=== PATIENT | female | born 1970 | race African-American/Black ===

== ENCOUNTER → 2017-01-10 | Outpatient (CLI) | payer MEDICARE, OTHER ==
--- NOTE | 2017-01-10 10:45 | XR ---
EXAM TYPE: LUMBAR SPINE X RAY SERIES COMPARISON: 09/12/2016 HISTORY: Postop TECHNIQUE: 3 views are submitted. FINDINGS: Postsurgical changes are noted. Alignment is stable. No compression deformities. Remaining levels dem onstrate pedicles intact. Grade 1 anterolisthesis L4 on L5 noted IMPRESSION: 1. Stable postsurgical alignment.
== END | disposition home or self-care (01) ==
LOC: RADXRMAIN 10:16
PROVIDERS: ATTEND Neurological Surgery
DX: M54.5 Low back pain (principal); Z98.1 Arthrodesis status
CPT/HCPCS: 72100

== ENCOUNTER 2020-09-08 12:54 | Day surgery (SDC) | payer MEDICARE ==
[2020-09-08] MEDS ORDERED: ALPRAZolam 0.5 MG TAB PO STA (13:16)
[2020-09-08 14:37] VITALS: RESP 18; TEMP 98.3
[2020-09-08 14:45] VITALS: BP 146/84; PULSE 80
--- NOTE | 2020-09-08 15:43 | US ---
EXAMINATION TYPE: US FNA thyroid first lesion DATE OF EXAM: 09/08/2020 COMPARISON: Outside ultrasound 08/17/2020 HISTORY: Thyroid nodule. Maximal barrier technique was utilized. After informed consent, skin overlying the nodule superior t o the thyroid isthmus was localized with ultrasound and the overlying skin prepped and draped. Ultras ound was utilized using sterile technique. Lidocaine was used for local anesthesia. Five passes with a 25-gauge needle were made into the nodule and aspirated specimen was submitted to cytology. Follo wing the procedure hemostasis achieved. No immediate complication. The patient discharged in stable condition. IMPRESSION: STATUS POST ULTRASOUND GUIDED FINE NEEDLE ASPIRATION OF DESCRIBED NODULE, PATHOLOGY IS PE NDING. THIS PROCEDURE WAS PERFORMED BY THE UNDERSIGNED.
== END 2020-09-08 14:20 | disposition home or self-care (01) ==
LOC: RADPROMAIN 12:54
PROVIDERS: ATTEND Physician Assistant
DX: E04.1 Nontoxic single thyroid nodule (principal)
CPT/HCPCS: 10005; 88173; 88305

== ENCOUNTER → 2023-06-03 | Outpatient (CLI) | payer MEDICARE, OTHER ==
[2023-06-03 13:55] VITALS: BP 130/89; PULSE 93; TEMP 98.4; BMI 51.5
--- NOTE | 2023-06-07 10:16 | P.HPBAR ---
Bariatric H&P - History & Physicial H&P Date: 06/03/23 History & Physicial: Visit/CC: lap band follow up Patient initial contact: Initial weight: Initial weight in pounds: Height: 5 ft Initial BMI: Last weight: Current weight: 119.748 kg Current weight in pounds: 264.00 Current BMI: 51.5 [place] body weight (based on NIH guidelines): 45.359 kg Excess body weight loss: The patient is a 52 year-old F who presents for Bariatric Assessment. Patient presents today for better follow-up. Patient requesting have her LAP-BAND converted to sleeve gastric. She's had trouble with chronic dysphagia and GERD symptoms. Past Medical History Past Medical History: Asthma, Chest Pain / Angina, COPD, Diabetes Mellitus, GERD/Reflux, Hypertension, Osteoarthritis (OA), Pneumonia, Sleep Apnea/CPAP/BIPAP Additional Past Medical History / Comment(s): DDD, borderline diabetic, no CPAP machine---awaiting sleep study History of Any Multi-Drug Resistant Organisms: None Reported Year Discovered:: 06/22/2014 MDRO Source:: Breast Past Surgical History: Back Surgery, Bariatric Surgery, Section, Cholecystectomy, Joint Replacement, Tubal Ligation Additional Past Surgical History / Comment(s): bilateral knee replacement, lap band procedure, RT WRIST GANGLION CYCT REMOVED, lumbar fusion surgery Past Anesthesia/Blood Transfusion Reactions: No Reported Reaction Past Psychological History: Anxiety, Bipolar, Depression Smoking Status: Current every day smoker Past Alcohol Use History: None Reported Additional Past Alcohol Use History / Comment(s): smoker for 35 years 6 cigarettes mper day Past Drug Use History: None Reported - Past Family History Mother Family Medical History: Hypertension Surgical - Exam Vital Signs Temp Pulse BP 98.4 F 93 130/89 06/03/23 13:22 06/03/23 13:22 06/03/23 13:22 - General well developed, well nourished, no distress - Eyes PERRL - Abdomen Abdomen: soft, non tender Bariatric Assessment & Plan Plan: Chronic dysphagia and GERD related to LAP-BAND. Patient unable have her Danuta adjusted. Patient will attempt have insurance authorization for conversion sleeve gastrectomy. She will also be scheduled for EGD. Bariatric Checklist Checklist: Plan: Checklist: EGD: 1. Hiatal hernia: 2. H. Pylori: HgbA1c: Vitamin D: Smoking: Current every day smoker Primary care physician referral: Psychiatry clearance: Cardiology clearance: Sleep study: Diet journal: VTE risk score: VTE risk level: Rehab needs at discharge:
== END ==
LOC: BARWHC3 13:01
PROVIDERS: ATTEND Surgery
DX: E66.01 Morbid (severe) obesity due to excess calories (principal); K21.9 Gastro-esophageal reflux disease without esophagitis; F17.200 Nicotine dependence, unspecified, uncomplicated; Z68.43 Body mass index [BMI] 50.0-59.9, adult; J44.9 Chronic obstructive pulmonary disease, unspecified; E11.9 Type 2 diabetes mellitus without complications; I10 Essential (primary) hypertension; M19.90 Unspecified osteoarthritis, unspecified site; Z98.84 Bariatric surgery status; R13.10 Dysphagia, unspecified
CPT/HCPCS: 99202

== ENCOUNTER 2023-06-20 06:29 | Day surgery (SDC) | payer OTHER ==
[2023-06-13 12:22] VITALS: BMI 51.7
[2023-06-20] MEDS ORDERED: LACTATED RINGERS 1,000 ML IV ONE (06:50)
[2023-06-20 06:53] VITALS: RESP 18; TEMP 96.9
[2023-06-20 07:05] LABS: Glucose,Whole Blood 103 mg/dL (70-110)
[2023-06-20] MEDS ORDERED: LIDOCAINE 2% INJ 20 MG/ML (2 ML VIAL) ONE (07:32)
[2023-06-20] MEDS ORDERED: PROPOFOL 10 MG/ML 20 ML VIAL IV ONE (07:32)
--- NOTE | 2023-06-20 07:45 | P.GSHP ---
History of Present Illness H&P Date: 06/20/23 Chief Complaint: GERD, dysphagia, screening colonoscopy This a 52-year-old female who presents today for EGD and screening colonoscopy. Patient issues with GERD and dysphagia related to her LAP-BAND. Past Medical History Past Medical History: Asthma, Chest Pain / Angina, COPD, Diabetes Mellitus, GERD/Reflux, Hypertension, Osteoarthritis (OA), Pneumonia, Sleep Apnea/CPAP/BIPAP Additional Past Medical History / Comment(s): DDD, borderline diabetic, no CPAP machine---awaiting new sleep study, environmental allergies., has lap band. History of Any Multi-Drug Resistant Organisms: MRSA Date of last positivie culture/infection: 2020 MDRO Source:: breast Past Surgical History: Back Surgery, Bariatric Surgery, Section, Cholecystectomy, Joint Replacement, Tubal Ligation Additional Past Surgical History / Comment(s): bilateral knee replacement, lap band , RT WRIST GANGLION CYCT REMOVED, lumbar fusion surgery Past Anesthesia/Blood Transfusion Reactions: No Reported Reaction Past Psychological History: Anxiety, Bipolar, Depression Smoking Status: Current every day smoker Past Alcohol Use History: Occasional Additional Past Alcohol Use History / Comment(s): smokes 2-3 cigarettes/day, hx of 1/2 ppd, started smoking age 14. Past Drug Use History: None Reported - Past Family History Mother Family Medical History: Hypertension Medications and Allergies Home Medications Medication Instructions Recorded Confirmed Type Gabapentin [Neurontin] 600 mg PO DAILY 04/14/14 06/20/23 History Budesonide-Formot 160-4.5 Mcg 2 puff INHALATION DIRECTED PRN 09/28/19 06/20/23 History [Symbicort 160-4.5 Mcg Inhaler] QUEtiapine [SEROquel] 200 mg PO HS 09/28/19 06/20/23 History Fluticasone Propion/Salmeterol 2 puff INHALATION DAILY 06/05/23 06/20/23 History [Advair Hfa 115-21 Mcg Inhaler] Lisinopril-Hctz 20-25 mg 1 tab PO DAILY 06/05/23 06/20/23 History [Zestoretic 20-25] amLODIPine [Norvasc] 5 mg PO DAILY 06/05/23 06/20/23 History Ibuprofen [Motrin Ib] 800 mg PO DIRECTED PRN 06/13/23 06/20/23 History DULoxetine HCL [Cymbalta] 60 mg PO DAILY 06/20/23 06/20/23 History Allergies Allergy/AdvReac Type Severity Reaction Status Date / Time No Known Allergies Allergy Verified 06/20/23 06:46 Surgical - Exam Vital Signs Temp Pulse Resp BP Pulse Ox 96.9 F L 89 18 138/82 96 06/20/23 06:47 06/20/23 06:47 06/20/23 06:47 06/20/23 06:47 06/20/23 06:47 - General well developed, well nourished, no distress - Eyes PERRL - ENT normal pinna - Neck no masses - Respiratory normal expansion - Cardiovascular Rhythm: regular - Abdomen Abdomen: soft, non tender Assessment and Plan Assessment: GERD, dysphagia. We'll perform EGD and screening colonoscopy.
--- NOTE | 2023-06-20 07:56 | P.OP ---
Date of Procedure: 06/20/23 Preoperative Diagnosis: GERD, dysphagia Screening colonoscopy Postoperative Diagnosis: Antral gastritis Procedure(s) Performed: EGD Colonoscopy Anesthesia: MAC Surgeon: Felipe Alberto Pathology: other (Antrum) Condition: stable Disposition: PACU Description of Procedure: The patient's placed on the endoscopy table in the lateral position. She received IV sedation. The gastroscope placed oropharynx passed in the esophagus and stomach. Scope was then placed through the pylorus. The first and second portion of the duodenum appeared normal. Scope was then brought back the antrum was minimal inflamed. A biopsies performed. The scope was retroflexed and remainder the stomach appeared normal. The proximal esophagus normal. Scope withdrawn for patient. Next digital rectal exam was performed., This revealed no abnormalities. The colonoscope was then placed patient anus and passed throughout the entire colon. Patient had a poor colon prep. The large amount liquid stool which limited view of the mucosa. The ileocecal valve was visualized. The cecum, ascending and transverse colon appeared normal. The descending and sigmoid colon appeared normal. The scope was then brought back the rectum this normal. Scope withdrawn for patient.
[2023-06-20 08:23] VITALS: BP 103/72; PULSE 78
== END 2023-06-20 08:45 | disposition home or self-care (01) ==
LOC: ORWHC2ENDO 06:29
PROVIDERS: ATTEND Surgery
DX: Z12.11 Encounter for screening for malignant neoplasm of colon (principal); K29.50 Unspecified chronic gastritis without bleeding; K21.9 Gastro-esophageal reflux disease without esophagitis; J44.9 Chronic obstructive pulmonary disease, unspecified; E11.9 Type 2 diabetes mellitus without complications; I10 Essential (primary) hypertension; M19.90 Unspecified osteoarthritis, unspecified site; G47.30 Sleep apnea, unspecified; Z98.891 History of uterine scar from previous surgery; Z90.49 Acquired absence of other specified parts of digestive tract; Z96.653 Presence of artificial knee joint, bilateral; F17.210 Nicotine dependence, cigarettes, uncomplicated; Z86.59 Personal history of other mental and behavioral disorders; Z82.49 Family history of ischemic heart disease and other diseases of the circulatory system; Z79.899 Other long term (current) drug therapy
CPT/HCPCS: 45378; 88305; 43239; J2704; J2001

== ENCOUNTER → 2023-07-29 | Outpatient (CLI) | payer OTHER ==
[2023-07-29 13:41] VITALS: BP 136/86; PULSE 101; TEMP 98.1; BMI 50.3
--- NOTE | 2023-08-14 09:10 | P.HPBAR ---
Bariatric H&P - History & Physicial H&P Date: 07/29/23 History & Physicial: Visit/CC: discuss conversion to sleeve Patient initial contact: Initial weight: Initial weight in pounds: Height: 5 ft Initial BMI: Last weight: Current weight: 117.027 kg Current weight in pounds: 258.00 Current BMI: 50.3 [place] body weight (based on NIH guidelines): 45.359 kg Excess body weight loss: The patient is a 52 year-old F who presents for Bariatric Assessment. Patient presents today for Garcia follow-up. She's had trouble with dysphagia. She cannot have her band adjusted due to issues with dysphagia. She is requesting conversion sleeve gastrectomy. Past Medical History Past Medical History: Asthma, Chest Pain / Angina, COPD, Diabetes Mellitus, GERD/Reflux, Hypertension, Osteoarthritis (OA), Pneumonia, Sleep Apnea/CPAP/BIPAP Additional Past Medical History / Comment(s): DDD, borderline diabetic, no CPAP machine---awaiting new sleep study, environmental allergies., has lap band. History of Any Multi-Drug Resistant Organisms: MRSA Year Discovered:: 2020 MDRO Source:: breast Past Surgical History: Back Surgery, Bariatric Surgery, Section, Cholecystectomy, Joint Replacement, Tubal Ligation Additional Past Surgical History / Comment(s): bilateral knee replacement, lap band , RT WRIST GANGLION CYCT REMOVED, lumbar fusion surgery Past Anesthesia/Blood Transfusion Reactions: No Reported Reaction Past Psychological History: Anxiety, Bipolar, Depression Smoking Status: Current every day smoker Past Alcohol Use History: Occasional Additional Past Alcohol Use History / Comment(s): smokes 2-3 cigarettes/day, hx of 1/2 ppd, started smoking age 14. Past Drug Use History: None Reported - Past Family History Mother Family Medical History: Hypertension Surgical - Exam Vital Signs Temp Pulse BP 98.1 F 101 H 136/86 07/29/23 13:36 07/29/23 13:36 07/29/23 13:36 - General well developed, well nourished, no distress - Eyes PERRL - ENT normal pinna - Neck no masses - Respiratory normal expansion - Cardiovascular Rhythm: regular - Abdomen Abdomen: soft, non tender Bariatric Assessment & Plan Plan: Dysphagia and GERD related to her LAP-BAND. Patient will need to have her LAP- BAND removed. We will attempt to obtain insurance authorization for conversion sleeve gastrectomy. Bariatric Checklist Checklist: Plan: Checklist: EGD: 1. Hiatal hernia: 2. H. Pylori: HgbA1c: Vitamin D: Smoking: Current every day smoker Primary care physician referral: Psychiatry clearance: Cardiology clearance: Sleep study: Diet journal: VTE risk score: VTE risk level: Rehab needs at discharge:
== END ==
LOC: BARWHC3 13:19
PROVIDERS: ATTEND Surgery
DX: K21.9 Gastro-esophageal reflux disease without esophagitis (principal); R13.10 Dysphagia, unspecified; F17.210 Nicotine dependence, cigarettes, uncomplicated; J44.9 Chronic obstructive pulmonary disease, unspecified; E11.9 Type 2 diabetes mellitus without complications; I10 Essential (primary) hypertension; M19.90 Unspecified osteoarthritis, unspecified site; G47.30 Sleep apnea, unspecified; Z98.84 Bariatric surgery status; Z79.899 Other long term (current) drug therapy; Z79.51 Long term (current) use of inhaled steroids
CPT/HCPCS: 99211

== ENCOUNTER → 2024-01-20 | Outpatient (CLI) | payer OTHER ==
[2024-01-20 11:46] VITALS: BP 129/76; PULSE 88; TEMP 98.4; BMI 50.6
--- NOTE | 2024-01-20 14:29 | P.HPBAR ---
Bariatric H&P - History & Physicial H&P Date: 01/20/24 History & Physicial: Visit/CC: F/U Patient initial contact: Initial weight: Initial weight in pounds: Height: 5 ft Initial BMI: Last weight: Current weight: 117.662 kg Current weight in pounds: 259.40 Current BMI: 50.6 [place] body weight (based on NIH guidelines): 45.359 kg Excess body weight loss: The patient is a 53 year-old F who presents for Bariatric Assessment. Patient will stay for Garcia fall. She's requesting conversion sleeve gastrectomy. Patient has GERD and dysphagia symptoms with her LAP-BAND was adjusted. She is unable tolerate a LAP-BAND adjustment. Her current BMI is 51. Past Medical History Past Medical History: Asthma, Chest Pain / Angina, COPD, Diabetes Mellitus, GERD/Reflux, Hypertension, Osteoarthritis (OA), Pneumonia, Sleep Apnea/CPAP/BIPAP Additional Past Medical History / Comment(s): DDD, borderline diabetic, no CPAP machine---awaiting new sleep study, environmental allergies., has lap band. History of Any Multi-Drug Resistant Organisms: MRSA Year Discovered:: 2020 MDRO Source:: breast Past Surgical History: Back Surgery, Bariatric Surgery, Section, Cholecystectomy, Joint Replacement, Tubal Ligation Additional Past Surgical History / Comment(s): bilateral knee replacement, lap band , RT WRIST GANGLION CYCT REMOVED, lumbar fusion surgery Past Anesthesia/Blood Transfusion Reactions: No Reported Reaction Past Psychological History: Anxiety, Bipolar, Depression Smoking Status: Current every day smoker Past Alcohol Use History: Occasional Additional Past Alcohol Use History / Comment(s): smokes 2-3 cigarettes/day, hx of 1/2 ppd, started smoking age 14. Past Drug Use History: None Reported - Past Family History Mother Family Medical History: Hypertension Surgical - Exam Vital Signs Temp Pulse BP 98.4 F 88 129/76 01/20/24 11:39 01/20/24 11:39 01/20/24 11:39 - General well developed, well nourished, no distress - Eyes PERRL - ENT normal pinna - Neck no masses - Respiratory normal expansion - Cardiovascular Rhythm: regular - Abdomen Abdomen: soft, non tender Bariatric Assessment & Plan Plan: Morbid obesity. Patient is unable to have her Danuta adjusted due to chronic issues with GERD and dysphagia.. We will attempt to obtain insurance authorization for conversion sleeve gastrectomy. Bariatric Checklist Checklist: Plan: Checklist: EGD: 1. Hiatal hernia: 2. H. Pylori: HgbA1c: Vitamin D: Smoking: Current every day smoker Primary care physician referral: Psychiatry clearance: Cardiology clearance: Sleep study: Diet journal: VTE risk score: VTE risk level: Rehab needs at discharge:
[2024-01-20 18:47] LABS: HCT 43.4 % (37.2-46.3); HGB 13.4 g/dL (12.0-15.0); MCH 25.9 pg (27.0-32.0); MCHC 30.9 g/dL (32.0-37.0); MCV 83.9 FL (80.0-97.0); Mean Platelet Volume 11.1 FL (9.5-12.2); NRBC Per 100 WBC 0 X 10*3/uL (0.00-0.01); Platelet Count 229 X 10*3/uL (140-440); RBC 5.17 X 10*6/uL (4.10-5.20); RDW 15.2 % (11.5-14.5); WBC 5.45 X 10*3/uL (4.50-10.00)
[2024-01-20 19:21] LABS: ALT 17 U/L (8-44); AST 25 U/L (13-35); Albumin 3.6 g/dL (3.8-4.9); Albumin/Globulin Ratio 1.57 Ratio (1.60-3.17); Alkaline Phosphatase 50 U/L (41-126); Blood Urea Nitrogen 18.2 mg/dL (9.0-27.0); Calcium 8.5 mg/dL (8.7-10.3); Carbon Dioxide 28.8 mmol/L (21.6-31.8); Chloride 106 mmol/L (96-109); Globulin 2.3 g/dL (1.6-3.3); Glucose 99 mg/dL (70-110); Potassium 3.8 mmol/L (3.5-5.5); Sodium 144 mmol/L (135-145); Total Bilirubin 0.3 mg/dL (0.3-1.2); Total Protein 5.9 g/dL (6.2-8.2)
== END | disposition home or self-care (01) ==
LOC: BARWHC3 11:11
PROVIDERS: ATTEND Surgery
DX: E66.01 Morbid (severe) obesity due to excess calories (principal); K21.9 Gastro-esophageal reflux disease without esophagitis; R13.10 Dysphagia, unspecified; M51.36 Other intervertebral disc degeneration, lumbar region; F31.9 Bipolar disorder, unspecified; F17.210 Nicotine dependence, cigarettes, uncomplicated; Z98.84 Bariatric surgery status; Z90.49 Acquired absence of other specified parts of digestive tract; J44.89 Other specified chronic obstructive pulmonary disease; Z96.653 Presence of artificial knee joint, bilateral
CPT/HCPCS: 84425; 80053; 82607; 82746; 85027; 82306; 83036; 93005; 36415; G0463; 99211

== ENCOUNTER → 2024-02-24 | Outpatient (CLI) | payer MEDICARE, OTHER ==
[2024-02-24 14:50] VITALS: BMI 48.8
== END ==
LOC: BARWHC3 13:03
PROVIDERS: ATTEND Surgery
DX: E66.01 Morbid (severe) obesity due to excess calories (principal); Z71.3 Dietary counseling and surveillance; F17.200 Nicotine dependence, unspecified, uncomplicated
CPT/HCPCS: 97804; G0463; 99211

== ENCOUNTER → 2024-03-16 | Outpatient (CLI) | payer MEDICARE ==
[2024-03-16 10:33] VITALS: BP 134/76; PULSE 95; RESP 14; TEMP 98.3
--- NOTE | 2024-03-17 11:58 | P.HPBAR ---
Bariatric H&P - History & Physicial H&P Date: 03/16/24 History & Physicial: Visit/CC: presurgical Patient initial contact: Initial weight: Initial weight in pounds: Height: Initial BMI: Last weight: Current weight: 115.212 kg Current weight in pounds: 254.00 Current BMI: [place] body weight (based on NIH guidelines): Excess body weight loss: The patient is a 53 year-old F who presents for Bariatric Assessment.patient resents today for bariatric follow-up. the patient will be scheduled for LAP- BAND removal and gastric sleeve Week. She is gained 4 pounds her last visit. She has had issues with GERD with her LAP-BAND. Past Medical History Past Medical History: Asthma, Chest Pain / Angina, COPD, Diabetes Mellitus, GERD/Reflux, Hypertension, Osteoarthritis (OA), Pneumonia, Sleep Apnea/CPAP/BIPAP Additional Past Medical History / Comment(s): DDD, borderline diabetic, no CPAP machine---awaiting new sleep study, environmental allergies., has lap band. History of Any Multi-Drug Resistant Organisms: MRSA Year Discovered:: 2020 MDRO Source:: breast Past Surgical History: Back Surgery, Bariatric Surgery, Section, Cholecystectomy, Joint Replacement, Tubal Ligation Additional Past Surgical History / Comment(s): bilateral knee replacement, lap band , RT WRIST GANGLION CYCT REMOVED, lumbar fusion surgery Past Anesthesia/Blood Transfusion Reactions: No Reported Reaction Past Psychological History: Anxiety, Bipolar, Depression Smoking Status: Current every day smoker Past Alcohol Use History: Occasional Additional Past Alcohol Use History / Comment(s): smokes 2-3 cigarettes/day, hx of 1/2 ppd, started smoking age 14. Past Drug Use History: None Reported - Past Family History Mother Family Medical History: Hypertension Surgical - Exam Vital Signs Temp Pulse Resp BP 98.3 F 95 14 134/76 03/16/24 09:13 03/16/24 09:13 03/16/24 09:13 03/16/24 09:13 - General well developed, well nourished, no distress - Eyes PERRL - ENT normal pinna - Neck no masses - Respiratory normal expansion - Cardiovascular Rhythm: regular - Abdomen Abdomen: soft, non tender Bariatric Assessment & Plan Plan: history of chronic dysphagia and GERD with LAP-BAND. Patient was scheduled for removal LAP-BAND and conversion sleeve gastrectomy next week. All her questions were answered in the office today. Bariatric Checklist Checklist: Plan: Checklist: EGD: 1. Hiatal hernia: 2. H. Pylori: HgbA1c: Vitamin D: Smoking: Current every day smoker Primary care physician referral: Psychiatry clearance: Cardiology clearance: Sleep study: Diet journal: VTE risk score: VTE risk level: Rehab needs at discharge:
== END ==
LOC: BARWHC3 09:01
PROVIDERS: ATTEND Surgery
DX: K21.9 Gastro-esophageal reflux disease without esophagitis (principal); F17.210 Nicotine dependence, cigarettes, uncomplicated; R13.10 Dysphagia, unspecified; Z46.51 Encounter for fitting and adjustment of gastric lap band; Z98.84 Bariatric surgery status; Z90.3 Acquired absence of stomach [part of]
CPT/HCPCS: 99211

== ENCOUNTER → 2024-03-16 | Outpatient (CLI) | payer MEDICARE ==
[2024-03-16 17:25] LABS: Basophils # (A) 0.03 X 10*3/uL (0.00-0.10); Basophils % (A) 0.4 %; Eosinophils # (A) 0.08 X 10*3/uL (0.04-0.35); Eosinophils % (A) 1.2 %; HCT 44.7 % (37.2-46.3); HGB 13.5 g/dL (12.0-15.0); Lymphocytes # (A) 1.99 X 10*3/uL (0.90-5.00); Lymphocytes % (A) 29.4 %; MCH 25.6 pg (27.0-32.0); MCHC 30.2 g/dL (32.0-37.0); MCV 84.7 FL (80.0-97.0); Mean Platelet Volume 11.4 FL (9.5-12.2); Monocytes # (A) 0.36 X 10*3/uL (0.20-1.00); Monocytes % (A) 5.3 %; NRBC Per 100 WBC 0 X 10*3/uL (0.00-0.01); Neutrophils # (A) 4.29 X 10*3/uL (1.80-7.70); Neutrophils % (A) 63.3 %; Platelet Count 214 X 10*3/uL (140-440); RBC 5.28 X 10*6/uL (4.10-5.20); RDW 15.7 % (11.5-14.5); WBC 6.78 X 10*3/uL (4.50-10.00)
[2024-03-16 18:21] LABS: Albumin 3.7 g/dL (3.8-4.9); Albumin/Globulin Ratio 1.76 Ratio (1.60-3.17); BUN/Creat Ratio 14.22 Ratio (12.00-20.00); Blood Urea Nitrogen 12.8 mg/dL (9.0-27.0); Calcium 9.2 mg/dL (8.7-10.3); Carbon Dioxide 31.8 mmol/L (21.6-31.8); Chloride 104 mmol/L (96-109); Globulin 2.1 g/dL (1.6-3.3); Glucose 100 mg/dL (70-110); Potassium 4.1 mmol/L (3.5-5.5); Sodium 143 mmol/L (135-145); Total Bilirubin 0.3 mg/dL (0.3-1.2); Total Protein 5.8 g/dL (6.2-8.2)
[2024-03-16 18:22] LABS: ALT 14 U/L (8-44); AST 21 U/L (13-35); Alkaline Phosphatase 53 U/L (41-126)
== END | disposition home or self-care (01) ==
LOC: LABPAT 09:47
PROVIDERS: ATTEND Surgery
DX: Z01.812 Encounter for preprocedural laboratory examination (principal)
CPT/HCPCS: 36415; 80053; 85025

== ENCOUNTER → 2024-08-17 | Outpatient (CLI) | payer MEDICARE, OTHER ==
[2024-08-17 11:07] VITALS: BP 141/94; PULSE 92; RESP 16; TEMP 98.6; BMI 48.2
--- NOTE | 2024-08-17 12:03 | P.HPBAR ---
Bariatric H&P - History & Physicial H&P Date: 08/17/24 History & Physicial: Visit/CC: f/u Patient initial contact: Initial weight: Initial weight in pounds: Height: 4 ft 11 in Initial BMI: Last weight: Current weight: 108.409 kg Current weight in pounds: 239.00 Current BMI: 48.2 [place] body weight (based on NIH guidelines): 43.091 kg Excess body weight loss: The patient is a 53 year-old F who presents for Bariatric Assessment. Patient presents today for Peritrate follow-up. Patient is still considering sleeve gastrectomy. She is lost she is gained almost 20 pounds her last visit. Patient is unable to tolerate a fill of her Lap-Band due to dysphagia. Past Medical History Past Medical History: Asthma, Chest Pain / Angina, COPD, Diabetes Mellitus, GERD/Reflux, Hypertension, Osteoarthritis (OA), Pneumonia, Sleep Apnea/CPAP/BIPA P Additional Past Medical History / Comment(s): DDD, borderline diabetic, no CPAP machine---awaiting new sleep study, environmental allergies., has lap band. History of Any Multi-Drug Resistant Organisms: MRSA Year Discovered:: 06/22/14 MDRO Source:: breast Past Surgical History: Back Surgery, Bariatric Surgery, Section, Cholecystectomy, Joint Replacement, Tubal Ligation Additional Past Surgical History / Comment(s): bilateral knee replacement, lap band , RT WRIST GANGLION CYCT REMOVED, lumbar fusion surgery Past Anesthesia/Blood Transfusion Reactions: No Reported Reaction Past Psychological History: Anxiety, Bipolar, Depression Smoking Status: Current every day smoker Past Alcohol Use History: Occasional Additional Past Alcohol Use History / Comment(s): smokes 2-3 cigarettes/day, hx of 1/2 ppd, started smoking age 14. Past Drug Use History: None Reported - Past Family History Mother Family Medical History: Hypertension Surgical - Exam Vital Signs Temp Pulse Resp BP 98.6 F 92 16 141/94 08/17/24 10:56 08/17/24 10:56 08/17/24 10:56 08/17/24 10:56 - General well developed, well nourished, no distress - Eyes PERRL - ENT normal pinna - Neck no masses - Respiratory normal expansion - Cardiovascular Rhythm: regular - Abdomen Abdomen: soft, non tender Bariatric Assessment & Plan Plan: Dysphagia and GERD related Lap-Band. Patient will follow-up in 2 weeks. She is considering conversion to sleeve gastrectomy. Bariatric Checklist Checklist: Plan: Checklist: EGD: 1. Hiatal hernia: 2. H. Pylori: HgbA1c: Vitamin D: Smoking: Current every day smoker Primary care physician referral: Dr. Machuca Psychiatry clearance: Cardiology clearance: Sleep study: Diet journal: VTE risk score: VTE risk level: Rehab needs at discharge:
== END | disposition home or self-care (01) ==
LOC: BARWHC3 10:29
PROVIDERS: ATTEND Surgery
DX: E66.01 Morbid (severe) obesity due to excess calories
CPT/HCPCS: 99211

== ENCOUNTER → 2024-08-31 | Outpatient (CLI) | payer MEDICARE, OTHER ==
[2024-08-31 15:45] LABS: ALT 13 U/L (8-44); AST 36 U/L (13-35); Albumin/Globulin Ratio 1.48 Ratio (1.60-3.17); Alkaline Phosphatase 66 U/L (41-126); BUN/Creat Ratio 20.22 Ratio (12.00-20.00); Blood Urea Nitrogen 18.2 mg/dL (9.0-27.0); Calcium 8.8 mg/dL (8.7-10.3); Carbon Dioxide 20.4 mmol/L (21.6-31.8); Chloride 103 mmol/L (96-109); Globulin 2.7 g/dL (1.6-3.3); Glucose 90 mg/dL (70-110); Potassium 4.2 mmol/L (3.5-5.5); Sodium 140 mmol/L (135-145); Total Bilirubin 0.4 mg/dL (0.3-1.2); Total Protein 6.7 g/dL (6.2-8.2)
[2024-08-31 16:08] LABS: HCT 44.5 % (37.2-46.3); HGB 13.9 g/dL (12.0-15.0); MCH 26.1 pg (27.0-32.0); MCHC 31.2 g/dL (32.0-37.0); MCV 83.5 FL (80.0-97.0); Mean Platelet Volume 11.2 FL (9.5-12.2); NRBC Per 100 WBC 0 X 10*3/uL (0.00-0.01); Platelet Count 232 X 10*3/uL (140-440); RBC 5.33 X 10*6/uL (4.10-5.20); RDW 15.2 % (11.5-14.5); WBC 5.76 X 10*3/uL (4.50-10.00)
[2024-08-31 16:09] LABS: Basophils # (A) 0.02 X 10*3/uL (0.00-0.10); Basophils % (A) 0.3 %; Eosinophils # (A) 0.09 X 10*3/uL (0.04-0.35); Eosinophils % (A) 1.6 %; Lymphocytes # (A) 2.28 X 10*3/uL (0.90-5.00); Lymphocytes % (A) 39.6 %; Monocytes % (A) 5.2 %; Neutrophils # (A) 3.05 X 10*3/uL (1.80-7.70)
== END | disposition home or self-care (01) ==
LOC: LABPAT 11:14
PROVIDERS: ATTEND Surgery
DX: Z01.818 Encounter for other preprocedural examination (principal)
CPT/HCPCS: 80053; 85025; 93005

== ENCOUNTER → 2024-08-31 | Outpatient (CLI) | payer MEDICARE, OTHER ==
[2024-08-31 10:26] VITALS: BP 108/76; PULSE 94; RESP 16; TEMP 98; BMI 48.6
--- NOTE | 2024-08-31 17:23 | P.HPBAR ---
Bariatric H&P - History & Physicial H&P Date: 08/31/24 History & Physicial: Visit/CC: pre surgical Patient initial contact: Initial weight: Initial weight in pounds: Height: 4 ft 11 in Initial BMI: Last weight: Current weight: 109.316 kg Current weight in pounds: 241.00 Current BMI: 48.6 [place] body weight (based on NIH guidelines): 43.091 kg Excess body weight loss: The patient is a 53 year-old F who presents for Bariatric Assessment. Patient presents today for presurgical cessation. Patient wishes to convert her Lap- Band to gastric sleeve. She has had issues with GERD and dysphagia related to her band. He is unable to tolerate fills of her Lap-Band. Her current BMI is 49. Past Medical History Past Medical History: Asthma, Chest Pain / Angina, COPD, Diabetes Mellitus, GERD/Reflux, Hypertension, Osteoarthritis (OA), Pneumonia, Sleep Apnea/CPAP/BIPAP Additional Past Medical History / Comment(s): DDD, borderline diabetic, no CPAP machine---awaiting new sleep study, environmental allergies., has lap band. History of Any Multi-Drug Resistant Organisms: MRSA Year Discovered:: 06/22/14 MDRO Source:: breast Past Surgical History: Back Surgery, Bariatric Surgery, Section, Cholecystectomy, Joint Replacement, Tubal Ligation Additional Past Surgical History / Comment(s): bilateral knee replacement, lap band , RT WRIST GANGLION CYCT REMOVED, lumbar fusion surgery Past Anesthesia/Blood Transfusion Reactions: No Reported Reaction Past Psychological History: Anxiety, Bipolar, Depression Smoking Status: Current every day smoker Past Alcohol Use History: Occasional Additional Past Alcohol Use History / Comment(s): smokes 2-3 cigarettes/day, hx of 1/2 ppd, started smoking age 14. Past Drug Use History: None Reported - Past Family History Mother Family Medical History: Hypertension Surgical - Exam Vital Signs Temp Pulse Resp BP 98.0 F 94 16 108/76 08/31/24 10:22 08/31/24 10:22 08/31/24 10:22 08/31/24 10:22 - General well developed, well nourished - Eyes PERRL - ENT normal pinna - Neck no masses - Cardiovascular Rhythm: regular - Abdomen Abdomen: soft, non tender Bariatric Assessment & Plan Plan: For obesity, BMI 49. Patient will have her Lap-Band removed and be converted to sleeve gastrectomy. Bariatric Checklist Checklist: Plan: Checklist: EGD: 1. Hiatal hernia: 2. H. Pylori: HgbA1c: Vitamin D: Smoking: Current every day smoker Primary care physician referral: Dr. Machuca Psychiatry clearance: Cardiology clearance: Sleep study: Diet journal: VTE risk score: VTE risk level: Rehab needs at discharge:
== END ==
LOC: BARWHC3 09:36
PROVIDERS: ATTEND Surgery
CPT/HCPCS: 99211

== ENCOUNTER → 2024-09-29 | Outpatient (CLI) | payer MEDICARE, OTHER ==
[2024-09-29 15:15] LABS: Blood Urea Nitrogen 14.9 mg/dL (9.0-27.0); Carbon Dioxide 28.5 mmol/L (21.6-31.8); Chloride 105 mmol/L (96-109); Potassium 3.9 mmol/L (3.5-5.5); Sodium 142 mmol/L (135-145)
[2024-09-29 16:21] LABS: HCT 41.8 % (37.2-46.3); MCH 26.3 pg (27.0-32.0); MCHC 31.1 g/dL (32.0-37.0); MCV 84.4 FL (80.0-97.0); NRBC Per 100 WBC 0 X 10*3/uL (0.00-0.01); Platelet Count 223 X 10*3/uL (140-440); RBC 4.95 X 10*6/uL (4.10-5.20); RDW 14.9 % (11.5-14.5); WBC 6.38 X 10*3/uL (4.50-10.00)
== END | disposition home or self-care (01) ==
LOC: LABPAT 11:07
PROVIDERS: ATTEND Internal Medicine Interventional Cardiology
DX: Z01.812 Encounter for preprocedural laboratory examination (principal); R94.39 Abnormal result of other cardiovascular function study
CPT/HCPCS: 80051; 82565; 84520; 85027

== ENCOUNTER 2024-10-27 06:13 | Day surgery (SDC) | payer MEDICARE, OTHER ==
[2024-10-27] MEDS ORDERED: ALPRAZolam 0.25 MG TAB PO PRN (06:33)
[2024-10-27] MEDS ORDERED: NITROGLYCERIN SL TABS 0.4 MG TAB SUBLINGUAL PRN (06:33)
[2024-10-27] MEDS ORDERED: ALPRAZolam 0.5 MG TAB PO PRN (06:33)
[2024-10-27 06:50] VITALS: TEMP 98.3
[2024-10-27] MEDS: IV FLUID CONTINUATION 1,000 ML IV ONE (06:50)
[2024-10-27] MEDS: SODIUM CHLORIDE 0.9% 1,000 ML in EMPTY BAG 1 BAG IV SCH (06:50)
[2024-10-27 06:56] LABS: Glucose,Whole Blood 98 mg/dL (70-110)
[2024-10-27] MEDS: ASPIRIN 325 MG TAB PO STA (07:09)
[2024-10-27] MEDS: fentaNYL (PF) 50 MCG/ML 2 ML AMP IVP ONE (07:36)
[2024-10-27] MEDS: LIDOCAINE 1% INJ 10MG/ML (20 ML MDV) SQ ONE ×2 (07:39)
[2024-10-27] MEDS: MIDAZOLAM 2 MG/2 ML VIAL IVP ONE (07:39)
[2024-10-27] MEDS: VERAPAMIL SYRINGE (5 MG/10 ML) INTRAARTER ONE (07:44)
[2024-10-27] MEDS: HEPARIN SODIUM 1,000 UN/ML (10ML VL) IV ONE (07:46)
[2024-10-27] MEDS: IOPAMIDOL-300 100ML BTL INJ ONE (07:56)
[2024-10-27] MEDS ORDERED: RX INFO: IV CONTRAST WAS GIVEN 1 EACH MISC MISCELLANE PRN (08:08)
--- NOTE | 2024-10-27 08:13 | P.CARDCATH ---
Date of Procedure: 10/27/24 Description of Procedure: Cardiac Catheterization: The patient is a 54-year-old female with history of hypertension, chronic tobacco use who has been complaining of episode of chest discomfort and she is scheduled to undergo surgical intervention, her MPI showed evidence of lateral wall ischemia. Recommendations were made regarding cardiac catheterization, the risks and the complications were discussed with the patient who is in full understanding and agreement. Procedure Description: Patient was brought to organic lab worker in fasting semi-sedated state after receiving Fentanyl and Benadryl achieiving moderate conscious sedated state. Using Xylocaine Anesthesia and modified Seldinger technique, a 6-Portuguese sheath was introduced in the right radial artery . Subsequently, selective coronary angiography was performed using a 5-Portuguese 3.5 bend Dinesh catheter. Multiple views of the coronary artery including hemiaxial views were obtained. The 6 Portuguese pigtail catheter was used to cross the aortic valve and LVEDP was calculated. Following that, catheter and sheath were removed. Hemostasis was obtained with deployment of vascular band . There was no immediate complication. Patient was returned to room in stable condition. Of note, the patient received a total of 5000 units of intravenous heparin as well as intra-arterial verapamil. Findings: Left main: This is a large size vessel, bifurcating into LAD and left circumflex, left main has no obstructive disease. LAD: This is a large size vessel, tortuous, reaching to the apex, giving rise to a moderately sized diagonal branch proximally. The LAD and its branches have no obstructive disease. Left circumflex: This is a large nondominant vessel giving rise to 2 obtuse marginal branch the first 1 is very proximal, the left circumflex and its branches have no obstructive disease RCA: This is a large dominant vessel tortuous proximally, bifurcating distally to PDA and PLV, the RCA and its branches have no evidence of obstructive disease Left Ventriculogram: Not performed Hemodynamics: There was no gradient across the aortic valve, LVEDP was 16-20 mmHg Conclusion: 1. Normal coronary arteries 2. Right dominance 3. Mildly elevated LVEDP Recommendations: I see no evidence of significant obstructive disease, her stress test represents a false positive. The patient should be stable to undergo her surgical intervention with aggressive coronary risks modifications and smoking cessation. The findings and the recommendations were discussed with the patient and the family and they were in full understanding and agreement. Duration of sedation is 17 minutes.
[2024-10-27] MEDS ORDERED: SODIUM CHLORIDE 0.9% 1,000 ML IV SCH (08:15)
[2024-10-27 08:49] VITALS: RESP 16
[2024-10-27] MEDS ORDERED: NON FORMULARY DRUG (Fluticasone/Umeclidin/Vilanter [Trelegy Ellipta 100-62.5-25] 1 EACH Bl INHALATION SCH (09:00)
[2024-10-27] MEDS ORDERED: DULoxetine HCL 60 MG CAPSULE.DR PO SCH (09:00)
[2024-10-27] MEDS ORDERED: amLODIPine 5 MG TAB PO SCH (09:00)
[2024-10-27] MEDS ORDERED: LISINOPRIL-HCTZ 20-25 MG 1 EACH TAB PO SCH (09:00)
[2024-10-27 11:26] VITALS: BP 124/76; PULSE 70
[2024-10-27] MEDS ORDERED: QUEtiapine 100 MG TAB PO SCH (21:00)
[2024-10-27] MEDS ORDERED: MONTELUKAST 10 MG TAB PO SCH (21:00)
[2024-10-28] MEDS ORDERED: ASPIRIN 81 MG PO SCH (09:00)
== END 2024-10-27 11:51 | disposition home or self-care (01) ==
LOC: CATHCVL 06:13
PROVIDERS: ATTEND Internal Medicine Interventional Cardiology
DX: R07.89 Other chest pain (principal); I10 Essential (primary) hypertension; E11.9 Type 2 diabetes mellitus without complications; J44.9 Chronic obstructive pulmonary disease, unspecified; Z79.82 Long term (current) use of aspirin; I08.0 Rheumatic disorders of both mitral and aortic valves; Z79.51 Long term (current) use of inhaled steroids; Z79.899 Other long term (current) drug therapy; F17.210 Nicotine dependence, cigarettes, uncomplicated
CPT/HCPCS: 93458; J2250; J2003; J3010; J1644; Q9967

== ENCOUNTER → 2024-11-30 | Outpatient (CLI) | payer MEDICARE, OTHER ==
[2024-11-30 10:35] VITALS: BP 118/77; PULSE 83; RESP 16; TEMP 97.8
--- NOTE | 2024-11-30 17:02 | P.HPBAR ---
Bariatric H&P - History & Physicial H&P Date: 11/30/24 History & Physicial: Visit/CC: f/u Patient initial contact: Initial weight: Initial weight in pounds: Height: 4 ft 11 in Initial BMI: Last weight: Current weight: 116.12 kg Current weight in pounds: 256.00 Current BMI: [place] body weight (based on NIH guidelines): Excess body weight loss: The patient is a 54 year-old F who presents for Bariatric Assessment. Patient presents today for Peritrate follow-up. She is requesting conversion to sleeve gastrectomy. Patient had issues chronic dysphagia related to Lap-Band. Past Medical History Past Medical History: Asthma, Chest Pain / Angina, COPD, Diabetes Mellitus, GERD/Reflux, Hypertension, Osteoarthritis (OA), Pneumonia, Sleep Apnea/CPAP/BIPAP Additional Past Medical History / Comment(s): DDD, borderline diabetic, uses CPAP machine environmental allergies., has lap band. History of Any Multi-Drug Resistant Organisms: MRSA Year Discovered:: 06/22/14 MDRO Source:: breast Past Surgical History: Back Surgery, Bariatric Surgery, Section, Cholecystectomy, Heart Catheterization, Joint Replacement, Tubal Ligation Additional Past Surgical History / Comment(s): bilateral knee replacement, lap band , RT WRIST GANGLION CYCT REMOVED, lumbar fusion surgery Past Anesthesia/Blood Transfusion Reactions: No Reported Reaction Past Psychological History: Anxiety, Bipolar, Depression Smoking Status: Current every day smoker Past Alcohol Use History: Occasional Additional Past Alcohol Use History / Comment(s): smokes 2-3 cigarettes/day, hx of 1/2 ppd, started smoking age 14. working on cutting down smoking Past Drug Use History: None Reported - Past Family History Mother Family Medical History: Hypertension Surgical - Exam Vital Signs Temp Pulse Resp BP 97.8 F 83 16 118/77 11/30/24 10:23 11/30/24 10:23 11/30/24 10:23 11/30/24 10:23 - General well developed, well nourished, no distress - Eyes PERRL - ENT normal pinna - Neck no masses - Respiratory normal expansion - Cardiovascular Rhythm: regular - Abdomen Abdomen: soft, non tender Bariatric Assessment & Plan Plan: Dysphagia related Lap-Band. Patient will be converted to sleeve gastrectomy. Bariatric Checklist Checklist: Plan: Checklist: EGD: 1. Hiatal hernia: 2. H. Pylori: HgbA1c: Vitamin D: Smoking: Current every day smoker Primary care physician referral: Dr. Machuca Psychiatry clearance: Cardiology clearance: Sleep study: Diet journal: VTE risk score: VTE risk level: Rehab needs at discharge:
== END ==
LOC: BARWHC3 10:15
PROVIDERS: ATTEND Surgery
DX: K44.9 Diaphragmatic hernia without obstruction or gangrene (principal); B96.81 Helicobacter pylori [H. pylori] as the cause of diseases classified elsewhere; F17.210 Nicotine dependence, cigarettes, uncomplicated
CPT/HCPCS: 99211

== ENCOUNTER → 2024-11-30 | Outpatient (CLI) | payer MEDICARE, OTHER ==
[2024-11-30 14:47] LABS: Basophils # (A) 0.04 X 10*3/uL (0.00-0.10); Basophils % (A) 0.6 %; Eosinophils # (A) 0.13 X 10*3/uL (0.04-0.35); Eosinophils % (A) 1.9 %; HCT 40.1 % (37.2-46.3); HGB 12.4 g/dL (12.0-15.0); Lymphocytes # (A) 2.81 X 10*3/uL (0.90-5.00); Lymphocytes % (A) 41.9 %; MCH 26.8 pg (27.0-32.0); MCHC 30.9 g/dL (32.0-37.0); MCV 86.6 FL (80.0-97.0); Monocytes # (A) 0.43 X 10*3/uL (0.20-1.00); Monocytes % (A) 6.4 %; NRBC Per 100 WBC 0 X 10*3/uL (0.00-0.01); Neutrophils # (A) 3.26 X 10*3/uL (1.80-7.70); Neutrophils % (A) 48.8 %; Platelet Count 216 X 10*3/uL (140-440); RBC 4.63 X 10*6/uL (4.10-5.20); RDW 15.4 % (11.5-14.5)
[2024-11-30 15:04] LABS: ALT 22 U/L (8-44); AST 26 U/L (13-35); Albumin 3.9 g/dL (3.8-4.9); Albumin/Globulin Ratio 1.56 Ratio (1.60-3.17); Alkaline Phosphatase 56 U/L (41-126); BUN/Creat Ratio 21.67 Ratio (12.00-20.00); Blood Urea Nitrogen 19.5 mg/dL (9.0-27.0); Calcium 9.2 mg/dL (8.7-10.3); Carbon Dioxide 28.3 mmol/L (21.6-31.8); Chloride 105 mmol/L (96-109); Globulin 2.5 g/dL (1.6-3.3); Glucose 89 mg/dL (70-110); Potassium 4.1 mmol/L (3.5-5.5); Sodium 142 mmol/L (135-145); Total Bilirubin 0.4 mg/dL (0.3-1.2); Total Protein 6.4 g/dL (6.2-8.2)
== END | disposition home or self-care (01) ==
LOC: LABPAT 10:53
PROVIDERS: ATTEND Surgery
DX: Z01.818 Encounter for other preprocedural examination (principal)
CPT/HCPCS: 80053; 85025

== ENCOUNTER → 2024-12-03 | Outpatient (CLI) | payer MEDICARE, OTHER ==
--- NOTE | 2024-12-03 13:18 | US ---
EXAMINATION TYPE: US thyroid st tissue head/neck DATE OF EXAM: 12/03/2024 COMPARISON: NONE CLINICAL INDICATION: Female, 54 years old with history of Q89.2 THYROGLOSSAL CYST; F/U TECHNIQUE: Grayscale and color Doppler imaging of the thyroid gland. FINDINGS: GLAND SIZE: Right Lobe: 3.9x1.6x1.6 cm Overall Parenchyma: homogeneous Left Lobe: 4.2x1.3x1.5 cm Overall Parenchyma: homogeneous Isthmus Thickness: 0.4 cm NODULES RIGHT: # of nodules measured on right: 0 LEFT: # of nodules measured on left: 0 ISTHMUS: # of nodules measured in the isthmus: 1 1. 3.0 X 1.6 x 1.6 cm solid or almost completely solid, isoechoic nodule, which is wider than tall, with ill-defined margins, without echogenic foci. Prior size: 2.5 x 0.9 x 1.6 cm Bilateral neck scanned, no evidence of lymphadenopathy. IMPRESSION: 1. Mildly suspicious nodule within the isthmus of the thyroid. Fine-needle aspiration recommended. 2017 ACR TI-RADS LEVEL: TR-RADS 3 - Mildly Suspicious: Follow if > 1.5 cm, FNA if > 2.5 cm *Highest TI-RADS level nodule reported [email or web address] [facility], , 12/03/2024 1:16 PM
== END | disposition home or self-care (01) ==
LOC: RADUSWWP 12:34
PROVIDERS: ATTEND Family Medicine
DX: Q89.2 Congenital malformations of other endocrine glands (principal)
CPT/HCPCS: 76536

== ENCOUNTER 2024-12-07 12:31 | Emergency (ER) | payer MEDICARE, OTHER ==
--- NOTE | 2024-12-07 13:03 | ED ---
General Adult HPI - General Chief complaint: Dizziness Stated complaint: Headache,dizziness Time Seen by Provider: 12/07/24 12:38 Source: patient Mode of arrival: ambulatory Limitations: no limitations - History of Present Illness Initial comments: Dictation was produced using [employer] dictation software. please excuse any grammatical, word or spelling errors. Chief Complaint: 54-year-old female with history of migraines presents to the emergency department for headache History of Present Illness: Patient 54-year-old female she gets intermittent marlene teresa for the last days she has been having throbbing occipital headache. States that it started yesterday got better after she took some Tylenol she woke up this morning started having it again. Complains of light sensitivity, sound sensitivity. Denies any extremity issues. Denies any vision changes. Patient reports she also feels a little dizzy. The ROS documented in this emergency department record has been reviewed and confirmed by me. Those systems with pertinent positive or negative responses have been documented in the HPI. All other systems are other negative and/or noncontributory. - Related Data Home Medications Medication Instructions Recorded Confirmed QUEtiapine [SEROquel] 200 mg PO HS 09/28/19 11/30/24 Lisinopril-Hctz 20-25 mg 1 tab PO QAM 06/05/23 11/30/24 [Zestoretic 20-25] amLODIPine [Norvasc] 10 mg PO QAM 06/05/23 11/30/24 DULoxetine HCL [Cymbalta] 60 mg PO QAM 06/20/23 11/30/24 Fluticasone/Umeclidin/Vilanter 1 puff INHALATION DAILY 08/17/24 11/30/24 [Trelegy Ellipta 100-62.5-25] Montelukast [Singulair] 1 tab PO HS 08/17/24 11/30/24 Aspirin [Adult Low Dose Aspirin EC] 81 mg PO DAILY 10/26/24 11/30/24 Allergies Allergy/AdvReac Type Severity Reaction Status Date / Time No Known Allergies Allergy Verified 12/07/24 12:36 Review of Systems ROS Statement: Those systems with pertinent positive or pertinent negative responses have been documented in the HPI. ROS Other: All systems not noted in ROS Statement are negative. Past Medical History Past Medical History: Asthma, Chest Pain / Angina, COPD, Diabetes Mellitus, GERD/Reflux, Hypertension, Osteoarthritis (OA), Pneumonia, Sleep Apnea/CPAP/BIPAP Additional Past Medical History / Comment(s): DDD, borderline diabetic, uses CPAP machine environmental allergies., has lap band. History of Any Multi-Drug Resistant Organisms: MRSA Date of last positivie culture/infection: 06/22/14 MDRO Source:: breast Past Surgical History: Back Surgery, Bariatric Surgery, Section, Cholecystectomy, Heart Catheterization, Joint Replacement, Tubal Ligation Additional Past Surgical History / Comment(s): bilateral knee replacement, lap band , RT WRIST GANGLION CYCT REMOVED, lumbar fusion surgery Past Anesthesia/Blood Transfusion Reactions: No Reported Reaction Past Psychological History: Anxiety, Bipolar, Depression Smoking Status: Current every day smoker Past Alcohol Use History: Occasional Past Drug Use History: None Reported - Past Family History Mother Family Medical History: Hypertension General Exam - General Exam Comments Initial Comments: PHYSICAL EXAM: General Impression: Alert and oriented x3, acute distress secondary to migraine HEENT: Normocephalic atraumatic, extra-ocular movements intact, pupils equal and reactive to light bilaterally, mucous membranes moist. Cardiovascular: Heart regular rate and rhythm Chest: Able to complete full sentences, no retractions, no tachypnea Abdomen: abdomen soft, non-tender, non-distended, no organomegaly Musculoskeletal: Pulses present and equal in all extremities, no peripheral edema Motor: no focal deficits noted Neurological: CN II-XII grossly intact, no focal motor or sensory deficits noted Skin: Intact with no visualized rashes Psych: Normal affect and mood Limitations: no limitations Course Vital Signs 12/07/24 12/07/24 12:32 14:09 Temperature 98.3 F Pulse Rate 80 70 Respiratory 18 18 Rate Blood Pressure 106/70 100/65 O2 Sat by Pulse 100 97 Oximetry Medical Decision Making - Medical Decision Making Was pt. sent in by a medical professional or institution (, PA, AGILE TESTER, urgent care, hospital, or skilled nursing...) When possible be specific @ -No Did you speak to anyone other than the patient for history (EMS, parent, family, police, friend...)? What history was obtained from this source @ -No Did you review nursing and triage notes (agree or disagree)? Why? @ -I reviewed and agree with nursing and triage notes Were old charts reviewed (outside hosp., previous admission, EMS record, old EKG, old radiological studies, urgent care reports/EKG's, skilled nursing records)? Report findings @ -No old charts were reviewed Differential Diagnosis (chest pain, altered mental status, abdominal pain women, abdominal pain men, vaginal bleeding, musculoskeletal, weakness, fever, dyspnea, syncope, headache, dizziness, GI bleed, back pain, seizure, CVA, palpatations, mental health)? @ -Differential Headache: Migraine, tension, cluster, carbon monoxide, central venous thrombosis, pension karma temporal arteritis, acute closure glaucoma, intercranial hemorrhage, mastoiditis, sinusitis, head injury, this is not meant to be an all-inclusive list. EKG interpreted by me (3pts min.). @ -None done X-rays interpreted by me (1pt min.). @ -None done CT interpreted by me (1pt min.). @ -CT brain is nonacute U/S interpreted by me (1pt. min.). @ -None done What testing was considered but not performed or refused? (CT, X-rays, U/S, labs)? Why? @ -None What meds were considered but not given or refused? Why? @ -None Was smoking cessation discussed for >3mins.? @ -No Were there social determinants of health that impacted care today? How? (Homelessness, low income, unemployed, alcoholism, drug addiction, transportation, low edu. Level, literacy, decrease access to med. care, half-way, rehab)? @ -No Was there de-escalation of care discussed even if they declined (Discuss DNR or withdrawal of care, Hospice)? DNR status @ -No What co-morbidities impacted this encounter? (DM, HTN, Smoking, COPD, CAD, Cancer, CVA, ARF, Chemo, Hep., AIDS, mental health diagnosis, sleep apnea, morbid obesity)? @ -Migraine disorder Was patient admitted / discharged? Hospital course, mention meds given and route, prescriptions, significant lab abnormalities, going to OR and other pertinent info. @ -54-year-old female presents emergency department headache. Patient has no high risk features. She reports history of headaches. Neurologic exam is unremarkable. Vital signs upon arrival are within acceptable limits. Patient given headache cocktail with improvement of symptoms. CT brain was obtained. Patient requesting discharge advised to follow-up with primary care doctor. Patient counseled on avoiding headache triggers Did you discuss the management of the patient with other professionals (professionals i.e. , PA, AGILE TESTER, lab, RT, psych nurse, social media manager, electric milkers installer, teacher, chief knowledge officer, porter sample case)? Give summary @ -No Was critical care preformed (if so, how long)? @ -No Undiagnosed new problem with uncertain prognosis? @ -No Drug Therapy requiring intensive monitoring for toxicity (Heparin, Nitro, Insulin, Cardizem)? @ -No Were any procedures done? @ -No Diagnosis/symptom? Acute, or Chronic, or Acute on Chronic? Uncomplicated (without systemic symptoms) or Complicated (systemic symptoms)? @ -Migraine Side effects of treatment? @ -No Exacerbation, Progression, or Severe Exacerbation? @ -No Poses a threat to life or bodily function? How? (Chest pain, [place], NH, pneumonia, PE, COPD, DKA, ARF, appy, cholecystitis, CVA, Diverticulitis, Homicidal, Suicidal, threat to staff... and all critical care pts) @ -No - Lab Data Result diagrams: 12/07/24 13:04 12/07/24 13:03 Lab Results 12/07/24 12/07/24 Range/Units 13:03 13:04 WBC 5.7 (3.8-10.6) k/uL RBC 4.64 (3.80-5.40) m/uL Hgb 12.6 (11.4-16.0) gm/dL Hct 39.5 (34.0-46.0) % MCV 85.3 (80.0-100.0) fL MCH 27.1 (25.0-35.0) pg MCHC 31.8 (31.0-37.0) g/dL RDW 14.3 (11.5-15.5) % Plt Count 187 (150-450) k/uL MPV 8.1 Neutrophils % 51 % Lymphocytes % 40 % Monocytes % 4 % Eosinophils % 3 % Basophils % 0 % Neutrophils # 2.9 (1.3-7.7) k/uL Lymphocytes # 2.3 (1.0-4.8) k/uL Monocytes # 0.2 (0-1.0) k/uL Eosinophils # 0.2 (0-0.7) k/uL Basophils # 0.0 (0-0.2) k/uL Sodium 137 (137-145) mmol/L Potassium 4.1 (3.5-5.1) mmol/L Chloride 102 (98-107) mmol/L Carbon Dioxide 30 (22-30) mmol/L Anion Gap 5 mmol/L BUN 22 H (7-17) mg/dL Creatinine 0.91 (0.52-1.04) mg/dL Est GFR (CKD-EPI)AfAm 82 (>60 ml/min/1.73 sqM) Est GFR (CKD-EPI)NonAf 71 (>60 ml/min/1.73 sqM) Glucose 88 (74-99) mg/dL Calcium 9.0 (8.4-10.2) mg/dL Disposition Clinical Impression: Migraine Disposition: HOME SELF-CARE Condition: Good Instructions (If sedation given, give patient instructions): Migraine Headache (ED) Is patient prescribed a controlled substance at d/c from ED?: No Referrals: Brigette Mustafa MD [Primary Care Provider] - 1-2 days Time of Disposition: 14:55
[2024-12-07] MEDS: SODIUM CHLORIDE 0.9% 1,000 ML IV STA (13:05)
[2024-12-07] MEDS: ONDANSETRON 4 MG/2 ML VIAL IVP STA (13:05)
[2024-12-07] MEDS: diphenhydrAMINE 50 MG/ML 1 ML VIAL IVP STA (13:06)
[2024-12-07] MEDS: KETOROLAC 15 MG/ML 1 ML VIAL IVP STA (13:06)
[2024-12-07 13:10] LABS: Basophils % (A) 0 %; Eosinophils # (A) 0.2 k/uL (0-0.7); Eosinophils % (A) 3 %; HCT 39.5 % (34.0-46.0); HGB 12.6 gm/dL (11.4-16.0); Lymphocytes # (A) 2.3 k/uL (1.0-4.8); Lymphocytes % (A) 40 %; MCH 27.1 pg (25.0-35.0); MCHC 31.8 g/dL (31.0-37.0); MCV 85.3 fL (80.0-100.0); Mean Platelet Volume 8.1; Monocytes # (A) 0.2 k/uL (0-1.0); Monocytes % (A) 4 %; Neutrophils # (A) 2.9 k/uL (1.3-7.7); Neutrophils % (A) 51 %; Platelet Count 187 k/uL (150-450); RBC 4.64 m/uL (3.80-5.40); RDW 14.3 % (11.5-15.5); WBC 5.7 k/uL (3.8-10.6)
[2024-12-07 13:28] LABS: African American GFR (CKD) 82 (>60 ml/min/1.73 sqM); Anion Gap 5 mmol/L; Blood Urea Nitrogen 22 mg/dL (7-17); Carbon Dioxide 30 mmol/L (22-30); Chloride 102 mmol/L (98-107); Glucose 88 mg/dL (74-99); Non-African American GFR(CKD) 71 (>60 ml/min/1.73 sqM); Sodium 137 mmol/L (137-145)
[2024-12-07 13:35] LABS: Potassium 4.1 mmol/L (3.5-5.1)
[2024-12-07] MEDS: MAGNESIUM SULFATE-D5W PMX 1 GM in DEXTROSE/WATER 1 100ML.BAG IVPB SCH (14:26)
[2024-12-07] MEDS: DEXAMETHASONE SOD PHOSPHATE 10 MG/ML 1 ML VIAL IV STA (14:28)
--- NOTE | 2024-12-07 14:39 | CT ---
EXAMINATION TYPE: CT brain wo con DATE OF EXAM: 12/07/2024 2:23 PM COMPARISON: None. CLINICAL INDICATION: Female, 54 years old with history of headache, HEADACHE AND DIZZINESS TECHNIQUE: CT of the brain is performed utilizing 3 mm thick sections through the posterior fossa and 3 mm thick sections through the remaining calvarium. Study is performed within 24 hours of arrival to the hospital. Contrast used: mL of , (none if empty) CT DLP: 1125.4 mGycm, Automated exposure control for dose reduction was used. FINDINGS: No abnormal hyperdensity is present to suggest an acute intracranial hemorrhage. No mass lesion is evident. No acute infarcts are evident. Ventricles and sulci are appropriate for the patient age. Paranasal sinuses and mastoid air cells within the [id number] are clear. IMPRESSION: 1. No acute intracranial process. Follow up MRI can be performed as clinically indicated. [facility], , 12/07/2024 2:37 PM
[2024-12-07 16:10] VITALS: BP 123/81; PULSE 67; RESP 20; TEMP 98.6
== END 2024-12-07 16:10 | disposition home or self-care (01) ==
LOC: EC 12:31
DX: G43.909 Migraine, unspecified, not intractable, without status migrainosus (principal); F17.200 Nicotine dependence, unspecified, uncomplicated
CPT/HCPCS: 36415; 80048; 85025; 70450; 99284; 96374; 96375 ×3; 96361; J1200; J1100; J2405; J3475; J1885

== ENCOUNTER → 2024-12-22 | Outpatient (CLI) | payer MEDICARE, OTHER ==
[2024-12-22 11:18] VITALS: BMI 49.6
[2024-12-22 12:33] VITALS: BP 127/86; PULSE 99; TEMP 99.3
== END ==
LOC: BARWHC3 10:14
PROVIDERS: ATTEND Surgery
DX: E66.01 Morbid (severe) obesity due to excess calories (principal); F17.200 Nicotine dependence, unspecified, uncomplicated; Z91.048 Other nonmedicinal substance allergy status; Z68.42 Body mass index [BMI] 45.0-49.9, adult
CPT/HCPCS: 97802; 99211

== ENCOUNTER → 2024-12-28 | Outpatient (CLI) | payer MEDICARE, OTHER ==
[2024-12-28 10:10] VITALS: BP 97/65; PULSE 82; RESP 16; TEMP 97.9
[2024-12-28] MEDS: SODIUM CHLORIDE 0.9% 1,000 ML IV SCH (10:10)
[2024-12-28] MEDS: ONDANSETRON 4 MG/2 ML VIAL IVP ONE (10:12)
== END ==
LOC: PROCWHC3 09:53
PROVIDERS: ATTEND Surgery
DX: E86.0 Dehydration (principal)
CPT/HCPCS: 96361; 96374; J2405; 96360

== ENCOUNTER 2024-12-29 11:15 | Observation (INO) | payer MEDICARE, OTHER ==
[2024-12-29] MEDS ORDERED: IOPAMIDOL CONTRAST (ORAL USE) VIAL PO PRN (11:50)
--- NOTE | 2024-12-29 11:53 | ED ---
General Adult HPI - General Chief complaint: Fever Stated complaint: Cough,vomiting Time Seen by Provider: 12/29/24 11:31 Source: patient, RN notes reviewed Mode of arrival: wheelchair Limitations: no limitations - History of Present Illness Initial comments: Patient is a 54-year-old female present to the emergency department with concerns with hydration and congestion. Patient did have gastric sleeve done just 2 weeks ago. Patient states she is having mild abdominal discomfort that is improving however is exacerbated by coughing. Patient states she is having some difficulty swallowing, even fluids. Patient over the last couple of days has developed congestion and cough. Congestion is mostly in her sinuses. Patient has developed fever. - Related Data Home Medications Medication Instructions Recorded Confirmed QUEtiapine [SEROquel] 200 mg PO HS 09/28/19 12/29/24 Lisinopril-Hctz 20-25 mg 1 tab PO QAM 06/05/23 12/29/24 [Zestoretic 20-25] amLODIPine [Norvasc] 10 mg PO QAM 06/05/23 12/29/24 DULoxetine HCL [Cymbalta] 60 mg PO QAM 06/20/23 12/29/24 Fluticasone/Umeclidin/Vilanter 1 puff INHALATION DAILY 08/17/24 12/29/24 [Trelegy Ellipta 100-62.5-25] Montelukast [Singulair] 1 tab PO HS 08/17/24 12/29/24 Aspirin [Adult Low Dose Aspirin EC] 81 mg PO QAM 10/26/24 12/29/24 Ibuprofen(Unknown Dose) 1 dose PO DIRECTED 12/08/24 12/29/24 Omeprazole 40 mg PO DAILY 12/23/24 12/29/24 Ondansetron [Zofran] 4 mg PO Q8HR PRN 12/23/24 12/29/24 Previous Rx's Medication Instructions Recorded Acetaminophen Tab [Tylenol] 650 mg PO Q6H #30 tab 12/18/24 Docusate [Colace] 100 mg PO BID #20 capsule 12/18/24 Furosemide [Lasix] 40 mg PO DAILY #30 tablet 12/18/24 Allergies Allergy/AdvReac Type Severity Reaction Status Date / Time Enviromental Allergy Nasal Uncoded 12/29/24 11:40 drainage/watery eyes/sneezing Review of Systems ROS Statement: Those systems with pertinent positive or pertinent negative responses have been documented in the HPI. ROS Other: All systems not noted in ROS Statement are negative. Constitutional: Reports: as per HPI, fever Eyes: Denies: eye pain ENT: Reports: congestion. Denies: ear pain Respiratory: Reports: cough. Denies: dyspnea Cardiovascular: Denies: chest pain Endocrine: Denies: fatigue Gastrointestinal: Reports: as per HPI, nausea Genitourinary: Denies: dysuria Musculoskeletal: Denies: back pain Past Medical History Past Medical History: Asthma, Chest Pain / Angina, COPD, Diabetes Mellitus, GERD/Reflux, Hypertension, Osteoarthritis (OA), Pneumonia, Sleep Apnea/CPAP/BIPAP Additional Past Medical History / Comment(s): Recent ER visit r/t headache-pt states was dx with a Migraine. DDD, borderline diabetic, uses CPAP machine environmental allergies., has lap band. History of Any Multi-Drug Resistant Organisms: MRSA Date of last positivie culture/infection: 06/22/14 MDRO Source:: rt breast Past Surgical History: Back Surgery, Bariatric Surgery, Section, Cholecystectomy, Heart Catheterization, Joint Replacement, Tubal Ligation Additional Past Surgical History / Comment(s): bilateral knee replacement, lap band , RT WRIST GANGLION CYCT REMOVED, lumbar fusion surgery. lap band removal sleeve gastrectomy 25 Past Anesthesia/Blood Transfusion Reactions: No Reported Reaction Additional Past Anesthesia/Blood Transfusion Reaction / Comment(s): No hx of blood transfusion to date. Past Psychological History: Anxiety, Bipolar, Depression Smoking Status: Never smoker - Past Family History Mother Family Medical History: Hypertension General Exam Limitations: no limitations General appearance: alert, in no apparent distress Head exam: Present: normocephalic Eye exam: Present: normal appearance Neck exam: Present: normal inspection Respiratory exam: Present: normal lung sounds bilaterally Cardiovascular Exam: Present: tachycardia GI/Abdominal exam: Present: soft. Absent: distended, tenderness Extremities exam: Present: normal inspection. Absent: pedal edema, calf tenderness Neurological exam: Present: alert Psychiatric exam: Present: normal affect, normal mood Skin exam: Present: normal color Course Vital Signs 12/29/24 12/29/24 11:37 14:22 Temperature 103 F H Pulse Rate 105 H Respiratory 17 22 Rate Blood Pressure 121/81 O2 Sat by Pulse 98 Oximetry Medical Decision Making - Medical Decision Making Was pt. sent in by a medical professional or institution (ANISH Plascencia, CARDIOPULMONARY TECHNICIAN AND EEG TECH, urgent care, hospital, or long term...) When possible be specific @ -Patient sent from bariatric center Did you speak to anyone other than the patient for history (EMS, parent, family, police, friend...)? What history was obtained from this source @ -No Did you review nursing and triage notes (agree or disagree)? Why? @ -I reviewed and agree with nursing and triage notes Were old charts reviewed (outside hosp., previous admission, EMS record, old EKG, old radiological studies, urgent care reports/EKG's, long term records)? Report findings @ -No old charts were reviewed Differential Diagnosis (chest pain, altered mental status, abdominal pain women, abdominal pain men, vaginal bleeding, weakness, fever, dyspnea, syncope, headache, dizziness, GI bleed, back pain, seizure, CVA, palpatations, mental health, musculoskeletal)? @ -Differential Dyspnea: Coronary syndrome, arrhythmia, tamponade, asthma, COPD, pulmonary embolism, pneumonia, pneumothorax, pulmonary effusion, anaphylaxis, diabetic ketoacidosis, flailed chest, pulmonary contusion, diaphragmatic rupture, anemia, neuromuscular, this is not meant to be an all-inclusive list. EKG interpreted by me (3pts min.). @ -As above X-rays interpreted by me (1pt min.). @ -Chest x-ray shows diffuse infiltrates CT interpreted by me (1pt min.). @ -CT scan pending U/S interpreted by me (1pt. min.). @ -None done What testing was considered but not performed or refused? (CT, X-rays, U/S, labs)? Why? @ -CT scan of the abdomen pelvis ordered and is pending What meds were considered but not given or refused? Why? @ -None Did you discuss the management of the patient with other professionals (trina oviedofessirwin i.e. ANISH Plascencia, CARDIOPULMONARY TECHNICIAN AND EEG TECH, lab, RT, psych nurse, drug abuse social worker, customs import specialist, teacher, natural resource officer, case monitor)? Give summary @ -Case was discussed with Dr. Arango who will consult on his patient. [facility] paged for admission for Dr. Fonseca Was smoking cessation discussed for >3mins.? @ -No Was critical care preformed (if so, how long)? @ -No Were there social determinants of health that impacted care today? How? (Homelessness, low income, unemployed, alcoholism, drug addiction, transp ortation, low edu. Level, literacy, decrease access to med. care, intermediate, rehab)? @ -No Was there de-escalation of care discussed even if they declined (Discuss DNR or withdrawal of care, Hospice)? DNR status @ -No What co-morbidities impacted this encounter? (DM, HTN, Smoking, COPD, CAD, Cancer, CVA, ARF, Chemo, Hep., AIDS, mental health diagnosis, sleep apnea, morbid obesity)? @ -Recent postoperative period after surgery Was patient admitted / discharged? Hospital course, mention meds given and route, prescriptions, significant lab abnormalities, going to OR and other pertinent info. @ -Patient presents with upper respiratory symptoms and difficulty swallowing. Patient has positive influenza consistent with majority of her symptoms. Chest x-ray is concerning regarding infiltrates. CT scan of the abdomen pelvis is pending. Patient will be admitted. Dr. Pang will consult and is aware of pending CAT scan that he will review. Patient reevaluated and updated. Admission orders written Undiagnosed new problem with uncertain prognosis? @ -No Drug Therapy requiring intensive monitoring for toxicity (Heparin, Nitro, Insulin, Cardizem)? @ -No Were any procedures done? @ -No Diagnosis/symptom? @ -Influenza, abdominal pain Acute, or Chronic, or Acute on Chronic? @ -Acute, acute Uncomplicated (without systemic symptoms) or Complicated (systemic symptoms)? @ -Default Side effects of treatment? @ -No Exacerbation, Progression, or Severe Exacerbation? @ -No Poses a threat to life or bodily function? How? (Chest pain, [place], [place], pneumonia, PE, COPD, DKA, ARF, appy, cholecystitis, CVA, Diverticulitis, Homicidal, Suicidal, threat to staff... and all critical care pts) @ -Threat to pulmonary and gastrointestinal function - Lab Data Result diagrams: 12/29/24 14:06 12/29/24 14:06 Lab Results 12/29/24 12/29/24 12/29/24 Range/Units 12:17 14:06 14:06 WBC 7.8 (3.8-10.6) k/uL RBC 4.57 (3.80-5.40) m/uL Hgb 12.4 (11.4-16.0) gm/dL Hct 39.0 (34.0-46.0) % MCV 85.4 (80.0-100.0) fL MCH 27.2 (25.0-35.0) pg MCHC 31.9 (31.0-37.0) g/dL RDW 13.9 (11.5-15.5) % Plt Count 177 (150-450) k/uL MPV 8.7 Neutrophils % 83 % Lymphocytes % 7 % Monocytes % 4 % Eosinophils % 5 % Basophils % 0 % Neutrophils # 6.5 (1.3-7.7) k/uL Lymphocytes # 0.5 L (1.0-4.8) k/uL Monocytes # 0.3 (0-1.0) k/uL Eosinophils # 0.4 (0-0.7) k/uL Basophils # 0.0 (0-0.2) k/uL PT 11.0 (10.0-12.5) sec INR 1.0 (<1.2) APTT 23.7 (22.0-30.0) sec Sodium (137-145) mmol/L Potassium (3.5-5.1) mmol/L Chloride (98-107) mmol/L Carbon Dioxide (22-30) mmol/L Anion Gap mmol/L BUN (7-17) mg/dL Creatinine (0.52-1.04) mg/dL Est GFR (CKD-EPI)AfAm (>60 ml/min/1.73 sqM) Est GFR (CKD-EPI)NonAf (>60 ml/min/1.73 sqM) Glucose (74-99) mg/dL Calcium (8.4-10.2) mg/dL Total Bilirubin (0.2-1.3) mg/dL AST (14-36) U/L ALT (4-34) U/L Alkaline Phosphatase (38-126) U/L Total Protein (6.3-8.2) g/dL Albumin (3.5-5.0) g/dL Amylase (30-110) U/L Lipase (23-300) U/L Influenza Type A (PCR) Detected A (Not Detectd) Influenza Type B (PCR) Not Detected (Not Detectd) RSV (PCR) Not Detected (Not Detectd) SARS-CoV-2 (PCR) Not Detected (Not Detectd) 12/29/24 Range/Units 14:06 WBC (3.8-10.6) k/uL RBC (3.80-5.40) m/uL Hgb (11.4-16.0) gm/dL Hct (34.0-46.0) % MCV (80.0-100.0) fL MCH (25.0-35.0) pg MCHC (31.0-37.0) g/dL RDW (11.5-15.5) % Plt Count (150-450) k/uL MPV Neutrophils % % Lymphocytes % % Monocytes % % Eosinophils % % Basophils % % Neutrophils # (1.3-7.7) k/uL Lymphocytes # (1.0-4.8) k/uL Monocytes # (0-1.0) k/uL Eosinophils # (0-0.7) k/uL Basophils # (0-0.2) k/uL PT (10.0-12.5) sec INR (<1.2) APTT (22.0-30.0) sec Sodium 137 (137-145) mmol/L Potassium 3.4 L (3.5-5.1) mmol/L Chloride 103 (98-107) mmol/L Carbon Dioxide 26 (22-30) mmol/L Anion Gap 8 mmol/L BUN 11 (7-17) mg/dL Creatinine 1.05 H (0.52-1.04) mg/dL Est GFR (CKD-EPI)AfAm 69 (>60 ml/min/1.73 sqM) Est GFR (CKD-EPI)NonAf 60 (>60 ml/min/1.73 sqM) Glucose 94 (74-99) mg/dL Calcium 8.0 L (8.4-10.2) mg/dL Total Bilirubin 0.6 (0.2-1.3) mg/dL AST 24 (14-36) U/L ALT 17 (4-34) U/L Alkaline Phosphatase 65 (38-126) U/L Total Protein 6.1 L (6.3-8.2) g/dL Albumin 3.4 L (3.5-5.0) g/dL Amylase 54 (30-110) U/L Lipase 59 (23-300) U/L Influenza Type A (PCR) (Not Detectd) Influenza Type B (PCR) (Not Detectd) RSV (PCR) (Not Detectd) SARS-CoV-2 (PCR) (Not Detectd) Disposition Clinical Impression: Influenza, Abdominal pain Disposition: ADMITTED IP TO THIS HOSP Is patient prescribed a controlled substance at d/c from ED?: No Referrals: Brigette Mustafa MD [Primary Care Provider] - 1-2 days Time of Disposition: 15:10
[2024-12-29 13:08] LABS: Influenza A Detected (Not Detectd); Influenza B Not Detected (Not Detectd); RSV Not Detected (Not Detectd)
[2024-12-29] MEDS: SODIUM CHLORIDE 0.9% 1,000 ML IV STA (14:09)
[2024-12-29] MEDS: ONDANSETRON 4 MG/2 ML VIAL IVP STA (14:13)
[2024-12-29 14:14] LABS: Basophils % (A) 0 %; Eosinophils # (A) 0.4 k/uL (0-0.7); Eosinophils % (A) 5 %; HGB 12.4 gm/dL (11.4-16.0); Lymphocytes # (A) 0.5 k/uL (1.0-4.8); Lymphocytes % (A) 7 %; MCH 27.2 pg (25.0-35.0); MCHC 31.9 g/dL (31.0-37.0); MCV 85.4 fL (80.0-100.0); Mean Platelet Volume 8.7; Monocytes # (A) 0.3 k/uL (0-1.0); Monocytes % (A) 4 %; Neutrophils # (A) 6.5 k/uL (1.3-7.7); Neutrophils % (A) 83 %; Platelet Count 177 k/uL (150-450); RBC 4.57 m/uL (3.80-5.40); RDW 13.9 % (11.5-15.5); WBC 7.8 k/uL (3.8-10.6)
[2024-12-29] MEDS: FAMOTIDINE 20 MG/2 ML VIAL IV STA (14:15)
[2024-12-29] MEDS: ACETAMINOPHEN IV (For NPO) 1,000 MG in EMPTY BAG 1 BAG IVPB STA (14:18)
[2024-12-29 14:22] LABS: Partial Thromboplastin Time 23.7 sec (22.0-30.0)
[2024-12-29 14:28] LABS: ALT 17 U/L (4-34); AST 24 U/L (14-36); African American GFR (CKD) 69 (>60 ml/min/1.73 sqM); Albumin 3.4 g/dL (3.5-5.0); Alkaline Phosphatase 65 U/L (38-126); Amylase 54 U/L (30-110); Anion Gap 8 mmol/L; Blood Urea Nitrogen 11 mg/dL (7-17); Carbon Dioxide 26 mmol/L (22-30); Chloride 103 mmol/L (98-107); Glucose 94 mg/dL (74-99); Lipase 59 U/L (23-300); Non-African American GFR(CKD) 60 (>60 ml/min/1.73 sqM); Potassium 3.4 mmol/L (3.5-5.1); Sodium 137 mmol/L (137-145); Total Bilirubin 0.6 mg/dL (0.2-1.3); Total Protein 6.1 g/dL (6.3-8.2)
--- NOTE | 2024-12-29 14:50 | XR ---
Chest, 2 view. CLINICAL INDICATION: Female, 54 years old with history of abdominal pain COMPARISON: 12/17/2024 TECHNIQUE: PA and lateral views the chest are obtained. FINDINGS: There has been no change in the mild cardiomegaly, pulmonary vascular congestion and partially consol idative airspace density in the lower lobes. There is no pleural effusion or pneumothorax. IMPRESSION: Acute cardiopulmonary disease most suggestive of CHF. Pneumonia not excluded. Clinical correlation re commended. [facility], , 12/29/2024 2:48 PM
--- NOTE | 2024-12-29 15:09 | CT ---
EXAMINATION TYPE: CT abdomen pelvis w con DATE OF EXAM: 12/29/2024 COMPARISON: None CLINICAL INDICATION: Female, 54 years old with history of Bariatric protocol; PHH, Cough, fatigue, di zziness. Pt had gastric sleeve two weeks ago, cough causing a lot of pain. Unable to keep down fluids . TECHNIQUE: Performed with Oral Contrast and with IV Contrast, patient injected with 80 ml mL of Isovue 300. CT DLP: 1926.[address] CTDI: mGy Automated exposure control for dose reduction was used. FINDINGS: There are small partially consolidated bibasilar infiltrates suggestive of an acute infectious proces s/pneumonia. There is surgical absence of the gallbladder. There are postsurgical changes of a lap band procedure with a reservoir and the anterior subcutaneous soft tissues of the upper abdomen. There is no biliary ductal dilatation. There is no focal mass or organomegaly involving the liver, pancreas, spleen or adrenal glands. There is no solid renal mass or hydronephrosis and there is homogeneous contrast enhancement of the r enal parenchyma. There are multiple renal cysts, right much greater than left. The caliber the abdominal aorta is normal is no retroperitoneal adenopathy or hemorrhage. The bowel loops are normal in caliber and there is no evidence of dilatation or obstruction. No infla mmatory changes are identified in the bowel wall or mesentery. There is no free intraperitoneal air or fluid. No pelvic mass, free fluid, abscess or adenopathy. There are postsurgical changes of lower lumbar fusion. No focal osseous lesions. IMPRESSION: 1. Small bibasilar airspace consolidation possibly indicating acute pneumonia and short-term follow-u p is recommended. 2. No acute changes within the abdomen or pelvis. 3. Postsurgical changes in the upper abdomen and lower lumbar spine as described above. [facility], , 12/29/2024 3:07 PM
[2024-12-29] MEDS ORDERED: NALOXONE 0.4 MG/ML 1 ML VIAL IV PRN (15:11)
[2024-12-29] MEDS ORDERED: PNEUMONIA PROTOCOL UTILIZED 1 EACH MISC PO PRN (15:14)
[2024-12-29] MEDS: AZITHROMYCIN 500 MG in SODIUM CHLORIDE 0.9% 250 ML IVPB STA (15:42)
[2024-12-29] MEDS: OSELTAMIVIR 75 MG CAP PO SCH (16:00)
[2024-12-29] MEDS: OSELTAMIVIR 30 MG CAP PO SCH (16:13)
[2024-12-29] MEDS: HYDROmorphone 1 MG/ML 1 ML SYRINGE IVP PRN (18:38)
[2024-12-29] MEDS: SODIUM CHLORIDE 0.9% 1,000 ML IV SCH (18:38)
[2024-12-29] MEDS: QUEtiapine 200 MG TAB PO SCH (22:27)
[2024-12-29] MEDS: ONDANSETRON 4 MG/2 ML VIAL IVP PRN (22:34)
[2024-12-30] MEDS: ACETAMINOPHEN TAB 325 MG TAB PO PRN (05:54)
[2024-12-30] MEDS: IPRATROPIUM-ALBUTEROL 3 ML NEB INHALATION PRN (06:01)
--- NOTE | 2024-12-30 07:50 | XR ---
EXAMINATION TYPE: XR chest 2V DATE OF EXAM: 12/30/2024 7:05 AM COMPARISON: 12/29/2024 CLINICAL INDICATION: Female, 54 years old with history of pneumonia, TECHNIQUE: XR chest 2V view(s) obtained. FINDINGS: The heart size is prominent. The pulmonary vasculature is normal. Mild infiltrate is above the right diaphragm. Correlate for atelectasis or pneumonia. Some streak opa cities in the left lower lung field. Correlate for some atelectasis or pneumonia. IMPRESSION: 1. Bibasilar infiltrates. Correlate for atelectasis or pneumonia. Follow-up recommended. [facility], , 12/30/2024 7:48 AM
[2024-12-30] MEDS: PANTOPRAZOLE 40 MG/10 ML VIAL IV SCH (08:26)
[2024-12-30] MEDS: AZITHROMYCIN 500 MG TAB PO SCH (08:27)
[2024-12-30 08:43] LABS: ALT 21 U/L (8-44); AST 33 U/L (13-35); Albumin 3.1 g/dL (3.8-4.9); Albumin/Globulin Ratio 1.48 Ratio (1.60-3.17); Alkaline Phosphatase 61 U/L (41-126); BUN/Creat Ratio 8.62 Ratio (12.00-20.00); Blood Urea Nitrogen 6.9 mg/dL (9.0-27.0); Calcium 7.7 mg/dL (8.7-10.3); Carbon Dioxide 23.4 mmol/L (21.6-31.8); Chloride 107 mmol/L (96-109); Globulin 2.1 g/dL (1.6-3.3); Glucose 75 mg/dL (70-110); Potassium 3.5 mmol/L (3.5-5.5); Sodium 142 mmol/L (135-145); Total Bilirubin 0.2 mg/dL (0.3-1.2); Total Protein 5.2 g/dL (6.2-8.2)
[2024-12-30 08:49] LABS: Basophils # (A) 0.01 X 10*3/uL (0.00-0.10); Basophils % (A) 0.2 %; Eosinophils # (A) 0.32 X 10*3/uL (0.04-0.35); Eosinophils % (A) 6.5 %; HCT 36.4 % (37.2-46.3); HGB 11.2 g/dL (12.0-15.0); Lymphocytes # (A) 1.12 X 10*3/uL (0.90-5.00); Lymphocytes % (A) 22.8 %; MCH 26.9 pg (27.0-32.0); MCHC 30.8 g/dL (32.0-37.0); MCV 87.3 FL (80.0-97.0); Monocytes # (A) 0.62 X 10*3/uL (0.20-1.00); Monocytes % (A) 12.6 %; NRBC Per 100 WBC 0 X 10*3/uL (0.00-0.01); Neutrophils # (A) 2.83 X 10*3/uL (1.80-7.70); Neutrophils % (A) 57.5 %; Platelet Count 172 X 10*3/uL (140-440); RBC 4.17 X 10*6/uL (4.10-5.20); RDW 15.1 % (11.5-14.5); WBC 4.92 X 10*3/uL (4.50-10.00)
[2024-12-30 13:23] LABS: C Reactive Protein 14.3 mg/dL (<1.0)
--- NOTE | 2024-12-30 13:53 | P.CN ---
Psychiatric Consult - . Consult date: 12/30/24 Consult:: 12/30/24 13:47 IDENTIFYING DATA: This patient is a 54-year-old -Thai female, living with family on disability REASON FOR REFERRAL: Psychiatry was consulted for SI no plan HISTORY OF PRESENT ILLNESS: The patient presented to the hospital with upper respiratory symptoms and was ultimately found to be influenza A positive with chest x-ray revealing bibasilar infiltrates. Patient seen and evaluated in her room with sitter at bedside. She expresses a history of bipolar depression currently prescribed Seroquel and Cymbalta by her PCP and that she has been on these medications for 2-3 years. She expresses intermittent chronic suicidal thoughts for many years now with no plan or intent and she vehemently denies any suicidal ideations at this time, expressing her illness being her predominant issue right now. She denies any sleep or appetite changes, also denying any anhedonia. She states living with family and that they are supportive to her. At this time patient denies any homical ideations, intent or plan. Patient denies any auditory, visual hallucinations and denies any paranoia or delusions. Patients admits to using nicotine, roughly 4 cigarettes/day in addition to occasional alcohol. PAST PSYCHIATRIC HISTORY: Patient has a history of bipolar disorder. She is currently prescribed Cymbalta 60 mg daily, Seroquel 200 mg at bedtime. Patient reports 1 previous inpatient hospitalization over 10 years ago. Patient denies any psychiatric outpatient follow-up. She reports 3 previous suicide attempts, most recent being 5-6 years ago PAST MEDICAL HISTORY: Asthma, COPD, diabetes, GERD, OA, sleep apnea. ALLERGIES: as per EMR. CHEMICAL DEPENDENCY HISTORY: as per HPI. FAMILY PSYCHIATRIC/SUBSTANCE USE HISTORY: Denies SOCIAL HISTORY: Patient is and has 2 kids and lives with her . She completed high school and is on Social Security. MENTAL STATUS EXAM: General Appearance: Patient appears to be stated age is alert, pleasant, and cooperative. Patient appears to have fair hygiene and grooming wearing hospital gown with fair eye contact. She is wearing a bonnet Behavior: Patient is calmly lying in bed without any agitated behavior. She appears in pain Speech: Patient's speech is fluent and nonpressured. Mood/Affect: Patient reports their mood is "sick", affect is congruent Suicidality/Homicidality: Patient denies having any suicidal or homicidal ideation intent or plan. Perceptions: Patient denies any visual hallucinations and denies any auditory hallucinations Though content/process: There is no evidence of any delusional thought content and thought process is linear and goal-directed. Memory and concentration: AOX3, grossly intact for the purposes of this session. Can spell "WORLD" backwards Judgment and insight: Fair IMPRESSIONS: History of bipolar disorder Nicotine dependence PLAN: -At this time patient DOES NOT meet criteria for inpatient psychiatric admission. -Would recommend the following medication changes/additions: Restart Cymbalta 60 mg daily for depression, continue Seroquel 200 mg at bedtime for sleep/mood stabilization patient encouraged to follow-up with her PCP for further adjustments outpatient -Can discontinue 1:1 sitter at this time as patient is not currently an imminent threat to themselves -piggery worker to provide patient with outpatient mental health/psychiatry resources for appropriate follow up upon discharge -Communicated plan to patient's nurse -Psychiatry will sign off at this time -Please contact with any questions.
--- NOTE | 2024-12-30 14:02 | P.GSCN ---
History of Present Illness Consult date: 12/30/24 History of present illness: CHIEF COMPLAINT: Dehydration and cough HISTORY OF PRESENT ILLNESS: This is a 54-year-old female who is status post lap band removal with sleeve gastrectomy about 2 weeks ago. Patient complains of cough, dry heaves and fever. She has been diagnosed with influenza A. She had been at the bariatric center receiving IV fluids. She complains of feeling very dehydrated. And she had a temp of 101. She came into the ER for further evaluation. Patient also complaining of abdominal pain. But she reports the pain is happened after her cough and the dry heaves. Patient reports no difficulty with swallowing. CT scan abdomen pelvis completed reporting no acute findings but possible pneumonia. Patient is currently on Tamiflu and antibio tics. She is tolerating the clear liquids. PAST MEDICAL HISTORY: Asthma, Chest Pain / Angina, COPD, Diabetes Mellitus, GERD/Reflux, Hypertension, Osteoarthritis (OA), Pneumonia, Sleep Apnea/CPAP/BIPAP, PAST SURGICAL HISTORY: back Surgery, Bariatric Surgery, Section, Cholecystectomy, Heart Catheterization, Joint Replacement, Tubal Ligation, lap band removal sleeve gastrectomy 12-14-24 MEDICATIONS: See below ALLERGIES: See below SOCIAL HISTORY: No illicit drug use. REVIEW OF SYSTEMS: CONSTITUTIONAL: Denies fever or chills. HEENT: Denies blurred vision, vision changes, or eye pain. Denies hemoptysis CARDIOVASCULAR: Denies chest pain or pressure. RESPIRATORY: No shortness of breath. GASTROINTESTINAL: See HPI for pertinent findings HEMATOLOGIC: Denies bleeding disorders. GENITOURINARY: Denies any blood in urine or increased urinary frequency. SKIN: Denies pruitis. Denies rash. PHYSICAL EXAM: VITAL SIGNS: Reviewed GENERAL: Well-developed in no acute distress. ABDOMEN: Soft. Obese. Nondistended. Incision sites clean dry and intact NEUROLOGIC: Alert and oriented. Cranial nerves II through XII grossly intact. LABORATORY DATA: WBC 7.8 Hgb 11.2 platelets 172 Sodium is 142 potassium 3.5 creatinine 1.05-0.8 Influenza A detected IMAGING: CT scan abdomen pelvis reports no acute changes within the abdomen or pelvis. Small bibasilar airspace consolidation possibly indicating acute pneumonia. Chest x-ray bibasilar infiltrates. Correlate for atelectasis or pneumonia ASSESSMENT: 1. Abdominal pain likely secondary to patient's coughing and vomiting causing strain on the abdomen incisions. 2. Influenza A positive PLAN: -Continue supportive care -No surgical intervention planned -Continue clear liquid diet Physician Bookbinder Chief note has been reviewed by physician. Signing provider agrees with the documented findings, assessment, and plan of care. Past Medical History Past Medical History: Asthma, Chest Pain / Angina, COPD, Diabetes Mellitus, GERD/Reflux, Hypertension, Osteoarthritis (OA), Pneumonia, Sleep Apnea/CPAP/BIPAP Additional Past Medical History / Comment(s): Recent ER visit r/t headache-pt states was dx with a Migraine. DDD, borderline diabetic, uses CPAP machine environmental allergies., has lap band. History of Any Multi-Drug Resistant Organisms: MRSA Year Discovered:: 06/22/14 MDRO Source:: rt breast Past Surgical History: Back Surgery, Bariatric Surgery, Section, Cholecystectomy, Heart Catheterization, Joint Replacement, Tubal Ligation Additional Past Surgical History / Comment(s): bilateral knee replacement, lap band , RT WRIST GANGLION CYCT REMOVED, lumbar fusion surgery. lap band removal sleeve gastrectomy -02-02 Past Anesthesia/Blood Transfusion Reactions: No Reported Reaction Additional Past Anesthesia/Blood Transfusion Reaction / Comm: No hx of blood transfusion to date. Past Psychological History: Anxiety, Bipolar, Depression Smoking Status: Never smoker Past Alcohol Use History: Occasional Additional Past Alcohol Use History / Comment(s): smokes 2-3 cigarettes/day, hx of 1/2 ppd, started smoking age 14. working on cutting down smoking Past Drug Use History: None Reported - Past Family History Mother Family Medical History: Hypertension Medications and Allergies Home Medications Medication Instructions Recorded Confirmed Type QUEtiapine [SEROquel] 200 mg PO HS 09/28/19 12/29/24 History Lisinopril-Hctz 20-25 mg 1 tab PO QAM 06/05/23 12/29/24 History [Zestoretic 20-25] amLODIPine [Norvasc] 10 mg PO QAM 06/05/23 12/29/24 History DULoxetine HCL [Cymbalta] 60 mg PO QAM 06/20/23 12/29/24 History Fluticasone/Umeclidin/Vilanter 1 puff INHALATION RT-DAILY 08/17/24 12/29/24 History [Trelegy Ellipta 100-62.5-25] Montelukast [Singulair] 1 tab PO HS 08/17/24 12/29/24 History Aspirin [Adult Low Dose Aspirin EC] 81 mg PO QAM 10/26/24 12/29/24 History Acetaminophen Tab [Tylenol] 650 mg PO Q6H #30 tab 12/18/24 12/29/24 Rx Docusate [Colace] 100 mg PO BID #20 capsule 12/18/24 12/29/24 Rx Furosemide [Lasix] 40 mg PO DAILY #30 tablet 12/18/24 12/29/24 Rx Omeprazole 40 mg PO DAILY 12/23/24 12/29/24 History Ondansetron Odt [Zofran Odt] 4 mg PO TID PRN 12/29/24 12/29/24 History Allergies Allergy/AdvReac Type Severity Reaction Status Date / Time Enviromental Allergy Nasal Uncoded 12/29/24 16:39 drainage/watery eyes/sneezing Surgical - Exam Vital Signs Temp Pulse Resp BP Pulse Ox 103 F H 105 H 17 121/81 98 12/29/24 11:37 12/29/24 11:37 12/29/24 11:37 12/29/24 11:37 12/29/24 11:37 Results - Labs 12/30/24 05:01 12/30/24 05:01 Abnormal Lab Results - Last 24 Hours (Table) 12/29/24 12/29/24 12/29/24 Range/Units 12:17 14:06 14:06 Hgb (12.0-15.0) g/dL Hct (37.2-46.3) % MCH (27.0-32.0) pg MCHC (32.0-37.0) g/dL RDW (11.5-14.5) % Lymphocytes # 0.5 L (1.0-4.8) k/uL Potassium 3.4 L (3.5-5.1) mmol/L BUN (9.0-27.0) mg/dL Creatinine 1.05 H (0.52-1.04) mg/dL BUN/Creatinine Ratio (12.00-20.00) Ratio Calcium 8.0 L (8.4-10.2) mg/dL Total Bilirubin (0.3-1.2) mg/dL Total Protein 6.1 L (6.3-8.2) g/dL Albumin 3.4 L (3.5-5.0) g/dL Albumin/Globulin Ratio (1.60-3.17) Ratio Influenza Type A (PCR) Detected A (Not Detectd) 12/30/24 12/30/24 Range/Units 05:01 05:01 Hgb 11.2 L (12.0-15.0) g/dL Hct 36.4 L (37.2-46.3) % MCH 26.9 L (27.0-32.0) pg MCHC 30.8 L (32.0-37.0) g/dL RDW 15.1 H (11.5-14.5) % Lymphocytes # (1.0-4.8) k/uL Potassium (3.5-5.1) mmol/L BUN 6.9 L (9.0-27.0) mg/dL Creatinine (0.52-1.04) mg/dL BUN/Creatinine Ratio 8.62 L (12.00-20.00) Ratio Calcium 7.7 L (8.4-10.2) mg/dL Total Bilirubin 0.2 L (0.3-1.2) mg/dL Total Protein 5.2 L (6.3-8.2) g/dL Albumin 3.1 L (3.5-5.0) g/dL Albumin/Globulin Ratio 1.48 L (1.60-3.17) Ratio Influenza Type A (PCR) (Not Detectd) Diabetes panel 12/29/24 12/30/24 Range/Units 14:06 05:01 Sodium 137 142 (137-145) mmol/L Potassium 3.4 L 3.5 (3.5-5.1) mmol/L Chloride 103 107 (98-107) mmol/L Carbon Dioxide 26 23.4 (22-30) mmol/L BUN 11 6.9 L (7-17) mg/dL Creatinine 1.05 H 0.8 (0.52-1.04) mg/dL Glucose 94 75 (74-99) mg/dL Calcium 8.0 L 7.7 L (8.4-10.2) mg/dL AST 24 33 (14-36) U/L ALT 17 21 (4-34) U/L Alkaline Phosphatase 65 61 (38-126) U/L Total Protein 6.1 L 5.2 L (6.3-8.2) g/dL Albumin 3.4 L 3.1 L (3.5-5.0) g/dL Calcium panel 12/29/24 12/30/24 Range/Units 14:06 05:01 Calcium 8.0 L 7.7 L (8.4-10.2) mg/dL Albumin 3.4 L 3.1 L (3.5-5.0) g/dL Pituitary panel 12/29/24 12/30/24 Range/Units 14:06 05:01 Sodium 137 142 (137-145) mmol/L Potassium 3.4 L 3.5 (3.5-5.1) mmol/L Chloride 103 107 (98-107) mmol/L Carbon Dioxide 26 23.4 (22-30) mmol/L BUN 11 6.9 L (7-17) mg/dL Creatinine 1.05 H 0.8 (0.52-1.04) mg/dL Glucose 94 75 (74-99) mg/dL Calcium 8.0 L 7.7 L (8.4-10.2) mg/dL Adrenal panel 12/29/24 12/30/24 Range/Units 14:06 05:01 Sodium 137 142 (137-145) mmol/L Potassium 3.4 L 3.5 (3.5-5.1) mmol/L Chloride 103 107 (98-107) mmol/L Carbon Dioxide 26 23.4 (22-30) mmol/L BUN 11 6.9 L (7-17) mg/dL Creatinine 1.05 H 0.8 (0.52-1.04) mg/dL Glucose 94 75 (74-99) mg/dL Calcium 8.0 L 7.7 L (8.4-10.2) mg/dL Total Bilirubin 0.6 0.2 L (0.2-1.3) mg/dL AST 24 33 (14-36) U/L ALT 17 21 (4-34) U/L Alkaline Phosphatase 65 61 (38-126) U/L Total Protein 6.1 L 5.2 L (6.3-8.2) g/dL Albumin 3.4 L 3.1 L (3.5-5.0) g/dL
[2024-12-30] MEDS: DULoxetine HCL 60 MG CAPSULE.DR PO SCH (14:16)
--- NOTE | 2024-12-30 15:55 | CT ---
EXAMINATION TYPE: CT angio chest DATE OF EXAM: 12/30/2024 COMPARISON: 10/06/2013 CLINICAL INDICATION: Female, 54 years old with history of elevated d-dimer; PHH, [place] TECHNIQUE: CTA scan of the thorax is performed with IV Contrast, patient injected with 100 ml mL of Isovue 370, pulmonary embolism protocol. MIP images are created and reviewed. 3-D processing was performed. CT DLP: 513.[address] CTDI: mGy Automated exposure control for dose reduction was used. FINDINGS: The exam is significantly limited by the patient's body habitus and suboptimal inspiration. There is suboptimal opacification of the pulmonary arteries. There are consolidative infiltrates in the lung bases consistent with bibasilar pneumonia. There is m oderate cardiomegaly. There is no mediastinal, hilar or axillary adenopathy. There is no pleural effusion or pneumothorax. Due to suboptimal opacification of pulmonary arteries, pulmonary embolism cannot be excluded with thi s technique. Limited scanning through the upper abdomen reveals no gross abnormality. IMPRESSION: 1. Significantly limited exam as described above. Pulmonary embolism cannot be excluded this techniqu e due to suboptimal opacification of pulmonary arteries. 2. Bibasilar pneumonias. [facility], , 12/30/2024 3:53 PM
--- NOTE | 2024-12-30 16:59 | P.HPIM ---
History of Present Illness H&P Date: 12/30/24 Patient is a 54-year-old female with past medical history of hypertension, COPD not requiring home oxygen, bipolar depression, and GERD presenting to the ER with sore throat, shortness of breath, fever at 101 then it was 103, couple episodes of vomiting, and dry cough which has been going on for few weeks. Patient reports that she had bariatric surgery completed on December [address] Alberto. Patient reports some episodes of dizziness since surgery and states she came to the bariatric center on Saturday to get fluids as she was told she was dehydrated. Patient is also complaining of some incisional pain. She denies any chest pain, diarrhea, headaches, myalgias. Vitals on admission temperature 103, heart rate 105, respiratory rate 17, blood pressure 121/81, O2 saturation 98% EKG independently interpreted as sinus rhythm at 87 bpm QTc 421 ms CXR shows no acute cardiopulmonary disease suggestive of CHF, pneumonia not excluded CTA was inconclusive due to body habitus Labs on admission show WBCs 4.92, hemoglobin 11.2, platelets 178. Sodium 142, potassium 3.5, chloride 107, bicarb 23.4, BUN 6.9, creatinine 0.8, glucose 75. Calcium 7.7. Procalcitonin 0.08. CRP 14.3. ESR 37. D-dimer 3.97. NT proBNP 384. Viral panel positive for influenza A Review of systems: Pertinent positives and negatives as discussed in HPI, a complete review of systems was performed and all other systems are negative. Allergies: seasonal PCP: Dr. Machuca Social history: Tobacco: 3-4 cigarettes a day Alcohol: occasionally Recreational drugs: none Travel: none Sick contacts: multiple family members at home Physical examination: Vital signs reviewed General: nontoxic, no distress, appears at stated age Derm: warm, dry, intact Head: atraumatic, normocephalic, symmetric Eyes: anicteric sclera Mouth: no lip lesion, mucus membranes moist Cardiovascular: S1 S2 reg, no murmur Lungs: Some crackles noted on exam bilaterally Abdominal: soft, tenderness around incision sites which are clean dry and intact Extremities: No cyanosis, clubbing, or pedal edema. Neuro: Alert, Oriented to person, time and place, Gross neurological examination did not reveal any focal deficits. Cranial nerves II to XII grossly intact. B ilateral upper and lower extremity muscle strength intact and sensation intact. Psych: well appearing, appropriate affect Assessment/Plan: 54-year-old female with past medical history of hypertension, COPD not requiring home oxygen, bipolar depression, and GERD presenting to the ER with sore throat, shortness of breath, fever at 101 then it was 103, couple episodes of vomiting, and dry cough which has been going on for few weeks. Active: Influenza A infection Meeting sepsis criteria on admission, resolved Continue Tamiflu 30 mg every 12 hours Procalcitonin was negative, discontinue antibiotics Continue normal saline at 75 mL an hour Obtain morning CBC Blood cultures Sputum culture Legionella antigen and culture Incentive spirometer provided Elevated D-dimer, ESR/CRP, recent immobilization due to surgery CTA was inconclusive Venous Doppler ultrasound for bilateral lower extremities ordered Consult pulmonology Chronic: COPD Continue Trelegy equivalent Continue DuoNebs every 4 hours as needed Hypertension Continue amlodipine 10 mg daily Bipolar depression On admission patient had suicidal ideation, without plan Psych consulted and signed off-sitter was discontinued Continue Cymbalta 60 mg daily Continue Seroquel 200 mg p.o. at bedtime GERD Continue Protonix 40mg F: 0.9% NS at 75 mL/h E: Replete as needed N: Clear liquid diet A: As tolerated DVT prophylaxis: Lovenox 40mg subcu daily The patient is admitted with an anticipated more than 2 midnight stay for evaluation of influenza A CODE STATUS: Full code Discussed with: Patient Anticipated discharge place: Pending clinical course Attestation I have seen and examined this patient with my resident , discussed the same with the resident/HITESH, and agree with the dictator's assessment and plan as written GENERAL: The patient is alert and oriented x3, not in any acute distress. Well developed, well nourished. HEENT: Pupils are round and equally reacting to light. EOMI. No scleral icterus. No conjunctival pallor. Normocephalic, atraumatic. No pharyngeal erythema. No thyromegaly. CARDIOVASCULAR: S1 and S2 present. No murmurs, rubs, or gallops. PULMONARY: Diminished breath sounds at bases , no wheezing or crackles. ABDOMEN: Soft, nontender, nondistended, normoactive bowel sounds. No palpable organomegaly. MUSCULOSKELETAL: No joint swelling or deformity. EXTREMITIES: No cyanosis, clubbing, or pedal edema. NEUROLOGICAL: Gross neurological examination did not reveal any focal deficits. SKIN: No rashes. Dr. Irineo watkins Past Medical History Past Medical History: Asthma, Chest Pain / Angina, COPD, Diabetes Mellitus, GERD/Reflux, Hypertension, Osteoarthritis (OA), Pneumonia, Sleep Apnea/CPAP/BIPAP Additional Past Medical History / Comment(s): Recent ER visit r/t headache-pt states was dx with a Migraine. DDD, borderline diabetic, uses CPAP machine environmental allergies., has lap band. History of Any Multi-Drug Resistant Organisms: MRSA Date of last positivie culture/infection: 06/22/14 MDRO Source:: rt breast Past Surgical History: Back Surgery, Bariatric Surgery, Section, Cholecystectomy, Heart Catheterization, Joint Replacement, Tubal Ligation Additional Past Surgical History / Comment(s): bilateral knee replacement, lap band , RT WRIST GANGLION CYCT REMOVED, lumbar fusion surgery. lap band removal sleeve gastrectomy -02-02 Past Anesthesia/Blood Transfusion Reactions: No Reported Reaction Additional Past Anesthesia/Blood Transfusion Reaction / Comment(s): No hx of blood transfusion to date. Past Psychological History: Anxiety, Bipolar, Depression Smoking Status: Never smoker Past Alcohol Use History: Occasional Additional Past Alcohol Use History / Comment(s): smokes 2-3 cigarettes/day, hx of 1/2 ppd, started smoking age 14. working on cutting down smoking Past Drug Use History: None Reported - Past Family History Mother Family Medical History: Hypertension Medications and Allergies Home Medications Medication Instructions Recorded Confirmed Type QUEtiapine [SEROquel] 200 mg PO HS 09/28/19 12/29/24 History Lisinopril-Hctz 20-25 mg 1 tab PO QAM 06/05/23 12/29/24 History [Zestoretic 20-25] amLODIPine [Norvasc] 10 mg PO QAM 06/05/23 12/29/24 History DULoxetine HCL [Cymbalta] 60 mg PO QAM 06/20/23 12/29/24 History Fluticasone/Umeclidin/Vilanter 1 puff INHALATION RT-DAILY 08/17/24 12/29/24 History [Trelegy Ellipta 100-62.5-25] Montelukast [Singulair] 1 tab PO HS 08/17/24 12/29/24 History Aspirin [Adult Low Dose Aspirin EC] 81 mg PO QAM 10/26/24 12/29/24 History Acetaminophen Tab [Tylenol] 650 mg PO Q6H #30 tab 12/18/24 12/29/24 Rx Docusate [Colace] 100 mg PO BID #20 capsule 12/18/24 12/29/24 Rx Furosemide [Lasix] 40 mg PO DAILY #30 tablet 12/18/24 12/29/24 Rx Omeprazole 40 mg PO DAILY 12/23/24 12/29/24 History Ondansetron Odt [Zofran Odt] 4 mg PO TID PRN 12/29/24 12/29/24 History Allergies Allergy/AdvReac Type Severity Reaction Status Date / Time Enviromental Allergy Nasal Uncoded 12/29/24 16:39 drainage/watery eyes/sneezing Physical Exam Vitals: Vital Signs Temp Pulse Pulse Resp BP BP Pulse Ox 12/30/24 06:11 84 12/30/24 06:05 85 12/30/24 01:26 99.1 F 86 124/80 97 12/29/24 20:54 101.0 F H 91 19 121/70 97 12/29/24 17:46 100.2 F H 96 19 117/80 96 12/29/24 16:47 100.3 F H 79 18 135/85 96 12/29/24 15:36 17 96 12/29/24 15:11 101.7 F H 97 22 164/95 94 L 12/29/24 14:22 22 12/29/24 11:37 103 F H 105 H 17 121/81 98 Intake and Output 12/29/24 12/30/24 12/30/24 22:59 06:59 14:59 Other: # Voids 1 2 Weight 105.687 kg Results CBC & Chem 7: 12/31/24 08:26 12/31/24 08:26 Labs: Abnormal Lab Results - Last 24 Hours (Table) 12/29/24 12/29/24 12/29/24 Range/Units 12:17 14:06 14:06 Lymphocytes # 0.5 L (1.0-4.8) k/uL Potassium 3.4 L (3.5-5.1) mmol/L BUN (9.0-27.0) mg/dL Creatinine 1.05 H (0.52-1.04) mg/dL BUN/Creatinine Ratio (12.00-20.00) Ratio Calcium 8.0 L (8.4-10.2) mg/dL Total Bilirubin (0.3-1.2) mg/dL Total Protein 6.1 L (6.3-8.2) g/dL Albumin 3.4 L (3.5-5.0) g/dL Albumin/Globulin Ratio (1.60-3.17) Ratio Influenza Type A (PCR) Detected A (Not Detectd) 12/30/24 Range/Units 05:01 Lymphocytes # (1.0-4.8) k/uL Potassium (3.5-5.1) mmol/L BUN 6.9 L (9.0-27.0) mg/dL Creatinine (0.52-1.04) mg/dL BUN/Creatinine Ratio 8.62 L (12.00-20.00) Ratio Calcium 7.7 L (8.4-10.2) mg/dL Total Bilirubin 0.2 L (0.3-1.2) mg/dL Total Protein 5.2 L (6.3-8.2) g/dL Albumin 3.1 L (3.5-5.0) g/dL Albumin/Globulin Ratio 1.48 L (1.60-3.17) Ratio Influenza Type A (PCR) (Not Detectd) Thrombosis Risk Factor Assmnt - Choose All That Apply Each Factor Represents 1 point: Age 41-60 years, History of prior major surgery (<1month), Obesity (BMI >25) Other Risk Factors: Yes Each Risk Factor Represents 3 Points: Family history of DVT/PE Other congenital or acquired thrombophilia - If yes, enter type in comment: No Thrombosis Risk Factor Assessment Total Risk Factor Score: 6 Thrombosis Risk Factor Assessment Level: High Risk
[2024-12-30] MEDS: SODIUM CHLORIDE 0.9% 1,000 ML IV SCH (17:18)
--- NOTE | 2024-12-30 17:44 | US ---
EXAMINATION TYPE: US venous doppler duplex LE DATE OF EXAM: 12/30/2024 4:59 PM COMPARISON: NONE CLINICAL INDICATION: Female, 54 years old with history of elevated d-dimer; No hx of DVT. Elevated D Dimer. TECHNIQUE: The lower extremity deep venous system is examined utilizing real time linear array sonog barb with graded compression, color doppler sonography, and spectral doppler. SIDE PERFORMED: Bilateral FINDINGS: VESSELS IMAGED: Common Femoral Vein Deep Femoral Vein Greater Saphenous Vein * Femoral Vein Popliteal Vein Small Saphenous Vein * Proximal Calf Veins (* superficial vessels) Right Leg: No evidence of DVT. Unable to visualize peroneal veins. Left Leg: No evidence of DVT. *Patient unable to tolerate compression of distal femoral vein. Unable to visualize peroneal veins. IMPRESSION: 1. No deep venous thrombosis within the visualized structures. 2. There is some limitation within the calf regions on the right. Patient unable to tolerate compress ion of the left distal femoral vein. [facility], , 12/30/2024 5:42 PM
[2024-12-30] MEDS: MONTELUKAST 10 MG TAB PO SCH (20:26)
[2024-12-30] MEDS: QUEtiapine 100 MG TAB PO SCH (20:26)
[2024-12-30] MEDS: HYDROmorphone 0.5 MG/0.5 ML SYRINGE IVP PRN (20:32)
--- NOTE | 2024-12-31 01:14 | P.CNPUL ---
History of Present Illness Consult date: 12/31/24 Requesting physician: Tanna Barron Reason for consult: dyspnea Chief complaint: Shortness of breath, cough, fevers, nausea vomiting History of present illness: Patient is a 54-year-old -[place] female with past medical history significant for hypertension, hyperlipidemia, asthma/COPD, current ongoing tobacco smoker, bipolar disorder, morbid obesity and recent sleeve gastrectomy. Patient reportedly has history of COPD/asthma and uses Trelegy inhaler and as needed albuterol. She does smoke cigarettes, down to approximately 3 to 4 cigarettes/day. 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 Patient had laparoscopic sleeve gastrectomy on 12/14/2024. She was at the bariatric center receiving IV fluids. Noted to have nauseous, vomiting, chest congestion, coughing, fevers; and directed to the emergency department. Patient's noted to be sick with similar symptoms earlier in the week. While in the ED, viral screen was positive for influenza A. States she was previously vaccinated this season. She was started on Tamiflu. Remaining workup including a elevated D-dimer, in setting a CT angio protocol which was essentially nondiagnostic, bibasilar infiltrates were noted. Previously febrile with a temperature as high as 103 F. Procalcitonin level low. CBC unremarkable for leukocytosis, WBC count 4.9, hemoglobin 11.2, platelets 172. CMP: Sodium 142, potassium 3.5, chloride 107, BUN 6.9, creatinine 0.8, glucose 75. NT proBNP 384. Patient currently being evaluated on the medical floor. She is resting comfortably on 1 L/min nasal cannula. No notable respiratory distress. Faint expiratory wheezing heard on auscultation. She does have an abdominal binder on. Laparoscopic surgical incisions are approximated. Patient states that her symptoms started approximately 2 days ago including a combination of shortness of breath, nonproductive coughing, chest congestion, headache, nausea and vomiting, abdominal discomfort, and dizziness. She was not able to "keep anything down". Previously, vomiting mostly food products. The nausea has since subsided, she is taking in clear liquids. Normal saline is infusing at 75 mm/h. 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 CT of the abdomen and pelvis showed postsurgical changes without any acute concerns. Small bibasilar airspace consolidations as reported above. Most recent vital signs: Temperature 99 F, heart rate 79 bpm, blood pressure 115/75 mmHg, respiratory rate 18, SpO2 95% on room air. Patient previously voiced some suicidal ideation and this has been followed up by inpatient psych. Currently, no suicidal ideation or plan. Review of Systems Constitutional: Reports chills, Reports fatigue, Reports fever, Reports poor appetite, Denies weight gain, Denies weight loss Ears, nose, mouth and throat: Reports headache, Denies nasal congestion, Denies nasal discharge, Denies post-nasal drip, Denies sinus pain, Denies sinus pressure, Denies sore throat Cardiovascular: Denies chest pain, Denies leg edema, Denies lightheadedness, Denies orthopnea, Denies palpitations, Denies paroxysmal nocturnal dyspnea, Denies syncope Respiratory: Reports as per HPI Gastrointestinal: Reports abdominal pain, Reports diarrhea, Reports nausea, Reports vomiting, Denies hematemesis, Denies hematochezia, Denies melena Genitourinary: Denies dysuria Musculoskeletal: Denies limitation of motion Integumentary: Denies rash Neurological: Denies seizures, Denies syncope Psychiatric: Reports anxiety, Reports depression, Denies suicidal ideation Past Medical History Past Medical History: Asthma, Chest Pain / Angina, COPD, Diabetes Mellitus, GERD/Reflux, Hypertension, Osteoarthritis (OA), Pneumonia, Sleep Apnea/CPAP/BIPAP Additional Past Medical History / Comment(s): Recent ER visit r/t headache-pt states was dx with a Migraine. DDD, borderline diabetic, uses CPAP machine environmental allergies., has lap band. History of Any Multi-Drug Resistant Organisms: MRSA Date of last positivie culture/infection: 06/22/14 MDRO Source:: rt breast Past Surgical History: Back Surgery, Bariatric Surgery, Section, Cholecystectomy, Heart Catheterization, Joint Replacement, Tubal Ligation Additional Past Surgical History / Comment(s): bilateral knee replacement, lap band , RT WRIST GANGLION CYCT REMOVED, lumbar fusion surgery. lap band removal sleeve gastrectomy 2--25 Past Anesthesia/Blood Transfusion Reactions: No Reported Reaction Additional Past Anesthesia/Blood Transfusion Reaction / Comment(s): No hx of blood transfusion to date. Past Psychological History: Anxiety, Bipolar, Depression Smoking Status: Never smoker Past Alcohol Use History: Occasional Additional Past Alcohol Use History / Comment(s): smokes 2-3 cigarettes/day, hx of 1/2 ppd, started smoking age 14. working on cutting down smoking Past Drug Use History: None Reported - Past Family History Mother Family Medical History: Hypertension Medications and Allergies Home Medications Medication Instructions Recorded Confirmed Type QUEtiapine [SEROquel] 200 mg PO HS 09/28/19 12/29/24 History Lisinopril-Hctz 20-25 mg 1 tab PO QAM 06/05/23 12/29/24 History [Zestoretic 20-25] amLODIPine [Norvasc] 10 mg PO QAM 06/05/23 12/29/24 History DULoxetine HCL [Cymbalta] 60 mg PO QAM 06/20/23 12/29/24 History Fluticasone/Umeclidin/Vilanter 1 puff INHALATION RT-DAILY 08/17/24 12/29/24 History [Trelegy Ellipta 100-62.5-25] Montelukast [Singulair] 1 tab PO HS 08/17/24 12/29/24 History Aspirin [Adult Low Dose Aspirin EC] 81 mg PO QAM 10/26/24 12/29/24 History Acetaminophen Tab [Tylenol] 650 mg PO Q6H #30 tab 12/18/24 12/29/24 Rx Docusate [Colace] 100 mg PO BID #20 capsule 12/18/24 12/29/24 Rx Furosemide [Lasix] 40 mg PO DAILY #30 tablet 12/18/24 12/29/24 Rx Omeprazole 40 mg PO DAILY 12/23/24 12/29/24 History Ondansetron Odt [Zofran Odt] 4 mg PO TID PRN 12/29/24 12/29/24 History Allergies Allergy/AdvReac Type Severity Reaction Status Date / Time Enviromental Allergy Nasal Uncoded 12/29/24 16:39 drainage/watery eyes/sneezing Physical Exam Vitals: Vital Signs Temp Pulse Pulse Resp BP Pulse Ox 12/30/24 19:55 99.0 F 79 18 115/75 95 12/30/24 18:54 72 12/30/24 18:43 68 12/30/24 15:51 97 12/30/24 15:00 71 18 105/66 100 12/30/24 14:53 80 12/30/24 14:43 80 12/30/24 14:13 98.1 F 12/30/24 14:00 18 12/30/24 09:57 98 12/30/24 08:27 98 12/30/24 08:00 18 12/30/24 07:00 98.3 F 83 18 146/62 98 12/30/24 06:11 84 12/30/24 06:05 85 12/30/24 01:26 99.1 F 86 124/80 97 Intake and Output 12/30/24 12/30/24 12/31/24 14:59 22:59 06:59 Intake Total 180 Balance 180 Intake: Oral 180 Other: Voiding Method Toilet # Voids 1 GENERAL EXAM: Alert, 54-year-old -[place] female, morbidly obese, abdominal binder in place, comfortable in no apparent distress. HEAD: Normocephalic and atraumatic EYES: Normal reaction of pupils, equal size. NOSE: Clear with pink turbinates. THROAT: No erythema or exudates. NECK: No masses, no JVD. CHEST: No chest wall deformity. LUNGS: Equal air entry with minimal bibasilar inspiratory crackles and faint scattered expiratory wheezing. On 1 L/min nasal cannula. No conversational dyspnea or accessory muscle use.. CVS: S1 and S2 normal with no audible murmur, regular rhythm. No extra heart sounds ABDOMEN: Abdominal binder in place, laparoscopic incisions are approximated. Bowel sounds are active, abdomen is tender, no hepatosplenomegaly or masses SPINE: No scoliosis or deformity SKIN: No rashes CENTRAL NERVOUS SYSTEM: No focal deficits, tone is normal in all 4 extremities. EXTREMITIES: There is no peripheral edema, clubbing, or cyanosis. Peripheral pulses are intact. Results - Laboratory Findings CBC and BMP: 12/31/24 08:26 12/31/24 08:26 PT/INR, D-dimer PT 11.0 sec (10.0-12.5) 12/29/24 14:06 INR 1.0 (<1.2) 12/29/24 14:06 D-Dimer 3.97 mg/L FEU (<0.60) H 12/30/24 12:45 Abnormal lab findings: Abnormal Labs 12/29/24 12/29/24 12/29/24 12:17 14:06 14:06 Hgb Hct MCH MCHC RDW Lymphocytes # 0.5 L ESR D-Dimer Potassium 3.4 L BUN Creatinine 1.05 H BUN/Creatinine Ratio Calcium 8.0 L Total Bilirubin C-Reactive Protein Total Protein 6.1 L Albumin 3.4 L Albumin/Globulin Ratio Influenza Type A (PCR) Detected A 12/30/24 12/30/24 12/30/24 05:01 05:01 12:45 Hgb 11.2 L Hct 36.4 L MCH 26.9 L MCHC 30.8 L RDW 15.1 H Lymphocytes # ESR D-Dimer 3.97 H Potassium BUN 6.9 L Creatinine BUN/Creatinine Ratio 8.62 L Calcium 7.7 L Total Bilirubin 0.2 L C-Reactive Protein Total Protein 5.2 L Albumin 3.1 L Albumin/Globulin Ratio 1.48 L Influenza Type A (PCR) 12/30/24 12/30/24 12:45 12:45 Hgb Hct MCH MCHC RDW Lymphocytes # ESR 37 H D-Dimer Potassium BUN Creatinine BUN/Creatinine Ratio Calcium Total Bilirubin C-Reactive Protein 14.3 H Total Protein Albumin Albumin/Globulin Ratio Influenza Type A (PCR) - Diagnostic Findings Chest x-ray: image reviewed CT scan - chest: image reviewed Assessment and Plan Assessment: Acute influenza A infection Acute exacerbation of COPD/asthma, secondary to above Elevated D-dimer, chest CTA essentially nondiagnostic due to poor technique and limited opacification of the pulmonary arteries; nevertheless, pulmonary embolus felt to be less likely. In addition, there are bibasilar infiltrates and concern for possible atelectasis or pneumonia. Procalcitonin level was low at 0.08. Venous Doppler of the lower extremities unremarkable for DVT Laparoscopic sleeve gastrectomy performed on 12/14/2024 Morbid obesity, with BMI of 47.1 kg/m History of ANNA with CPAP Chronic ongoing tobacco dependence, down to 3 to 4 cigarettes/day Hypertension History of bipolar disorder, previously expressing suicidal ideation, inpatient psychiatry is evaluated the patient, psychiatric medications restarted Plan: Patient's medications, labs, imaging reviewed on room air versus 1 L/min nasal cannula, wean from oxygen if tolerated Complete course of Tamiflu twice daily for 5 days Continue bronchodilators, Symbicort inhaler and Spiriva Continue supportive care for influenza A infection As needed Tylenol for fevers/pain Continue IV maintenance fluids Nausea and vomiting is subsided, slowly introducing clear fluids. Provide incentive spirometer, encourage pulmonary toileting Procalcitonin low at 0.08 We will continue to follow I have personally seen and examined the patient, performed the documentation and the assessment and plan as written. Number of minutes spent on the visit:20 This is a joint evaluation that was done along with the nurse practitioner. This evaluation was done and 31 minutes. The patient is hospitalized for an acute COPD exacerbation and acute influenza A infection. She remains bronchospastic and wheezy. Procalcitonin level is at 0.08. Doppler of the lower extremity shows no evidence of any DVT. CT of the chest shows no evidence of any pulmonary embolism. She is currently on oxygen at room air. She is on DuoNeb updrafts. She is on Symbicort. She is on IV Solu-Medrol. She is on Spiriva. She is on Symbicort. She is on Tamiflu. Will continue to follow. Time with Patient: Greater than 30
[2024-12-31 08:45] LABS: Basophils % (A) 0 %; Eosinophils # (A) 0.7 k/uL (0-0.7); Eosinophils % (A) 21 %; HCT 35.6 % (34.0-46.0); HGB 11.1 gm/dL (11.4-16.0); Hypochromasia Moderate; Lymphocytes # (A) 1.1 k/uL (1.0-4.8); Lymphocytes % (A) 34 %; MCH 27.2 pg (25.0-35.0); MCHC 31.2 g/dL (31.0-37.0); MCV 87.4 fL (80.0-100.0); Mean Platelet Volume 8.7; Monocytes # (A) 0.1 k/uL (0-1.0); Monocytes % (A) 4 %; Neutrophils # (A) 1.2 k/uL (1.3-7.7); Neutrophils % (A) 38 %; Platelet Count 145 k/uL (150-450); RBC 4.07 m/uL (3.80-5.40); RDW 14.2 % (11.5-15.5); WBC 3.2 k/uL (3.8-10.6)
[2024-12-31] MEDS: SYMBICORT 160-4.5 MCG INHALER INHALATION SCH (08:52)
[2024-12-31] MEDS: TIOTROPIUM 2.5 MCG INHALER INHALATION SCH (08:52)
[2024-12-31 08:57] LABS: African American GFR (CKD) >90 (>60 ml/min/1.73 sqM); Anion Gap 9 mmol/L; Blood Urea Nitrogen 4 mg/dL (7-17); Calcium 7.7 mg/dL (8.4-10.2); Carbon Dioxide 24 mmol/L (22-30); Chloride 107 mmol/L (98-107); Glucose 83 mg/dL (74-99); Non-African American GFR(CKD) >90 (>60 ml/min/1.73 sqM); Potassium 3.4 mmol/L (3.5-5.1); Sodium 140 mmol/L (137-145)
[2024-12-31] MEDS ORDERED: BENZONATATE 100 MG CAP PO PRN (09:33)
[2024-12-31] MEDS: LISINOPRIL-HCTZ 20-25 MG 1 EACH TAB PO SCH (09:38)
[2024-12-31] MEDS: DULoxetine HCL 60 MG CAPSULE.DR PO SCH (09:38)
[2024-12-31] MEDS: ENOXAPARIN 40 MG/0.4 ML SYRINGE SQ SCH (09:38)
[2024-12-31] MEDS: FUROSEMIDE 40 MG TAB PO SCH (09:38)
[2024-12-31] MEDS: ASPIRIN 81 MG PO SCH (09:39)
[2024-12-31] MEDS: amLODIPine 10 MG TAB PO SCH (09:39)
[2024-12-31] MEDS: PANTOPRAZOLE 40 MG TABLET PO SCH (09:39)
[2024-12-31] MEDS: guaiFENesin 600 MG TABLET.ER PO SCH (09:40)
--- NOTE | 2024-12-31 12:53 | P.PN ---
Subjective Progress Note Date: 12/31/24 SURGICAL PROGRESS NOTE CHIEF COMPLAINT: Influenza HISTORY OF PRESENT ILLNESS: Patient reports she is starting to feel better. She is tolerating the clear liquids and asking for more to eat. Her abdominal pain is improving. She still has pain with coughing. Patient evaluated by pulmonary service for possible PE. They do not feel that patient had a PE. Afebrile. WBC 3.2 Hgb 11.1 potassium is 3.4 PHYSICAL EXAM: VITAL SIGNS: Reviewed. GENERAL: Well-developed in no acute distress. ABDOMEN: Soft. Nondistended. Incision sites clean dry and intact. Abdominal binder in place. NEUROLOGIC: Alert and oriented. Cranial nerves II through XII grossly intact. ASSESSMENT: 1. Abdominal pain likely secondary to patient's coughing and vomiting causing strain on the abdomen incisions. 2. Influenza A positive PLAN: -Advance diet to full liquids -No surgical intervention planned -Continue abdominal binder -Continue supportive care Physician Player Development Executive note has been reviewed by physician. Signing provider agrees with the documented findings, assessment, and plan of care. Objective - Vital Signs Vital signs: Vital Signs Temp 98.5 F 12/31/24 07:00 Pulse 71 12/31/24 07:00 Resp 18 12/31/24 07:00 BP 121/78 12/31/24 07:00 Pulse Ox 97 12/31/24 07:00 FiO2 Intake & Output 12/30/24 12/31/24 12/31/24 18:59 06:59 18:59 Intake Total 180 Balance 180 Intake: Oral 180 Other: Voiding Method Toilet Toilet # Voids 1 1 - Labs CBC & Chem 7: 12/31/24 08:26 12/31/24 08:26 Labs: Abnormal Lab Results - Last 24 Hours (Table) 12/30/24 12/30/24 12/30/24 Range/Units 12:45 12:45 12:45 WBC (3.8-10.6) k/uL Hgb (11.4-16.0) gm/dL Plt Count (150-450) k/uL Neutrophils # (1.3-7.7) k/uL ESR 37 H (0-30) mm/Hr D-Dimer 3.97 H (<0.60) mg/L FEU Potassium (3.5-5.1) mmol/L BUN (7-17) mg/dL Calcium (8.4-10.2) mg/dL C-Reactive Protein 14.3 H (<1.0) mg/dL 12/31/24 12/31/24 Range/Units 08:26 08:26 WBC 3.2 L (3.8-10.6) k/uL Hgb 11.1 L (11.4-16.0) gm/dL Plt Count 145 L (150-450) k/uL Neutrophils # 1.2 L (1.3-7.7) k/uL ESR (0-30) mm/Hr D-Dimer (<0.60) mg/L FEU Potassium 3.4 L (3.5-5.1) mmol/L BUN 4 L (7-17) mg/dL Calcium 7.7 L (8.4-10.2) mg/dL C-Reactive Protein (<1.0) mg/dL Microbiology - Last 24 Hours (Table) 12/29/24 15:42 Blood Culture - Preliminary Blood
[2024-12-31] MEDS: POTASSIUM CHLORIDE ER 20 MEQ TAB.ER PO STA (13:08)
[2024-12-31] MEDS: HYDROmorphone 0.5 MG/0.5 ML SYRINGE IVP PRN (13:40)
--- NOTE | 2024-12-31 15:38 | P.PN ---
Subjective Progress Note Date: 12/31/24 Hospital Course: Patient is a 54-year-old female with past medical history of hypertension, COPD not requiring home oxygen, bipolar depression, and GERD presenting to the ER with sore throat, shortness of breath, fever at 101 then it was 103, couple episodes of vomiting, and dry cough which has been going on for few weeks. Patient reports that she had bariatric surgery completed on December [address] Alberto. Patient reports some episodes of dizziness since surgery and states she came to the bariatric center on Saturday to get fluids as she was told she was dehydrated. Patient is also complaining of some incisional pain. She denies any chest pain, diarrhea, headaches, myalgias. Vitals on admission temperature 103, heart rate 105, respiratory rate 17, blood pressure 121/81, O2 saturation 98% EKG independently interpreted as sinus rhythm at 87 bpm QTc 421 ms CXR shows no acute cardiopulmonary disease suggestive of CHF, pneumonia not excluded CTA was inconclusive due to body habitus Labs on admission show WBCs 4.92, hemoglobin 11.2, platelets 178. Sodium 142, potassium 3.5, chloride 107, bicarb 23.4, BUN 6.9, creatinine 0.8, glucose 75. Calcium 7.7. Procalcitonin 0.08. CRP 14.3. ESR 37. D-dimer 3.97. NT proBNP 384. Viral panel positive for influenza A 12/31/24 Patient seen and examined at bedside. No acute events overnight. Patient denies any dizziness at this time. She states that she has been having a cough which is causing her some pain. She also states she is bringing up yellow phlegm. Patient remains afebrile and saturating well on room air. Pertinent positives and negatives discussed above, a complete review of systems was performed and all the other systems were negative. Vitals Signs Reviewed. General: nontoxic, no distress, appears at stated age Derm: warm, dry, intact Head: atraumatic, normocephalic, symmetric Eyes: anicteric sclera Mouth: no lip lesion, mucus membranes moist Cardiovascular: S1 S2 reg, no murmur Lungs: Some crackles noted on exam bilaterally Abdominal: soft, tenderness around incision sites which are clean dry and intact, abdominal binder in place Extremities: No cyanosis, clubbing, or pedal edema. Neuro: Alert, Oriented to person, time and place, Gross neurological examination did not reveal any focal deficits. Cranial nerves II to XII grossly intact. Bilateral upper and lower extremity muscle strength intact and sensation intact. Psych: well appearing, appropriate affect Data Reviewed Today: Patient Labs: WBCs 3.2, hemoglobin 11.1, platelets 145. Sodium 140, potassium 3.4, chloride 107, bicarb 24, BUN 4, creatinine 0.67, glucose 83. Calcium 7.7. Imaging: No new imaging Assessment and Plan: 54-year-old female with past medical history of hypertension, COPD not requiring home oxygen, bipolar depression, and GERD presenting to the ER with sore throat, shortness of breath, fever at 101 then it was 103, couple episodes of vomiting, and dry cough which has been going on for few weeks. Acute influenza A infection Acute exacerbation of COPD secondary to above Sepsis, resolved Continue Tamiflu 75 mg every 12 hours Procalcitonin was negative, discontinue antibiotics Continue normal saline at 75 mL an hour Obtain morning CBC Blood cultures Sputum culture Legionella antigen and culture Incentive spirometer provided Elevated D-dimer, ESR/CRP, recent immobilization due to surgery CTA was inconclusive Venous Doppler ultrasound for bilateral lower extremities did not show any acute DVTs Consult pulmonology Laparoscopic sleeve gastrectomy performed on 12/14/2024 Surgery following Chronic: COPD Continue Trelegy equivalent Continue DuoNebs every 4 hours as needed Hypertension Continue amlodipine 10 mg daily Bipolar depression On admission patient had suicidal ideation, without plan Psych consulted and signed off-sitter was discontinued Continue Cymbalta 60 mg daily Continue Seroquel 200 mg p.o. at bedtime GERD Continue Protonix 40mg F 0.9% NS at 75 mL/h E replete as needed N full liquid A as tolerated DVT ppx: Lovenox 40 mg subcu daily Code Status: Full code Discussed with: Patient Anticipated discharge place: Pending clinical course Anticipated discharge time: Likely within the next 24 hours Attestation I have seen and examined this patient with my resident , discussed the same with the resident/HITESH, and agree with the dictator's assessment and plan as written GENERAL: The patient is alert and oriented x3, not in any acute distress. Well developed, well nourished. HEENT: Pupils are round and equally reacting to light. EOMI. No scleral icterus. No conjunctival pallor. Normocephalic, atraumatic. No pharyngeal erythema. No thyromegaly. CARDIOVASCULAR: S1 and S2 present. No murmurs, rubs, or gallops. PULMONARY: Coarse breath sound bilaterally, no wheezing or crackles. ABDOMEN: Soft, nontender, nondistended, normoactive bowel sounds. No palpable organomegaly. MUSCULOSKELETAL: No joint swelling or deformity. EXTREMITIES: No cyanosis, clubbing, or pedal edema. NEUROLOGICAL: Gross neurological examination did not reveal any focal deficits. SKIN: No rashes. Dr. Irineo watkins Objective - Vital Signs Vital signs: Vital Signs Temp 97.9 F 12/31/24 02:44 Pulse 78 12/31/24 02:44 Resp 17 12/31/24 02:44 BP 113/74 12/31/24 02:44 Pulse Ox 97 12/31/24 02:44 FiO2 Intake & Output 12/30/24 12/31/24 12/31/24 18:59 06:59 18:59 Intake Total 180 Balance 180 Intake: Oral 180 Other: Voiding Method Toilet # Voids 1 1 - Labs CBC & Chem 7: 12/31/24 08:26 12/31/24 08:26 Labs: Abnormal Lab Results - Last 24 Hours (Table) 12/30/24 12/30/24 12/30/24 Range/Units 05:01 05:01 12:45 Hgb 11.2 L (12.0-15.0) g/dL Hct 36.4 L (37.2-46.3) % MCH 26.9 L (27.0-32.0) pg MCHC 30.8 L (32.0-37.0) g/dL RDW 15.1 H (11.5-14.5) % ESR (0-30) mm/Hr D-Dimer 3.97 H (<0.60) mg/L FEU BUN 6.9 L (9.0-27.0) mg/dL BUN/Creatinine Ratio 8.62 L (12.00-20.00) Ratio Calcium 7.7 L (8.7-10.3) mg/dL Total Bilirubin 0.2 L (0.3-1.2) mg/dL C-Reactive Protein (<1.0) mg/dL Total Protein 5.2 L (6.2-8.2) g/dL Albumin 3.1 L (3.8-4.9) g/dL Albumin/Globulin Ratio 1.48 L (1.60-3.17) Ratio 12/30/24 12/30/24 Range/Units 12:45 12:45 Hgb (12.0-15.0) g/dL Hct (37.2-46.3) % MCH (27.0-32.0) pg MCHC (32.0-37.0) g/dL RDW (11.5-14.5) % ESR 37 H (0-30) mm/Hr D-Dimer (<0.60) mg/L FEU BUN (9.0-27.0) mg/dL BUN/Creatinine Ratio (12.00-20.00) Ratio Calcium (8.7-10.3) mg/dL Total Bilirubin (0.3-1.2) mg/dL C-Reactive Protein 14.3 H (<1.0) mg/dL Total Protein (6.2-8.2) g/dL Albumin (3.8-4.9) g/dL Albumin/Globulin Ratio (1.60-3.17) Ratio Microbiology - Last 24 Hours (Table) 12/29/24 15:42 Blood Culture - Preliminary Blood
[2024-12-31] MEDS: OSELTAMIVIR 75 MG CAP PO SCH (20:25)
[2025-01-01 07:59] VITALS: BP 130/80; PULSE 76; RESP 16; TEMP 98.2
--- NOTE | 2025-01-01 12:28 | P.PN ---
Subjective Progress Note Date: 01/01/25 SURGICAL PROGRESS NOTE CHIEF COMPLAINT: Influenza HISTORY OF PRESENT ILLNESS: Patient reports feeling better. She does feel ready for discharge. She is tolerating the full liquid diet. She reports having bowel movements. Abdominal pain is controlled. Afebrile. PHYSICAL EXAM: VITAL SIGNS: Reviewed. GENERAL: Well-developed in no acute distress. ABDOMEN: Soft. Nondistended. Incision sites clean dry and intact. Abdominal binder in place. NEUROLOGIC: Alert and oriented. Cranial nerves II through XII grossly intact. ASSESSMENT: 1. Abdominal pain likely secondary to patient's coughing and vomiting causing strain on the abdomen incisions. 2. Influenza A positive PLAN: -Continue full liquid diet -Patient can be discharged from surgical standpoint -Continue to wear abdominal binder for support Physician Mohel note has been reviewed by physician. Signing provider agrees with the documented findings, assessment, and plan of care. Objective - Vital Signs Vital signs: Vital Signs Temp 98.2 F 01/01/25 07:00 Pulse 76 01/01/25 07:00 Resp 16 01/01/25 08:41 BP 130/80 01/01/25 07:00 Pulse Ox 96 01/01/25 08:33 FiO2 Intake & Output 12/31/24 01/01/25 01/01/25 18:59 06:59 18:59 Intake Total 180 Balance 180 Intake: Oral 180 Other: Voiding Method Toilet Toilet Toilet # Voids 3 2 - Labs CBC & Chem 7: 12/31/24 08:26 12/31/24 08:26 Labs: Microbiology - Last 24 Hours (Table) 12/29/24 15:42 Blood Culture - Preliminary Blood
--- NOTE | 2025-01-01 16:37 | P.PN ---
Subjective Progress Note Date: 01/01/25 Patient is a 54-year-old -[place] female with past medical history sign ificant for hypertension, hyperlipidemia, asthma/COPD, current ongoing tobacco smoker, bipolar disorder, morbid obesity and recent sleeve gastrectomy. Patient reportedly has history of COPD/asthma and uses Trelegy inhaler and as needed albuterol. She does smoke cigarettes, down to approximately 3 to 4 cigarettes/day. 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 Patient had laparoscopic sleeve gastrectomy on 12/14/2024. She was at the bariatric center receiving IV fluids. Noted to have nauseous, vomiting, chest congestion, coughing, fevers; and directed to the emergency department. Patient's noted to be sick with similar symptoms earlier in the week. While in the ED, viral screen was positive for influenza A. States she was previously vaccinated this season. She was started on Tamiflu. Remaining workup including a elevated D-dimer, in setting a CT angio protocol which was essentially nondiagnostic, bibasilar infiltrates were noted. Previously febrile with a temperature as high as 103 F. Procalcitonin level low. CBC unremarkable for leukocytosis, WBC count 4.9, hemoglobin 11.2, platelets 172. CMP: Sodium 142, potassium 3.5, chloride 107, BUN 6.9, creatinine 0.8, glucose 75. NT proBNP 384. Patient currently being evaluated on the medical floor. She is resting comfortably on 1 L/min nasal cannula. No notable respiratory distress. Faint expiratory wheezing heard on auscultation. She does have an abdominal binder on. Laparoscopic surgical incisions are approximated. Patient states that her symptoms started approximately 2 days ago including a combination of shortness of breath, nonproductive coughing, chest congestion, headache, nausea and vomiting, abdominal discomfort, and dizziness. She was not able to "keep anything down". Previously, vomiting mostly food products. The nausea has since subsided, she is taking in clear liquids. Normal saline is infusing at 75 mm/h. Abdomen paint spray tender, especially with coughing and deep breathing. CT of the abdomen and pelvis showed postsurgical changes without any acute concerns. Small bibasilar airspace consolidations as reported above. Most recent vital signs: Temperature 99 F, heart rate 79 bpm, blood pressure 115/75 mmHg, respiratory rate 18, SpO2 95% on room air. Patient previously voiced some suicidal ideation and this has been followed up by inpatient psych. Currently, no suicidal ideation or plan. On 01/01/2025, the patient is feeling better. Less bronchospastic and wheezy. C ough and congestion has subsided and the patient is currently on room air oxygen. Denies having any chest pain. No nausea vomiting or diarrhea or abdominal pain. The patient is to be discharged home on Tamiflu and a prednisone burst taper. White cell count of 3.2 with a hemoglobin 11 and a platelet count of 145. Electrolytes are all within normal limits. No nausea. No vomiting. No altered mentation. No other complaints otherwise for now. She is tolerating her diet. Objective - Vital Signs Vital signs: Vital Signs Temp 98.2 F 01/01/25 07:00 Pulse 76 01/01/25 07:00 Resp 16 01/01/25 14:00 BP 130/80 01/01/25 07:00 Pulse Ox 96 01/01/25 08:33 FiO2 Intake & Output 12/31/24 01/01/25 01/01/25 18:59 06:59 18:59 Intake Total 180 240 Balance 180 240 Intake: Oral 180 240 Other: Voiding Method Toilet Toilet Toilet # Voids 3 2 - Exam GENERAL EXAM: Alert, 54-year-old -[place] female, morbidly obese, abdominal binder in place, comfortable in no apparent distress. HEAD: Normocephalic and atraumatic EYES: Normal reaction of pupils, equal size. NOSE: Clear with pink turbinates. THROAT: No erythema or exudates. NECK: No masses, no JVD. CHEST: No chest wall deformity. LUNGS: Equal air entry with minimal bibasilar inspiratory crackles and faint scattered expiratory wheezing. On room air oxygen. No conversational dyspnea or accessory muscle use.. CVS: S1 and S2 normal with no audible murmur, regular rhythm. No extra heart sounds ABDOMEN: Abdominal binder in place, laparoscopic incisions are approximated. Bowel sounds are active, abdomen is tender, no hepatosplenomegaly or masses SPINE: No scoliosis or deformity SKIN: No rashes CENTRAL NERVOUS SYSTEM: No focal deficits, tone is normal in all 4 extremities. EXTREMITIES: There is no peripheral edema, clubbing, or cyanosis. Peripheral pulses are intact. - Labs CBC & Chem 7: 12/31/24 08:26 12/31/24 08:26 Labs: Microbiology - Last 24 Hours (Table) 12/29/24 15:42 Blood Culture - Preliminary Blood Assessment and Plan Assessment: Acute influenza A infection, clinically improving Acute exacerbation of COPD/asthma, secondary to above, clinically improving Elevated D-dimer, chest CTA essentially nondiagnostic due to poor technique and limited opacification of the pulmonary arteries; nevertheless, pulmonary embolus felt to be less likely. In addition, there are bibasilar infiltrates and concern for possible atelectasis or pneumonia. Procalcitonin level was low at 0.08. Venous Doppler of the lower extremities unremarkable for DVT Laparoscopic sleeve gastrectomy performed on 12/14/2024 Morbid obesity, with BMI of 47.1 kg/m History of ANNA with CPAP Chronic ongoing tobacco dependence, down to 3 to 4 cigarettes/day Hypertension History of bipolar disorder, previously expressing suicidal ideation, inpatient psychiatry is evaluated the patient, psychiatric medications restarted Plan: Patient is improved. The patient can be potentially discharged home on Tamiflu, prednisone burst taper and the patient will continue combination of Symbicort and Spiriva on outpatient basis and albuterol HFA [id number]. Oxygenation is stable. No other new complaints otherwise for now. Discharge either today over the next 24 hours.leann. She is on Spiriva. She is on Symbicort. She is on Tamiflu. Will continue to follow.
--- NOTE | 2025-01-01 16:39 | P.DS ---
Providers Date of admission: 12/29/24 15:13 Expected date of discharge: 01/01/25 Attending physician: Shen Gupta MD Consults: 12/29/24 15:11 Consult Physician Routine Consulting Provider: Felipe Alberto Consult Reason/Comments: abp Do you want consulting provider notified?: Already Contacted 12/29/24 17:53 Consult Physician Routine Consulting Provider: Psychiatry - [facility] Consult Reason/Comments: patient reports suicidal ideation without plan. Do you want consulting provider notified?: Already Contacted 12/30/24 16:22 Consult Physician Urgent Consulting Provider: Timoteo Toribio Consult Reason/Comments: SOB, elevated D-dimer Do you want consulting provider notified?: Already Contacted Primary care physician: [facility] Course: Patient is a 54-year-old female with past medical history of hypertension, COPD not requiring home oxygen, bipolar depression, and GERD presenting to the ER with sore throat, shortness of breath, fever at 101 then it was 103, couple episodes of vomiting, and dry cough which has been going on for few weeks. Patient reports that she had bariatric surgery completed on December [address] Alberto. Patient reports some episodes of dizziness since surgery and states she came to the bariatric center on Saturday to get fluids as she was told she was dehydrated. Patient is also complaining of some incisional pain. She denies any chest pain, diarrhea, headaches, myalgias. Vitals on admission temperature 103, heart rate 105, respiratory rate 17, blood pressure 121/81, O2 saturation 98% EKG independently interpreted as sinus rhythm at 87 bpm QTc 421 ms CXR shows no acute cardiopulmonary disease suggestive of CHF, pneumonia not excluded CTA was inconclusive due to body habitus Labs on admission show WBCs 4.92, hemoglobin 11.2, platelets 178. Sodium 142, potassium 3.5, chloride 107, bicarb 23.4, BUN 6.9, creatinine 0.8, glucose 75. Calcium 7.7. Procalcitonin 0.08. CRP 14.3. ESR 37. D-dimer 3.97. NT proBNP 384. Viral panel positive for influenza A Discharge diagnoses; Influenza A infection Elevated D-dimer COPD Hypertension Bipolar depression GERD 01/01/25 Patient seen and examined at bedside today. Patient has noticed a significant improvement in her breathing. She has been on room air. She is looking forward to being discharged today. Patient will be discharged home today. Patient is advised to be compliant with medications. Patient will complete course of Tamiflu and steroids. Patient is advised to follow-up with PCP in 1 to 2 days. Physical Exam: General: non toxic, no distress, appears at stated age, obese Derm: no unusual rashes/lesions, warm Head: atraumatic, normocephalic, symmetric Eyes: EOMI, anicteric sclera, pupils equal round reactive to light ENT: Nose and ears atraumatic Neck: No cervical lymphadenopathy, trachea midline, supple Mouth: no lip lesion, mucus membranes moist Cardiovascular: S1S2 reg, no murmur, positive dorsalis pedis pulse bilateral, no edema Lungs: Equal air entry bilaterally, no rhonchi, no rales, no accessory muscle use Abdominal: Soft, nontender, non-distended Extremities: fingers appear swollen without clubbing, no edema Neuro: CN II-XI grossly intact, no gross focal neuro deficits Psych: Alert, oriented, appropriate affect Dictation was produced using [employer] dictation software. please excuse any grammatical, word or spelling errors. A total of minutes of 20 minutes were spent preparing this complex discharge summary. Patient was discharged on 01/01/2025 at 1309. Attestation I have seen and examined this patient with my resident , discussed the same with the resident/HITESH, and agree with the dictator's assessment and plan as written GENERAL: The patient is alert and oriented x3, not in any acute distress. Well developed, well nourished. HEENT: Pupils are round and equally reacting to light. EOMI. No scleral icterus. No conjunctival pallor. Normocephalic, atraumatic. No pharyngeal erythema. No thyromegaly. CARDIOVASCULAR: S1 and S2 present. No murmurs, rubs, or gallops. PULMONARY: Chest is clear to auscultation, no wheezing or crackles. ABDOMEN: Soft, nontender, nondistended, normoactive bowel sounds. No palpable organomegaly. MUSCULOSKELETAL: No joint swelling or deformity. EXTREMITIES: No cyanosis, clubbing, or pedal edema. NEUROLOGICAL: Gross neurological examination did not reveal any focal deficits. SKIN: No rashes. Dr. Irineo watkins Plan - Discharge Summary Discharge Rx Participant: No New Discharge Prescriptions: New guaiFENesin [Mucinex] 600 mg PO Q12HR tab amLODIPine [Norvasc] 10 mg PO QAM #30 tab Ipratropium-Albuterol Nebulize [Duoneb 0.5 mg-3 mg/3 ml Soln] 3 ml INHALATION RT-Q4H PRN each PRN Reason: shortness of breath Oseltamivir [Tamiflu] 75 mg PO Q12HR 3 Days #6 cap predniSONE See Taper PO DAILY #30 tab Continue QUEtiapine [SEROquel] 200 mg PO HS Lisinopril-Hctz 20-25 mg [Zestoretic 20-25] 1 tab PO QAM DULoxetine HCL [Cymbalta] 60 mg PO QAM Fluticasone/Umeclidin/Vilanter [Trelegy Ellipta 100-62.5-25] 1 puff INHALATION RT-DAILY Montelukast [Singulair] 1 tab PO HS Aspirin [Adult Low Dose Aspirin EC] 81 mg PO QAM Docusate [Colace] 100 mg PO BID #20 capsule Omeprazole 40 mg PO DAILY Furosemide [Lasix] 40 mg PO DAILY #30 tablet Ondansetron Odt [Zofran ODT] 4 mg PO TID PRN PRN Reason: Nausea Discontinued amLODIPine [Norvasc] 10 mg PO QAM Acetaminophen Tab [Tylenol] 650 mg PO Q6H #30 tab Discharge Medication List QUEtiapine [SEROquel] 200 mg PO HS 09/28/19 [History] Lisinopril-Hctz 20-25 mg [Zestoretic 20-25] 1 tab PO QAM 06/05/23 [History] DULoxetine HCL [Cymbalta] 60 mg PO QAM 06/20/23 [History] Fluticasone/Umeclidin/Vilanter [Trelegy Ellipta 100-62.5-25] 1 puff INHALATION RT-DAILY 08/17/24 [History] Montelukast [Singulair] 1 tab PO HS 08/17/24 [History] Aspirin [Adult Low Dose Aspirin EC] 81 mg PO QAM 10/26/24 [History] Docusate [Colace] 100 mg PO BID #20 capsule 12/18/24 [Rx] Furosemide [Lasix] 40 mg PO DAILY #30 tablet 12/18/24 [Rx] Omeprazole 40 mg PO DAILY 12/23/24 [History] Ondansetron Odt [Zofran ODT] 4 mg PO TID PRN 12/29/24 [History] Ipratropium-Albuterol Nebulize [Duoneb 0.5 mg-3 mg/3 ml Soln] 3 ml INHALATION RT-Q4H PRN each 01/01/25 [Rx] Oseltamivir [Tamiflu] 75 mg PO Q12HR 3 Days #6 cap 01/01/25 [Rx] amLODIPine [Norvasc] 10 mg PO QAM #30 tab 01/01/25 [Rx] guaiFENesin [Mucinex] 600 mg PO Q12HR tab 01/01/25 [Rx] predniSONE See Taper PO DAILY #30 tab 01/01/25 [Rx] Follow up Appointment(s)/Referral(s): Brigette Mustafa MD [Primary Care Provider] - 1-2 days Felipe Alberto MD [STAFF PHYSICIAN] - As Needed Patient Instructions/Handouts: Influenza (DC) Activity/Diet/Wound Care/Special Instructions: Continue full liquid diet as instructed by surgery and follow up with them as needed. Follow up with PCP in 1-2 days. Take all medications as instructed. FOLLOW UP DIRECTED, SOONER IF WORSENING SYMPTOMS PROBLEMS OR CONCERNS. Discharge Disposition: HOME SELF-CARE
== END 2025-01-01 14:50 | disposition home or self-care (01) ==
LOC: EC 11:15 → 6NMEDSUR 15:13
PROVIDERS: ADMIT Internal Medicine; ATTEND Internal Medicine
DX: J10.1 Influenza due to other identified influenza virus with other respiratory manifestations (principal); J44.1 Chronic obstructive pulmonary disease with (acute) exacerbation; A41.9 Sepsis, unspecified organism; R79.1 Abnormal coagulation profile; I10 Essential (primary) hypertension; F31.9 Bipolar disorder, unspecified; K21.9 Gastro-esophageal reflux disease without esophagitis; E11.9 Type 2 diabetes mellitus without complications; E66.01 Morbid (severe) obesity due to excess calories; E78.5 Hyperlipidemia, unspecified; F17.210 Nicotine dependence, cigarettes, uncomplicated; F41.9 Anxiety disorder, unspecified; R45.851 Suicidal ideations; G47.33 Obstructive sleep apnea (adult) (pediatric); M19.90 Unspecified osteoarthritis, unspecified site; Z68.42 Body mass index [BMI] 45.0-49.9, adult; Z79.82 Long term (current) use of aspirin; Z79.899 Other long term (current) drug therapy; Z91.51 Personal history of suicidal behavior; Z87.01 Personal history of pneumonia (recurrent); Z98.84 Bariatric surgery status
CPT/HCPCS: 96376 ×5; 96361 ×3; 96367 ×2; 96372 ×2; 96375 ×3; 96365; 96366; 99285; 36415; 94640 ×6; 94760; 93005; 85379; 83880; 80053 ×2; 80048; 85652; 82150; 83605; 83690; 85025 ×3; 85610; 85730; 86140; 87040; 87070; 87205; 84145; 87636; 71046 ×2; 93970; 71275; 74177; G0378 ×4; J2405 ×3; J0456; J0696 ×2; J1650 ×2; J3490; J1171 ×5; J0131; Q9967 ×2; J2470

== ENCOUNTER → 2024-12-29 | Outpatient (CLI) | payer MEDICARE, OTHER ==
[2024-12-29] MEDS: ONDANSETRON 4 MG/2 ML VIAL IVP ONE (09:00)
[2024-12-29] MEDS: SODIUM CHLORIDE 0.9% 1,000 ML IV SCH (09:00)
[2024-12-29 10:44] VITALS: BP 121/78; PULSE 92; RESP 18; TEMP 102.6
[2024-12-29 11:24] LABS: Basophils % (A) 0 %; Eosinophils # (A) 0.4 k/uL (0-0.7); Eosinophils % (A) 4 %; HCT 38.9 % (34.0-46.0); HGB 12.2 gm/dL (11.4-16.0); Hypochromasia Slight; Lymphocytes # (A) 0.8 k/uL (1.0-4.8); Lymphocytes % (A) 10 %; MCH 27.2 pg (25.0-35.0); MCHC 31.4 g/dL (31.0-37.0); MCV 86.5 fL (80.0-100.0); Mean Platelet Volume 11.3; Monocytes # (A) 0.4 k/uL (0-1.0); Monocytes % (A) 5 %; Neutrophils # (A) 6.7 k/uL (1.3-7.7); Neutrophils % (A) 80 %; RBC 4.49 m/uL (3.80-5.40); RDW 14.3 % (11.5-15.5); WBC 8.5 k/uL (3.8-10.6)
[2024-12-29 11:27] LABS: Platelet Count 179 k/uL (150-450)
[2024-12-29 11:50] LABS: ALT 17 U/L (4-34); African American GFR (CKD) 80 (>60 ml/min/1.73 sqM); Anion Gap 7 mmol/L; Blood Urea Nitrogen 12 mg/dL (7-17); Calcium 7.7 mg/dL (8.4-10.2); Carbon Dioxide 25 mmol/L (22-30); Chloride 104 mmol/L (98-107); Glucose 84 mg/dL (74-99); Non-African American GFR(CKD) 69 (>60 ml/min/1.73 sqM); Sodium 136 mmol/L (137-145)
[2024-12-29 12:09] LABS: AST 37 U/L (14-36); Alkaline Phosphatase 35 U/L (38-126); Potassium 4.5 mmol/L (3.5-5.1); Total Bilirubin 0.9 mg/dL (0.2-1.3); Total Protein 5.8 g/dL (6.3-8.2)
[2024-12-29 12:10] LABS: Albumin 3.1 g/dL (3.5-5.0)
== END ==
LOC: PROCWHC3 08:56
PROVIDERS: ATTEND Surgery
DX: E86.0 Dehydration (principal); R50.9 Fever, unspecified; Z01.818 Encounter for other preprocedural examination
CPT/HCPCS: 80053; 85025; 96361; 96374; 36415; J2405; 96360; 96375

== ENCOUNTER → 2025-01-18 | Outpatient (CLI) | payer MEDICARE, OTHER ==
[2025-01-18 10:01] VITALS: BP 111/79; PULSE 99; RESP 16; TEMP 98.5; BMI 43.6
== END ==
LOC: BARWHC3 09:29
PROVIDERS: ATTEND Surgery
DX: E66.01 Morbid (severe) obesity due to excess calories (principal); Z53.9 Procedure and treatment not carried out, unspecified reason
CPT/HCPCS: 99211

== ENCOUNTER 2025-03-29 10:34 | Inpatient (IN) | payer MEDICARE, OTHER ==
--- NOTE | 2025-03-29 11:21 | ED ---
General Adult HPI - General Chief complaint: Syncope Stated complaint: Near syncope Time Seen by Provider: 03/29/25 11:08 Source: patient, RN notes reviewed Mode of arrival: wheelchair Limitations: no limitations - History of Present Illness Initial comments: 54-year-old female presents to the emergency department for a near syncopal episode. Patient states that she went to the bariatric clinic this morning and attempt to get fluids. Patient states that she has had vomiting and diarrhea for the past 1 week. She notes that today as she was getting on a scale she got lightheaded and almost passed out. She notes that following that she was advise d to come to the emergency department. She states that the episode lasted 2 to 3 minutes. She did not fully lose consciousness. - Related Data Home Medications Medication Instructions Recorded Confirmed Lisinopril-Hctz 20-25 mg 1 tab PO DAILY 06/05/23 03/29/25 [Zestoretic 20-25] DULoxetine HCL [Cymbalta] 60 mg PO DAILY 06/20/23 03/29/25 Fluticasone/Umeclidin/Vilanter 1 puff INHALATION RT-DAILY 08/17/24 03/29/25 [Trelegy Ellipta 100-62.5-25] Montelukast [Singulair] 1 tab PO HS 08/17/24 03/29/25 Omeprazole 40 mg PO DAILY 12/23/24 03/29/25 Ondansetron Odt [Zofran ODT] 4 mg PO TID PRN 12/29/24 03/29/25 Acetaminophen Tab [Tylenol Tab] 500 mg PO Q4-6H PRN 03/29/25 03/29/25 QUEtiapine FUMARATE [SEROquel] 200 mg PO HS 03/29/25 03/29/25 amLODIPine [Norvasc] 10 mg PO DAILY 03/29/25 03/29/25 Allergies Allergy/AdvReac Type Severity Reaction Status Date / Time Enviromental Allergy Nasal Uncoded 03/29/25 14:23 drainage/watery eyes/sneezing Review of Systems ROS Statement: Those systems with pertinent positive or pertinent negative responses have been documented in the HPI. ROS Other: All systems not noted in ROS Statement are negative. Past Medical History Past Medical History: Asthma, Chest Pain / Angina, COPD, Diabetes Mellitus, GERD/Reflux, Hypertension, Osteoarthritis (OA), Pneumonia, Sleep Apnea/CPAP/BIPAP Additional Past Medical History / Comment(s): Recent ER visit r/t headache-pt states was dx with a Migraine. DDD, borderline diabetic, uses CPAP machine environmental allergies., has lap band. Influenza-12/2024 History of Any Multi-Drug Resistant Organisms: MRSA Date of last positivie culture/infection: 06/22/14 MDRO Source:: rt breast Past Surgical History: Back Surgery, Bariatric Surgery, Section, Cholecystectomy, Heart Catheterization, Joint Replacement, Tubal Ligation Additional Past Surgical History / Comment(s): bilateral knee replacement, lap band , RT WRIST GANGLION CYCT REMOVED, lumbar fusion surgery. lap band removal sleeve gastrectomy 12-14-24 Past Anesthesia/Blood Transfusion Reactions: No Reported Reaction Additional Past Anesthesia/Blood Transfusion Reaction / Comment(s): No hx of blood transfusion to date. Past Psychological History: Anxiety, Bipolar, Depression Smoking Status: Never smoker Past Alcohol Use History: Occasional Past Drug Use History: None Reported - Past Family History Mother Family Medical History: Hypertension Father Family Medical History: Cancer General Exam Limitations: no limitations General appearance: alert, in no apparent distress Head exam: Present: atraumatic, normocephalic, normal inspection Eye exam: Present: normal appearance, PERRL, EOMI. Absent: scleral icterus, conjunctival injection, periorbital swelling ENT exam: Present: mucous membranes dry Neck exam: Present: normal inspection. Absent: tenderness, meningismus, lymphadenopathy Respiratory exam: Present: normal lung sounds bilaterally. Absent: respiratory distress, wheezes, rales, rhonchi, stridor Cardiovascular Exam: Present: regular rate, normal rhythm, normal heart sounds. Absent: systolic murmur, diastolic murmur, rubs, gallop, clicks GI/Abdominal exam: Present: soft, hyperactive bowel sounds. Absent: distended, tenderness, guarding, rebound, rigid Extremities exam: Present: normal inspection, full ROM, normal capillary refill. Absent: tenderness, pedal edema, joint swelling, calf tenderness Neurological exam: Present: alert, oriented X3 Psychiatric exam: Present: normal affect, normal mood Skin exam: Present: warm, dry, intact, normal color. Absent: rash Course Vital Signs 03/29/25 03/29/25 03/29/25 10:36 11:45 12:12 Temperature 97.9 F Pulse Rate 82 76 61 Pulse Rate [ 61 Armored Vehicle Officer ] Respiratory 18 18 18 Rate Blood Pressure 101/71 91/55 Blood Pressure [Right Arm] O2 Sat by Pulse 97 97 Oximetry 03/29/25 03/29/25 03/29/25 13:42 14:06 14:30 Temperature Pulse Rate 64 66 60 Pulse Rate [ Armored Vehicle Officer ] Respiratory 18 18 18 Rate Blood Pressure 95/61 81/50 91/66 Blood Pressure [Right Arm] O2 Sat by Pulse 97 97 97 Oximetry 03/29/25 03/29/25 03/29/25 16:54 18:24 22:00 Temperature 97.8 F Pulse Rate 80 79 Pulse Rate [ Armored Vehicle Officer ] Respiratory 18 18 Rate Blood Pressure 96/52 101/52 Blood Pressure 83/54 [Right Arm] O2 Sat by Pulse 96 96 Oximetry 03/29/25 03/29/25 03/29/25 22:52 22:57 23:09 Temperature Pulse Rate 85 Pulse Rate [ Armored Vehicle Officer ] Respiratory 17 Rate Blood Pressure 91/62 Blood Pressure 84/46 88/56 [Right Arm] O2 Sat by Pulse 98 Oximetry Medical Decision Making - Medical Decision Making Was pt. sent in by a medical professional or institution (, PA, [employer], urgent care, hospital, or group home...) When possible be specific @ -No Did you speak to anyone other than the patient for history (EMS, parent, family, police, friend...)? What history was obtained from this source @ -No Did you review nursing and triage notes (agree or disagree)? Why? @ -I reviewed and agree with nursing and triage notes Were old charts reviewed (outside hosp., previous admission, EMS record, old EKG, old radiological studies, urgent care reports/EKG's, group home records)? Report findings @ -No old charts were reviewed Differential Diagnosis (chest pain, altered mental status, abdominal pain women, abdominal pain men, vaginal bleeding, weakness, fever, dyspnea, syncope, headache, dizziness, GI bleed, back pain, seizure, CVA, palpatations, mental health, musculoskeletal)? @ -Differential Abdominal Pain Women: Appendicitis, Cholecystitis, diverticulosis, ischemic bowel, pancreatitis, hepatitis, UTI, gastroenteritis, AAA, incarcerated hernia, bowel obstruction, constipation, inflammatory bowel, hepatitis, peptic ulcer disease, splenic infarction, perforated viscus, vulvitis, ovarian torsion, PID, kidney stone, placenta abruption, this is not meant to be an all-inclusive list EKG interpreted by me (3pts min.). @ -EKG@1119 shows sinus rhythm rate 69, MS 148, QRS 106, QT/QTc [id number] X-rays interpreted by me (1pt min.). @ -Chest x-ray reveals borderline heart size, strandy atelectasis CT interpreted by me (1pt min.). @ -None done U/S interpreted by me (1pt. min.). @ -None done What testing was considered but not performed or refused? (CT, X-rays, U/S, labs)? Why? @ -None What meds were considered but not given or refused? Why? @ -None Did you discuss the management of the patient with other professionals (prof lewis i.e. , PA, [employer], lab, RT, psych nurse, licensed social worker, chief digital media officer, teacher, mounted police officer, sample case porter)? Give summary @ -Management was discussed with nephrology, Dr. Barrera who recommended another 1 L normal saline bolus, maintenance fluids at 125 cc/h, Yeh catheter initiation and repeat labs in the a.m. Was smoking cessation discussed for >3mins.? @ -No Was critical care preformed (if so, how long)? @ -No Were there social determinants of health that impacted care today? How? (Sivan elessness, low income, unemployed, alcoholism, drug addiction, transportation, low edu. Level, literacy, decrease access to med. care, nursing home, rehab)? @ -No Was there de-escalation of care discussed even if they declined (Discuss DNR or withdrawal of care, Hospice)? DNR status @ -No What co-morbidities impacted this encounter? (DM, HTN, Smoking, COPD, CAD, Cancer, CVA, ARF, Chemo, Hep., AIDS, mental health diagnosis, sleep apnea, morbid obesity)? @ -None Was patient admitted / discharged? Hospital course, mention meds given and route, prescriptions, significant lab abnormalities, going to OR and other pertinent info. @ -Admitted. Patient presented the emergency department for syncope, nausea, vomiting. Symptoms x 1 week. Patient was provided a normal saline bolus 1 L. Laboratory studies obtained. CBC reveals no significant leukocytosis, hemoglobin stable. CMP reveals significant elevation in BUN at 102, creatinine 8.11. Patient has known history of renal disease.ultrasound of the renals and bladder reveals renal cortical cyst, bladder under distended. I discussed these findings with nephrology who recommended another normal saline bolus, maintenance fluids at 125 cc/h, Yeh catheter initiation, potassium supplementation of 30 mEq, and repeat labs in the a.m. patient will be admitted to the hospital. I discussed these findings with the patient. Case discussed with [facility] who was accepting of the admission. Case discussed with Dr. Oliver Undiagnosed new problem with uncertain prognosis? @ -No Drug Therapy requiring intensive monitoring for toxicity (Heparin, Nitro, Insulin, Cardizem)? @ -No Were any procedures done? @ -No Diagnosis/symptom? @ -TAMAR Acute, or Chronic, or Acute on Chronic? @ -Acute Uncomplicated (without systemic symptoms) or Complicated (systemic symptoms)? @ -Uncomplicated Side effects of treatment? @ -No Exacerbation, Progression, or Severe Exacerbation? @ -No Poses a threat to life or bodily function? How? (Chest pain, USA, MT, pneumonia, PE, COPD, DKA, ARF, appy, cholecystitis, CVA, Diverticulitis, Homicidal, Suicidal, threat to staff... and all critical care pts) @ -No - Lab Data Result diagrams: 04/04/25 08:05 04/04/25 08:05 Lab Results 03/29/25 03/29/25 03/29/25 Range/Units 11:39 11:39 11:39 WBC 5.04 (4.50-10.00) 10*3/uL RBC 5.09 (4.10-5.20) 10*6/uL Hgb 14.0 (12.0-15.0) g/dL Hct 41.0 (37.2-46.3) % MCV 80.6 (80.0-97.0) fL MCH 27.5 (27.0-32.0) pg MCHC 34.1 (32.0-37.0) g/dL Plt Count 172 (140-440) 10*3/uL MPV 13.4 H (9.5-12.2) fL Immature Gran % (Auto) 0.2 % Neutrophils % 54.6 % Lymphocytes % 32.1 % Monocytes % 10.3 % Eosinophils % 2.2 % Basophils % 0.6 % Immature Gran # 0.01 (0.00-0.04) 10*3/uL Neutrophils # 2.75 (1.80-7.70) 10*3/uL Lymphocytes # 1.62 (0.90-5.00) 10*3/uL Monocytes # 0.52 (0.20-1.00) 10*3/uL Eosinophils # 0.11 (0.04-0.35) 10*3/uL Basophils # 0.03 (0.00-0.10) 10*3/uL Immature Plt Fraction 10.6 H (1.1-6.1) % PT 10.4 (10.0-12.5) sec INR 0.9 (<1.2) APTT 23.0 (22.0-30.0) sec Sodium 140 (137-145) mmol/L Potassium 3.1 L (3.5-5.1) mmol/L Chloride 99 (98-107) mmol/L Carbon Dioxide 22 (22-30) mmol/L Anion Gap 19 mmol/L BUN 102 H* (7-17) mg/dL Creatinine 8.11 H* (0.52-1.04) mg/dL Est GFR (CKD-EPI)AfAm 6 (>60 ml/min/1.73 sqM) Est GFR (CKD-EPI)NonAf 5 (>60 ml/min/1.73 sqM) Glucose 93 (74-99) mg/dL Osmolality (275-295) mOsm/kg Calcium 10.0 (8.4-10.2) mg/dL Magnesium 2.6 H (1.6-2.3) mg/dL Total Bilirubin 0.9 (0.2-1.3) mg/dL AST 17 (14-36) U/L ALT 8 (4-34) U/L Alkaline Phosphatase 69 (38-126) U/L Total Protein 7.0 (6.3-8.2) g/dL Albumin 3.9 (3.5-5.0) g/dL Urine Color Urine Appearance (Clear) Urine pH (5.0-8.0) Ur Specific [place] (1.001-1.035) Urine Protein (Negative) Urine Glucose (UA) (Negative) Urine Ketones (Negative) Urine Blood (Negative) Urine Nitrite (Negative) Urine Bilirubin (Negative) Urine Urobilinogen (<2.0) mg/dL Ur Leukocyte Esterase (Negative) Urine RBC (0-5) /hpf Urine WBC (0-5) /hpf Ur Squamous Epith Cells (0-4) /hpf Urine Bacteria (None) /hpf Hyaline Casts (0-2) /lpf Urine Mucus (None) /hpf Urine Osmolality (400-1100) mOsm/kg Ur Random Sodium (40-220) mmol/L 03/29/25 03/29/25 03/29/25 Range/Units 12:30 12:52 12:52 WBC (4.50-10.00) 10*3/uL RBC (4.10-5.20) 10*6/uL Hgb (12.0-15.0) g/dL Hct (37.2-46.3) % MCV (80.0-97.0) fL MCH (27.0-32.0) pg MCHC (32.0-37.0) g/dL Plt Count (140-440) 10*3/uL MPV (9.5-12.2) fL Immature Gran % (Auto) % Neutrophils % % Lymphocytes % % Monocytes % % Eosinophils % % Basophils % % Immature Gran # (0.00-0.04) 10*3/uL Neutrophils # (1.80-7.70) 10*3/uL Lymphocytes # (0.90-5.00) 10*3/uL Monocytes # (0.20-1.00) 10*3/uL Eosinophils # (0.04-0.35) 10*3/uL Basophils # (0.00-0.10) 10*3/uL Immature Plt Fraction (1.1-6.1) % PT (10.0-12.5) sec INR (<1.2) APTT (22.0-30.0) sec Sodium (137-145) mmol/L Potassium (3.5-5.1) mmol/L Chloride (98-107) mmol/L Carbon Dioxide (22-30) mmol/L Anion Gap mmol/L BUN (7-17) mg/dL Creatinine (0.52-1.04) mg/dL Est GFR (CKD-EPI)AfAm (>60 ml/min/1.73 sqM) Est GFR (CKD-EPI)NonAf (>60 ml/min/1.73 sqM) Glucose (74-99) mg/dL Osmolality 321 H (275-295) mOsm/kg Calcium (8.4-10.2) mg/dL Magnesium (1.6-2.3) mg/dL Total Bilirubin (0.2-1.3) mg/dL AST (14-36) U/L ALT (4-34) U/L Alkaline Phosphatase (38-126) U/L Total Protein (6.3-8.2) g/dL Albumin (3.5-5.0) g/dL Urine Color Yellow Urine Appearance Cloudy H (Clear) Urine pH 5.5 (5.0-8.0) Ur Specific [place] 1.016 (1.001-1.035) Urine Protein Trace H (Negative) Urine Glucose (UA) Negative (Negative) Urine Ketones 1+ H (Negative) Urine Blood Negative (Negative) Urine Nitrite Negative (Negative) Urine Bilirubin 1+ H (Negative) Urine Urobilinogen 2.0 (<2.0) mg/dL Ur Leukocyte Esterase Trace H (Negative) Urine RBC 1 (0-5) /hpf Urine WBC 5 (0-5) /hpf Ur Squamous Epith Cells 2 (0-4) /hpf Urine Bacteria Rare H (None) /hpf Hyaline Casts 11 H (0-2) /lpf Urine Mucus Rare H (None) /hpf Urine Osmolality 370 L (400-1100) mOsm/kg Ur Random Sodium (40-220) mmol/L 03/29/25 Range/Units 12:52 WBC (4.50-10.00) 10*3/uL RBC (4.10-5.20) 10*6/uL Hgb (12.0-15.0) g/dL Hct (37.2-46.3) % MCV (80.0-97.0) fL MCH (27.0-32.0) pg MCHC (32.0-37.0) g/dL Plt Count (140-440) 10*3/uL MPV (9.5-12.2) fL Immature Gran % (Auto) % Neutrophils % % Lymphocytes % % Monocytes % % Eosinophils % % Basophils % % Immature Gran # (0.00-0.04) 10*3/uL Neutrophils # (1.80-7.70) 10*3/uL Lymphocytes # (0.90-5.00) 10*3/uL Monocytes # (0.20-1.00) 10*3/uL Eosinophils # (0.04-0.35) 10*3/uL Basophils # (0.00-0.10) 10*3/uL Immature Plt Fraction (1.1-6.1) % PT (10.0-12.5) sec INR (<1.2) APTT (22.0-30.0) sec Sodium (137-145) mmol/L Potassium (3.5-5.1) mmol/L Chloride (98-107) mmol/L Carbon Dioxide (22-30) mmol/L Anion Gap mmol/L BUN (7-17) mg/dL Creatinine (0.52-1.04) mg/dL Est GFR (CKD-EPI)AfAm (>60 ml/min/1.73 sqM) Est GFR (CKD-EPI)NonAf (>60 ml/min/1.73 sqM) Glucose (74-99) mg/dL Osmolality (275-295) mOsm/kg Calcium (8.4-10.2) mg/dL Magnesium (1.6-2.3) mg/dL Total Bilirubin (0.2-1.3) mg/dL AST (14-36) U/L ALT (4-34) U/L Alkaline Phosphatase (38-126) U/L Total Protein (6.3-8.2) g/dL Albumin (3.5-5.0) g/dL Urine Color Urine Appearance (Clear) Urine pH (5.0-8.0) Ur Specific [place] (1.001-1.035) Urine Protein (Negative) Urine Glucose (UA) (Negative) Urine Ketones (Negative) Urine Blood (Negative) Urine Nitrite (Negative) Urine Bilirubin (Negative) Urine Urobilinogen (<2.0) mg/dL Ur Leukocyte Esterase (Negative) Urine RBC (0-5) /hpf Urine WBC (0-5) /hpf Ur Squamous Epith Cells (0-4) /hpf Urine Bacteria (None) /hpf Hyaline Casts (0-2) /lpf Urine Mucus (None) /hpf Urine Osmolality (400-1100) mOsm/kg Ur Random Sodium 27 L (40-220) mmol/L Disposition Clinical Impression: TAMAR (acute kidney injury), Syncope, Nausea and vomiting Disposition: ADMITTED IP TO THIS HOSP Condition: Stable Is patient prescribed a controlled substance at d/c from ED?: No
[2025-03-29] MEDS: SODIUM CHLORIDE 0.9% 1,000 ML IV STA (11:45)
--- NOTE | 2025-03-29 11:57 | XR ---
EXAMINATION TYPE: XR chest 2V DATE OF EXAM: 03/29/2025 11:52 AM COMPARISON: 12/30/2024 CLINICAL INDICATION: Female, 54 years old with history of syncope, , TECHNIQUE: AP and lateral views FINDINGS: Heart upper limits of normal in size. Bandlike opacities of the lower lung suggesting atelectasis. Ad ditional hazy mid to lower lung density relating to overlying soft tissue. Aorta and pulmonary vascul ature within normal limits. No consolidation or pleural effusion otherwise seen. Moderate degenerativ e disc disease throughout the thoracic spine. IMPRESSION: Borderline heart size and strandy atelectasis mid and lower lungs. No definite acute process. [facility], Workstation: [id number], 03/29/2025 11:55 AM
[2025-03-29 12:02] LABS: INR 0.9 (<1.2); Prothrombin Time 10.4 sec (10.0-12.5)
[2025-03-29 12:04] LABS: Basophils # (A) 0.03 10*3/uL (0.00-0.10); Basophils % (A) 0.6 %; Eosinophils # (A) 0.11 10*3/uL (0.04-0.35); Eosinophils % (A) 2.2 %; Immature Platelet Fraction 10.6 % (1.1-6.1); Lymphocytes # (A) 1.62 10*3/uL (0.90-5.00); Lymphocytes % (A) 32.1 %; MCH 27.5 pg (27.0-32.0); MCHC 34.1 g/dL (32.0-37.0); MCV 80.6 fL (80.0-97.0); Mean Platelet Volume 13.4 fL (9.5-12.2); Monocytes # (A) 0.52 10*3/uL (0.20-1.00); Monocytes % (A) 10.3 %; Neutrophils # (A) 2.75 10*3/uL (1.80-7.70); Neutrophils % (A) 54.6 %; Platelet Count 172 10*3/uL (140-440); RBC 5.09 10*6/uL (4.10-5.20); RDW 15.9 % (11.5-14.5); WBC 5.04 10*3/uL (4.50-10.00)
[2025-03-29 12:21] LABS: ALT 8 U/L (4-34); AST 17 U/L (14-36); African American GFR (CKD) 6 (>60 ml/min/1.73 sqM); Albumin 3.9 g/dL (3.5-5.0); Alkaline Phosphatase 69 U/L (38-126); Anion Gap 19 mmol/L; Carbon Dioxide 22 mmol/L (22-30); Chloride 99 mmol/L (98-107); Glucose 93 mg/dL (74-99); Magnesium 2.6 mg/dL (1.6-2.3); Non-African American GFR(CKD) 5 (>60 ml/min/1.73 sqM); Potassium 3.1 mmol/L (3.5-5.1); Sodium 140 mmol/L (137-145); Total Bilirubin 0.9 mg/dL (0.2-1.3)
[2025-03-29 12:40] LABS: Blood Urea Nitrogen 102 mg/dL (7-17)
[2025-03-29] MEDS: ONDANSETRON 4 MG/2 ML VIAL IVP STA ×2 (12:59→14:08)
[2025-03-29] MEDS: MORPHINE SULFATE 2 MG/ML SYRINGE IVP ONE (12:59)
[2025-03-29 13:09] LABS: Appearance,Urine Cloudy (Clear); Bacteria,Urine Rare /hpf; Bilirubin,Urine 1+ (Negative); Blood,Urine Negative (Negative); Color,Urine Yellow; Glucose,Urine (UA) Negative (Negative); Hyaline Casts,Urine 11 /lpf (0-2); Ketones,Urine 1+ (Negative); Leukocyte Esterase,Urine Trace (Negative); Mucus,Urine Rare /hpf; Nitrite,Urine Negative (Negative); PH, Urine 5.5 (5.0-8.0); Protein,Urine Trace (Negative); RBC,Urine 1 /hpf (0-5); Specific Gravity,Urine 1.016 (1.001-1.035); Squamous Epithelial Cell,Urine 2 /hpf (0-4); WBC,Urine 5 /hpf (0-5)
--- NOTE | 2025-03-29 13:38 | US ---
EXAMINATION TYPE: US renals and bladder DATE OF EXAM: 03/29/2025 COMPARISON: CT: 12/29/24 CLINICAL INDICATION: Female, 54 years old with history of TAMAR TECHNIQUE: Grayscale imaging of the bilateral kidneys and urinary bladder: FINDINGS: EXAM MEASUREMENTS: Right Kidney: 11.3 x 6.4 x 6.0 cm Left Kidney: 13.1 x 6.3 x 5.5 cm Right Kidney: Scattered benign cortical cysts. Largest measuring 6.1 x 5.6 x 5.1cm. No hydronephrosis . Left Kidney: Small cystic area seen in sup pole measuring 1.2 x 1.2 x 1.0cm. Internal echoes are felt to be artifactual or could represent debris. No hydronephrosis. Bladder: Under distention limits evaluation. Patient voided before the exam. Post void bladder volume 65 mL. Bilateral Jets seen: No IMPRESSION: 1. No hydronephrosis. 2. Bilateral renal cortical cysts measuring up to 6.1 cm on the right. 3. Underdistention of the bladder limits its evaluation. The tonguer notes that the patient voide d prior to the exam. Post void bladder volume of 65 mL is elevated. Further clinical correlation to e xclude urinary retention. [facility], , 03/29/2025 1:36 PM
[2025-03-29] MEDS: SODIUM CHLORIDE 0.9% 1,000 ML IV ONE (14:07)
[2025-03-29] MEDS: SODIUM CHLORIDE 0.9% 1,000 ML IV SCH (14:08)
[2025-03-29] MEDS ORDERED: ACETAMINOPHEN TAB 325 MG TAB PO PRN (14:23)
[2025-03-29] MEDS ORDERED: NALOXONE 0.4 MG/ML 1 ML VIAL IV PRN (14:23)
[2025-03-29] MEDS: POTASSIUM CHLORIDE ER 10 MEQ TAB.ER.PRT PO STA (14:31)
[2025-03-29] MEDS: HYDROmorphone 0.5 MG/0.5 ML SYRINGE IVP PRN (15:19)
[2025-03-29] MEDS ORDERED: IOPAMIDOL CONTRAST (ORAL USE) VIAL PO PRN (17:14)
[2025-03-29] MEDS ORDERED: ALPRAZolam 0.25 MG TAB PO PRN (17:16)
[2025-03-29] MEDS: PANTOPRAZOLE 40 MG/10 ML VIAL IVP SCH (18:27)
[2025-03-29] MEDS: METOCLOPRAMIDE 5 MG/ML 2 ML VIAL IVP STA (19:16)
--- NOTE | 2025-03-29 19:59 | CT ---
EXAMINATION TYPE: CT abdomen pelvis wo con DATE OF EXAM: 03/29/2025 7:38 PM COMPARISON: 12/29/2024. CLINICAL INDICATION: Female, 54 years old with history of colitis; Colitis. Pt unable to keep down mu ch of the oral contrast. TECHNIQUE: Axial CT abdomen pelvis wo con;Sagittal and coronal reformats were created on a separate workstation. Contrast used: mL of , (none if empty) Oral contrast used: with Oral Contrast (none if empty) CT DLP: 800.3 mGycm, Automated exposure control for dose reduction was used. FINDINGS: LOWER CHEST: Atelectasis changes in the right lung base. ABDOMEN LIVER: Unremarkable GALLBLADDER AND BILE DUCTS: Gallbladder surgically absent. PANCREAS: Unremarkable. SPLEEN: Unremarkable. ADRENAL GLANDS: Unremarkable. KIDNEYS AND URETERS: No evidence of hydronephrosis or obstructing renal calculus. The ureters are unr emarkable. Multiple bilateral renal cortical cysts, right greater than left. PELVIS BLADDER: Nondistended with Yeh catheter in place. REPRODUCTIVE: Unremarkable. ABDOMEN & PELVIS STOMACH AND BOWEL: Oral contrast seen throughout the jejunum and into the ileum. No evidence of bowel obstruction. No abnormal wall thickening to suggest colitis. Small hiatal hernia. Postsurgical flores es to the gastric lumen. Appendix is normal. PERITONEUM/RETROPERITONEUM: No evidence of pneumoperitoneum or free fluid. VASCULATURE: No evidence of aortic aneurysm. MUSCULOSKELETAL: No acute osseous abnormalities, postsurgical changes to the spine. Hardware appears intact. LYMPH NODES: No gross evidence for lymphadenopathy. SOFT TISSUE/ABDOMINAL WALL: Post surgical changes to the ventral abdominal wall. IMPRESSION: 1. Postsurgical changes of the stomach. No evidence for bowel obstruction. No evidence for colon wal l thickening to suggest colitis. Oral contrast extends throughout the small bowel. 2. Bilateral renal cortical cysts as seen on prior. [facility], , 03/29/2025 7:56 PM
[2025-03-29] MEDS: HEPARIN SODIUM,PORCINE 5,000 UNIT/ML 1 ML VIAL SQ SCH (20:45)
[2025-03-29] MEDS: QUEtiapine 200 MG TAB PO SCH (20:45)
[2025-03-29] MEDS: MONTELUKAST 10 MG TAB PO SCH (20:45)
--- NOTE | 2025-03-30 01:58 | HP ---
HISTORY AND PHYSICAL CHIEF COMPLAINTS: Weakness and near syncope. HISTORY OF PRESENT ILLNESS: This is a 54-year-old woman with a past medical history of multiple medical issues, was previously admitted with influenza A. the patient had a history of COPD, bipolar. The patient apparently had diarrhea for the last 1 week. The patient unable to keep anything down, some abdominal discomfort also. The patient had a syncopal episode and the patient came to [facility] and was found to have creatinine of 8.11 and acute renal failure. The patient admitted for evaluation and treatment. There is no history of fever, rigors, or chills at this time. PAST MEDICAL HISTORY: Reviewed include history of asthma, COPD, diabetes mellitus type 2. Rest of history and rest of the chart is also reviewed. HOME MEDICATIONS: Reviewed, include Norvasc. Doses and rest of medications reviewed. ALLERGIES: Environmental allergies. FAMILY HISTORY: Hypertension. SOCIAL HISTORY: Occasional alcohol, smoking. REVIEW OF SYSTEMS: A 14-point review of systems is negative except as mentioned in history of present illness. PHYSICAL EXAMINATION: VITAL SIGNS: Pulse is 80, blood pressure 90/58, and respirations 18. HEENT: Conjunctivae normal. Oral mucosa dry. NECK: No jugular venous distention. CARDIOVASCULAR: S1, S2 normal. ABDOMEN: ABDOMEN: Soft, nontender. LEGS: No edema. NERVOUS SYSTEM: Diffusely weak. SKIN: No ulcer, no ulcerations. LABORATORY DATA: Creatinine 8.1. ASSESSMENT: 1. Acute renal failure from acute tubular necrosis and severe dehydration. 2. Acute gastroenteritis, rule out colitis. 3. Asthma, chronic obstructive pulmonary disease. 4. Diabetes mellitus, type 2. 5. Hypertension. 6. DJD. 7. History of pneumonia. 8. History of sleep apnea. 9. History of migraine. 10.History of MRSA. 11.History of bariatric surgery. 12.Anxiety, bipolar, depression. She has multiple complex medical issues. RECOMMENDATIONS AND DISCUSSION: This 54-year-old woman presented with multiple problems. We will monitor the patient closely. Recommend IV fluids. Avoid nephrotoxic medications. Monitor blood pressure closely. Otherwise, Nephrology consultation. The prognosis is guarded because of multiple complex medical DVT prophylaxis. I would also recommend CT scan of abdomen and pelvis to complete the workup also. Further recommendations to follow. MMODL / IJN: [id number] /
[2025-03-30] MEDS: HYDROcodone/APAP 5-325MG 1 EACH TAB PO PRN (02:09)
[2025-03-30] MEDS: METOCLOPRAMIDE 5 MG/ML 2 ML VIAL IVP PRN (02:10)
[2025-03-30] MEDS: DULoxetine HCL 60 MG CAPSULE.DR PO SCH (08:22)
[2025-03-30 09:03] LABS: ALT 8 U/L (4-34); AST 28 U/L (14-36); African American GFR (CKD) 15 (>60 ml/min/1.73 sqM); Albumin 2.7 g/dL (3.5-5.0); Alkaline Phosphatase 73 U/L (38-126); Anion Gap 13 mmol/L; Blood Urea Nitrogen 76 mg/dL (7-17); Calcium 8.6 mg/dL (8.4-10.2); Carbon Dioxide 16 mmol/L (22-30); Chloride 112 mmol/L (98-107); Globulin 2.7 g/dL; Glucose 78 mg/dL (74-99); Magnesium 2.1 mg/dL (1.6-2.3); Non-African American GFR(CKD) 13 (>60 ml/min/1.73 sqM); Potassium 3.7 mmol/L (3.5-5.1); Sodium 141 mmol/L (137-145); Total Bilirubin 0.8 mg/dL (0.2-1.3); Total Protein 5.4 g/dL (6.3-8.2)
[2025-03-30] MEDS: SYMBICORT 160-4.5 MCG INHALER INHALATION SCH (09:43)
[2025-03-30] MEDS: TIOTROPIUM 2.5 MCG INHALER INHALATION SCH (09:43)
[2025-03-30 10:29] LABS: Basophils # (A) 0.02 X 10*3/uL (0.00-0.10); Basophils % (A) 0.5 %; Eosinophils # (A) 0.11 X 10*3/uL (0.04-0.35); Eosinophils % (A) 2.6 %; HCT 36.1 % (37.2-46.3); HGB 11.5 g/dL (12.0-15.0); Lymphocytes # (A) 1.77 X 10*3/uL (0.90-5.00); Lymphocytes % (A) 42.4 %; MCH 26.9 pg (27.0-32.0); MCHC 31.9 g/dL (32.0-37.0); MCV 84.5 FL (80.0-97.0); Monocytes # (A) 0.52 X 10*3/uL (0.20-1.00); Monocytes % (A) 12.5 %; NRBC Per 100 WBC 0 X 10*3/uL (0.00-0.01); Neutrophils # (A) 1.74 X 10*3/uL (1.80-7.70); Neutrophils % (A) 41.8 %; Platelet Count 127 X 10*3/uL (140-440); RBC 4.27 X 10*6/uL (4.10-5.20); WBC 4.17 X 10*3/uL (4.50-10.00)
--- NOTE | 2025-03-30 12:07 | P.CONS ---
History of Present Illness - Reason for Consult Consult date: 03/30/25 Acute Kidney Injury Requesting physician: Irma Saleem - History of Present Illness 54-year-old female with history of hypertension, COPD not requiring home oxygen, bariatric surgery in December who presented to the ER for near syncopal episode. Patient reports she went to the bariatric clinic this morning attempting to get fluids. Reports she has had vomiting and diarrhea for the past week. Patient reports decreased oral intake. Patient endorses some chills, reflux symptoms. Denies fevers, chest pain, shortness of breath or sick contacts. Patient reports being prediabetic prior to bariatric surgery. Denies any stents or cardiac procedures. Labs on admission: CBC was unremarkable. Sodium 140, potassium 3.1, chloride 99, bicarb 22, BUN 102, creatinine 8.11, glucose 93, calcium 10, magnesium 2.6. Urinalysis showed trace proteinuria, no hematuria. Vitals on admission: Patient was afebrile, heart rate 61, respiratory rate 18, blood pressure 91/55, saturating 97% on room air. Chest x-ray showed borderline heart size and mild atelectasis in the lower lungs, no acute process. EKG showed sinus rhythm, ventricular rate 69 bpm, QRS 106 ms, QTc of 429 ms Renal ultrasound was negative for hydronephrosis, bilateral renal cortical cysts noted. CT abdomen pelvis showed postsurgical changes, no evidence of small bowel obstruction, no evidence of colonic wall thickening suggestive of colitis, stable bilateral renal cortical cysts compared to prior scan. Past Medical History Past Medical History: Asthma, Chest Pain / Angina, COPD, Diabetes Mellitus, GERD/Reflux, Hypertension, Osteoarthritis (OA), Pneumonia, Sleep Apnea/CPAP/BIPAP Additional Past Medical History / Comment(s): Recent ER visit r/t headache-pt states was dx with a Migraine. DDD, borderline diabetic, uses CPAP machine environmental allergies., has lap band. Influenza-12/2024 History of Any Multi-Drug Resistant Organisms: MRSA Year Discovered:: 06/22/14 MDRO Source:: rt breast Past Surgical History: Back Surgery, Bariatric Surgery, Section, Cholecystectomy, Heart Catheterization, Joint Replacement, Tubal Ligation Additional Past Surgical History / Comment(s): bilateral knee replacement, lap band , RT WRIST GANGLION CYCT REMOVED, lumbar fusion surgery. lap band removal sleeve gastrectomy 2-02-02 Past Anesthesia/Blood Transfusion Reactions: No Reported Reaction Additional Past Anesthesia/Blood Transfusion Reaction / Comm: No hx of blood transfusion to date. Past Psychological History: Anxiety, Bipolar, Depression Smoking Status: Current every day smoker Past Alcohol Use History: Occasional Additional Past Alcohol Use History / Comment(s): smokes 2-3 cigarettes/day, hx of 1/2 ppd, started smoking age 14. working on cutting down smoking Past Drug Use History: None Reported - Past Family History Mother Family Medical History: Cancer, Hypertension Father Family Medical History: Cancer Medications and Allergies Home Medications Medication Instructions Recorded Confirmed Type Lisinopril-Hctz 20-25 mg 1 tab PO DAILY 06/05/23 03/29/25 History [Zestoretic 20-25] DULoxetine HCL [Cymbalta] 60 mg PO DAILY 06/20/23 03/29/25 History Fluticasone/Umeclidin/Vilanter 1 puff INHALATION RT-DAILY 08/17/24 03/29/25 History [Trelegy Ellipta 100-62.5-25] Montelukast [Singulair] 1 tab PO HS 08/17/24 03/29/25 History Omeprazole 40 mg PO DAILY 12/23/24 03/29/25 History Ondansetron Odt [Zofran ODT] 4 mg PO TID PRN 12/29/24 03/29/25 History Acetaminophen Tab [Tylenol Tab] 500 mg PO Q4-6H PRN 03/29/25 03/29/25 History QUEtiapine FUMARATE [SEROquel] 200 mg PO HS 03/29/25 03/29/25 History amLODIPine [Norvasc] 10 mg PO DAILY 03/29/25 03/29/25 History Allergies Allergy/AdvReac Type Severity Reaction Status Date / Time Enviromental Allergy Nasal Uncoded 03/29/25 14:23 drainage/watery eyes/sneezing Physical Exam Vitals: Vital Signs Temp Pulse Pulse Resp BP BP Pulse Ox 03/30/25 04:19 97.7 F 78 16 93/62 98 03/30/25 03:06 66 18 03/30/25 00:15 97.9 F 66 18 101/69 99 03/29/25 23:09 88/56 03/29/25 22:57 85 17 91/62 98 03/29/25 22:52 84/46 03/29/25 22:00 83/54 03/29/25 18:24 97.8 F 79 18 101/52 96 03/29/25 16:54 80 18 96/52 96 03/29/25 14:30 60 18 91/66 97 03/29/25 14:06 66 18 81/50 97 03/29/25 13:42 64 18 95/61 97 03/29/25 12:12 61 61 18 91/55 97 03/29/25 11:45 76 18 03/29/25 10:36 97.9 F 82 18 101/71 97 Intake and Output 03/29/25 03/30/25 03/30/25 22:59 06:59 14:59 Output Total 500 Balance -500 Output: Urine 500 Uretheral (Yeh) 100 Other: Voiding Method Indwelling Catheter Weight 84.822 kg Patient is awake, comfortable, no acute distress Alert oriented x 3 Examination of the heart S1 and S2 Examination of the lungs bilateral breath sounds are heard Abdomen is soft nontender Examination of lower extremities shows no significant edema STEEL LOADER exam grossly intact Indwelling catheter in place, clear urine noted with adequate output Results CBC & Chem 7: 03/30/25 07:55 03/30/25 07:55 Labs: Abnormal Lab Results - Last 24 Hours (Table) 03/29/25 03/29/25 03/29/25 Range/Units 11:39 11:39 12:30 MPV 13.4 H (9.5-12.2) fL Immature Plt Fraction 10.6 H (1.1-6.1) % Potassium 3.1 L (3.5-5.1) mmol/L Chloride (98-107) mmol/L Carbon Dioxide (22-30) mmol/L BUN 102 H* (7-17) mg/dL Creatinine 8.11 H* (0.52-1.04) mg/dL Osmolality (275-295) mOsm/kg Magnesium 2.6 H (1.6-2.3) mg/dL Total Protein (6.3-8.2) g/dL Albumin (3.5-5.0) g/dL Urine Appearance Cloudy H (Clear) Urine Protein Trace H (Negative) Urine Ketones 1+ H (Negative) Urine Bilirubin 1+ H (Negative) Ur Leukocyte Esterase Trace H (Negative) Urine Bacteria Rare H (None) /hpf Hyaline Casts 11 H (0-2) /lpf Urine Mucus Rare H (None) /hpf Ur Random Sodium (40-220) mmol/L 03/29/25 03/29/25 03/30/25 Range/Units 12:52 12:52 07:55 MPV (9.5-12.2) fL Immature Plt Fraction (1.1-6.1) % Potassium (3.5-5.1) mmol/L Chloride 112 H (98-107) mmol/L Carbon Dioxide 16 L (22-30) mmol/L BUN 76 H (7-17) mg/dL Creatinine 3.71 H (0.52-1.04) mg/dL Osmolality 321 H (275-295) mOsm/kg Magnesium (1.6-2.3) mg/dL Total Protein 5.4 L (6.3-8.2) g/dL Albumin 2.7 L (3.5-5.0) g/dL Urine Appearance (Clear) Urine Protein (Negative) Urine Ketones (Negative) Urine Bilirubin (Negative) Ur Leukocyte Esterase (Negative) Urine Bacteria (None) /hpf Hyaline Casts (0-2) /lpf Urine Mucus (None) /hpf Ur Random Sodium 27 L (40-220) mmol/L Assessment and Plan Assessment: 1. Nonoliguric Acute Kidney Injury secondary to ATN from volume depletion,ex acerbated by JELLY inhibitor, hypotension. Baseline creatinine of 0.67 from 12/31/2024. UA shows trace proteinuria, without hematuria. Renal ultrasound shows no signs of hydronephrosis with stable bilateral renal cysts noted. Today, BUN 76 and creatinine 3.71. 2. Hypokalemia secondary to vomiting leading to dehydration causing RAAS activation potentiating renal potassium losses, additional losses secondary to thiazide diuretic 3. Metabolic Acidosis secondary to GI losses and TAMAR 4. Nausea and vomiting, possibly viral gastroenteritis. Plan: Discontinued normal saline, initiated sodium bicarb drip at 100 mL/h Continue to hold nephrotoxic agents including ACEs and ARB's Continue to encourage oral intake Potassium repleted Will continue to monitor renal function and electrolytes with BMP in the AM and replete as needed Continue to monitor blood pressure Thank you for this consultation. Will continue to follow patient throughout hospitalization. I have seen and examined the patient with resident and agree with A&P as written.
[2025-03-30] MEDS: POTASSIUM CHLORIDE ER 20 MEQ TAB.ER PO STA (12:33)
[2025-03-30] MEDS: DEXTROSE 5% IN WATER 1,000 ML with SODIUM BICARB (1 MEQ/ML) 150 ML IV SCH (13:37)
--- NOTE | 2025-03-30 13:43 | P.GSCN ---
History of Present Illness Consult date: 03/30/25 History of present illness: CHIEF COMPLAINT: Syncope HISTORY OF PRESENT ILLNESS: This is a 54-year-old female who presented with a near syncopal episode. Patient has been complaining of diarrhea and vomiting x 1 week. Patient had attempted to go to the bariatric clinic to get IV fluids. Her last episode of diarrhea was yesterday and last episode of vomiting was last night. She denies any blood in her stools or emesis. Patient has been complaining of upper abdominal pain with acid reflux and decreased appetite. Patient has history of lap band removal and sleeve gastrectomy in December 2024. Surgical service consulted for diarrhea, questionable colitis and gastroenteritis. CT scan abdomen pelvis was negative. Patient with evidence of acute kidney injury followed by nephrology. PAST MEDICAL HISTORY: Will asthma, Chest Pain / Angina, COPD, Diabetes Mellitus, GERD/Reflux, Hypertension, Osteoarthritis (OA), Pneumonia, Sleep Apnea/CPAP/BIPAP PAST SURGICAL HISTORY: Section, Cholecystectomy, Heart Catheterization, Joint Replacement, Tubal Ligation, lap band removal sleeve gastrectomy 12-14-24 MEDICATIONS: See below ALLERGIES: See below SOCIAL HISTORY: No illicit drug use. REVIEW OF SYSTEMS: CONSTITUTIONAL: Denies fever or chills. HEENT: Denies blurred vision, vision changes, or eye pain. Denies hemoptysis CARDIOVASCULAR: Denies chest pain or pressure. RESPIRATORY: No shortness of breath. GASTROINTESTINAL: See HPI for pertinent findings HEMATOLOGIC: Denies bleeding disorders. GENITOURINARY: Denies any blood in urine or increased urinary frequency. SKIN: Denies pruitis. Denies rash. PHYSICAL EXAM: VITAL SIGNS: Reviewed GENERAL: Well-developed in no acute distress. HEENT: No sclera icterus. Extraocular movements grossly intact. Moist buccal mucosa. Head is atraumatic, normocephalic. No nasal drainage. ABDOMEN: Soft. Obese. Nondistended. Tenderness mid abdomen above the umbilicus with palpation NEUROLOGIC: Alert and oriented. Cranial nerves II through XII grossly intact. LABORATORY DATA: WBC 4.17 Hgb 11.5 platelets 127 Sodium is 141 potassium 3.7 creatinine down from 8.1-3.71 IMAGING: CT scan abdomen pelvis postsurgical changes of the stomach. No evidence of bowel obstruction. No evidence for colon wall thickening to suggest colitis. Oral contrast extends throughout the small bowel. ASSESSMENT: 1. Abdominal pain with vomiting and diarrhea. Possible gastroenteritis 2. Heartburn with significant acid reflux and decreased appetite 3. 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 Acute kidney injury PLAN: - Upper GI ordered for evaluation of abdominal pain and heartburn - Continue PPI twice a day - Continue antiemetics - Continue IV fluid per nephrology Physician Fire Protection Specialist note has been reviewed by physician. Signing provider agrees with the documented findings, assessment, and plan of care. Past Medical History Past Medical History: Asthma, Chest Pain / Angina, COPD, Diabetes Mellitus, GERD/Reflux, Hypertension, Osteoarthritis (OA), Pneumonia, Sleep Apnea/CPAP/BIPAP Additional Past Medical History / Comment(s): Recent ER visit r/t headache-pt states was dx with a Migraine. DDD, borderline diabetic, uses CPAP machine environmental allergies., has lap band. Influenza-12/2024 History of Any Multi-Drug Resistant Organisms: MRSA Year Discovered:: 06/22/14 MDRO Source:: rt breast Past Surgical History: Back Surgery, Bariatric Surgery, Section, Cholecystectomy, Heart Catheterization, Joint Replacement, Tubal Ligation Additional Past Surgical History / Comment(s): bilateral knee replacement, lap band , RT WRIST GANGLION CYCT REMOVED, lumbar fusion surgery. lap band removal sleeve gastrectomy -02-02 Past Anesthesia/Blood Transfusion Reactions: No Reported Reaction Additional Past Anesthesia/Blood Transfusion Reaction / Comm: No hx of blood transfusion to date. Past Psychological History: Anxiety, Bipolar, Depression Smoking Status: Current every day smoker Past Alcohol Use History: Occasional Additional Past Alcohol Use History / Comment(s): smokes 2-3 cigarettes/day, hx of 1/2 ppd, started smoking age 14. working on cutting down smoking Past Drug Use History: None Reported - Past Family History Mother Family Medical History: Cancer, Hypertension Father Family Medical History: Cancer Medications and Allergies Home Medications Medication Instructions Recorded Confirmed Type Lisinopril-Hctz 20-25 mg 1 tab PO DAILY 06/05/23 03/29/25 History [Zestoretic 20-25] DULoxetine HCL [Cymbalta] 60 mg PO DAILY 06/20/23 03/29/25 History Fluticasone/Umeclidin/Vilanter 1 puff INHALATION RT-DAILY 08/17/24 03/29/25 Hist ory [Trelegy Ellipta 100-62.5-25] Montelukast [Singulair] 1 tab PO HS 08/17/24 03/29/25 History Omeprazole 40 mg PO DAILY 12/23/24 03/29/25 History Ondansetron Odt [Zofran ODT] 4 mg PO TID PRN 12/29/24 03/29/25 History Acetaminophen Tab [Tylenol Tab] 500 mg PO Q4-6H PRN 03/29/25 03/29/25 History QUEtiapine FUMARATE [SEROquel] 200 mg PO HS 03/29/25 03/29/25 History amLODIPine [Norvasc] 10 mg PO DAILY 03/29/25 03/29/25 History Allergies Allergy/AdvReac Type Severity Reaction Status Date / Time Enviromental Allergy Nasal Uncoded 03/29/25 14:23 drainage/watery eyes/sneezing Surgical - Exam Vital Signs Temp Pulse Resp BP Pulse Ox 97.9 F 82 18 101/71 97 03/29/25 10:36 03/29/25 10:36 03/29/25 10:36 03/29/25 10:36 03/29/25 10:36 Results - Labs 03/30/25 07:55 03/30/25 07:55 Abnormal Lab Results - Last 24 Hours (Table) 03/29/25 03/29/25 03/29/25 Range/Units 12:52 12:52 12:52 WBC (4.50-10.00) X 10*3/uL Hgb (12.0-15.0) g/dL Hct (37.2-46.3) % MCH (27.0-32.0) pg MCHC (32.0-37.0) g/dL RDW (11.5-14.5) % Plt Count (140-440) X 10*3/uL Neutrophils # (1.80-7.70) X 10*3/uL Chloride (98-107) mmol/L Carbon Dioxide (22-30) mmol/L BUN (7-17) mg/dL Creatinine (0.52-1.04) mg/dL Osmolality 321 H (275-295) mOsm/kg Total Protein (6.3-8.2) g/dL Albumin (3.5-5.0) g/dL Urine Osmolality 370 L (400-1100) mOsm/kg Ur Random Sodium 27 L (40-220) mmol/L 03/30/25 03/30/25 Range/Units 07:55 07:55 WBC 4.17 L (4.50-10.00) X 10*3/uL Hgb 11.5 L (12.0-15.0) g/dL Hct 36.1 L (37.2-46.3) % MCH 26.9 L (27.0-32.0) pg MCHC 31.9 L (32.0-37.0) g/dL RDW 17.0 H (11.5-14.5) % Plt Count 127 L (140-440) X 10*3/uL Neutrophils # 1.74 L (1.80-7.70) X 10*3/uL Chloride 112 H (98-107) mmol/L Carbon Dioxide 16 L (22-30) mmol/L BUN 76 H (7-17) mg/dL Creatinine 3.71 H (0.52-1.04) mg/dL Osmolality (275-295) mOsm/kg Total Protein 5.4 L (6.3-8.2) g/dL Albumin 2.7 L (3.5-5.0) g/dL Urine Osmolality (400-1100) mOsm/kg Ur Random Sodium (40-220) mmol/L Diabetes panel 03/30/25 Range/Units 07:55 Sodium 141 (137-145) mmol/L Potassium 3.7 (3.5-5.1) mmol/L Chloride 112 H (98-107) mmol/L Carbon Dioxide 16 L (22-30) mmol/L BUN 76 H (7-17) mg/dL Creatinine 3.71 H (0.52-1.04) mg/dL Glucose 78 (74-99) mg/dL Calcium 8.6 (8.4-10.2) mg/dL AST 28 (14-36) U/L ALT 8 (4-34) U/L Alkaline Phosphatase 73 (38-126) U/L Total Protein 5.4 L (6.3-8.2) g/dL Albumin 2.7 L (3.5-5.0) g/dL Calcium panel 03/30/25 Range/Units 07:55 Calcium 8.6 (8.4-10.2) mg/dL Albumin 2.7 L (3.5-5.0) g/dL Pituitary panel 03/30/25 Range/Units 07:55 Sodium 141 (137-145) mmol/L Potassium 3.7 (3.5-5.1) mmol/L Chloride 112 H (98-107) mmol/L Carbon Dioxide 16 L (22-30) mmol/L BUN 76 H (7-17) mg/dL Creatinine 3.71 H (0.52-1.04) mg/dL Glucose 78 (74-99) mg/dL Calcium 8.6 (8.4-10.2) mg/dL Adrenal panel 03/30/25 Range/Units 07:55 Sodium 141 (137-145) mmol/L Potassium 3.7 (3.5-5.1) mmol/L Chloride 112 H (98-107) mmol/L Carbon Dioxide 16 L (22-30) mmol/L BUN 76 H (7-17) mg/dL Creatinine 3.71 H (0.52-1.04) mg/dL Glucose 78 (74-99) mg/dL Calcium 8.6 (8.4-10.2) mg/dL Total Bilirubin 0.8 (0.2-1.3) mg/dL AST 28 (14-36) U/L ALT 8 (4-34) U/L Alkaline Phosphatase 73 (38-126) U/L Total Protein 5.4 L (6.3-8.2) g/dL Albumin 2.7 L (3.5-5.0) g/dL
[2025-03-30 14:53] LABS: Influenza A Not Detected (Not Detectd); Influenza B Not Detected (Not Detectd); RSV Not Detected (Not Detectd)
--- NOTE | 2025-03-30 16:03 | PN ---
PROGRESS NOTE DATE OF SERVICE: 03/30/2025 SUBJECTIVE: This is a 54-year-old woman, who was admitted with acute renal failure with acute tubular necrosis, is being closely monitored. The patient has acute gastritis also, ordered a CAT scan of the abdomen and pelvis, which showed postsurgical changes. No evidence of any colitis or enteritis at this time. PAST MEDICAL HISTORY: Reviewed. REVIEW OF SYSTEMS: Fourteen-point review of systems negative except as mentioned earlier. CURRENT MEDICATIONS: Reviewed. PHYSICAL EXAMINATION: VITAL SIGNS: Pulse is 66, blood pressure 82/52, and respirations 16. CHEST: Few scattered rhonchi. ABDOMEN: Soft. NERVOUS SYSTEM: No focal deficit. LABORATORY DATA: CO2 of 16, creatinine is 3.7. Rest of the labs are noted. ASSESSMENT: 1. Acute renal failure from acute tubular necrosis, severe dehydration. 2. Acute gastroenteritis, colitis ruled out. 3. Asthma and chronic obstructive pulmonary disease. 4. Diabetes mellitus, type 2. 5. Hypertension. 6. Degenerative joint disease. 7. Pneumonia. 8. Sleep apnea. 9. Multiple complex medical issues. RECOMMENDATIONS: Recommend to continue current management and symptomatic treatment. Continue with IV fluids. Monitor creatinine closely. I would also recommend serum cortisone in the morning. See orders for further details. Guarded prognosis. Closely follow with Nephrology. MMODL / IJN: [id number] /
[2025-03-30] MEDS: CALCIUM CARBONATE 500 MG CHEWABLE PO PRN (19:54)
[2025-03-30] MEDS: ONDANSETRON 4 MG/2 ML VIAL IVP PRN (21:49)
[2025-03-31] MEDS: SODIUM CHLORIDE 0.9% 1,000 ML IV ONE ×3 (00:10→11:40)
[2025-03-31 08:03] LABS: Basophils # (A) 0.02 10*3/uL (0.00-0.10); Basophils % (A) 0.6 %; Eosinophils # (A) 0.09 10*3/uL (0.04-0.35); Eosinophils % (A) 2.8 %; HCT 31.3 % (37.2-46.3); Lymphocytes % (A) 40.9 %; MCHC 32.9 g/dL (32.0-37.0); MCV 81.9 fL (80.0-97.0); Mean Platelet Volume 12.4 fL (9.5-12.2); Monocytes # (A) 0.36 10*3/uL (0.20-1.00); Monocytes % (A) 11.3 %; Neutrophils # (A) 1.41 10*3/uL (1.80-7.70); Neutrophils % (A) 44.4 %; Platelet Count 133 10*3/uL (140-440); RBC 3.82 10*6/uL (4.10-5.20); RDW 16.4 % (11.5-14.5); WBC 3.18 10*3/uL (4.50-10.00)
[2025-03-31 08:22] LABS: African American GFR (CKD) 33 (>60 ml/min/1.73 sqM); Anion Gap 3 mmol/L; Blood Urea Nitrogen 51 mg/dL (7-17); Calcium 7.8 mg/dL (8.4-10.2); Carbon Dioxide 31 mmol/L (22-30); Chloride 106 mmol/L (98-107); Glucose 110 mg/dL (74-99); Magnesium 1.5 mg/dL (1.6-2.3); Non-African American GFR(CKD) 29 (>60 ml/min/1.73 sqM); Potassium 2.8 mmol/L (3.5-5.1); Sodium 140 mmol/L (137-145)
[2025-03-31 08:27] LABS: HGB 10.3 g/dL (12.0-15.0)
[2025-03-31] MEDS: SODIUM CHLORIDE 0.9% 500 ML 500 ML IV ONE ×3 (09:15→22:26)
[2025-03-31] MEDS: MAGNESIUM SULFATE-D5W PMX 1 GM in DEXTROSE/WATER 1 100ML.BAG IVPB SCH (10:31)
[2025-03-31] MEDS: POTASSIUM CHLORIDE ER 20 MEQ TAB.ER PO STA ×2 (10:32→11:40)
[2025-03-31] MEDS: SODIUM CHLORIDE 0.9% 1,000 ML IV SCH (11:00)
--- NOTE | 2025-03-31 11:11 | FL ---
EXAMINATION TYPE: FL UGI w esophagus DATE OF EXAM: 03/31/2025 10:12 AM COMPARISON: 12/15/2024 CLINICAL INDICATION:Female, 54 years old with history of abdominal pain, vomiting; TECHNIQUE: The procedure was explained and patient history elicited. All patient questions were ans wered prior to start of procedure. A primary special education teacher radiograph of the abdomen was also reviewed. Multiple flu oroscopic spot images of the esophagus, stomach and duodenum were obtained following ingestion of liq uid barium and EZ-gas crystals. DAP: Not reported. mGym2 FINDINGS: Severe esophageal dysmotility of esophagus with tertiary contractions. No mass or extravasation ident ified. There is delayed transit of the contrast material from the into the remaining body and antrum. IMPRESSION: Severe esophageal dysmotility with tertiary contractions. Delayed emptying of esophagus with poor tra nsit of fluid through the gastric lumen also present. Findings similar to prior to 12/15/2024. [facility], , 03/31/2025 11:09 AM
--- NOTE | 2025-03-31 12:04 | P.PN ---
Subjective Progress Note Date: 03/31/25 SURGICAL PROGRESS NOTE CHIEF COMPLAINT: Near syncope HISTORY OF PRESENT ILLNESS: Patient has been hypotensive and received a fluid bolus last night and this morning. Patient is dizzy with ambulating. She did have episode of vomiting yesterday. Does report nausea and epigastric tenderness. Diarrhea resolved. Creatinine is down from 3.7-1.93. WBC is 3.18 Hgb 11.5-10.3 magnesium 1.5 potassium 2.8. Upper GI reports severe esophageal dysmotility with tertiary contractions. Delayed emptying of esophagus with poor transit of fluid through the gastric lumen also present. Findings similar to prior upper GI on 12/15/2024. PHYSICAL EXAM: VITAL SIGNS: Reviewed. GENERAL: Well-developed in no acute distress. ABDOMEN: Soft. Nondistended. epigastric tenderness with palpation NEUROLOGIC: Alert and oriented. Cranial nerves II through XII grossly intact. ASSESSMENT: 1. Abdominal pain with vomiting and diarrhea. Possible gastroenteritis 2. Heartburn with significant acid reflux and decreased appetite 3. 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 Acute kidney injury PLAN: -Resume clear liquid diet -Continue IV fluids -Continue to correct electrolytes -Continue PPI -Encourage patient to stay upright for about 30 minutes to an hour after eating or drinking Physician Medical Anthropology Director note has been reviewed by physician. Signing provider agrees with the documented findings, assessment, and plan of care. Objective - Vital Signs Vital signs: Vital Signs Temp 98.2 F 03/31/25 08:15 Pulse 66 03/31/25 08:15 Resp 20 03/31/25 08:15 BP 75/45 03/31/25 08:15 Pulse Ox 97 03/31/25 08:45 FiO2 Intake & Output 03/30/25 03/31/25 03/31/25 18:59 06:59 18:59 Intake Total 240 Output Total 800 Balance -560 Weight 84.822 kg 85 kg Intake: Oral 240 Output: Urine 800 Uretheral (Yeh) 200 Other: Voiding Method Indwelling Catheter Indwelling Catheter Indwelling Catheter - Labs CBC & Chem 7: 03/31/25 07:49 03/31/25 07:49 Labs: Abnormal Lab Results - Last 24 Hours (Table) 03/31/25 03/31/25 Range/Units 07:49 07:49 WBC 3.18 L (4.50-10.00) 10*3/uL RBC 3.82 L (4.10-5.20) 10*6/uL Hgb 10.3 L D (12.0-15.0) g/dL Hct 31.3 L (37.2-46.3) % Plt Count 133 L (140-440) 10*3/uL MPV 12.4 H (9.5-12.2) fL Neutrophils # 1.41 L (1.80-7.70) 10*3/uL Potassium 2.8 L (3.5-5.1) mmol/L Carbon Dioxide 31 H (22-30) mmol/L BUN 51 H (7-17) mg/dL Creatinine 1.93 H (0.52-1.04) mg/dL Glucose 110 H (74-99) mg/dL Calcium 7.8 L (8.4-10.2) mg/dL Magnesium 1.5 L (1.6-2.3) mg/dL
[2025-03-31 16:54] LABS: African American GFR (CKD) 44 (>60 ml/min/1.73 sqM); Anion Gap 4 mmol/L; Blood Urea Nitrogen 41 mg/dL (7-17); Calcium 8.1 mg/dL (8.4-10.2); Carbon Dioxide 28 mmol/L (22-30); Chloride 106 mmol/L (98-107); Glucose 92 mg/dL (74-99); Non-African American GFR(CKD) 38 (>60 ml/min/1.73 sqM); Potassium 3.6 mmol/L (3.5-5.1); Sodium 138 mmol/L (137-145)
[2025-03-31] MEDS: FLUDROCORTISONE 0.1 MG TAB PO SCH (17:22)
--- NOTE | 2025-03-31 17:38 | P.PN ---
Subjective Progress Note Date: 03/31/25 Patient seen in consultation for acute kidney injury, hypokalemia, hypomagnesemia, hypotension. Renal function used to show improvement. Electrolytes repleted as needed. Blood pressure has remained marginally low with fluid boluses. No new complaints today. Objective - Vital Signs Vital signs: Vital Signs Temp 98.0 F 03/31/25 02:48 Pulse 68 03/31/25 00:00 Resp 18 03/31/25 02:48 BP 90/56 03/31/25 06:19 Pulse Ox 97 03/31/25 08:45 FiO2 Intake & Output 03/30/25 03/31/25 03/31/25 18:59 06:59 18:59 Intake Total 240 Output Total 800 Balance -560 Weight 84.822 kg 85 kg Intake: Oral 240 Output: Urine 800 Uretheral (Yeh) 200 Other: Voiding Method Indwelling Catheter Indwelling Catheter - Exam Patient is awake, comfortable, no acute distress Alert oriented x 3 Examination of the heart S1 and S2 Examination of the lungs bilateral breath sounds are heard Abdomen is soft nontender Examination of lower extremities shows no significant edema DIRECTOR LONG TERM CARE exam grossly intact Indwelling catheter in place, clear urine noted with adequate output - Labs CBC & Chem 7: 03/31/25 07:49 03/31/25 16:15 Labs: Abnormal Lab Results - Last 24 Hours (Table) 03/30/25 03/31/25 03/31/25 Range/Units 07:55 07:49 07:49 WBC 4.17 L 3.18 L (4.50-10.00) X 10*3/uL RBC 3.82 L (4.10-5.20) 10*6/uL Hgb 11.5 L 10.3 L D (12.0-15.0) g/dL Hct 36.1 L 31.3 L (37.2-46.3) % MCH 26.9 L (27.0-32.0) pg MCHC 31.9 L (32.0-37.0) g/dL RDW 17.0 H (11.5-14.5) % Plt Count 127 L 133 L (140-440) X 10*3/uL MPV 12.4 H (9.5-12.2) fL Neutrophils # 1.74 L 1.41 L (1.80-7.70) X 10*3/uL Potassium 2.8 L (3.5-5.1) mmol/L Carbon Dioxide 31 H (22-30) mmol/L BUN 51 H (7-17) mg/dL Creatinine 1.93 H (0.52-1.04) mg/dL Glucose 110 H (74-99) mg/dL Calcium 7.8 L (8.4-10.2) mg/dL Magnesium 1.5 L (1.6-2.3) mg/dL Assessment and Plan Assessment: 1. Nonoliguric Acute Kidney Injury secondary to ATN from volume depletion,exacerbated by JELLY inhibitor, hypotension. Baseline creatinine of 0.67 from 12/31/2024. UA shows trace proteinuria, without hematuria. Renal ultrasound shows no signs of hydronephrosis with stable bilateral renal cysts noted. Today, BUN 76 and creatinine 3.71. 2. Hypokalemia secondary to vomiting leading to dehydration causing RAAS activation potentiating renal potassium losses, additional losses secondary to thiazide diuretic 3. Metabolic Acidosis secondary to GI losses and TAMAR 4. Nausea and vomiting, resolved. Patient underwent GI study which showed esophageal dysmotility. 5. Anemia rule out Iron Deficiency 6. Hypotension, rule out adrenal insufficiency Plan: Discontinued bicarb drip, initiated NS at 75 mL/h Fluid bolus and check cortisol level Potassium & Magnesium repleted Repeat BMP in afternoon Advance diet per surgery recs Continue to hold nephrotoxic agents including ACEs and ARB's Continue to encourage oral intake Will continue to monitor renal function and electrolytes with BMP in the AM and replete as needed Continue to monitor blood pressure I have seen and examined the patient with resident and agree with A&P as written. Renal fx improving.
[2025-03-31] MEDS: NICOTINE 7MG/24HR PATCH TRANSDERM SCH (19:53)
[2025-03-31] MEDS: HYDROCORTISONE SUCCINATE 100 MG/2 ML VIAL IV ONE (22:26)
[2025-04-01 02:29] LABS: % Iron Saturation 29.93 (12.00-45.00); Iron 44 UG/DL (50-170); Total Iron Binding Capacity 147 UG/DL (228-460)
--- NOTE | 2025-04-01 05:15 | PN ---
PROGRESS NOTE DATE OF SERVICE: 03/31/225 SUBJECTIVE: This is a 54-year-old woman who was admitted with acute renal failure secondary to dehydration, also gastroenteritis, also severely hypotensive, also the patient was closely monitored. The patient had multiple laboratory abnormalities, potassium is 2.8, also there is no history of fever, rigors, or chills. PAST MEDICAL HISTORY: Reviewed. REVIEW OF SYSTEMS: Fourteen-point review of systems negative except as mentioned earlier. CURRENT MEDICATIONS: Noted. PHYSICAL EXAMINATION: VITAL SIGNS: Pulse is 70, blood pressure is 90/52, respirations 20. HEENT: Conjunctivae normal. NECK: No jugular venous distention. CARDIOVASCULAR: S1 and S2. RESPIRATIONS: Few scattered rhonchi. ABDOMEN: Soft, nontender. LEGS: No edema. NERVOUS SYSTEM: Nonfocal. LABORATORY DATA: Reviewed. ASSESSMENT: 1. Acute renal failure from acute tubular necrosis with severe dehydration. 2. Acute gastroenteritis, colitis ruled out. 3. Severe hypotension and severe hypokalemia. 4. Asthma, chronic obstructive pulmonary disease. 5. Rule out [place] disease. 6. Diabetes mellitus type 2. 7. Hypertension. 8. Degenerative joint disease. 9. History of pneumonia. 10.History of sleep apnea. 11.Multiple complex medical issues. RECOMMENDATIONS: Recommend to continue current medications and symptomatic treatment. Relative adrenal insufficiency is a possibility. I would recommend IV bolus fluids, also recommend troponin and cardiac workup also. Continue the IV fluids cautiously. The chest x-ray will be repeated. Abdomen and pelvis CAT scan reviewed. Guarded prognosis because of multiple complex medical issues. Further recommendations to follow. See orders for details. MMODL / IJN: [id number] /
--- NOTE | 2025-04-01 07:31 | XR ---
EXAMINATION TYPE: XR chest 1V portable DATE OF EXAM: 04/01/2025 6:54 AM COMPARISON: 03/29/2025 CLINICAL INDICATION: Female, 54 years old with history of CHF, , FINDINGS: Heart mildly enlarged. Perihilar and interstitial opacities. Patchy bibasilar opacities. IMPRESSION: Interval worsening now with perihilar pulmonary edema. Patchy bibasilar airspace disease/pulmonary ed dahlia. [facility], , 04/01/2025 7:29 AM
[2025-04-01 08:52] LABS: Basophils # (A) 0.02 10*3/uL (0.00-0.10); Basophils % (A) 0.6 %; HCT 33.2 % (37.2-46.3); HGB 10.6 g/dL (12.0-15.0); Lymphocytes # (A) 0.92 10*3/uL (0.90-5.00); Lymphocytes % (A) 28.5 %; MCH 26.5 pg (27.0-32.0); MCHC 31.9 g/dL (32.0-37.0); Mean Platelet Volume 12.7 fL (9.5-12.2); Monocytes # (A) 0.15 10*3/uL (0.20-1.00); Monocytes % (A) 4.6 %; Neutrophils # (A) 2.14 10*3/uL (1.80-7.70); Neutrophils % (A) 66.3 %; Platelet Count 140 10*3/uL (140-440); RDW 16.9 % (11.5-14.5); WBC 3.23 10*3/uL (4.50-10.00)
[2025-04-01 09:10] LABS: African American GFR (CKD) 44 (>60 ml/min/1.73 sqM); Anion Gap 3 mmol/L; Blood Urea Nitrogen 30 mg/dL (7-17); Calcium 8.2 mg/dL (8.4-10.2); Carbon Dioxide 26 mmol/L (22-30); Chloride 110 mmol/L (98-107); Glucose 121 mg/dL (74-99); Magnesium 1.7 mg/dL (1.6-2.3); Non-African American GFR(CKD) 39 (>60 ml/min/1.73 sqM); Potassium 3.9 mmol/L (3.5-5.1); Sodium 139 mmol/L (137-145)
--- NOTE | 2025-04-01 10:56 | P.PN ---
Subjective Patient seen in consultation for acute kidney injury. Renal function improved significantly from admission. Patient received fluid boluses overnight and also received a dose of hydrocortisone. Blood pressure improved. Vital signs are stable. General: No acute distress. HEENT: Head exam is unremarkable. LUNGS: No audible rhonchi or wheezes. HEART: Rate and Rhythm are regular. ABDOMEN: Nontender. EXTREMITITES: No edema. Objective - Vital Signs Vital signs: Vital Signs Temp 97.7 F 03/31/25 23:33 Pulse 68 04/01/25 03:46 Resp 18 04/01/25 03:46 BP 119/81 04/01/25 06:34 Pulse Ox 94 L 04/01/25 03:46 FiO2 Intake & Output 03/31/25 04/01/25 04/01/25 18:59 06:59 18:59 Intake Total 2818 Output Total 1100 600 Balance 1718 -600 Weight 101.5 kg Intake: Intake, IV Titration 2200 Amount Magnesium Sulfate-D5w Pmx 200 1 gm In Dextrose/Water 1 100ml.bag @ 100 mls/hr IVPB Q3HR [facility] Rx#: [id number] Sodium Chloride 0.9% 1, 500 000 ml @ 100 mls/hr IV . Q10H [facility] Rx#:[id number] Sodium Chloride 0.9% 1, 1000 000 ml @ 999 mls/hr IV . Q1H1M [facility] Rx#:[id number] Sodium Chloride 0.9% 500 500 ml 500 ml @ 999 mls/hr IV .Q31M [facility] Rx#:[id number] Oral 618 Output: Urine 1100 600 Other: Voiding Method Indwelling Catheter Indwelling Catheter # Voids 1 1 - Labs CBC & Chem 7: 04/01/25 08:38 04/01/25 08:38 Labs: Abnormal Lab Results - Last 24 Hours (Table) 03/31/25 03/31/25 04/01/25 Range/Units 16:15 16:15 08:38 WBC 3.23 L (4.50-10.00) 10*3/uL RBC 4.00 L (4.10-5.20) 10*6/uL Hgb 10.6 L (12.0-15.0) g/dL Hct 33.2 L (37.2-46.3) % MCH 26.5 L (27.0-32.0) pg MCHC 31.9 L (32.0-37.0) g/dL MPV 12.7 H (9.5-12.2) fL Monocytes # 0.15 L (0.20-1.00) 10*3/uL Eosinophils # 0.00 L (0.04-0.35) 10*3/uL Chloride (98-107) mmol/L BUN 41 H (7-17) mg/dL Creatinine 1.53 H (0.52-1.04) mg/dL Glucose (74-99) mg/dL Calcium 8.1 L (8.4-10.2) mg/dL Iron 44 L (50-170) UG/DL TIBC 147 L (228-460) UG/DL Transferrin 105.0 L 106.0 L (204.0-354.0) mg/dL 04/01/25 Range/Units 08:38 WBC (4.50-10.00) 10*3/uL RBC (4.10-5.20) 10*6/uL Hgb (12.0-15.0) g/dL Hct (37.2-46.3) % MCH (27.0-32.0) pg MCHC (32.0-37.0) g/dL MPV (9.5-12.2) fL Monocytes # (0.20-1.00) 10*3/uL Eosinophils # (0.04-0.35) 10*3/uL Chloride 110 H (98-107) mmol/L BUN 30 H (7-17) mg/dL Creatinine 1.51 H (0.52-1.04) mg/dL Glucose 121 H (74-99) mg/dL Calcium 8.2 L (8.4-10.2) mg/dL Iron (50-170) UG/DL TIBC (228-460) UG/DL Transferrin (204.0-354.0) mg/dL Assessment and Plan Assessment: 1. Nonoliguric Acute Kidney Injury secondary to ATN from volume depletion,exacerbated by JELLY inhibitor, hypotension. Baseline creatinine of 0.67 from 12/31/2024. UA shows trace proteinuria, without hematuria. Renal ultrasound shows no signs of hydronephrosis with stable bilateral renal cysts noted. Creatinine over 8 on admission and is 1.51 today. 2. Hypokalemia secondary to vomiting leading to dehydration causing RAAS ac tivation potentiating renal potassium losses, additional losses secondary to thiazide diuretic. Replaced. Better. 3. Metabolic Acidosis secondary to GI losses and TAMAR. Improved. 4. Nausea and vomiting, resolved. Patient underwent GI study which showed esophageal dysmotility. 5. Anemia, iron replete. 6. Hypotension. Improved with IV fluids and hydrocortisone. AM Cortisol level 8.7. Plan: Maintain IV fluids. Decrease rate to 75 cc an hour. Now on Florinef. Add oral magnesium oxide. Diet per surgery. Continue to hold nephrotoxic agents including ACEs and ARB's Continue to encourage oral intake Continue to monitor renal function and urine output. Follow-up echocardiogram. Okay to DC Yeh catheter.
[2025-04-01] MEDS: MAGNESIUM OXIDE 400 MG TAB PO SCH (11:37)
--- NOTE | 2025-04-01 13:36 | P.PN ---
Subjective Progress Note Date: 04/01/25 SURGICAL PROGRESS NOTE CHIEF COMPLAINT: Near syncope HISTORY OF PRESENT ILLNESS: Patient reports she feels a little better today. She still has some nausea and heartburn. She did have 1 episode of vomiting yesterday. She is having flatus. Diarrhea has resolved. She reports the Yeh catheter has been discontinued today. Afebrile. WBC is 3.23 Hgb 10.6 creatinine 1.51 patient has been hypotensive and received a fluid bolus last night and this morning. Blood pressure improving after IV fluid boluses yesterday. Upper GI reports severe esophageal dysmotility with tertiary contractions. Delayed emptying of esophagus with poor transit of fluid through the gastric lumen also present. Findings similar to prior upper GI on 12/15/2024. Patient seen and examined with Dr. Alberto PHYSICAL EXAM: VITAL SIGNS: Reviewed. GENERAL: Well-developed in no acute distress. ABDOMEN: Soft. Nondistended. epigastric tenderness with palpation NEUROLOGIC: Alert and oriented. Cranial nerves II through XII grossly intact. ASSESSMENT: 1. Abdominal pain with vomiting and diarrhea. Possible gastroenteritis 2. Heartburn with significant acid reflux and decreased appetite. Status post upper GI with evidence of severe esophageal dysmotility 3. 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 Acute kidney injury PLAN: -No surgical intervention planned -Continue clear liquid diet -Encourage patient to increase activity level -Continue PPI Physician Watch Dial Printer note has been reviewed by physician. Signing provider agrees with the documented findings, assessment, and plan of care. Objective - Vital Signs Vital signs: Vital Signs Temp 98.3 F 04/01/25 11:18 Pulse 68 04/01/25 11:18 Resp 16 04/01/25 11:18 BP 106/66 04/01/25 11:18 Pulse Ox 97 04/01/25 11:18 FiO2 Intake & Output 03/31/25 04/01/25 04/01/25 18:59 06:59 18:59 Intake Total 2818 Output Total 1100 600 300 Balance 1718 -600 -300 Weight 101.5 kg Intake: Intake, IV Titration 2200 Amount Magnesium Sulfate-D5w Pmx 200 1 gm In Dextrose/Water 1 100ml.bag @ 100 mls/hr IVPB Q3HR [facility] Rx#: [id number] Sodium Chloride 0.9% 1, 500 000 ml @ 75 mls/hr IV . [id number] [facility] Rx#:[id number] Sodium Chloride 0.9% 1, 1000 000 ml @ 999 mls/hr IV . Q1H1M [facility] Rx#:[id number] Sodium Chloride 0.9% 500 500 ml 500 ml @ 999 mls/hr IV .Q31M [facility] Rx#:[id number] Oral 618 Output: Urine 1100 600 300 Other: Voiding Method Indwelling Catheter Indwelling Catheter # Voids 1 1 # Bowel Movements 1 - Labs CBC & Chem 7: 04/01/25 08:38 04/01/25 08:38 Labs: Abnormal Lab Results - Last 24 Hours (Table) 03/31/25 03/31/25 04/01/25 Range/Units 16:15 16:15 08:38 WBC 3.23 L (4.50-10.00) 10*3/uL RBC 4.00 L (4.10-5.20) 10*6/uL Hgb 10.6 L (12.0-15.0) g/dL Hct 33.2 L (37.2-46.3) % MCH 26.5 L (27.0-32.0) pg MCHC 31.9 L (32.0-37.0) g/dL MPV 12.7 H (9.5-12.2) fL Monocytes # 0.15 L (0.20-1.00) 10*3/uL Eosinophils # 0.00 L (0.04-0.35) 10*3/uL Chloride (98-107) mmol/L BUN 41 H (7-17) mg/dL Creatinine 1.53 H (0.52-1.04) mg/dL Glucose (74-99) mg/dL Calcium 8.1 L (8.4-10.2) mg/dL Iron 44 L (50-170) UG/DL TIBC 147 L (228-460) UG/DL Transferrin 105.0 L 106.0 L (204.0-354.0) mg/dL 04/01/25 Range/Units 08:38 WBC (4.50-10.00) 10*3/uL RBC (4.10-5.20) 10*6/uL Hgb (12.0-15.0) g/dL Hct (37.2-46.3) % MCH (27.0-32.0) pg MCHC (32.0-37.0) g/dL MPV (9.5-12.2) fL Monocytes # (0.20-1.00) 10*3/uL Eosinophils # (0.04-0.35) 10*3/uL Chloride 110 H (98-107) mmol/L BUN 30 H (7-17) mg/dL Creatinine 1.51 H (0.52-1.04) mg/dL Glucose 121 H (74-99) mg/dL Calcium 8.2 L (8.4-10.2) mg/dL Iron (50-170) UG/DL TIBC (228-460) UG/DL Transferrin (204.0-354.0) mg/dL
[2025-04-01] MEDS: FUROSEMIDE 10 MG/ML 2 ML VIAL IV ONE (14:43)
[2025-04-01] MEDS ORDERED: FUROSEMIDE 10 MG/ML 2 ML VIAL IV SCH (14:45)
--- NOTE | 2025-04-01 18:31 | CA ---
Transthoracic Echo Report Name: Kaitlynn Guardado Age: 54 Gender: F : 1970 Exam Date: 04/01/2025 08:10 Exam Location: [place] [facility] Ht (in): 59 Wt (lb): 187 Ordering Physician: Rhonda Cortez MD Attending/Referring Phys: Body Hanger Coreen Chavarria RDCS Procedure CPT: Indications: Hypotension Cardiac Hx: Technical Quality: Good Contrast 1: Total Dose (mL): Contrast 2: Total Dose (mL): MEASUREMENTS (Male / Female) Normal Values 2D ECHO LV Diastolic Diameter PLAX 4.2 cm 4.2 - 5.9 / 3.9 - 5.3 cm LV Systolic Diameter PLAX 3.0 cm IVS Diastolic Thickness 0.7 cm 0.6 - 1.0 / 0.6 - 0.9 cm LVPW Diastolic Thickness 0.9 cm 0.6 - 1.0 / 0.6 - 0.9 cm LV Relative Wall Thickness 0.4 LVOT Diameter 2.0 cm LV Diastolic Volume MOD BP 95.2 cm??? 67 - 155 / 56 - 104 cm??? LV Systolic Volume MOD BP 38.1 cm??? 22 - 58 / 19 - 49 cm??? LV Ejection Fraction MOD BP 60.0 % >= 55 % LV Cardiac Index MOD BP 1985.7 cm???/min???m??? LV Diastolic Volume MOD 4C 99.4 cm??? LV Systolic Volume MOD 4C 38.3 cm??? LV Ejection Fraction MOD 4C 61.4 % LV Cardiac Index MOD 4C 2124.3 cm???/min???m??? LV Diastolic Length 4C 7.8 cm LV Systolic Length 4C 6.4 cm LV Diastolic Volume MOD 2C 86.1 cm??? LV Systolic Volume MOD 2C 36.0 cm??? LV Ejection Fraction MOD 2C 58.2 % LV Cardiac Index MOD 2C 1744.9 cm???/min???m??? LV Diastolic Length 2C 7.4 cm LV Systolic Length 2C 6.7 cm LA Volume 56.9 cm??? 18 - 58 / 22 - 52 cm??? LA Volume Index 29.5 cm???/m??? 16 - 28 cm???/m??? DOPPLER AV Peak Velocity 142.9 cm/s AV Peak Gradient 8.2 mmHg AV Mean Velocity 101.5 cm/s AV Mean Gradient 4.5 mmHg AV Velocity Time Integral 30.1 cm LVOT Peak Velocity 111.7 cm/s LVOT Peak Gradient 5.0 mmHg LVOT Velocity Time Integral 25.3 cm LVOT Stroke Volume 81.3 cm??? LVOT Stroke Volume Index 45.4 ml/m??? LVOT Cardiac Index 2830.5 cm???/min???m??? AV Area Cont Eq vti 2.7 cm??? AV Area Cont Eq pk 2.5 cm??? MV Area PHT 4.5 cm??? Mitral E Point Velocity 64.3 cm/s Mitral A Point Velocity 81.5 cm/s Mitral E to A Ratio 0.8 MV Deceleration Time 167.7 ms TR Peak Velocity 192.2 cm/s TR Peak Gradient 14.8 mmHg Right Atrial Pressure 15.0 mmHg Pulmonary Artery Systolic Pressu 29.8 mmHg Right Ventricular Systolic Press 29.8 mmHg PV Peak Velocity 78.9 cm/s PV Peak Gradient 2.5 mmHg FINDINGS Left Ventricle Left ventricular ejection fraction is estimated at 55-60 %. Left ventricular cavity size normal. Left ventricular wall thickness normal. No obvious regional wall motion abnormalities. Right Ventricle Normal right ventricular size and function. Right ventricular systolic pressure within normal limits. Right Atrium Normal right atrial size. Left Atrium Mildly increased left atrial volume. Mitral Valve Structurally normal mitral valve. No evidence for mitral valve prolapse. No mitral stenosis. Mild mitral regurgitation. Aortic Valve Trileaflet aortic valve. No aortic stenosis. Trace aortic regurgitation. Tricuspid Valve Structurally normal tricuspid valve. No tricuspid stenosis. Trace tricuspid regurgitation. Pulmonic Valve Structurally normal pulmonic valve. No pulmonic stenosis. Trace pulmonic regurgitation. Pericardium No pericardial effusion. Aorta Normal size aortic root and proximal ascending aorta. CONCLUSIONS Diagnosis hypotension Preserved LV size and function No significant valvular abnormality Previewed by: Dr. Andrew Yancey MD (Electronically Signed) Final Date: 01 Apr 2025 18:30
--- NOTE | 2025-04-02 00:28 | PN ---
PROGRESS NOTE DATE OF SERVICE: 04/01/2025 SUBJECTIVE: This 54-year-old woman admitted with severe acute renal failure, also had some diarrhea, abdominal symptoms with IV fluids. The creatinine has improved significantly. Diarrhea is better. Blood pressure is also improved, but however, the patient developed some shortness of breath and CHF and fluid overload. At this time, I would recommend full cardiac workup including 2D echo with Doppler, troponin, EKG, and as well as single dose of Lasix. Multiple consultants are following the patient closely. PAST MEDICAL HISTORY: Reviewed. REVIEW OF SYSTEMS: A 14-point review of systems negative except as mentioned earlier. CURRENT MEDICATIONS: Reviewed. PHYSICAL EXAMINATION: VITAL SIGNS: Pulse is 68, blood pressure 106/66, respirations 16. HEENT: Conjunctivae normal. NECK: No jugular venous distention. CARDIOVASCULAR: S1 and S2. RESPIRATIONS: Breath sounds diminished at the bases, few scattered rhonchi. ABDOMEN: Soft. NERVOUS SYSTEM: No focal deficit. LABORATORY DATA: Creatinine 1.51. Rest of the labs are noted. ASSESSMENT: 1. Acute renal failure from acute tubular necrosis with acute severe dehydration. 2. Acute gastroenteritis, colitis ruled out. 3. Severe hypotension, severe hypokalemia, possibly secondary to dehydration. 4. Possible congestive heart failure acute exacerbation, fluid overload. 5. Asthma, chronic obstructive pulmonary disease. 6. Rule out heart disease. 7. Diabetes mellitus, type 2. 8. Hypertension. 9. Degenerative joint disease. 10.History of pneumonia. 11.Sleep apnea. 12.Multiple complex medical issues. RECOMMENDATIONS: Recommend to continue current management and treatment. As mentioned earlier, stop the IV fluids, single dose of Lasix and 2D echo. Repeat labs. The patient possibly had relative adrenal cortical insufficiency, but however, blood pressure is well maintained at this time. The blood pressure is dropping. The patient might need outpatient detailed workup with the Endocrinology to evaluate for hypoadrenalism. MMODL / IJN: [id number] /
[2025-04-02 07:44] LABS: African American GFR (CKD) 52 (>60 ml/min/1.73 sqM); Anion Gap 1 mmol/L; Blood Urea Nitrogen 23 mg/dL (7-17); Calcium 8.2 mg/dL (8.4-10.2); Carbon Dioxide 28 mmol/L (22-30); Chloride 112 mmol/L (98-107); Glucose 88 mg/dL (74-99); Magnesium 1.6 mg/dL (1.6-2.3); Non-African American GFR(CKD) 45 (>60 ml/min/1.73 sqM); Potassium 3.5 mmol/L (3.5-5.1); Sodium 141 mmol/L (137-145)
--- NOTE | 2025-04-02 08:00 | XR ---
EXAMINATION TYPE: XR chest 1V portable DATE OF EXAM: 04/02/2025 6:52 AM COMPARISON: 04/01/2025 CLINICAL INDICATION: Female, 54 years old with history of chf, , FINDINGS: Heart mildly enlarged. Mild interstitial density remains though with improvement from prior. Mild pat gabriel bibasilar density remains. IMPRESSION: CHF but with interval improvement now residual pulmonary vascular congestion. [facility], , 04/02/2025 7:58 AM
--- NOTE | 2025-04-02 10:44 | P.PN ---
Subjective Patient seen in consultation for acute kidney injury. Renal function improved significantly from admission. Still on clear liquid diet. Vital signs are stable. General: No acute distress. HEENT: Head exam is unremarkable. LUNGS: No audible rhonchi or wheezes. HEART: Rate and Rhythm are regular. ABDOMEN: Nontender. EXTREMITITES: No edema. Objective - Vital Signs Vital signs: Vital Signs Temp 97.8 F 04/02/25 08:00 Pulse 71 04/02/25 08:00 Resp 16 04/02/25 08:00 BP 93/67 04/02/25 08:00 Pulse Ox 98 04/02/25 08:00 FiO2 Intake & Output 04/01/25 04/02/25 04/02/25 18:59 06:59 18:59 Intake Total 240 250 Output Total 300 Balance -60 250 Weight 96.1 kg Intake: IV 10 Invasive Line 2 10 Oral 240 240 Output: Urine 300 Other: Voiding Method Indwelling Catheter Indwelling Catheter # Voids 1 # Bowel Movements 1 - Labs CBC & Chem 7: 04/01/25 08:38 04/02/25 05:59 Labs: Abnormal Lab Results - Last 24 Hours (Table) 04/02/25 Range/Units 05:59 Chloride 112 H (98-107) mmol/L BUN 23 H (7-17) mg/dL Creatinine 1.33 H (0.52-1.04) mg/dL Calcium 8.2 L (8.4-10.2) mg/dL Assessment and Plan Assessment: 1. Nonoliguric Acute Kidney Injury secondary to ATN from volume depletion,exacerbated by JELLY inhibitor, hypotension. Baseline creatinine of 0.67 from 12/31/2024. UA shows trace proteinuria, without hematuria. Renal ultrasound shows no signs of hydronephrosis with stable bilateral renal cysts noted. Creatinine over 8 on admission and is 1.33 today. 2. Hypokalemia secondary to vomiting leading to dehydration causing RAAS act ivation potentiating renal potassium losses, additional losses secondary to thiazide diuretic. Replaced. Better. 3. Metabolic Acidosis secondary to GI losses and TAMAR. Improved. 4. Nausea and vomiting, resolved. Patient underwent GI study which showed esophageal dysmotility. 5. Anemia, iron replete. 6. Hypotension. Improved with IV fluids and hydrocortisone. AM Cortisol level 8.7. Plan: Maintain IV fluids. Decrease rate to 50 cc an hour. Now on Florinef. Add midodrine. Hold for systolic blood pressure greater than 110. Maintain magnesium oxide. Diet per surgery. Continue to hold nephrotoxic agents including ACEs and ARB's Continue to encourage oral intake Continue to monitor renal function and urine output. Preserved EF noted on echocardiogram. Yeh catheter removed April 01, 2025. Has been voiding on her own.
[2025-04-02] MEDS: MIDODRINE 5 MG TAB PO SCH (12:24)
[2025-04-02] MEDS: POTASSIUM CHLORIDE ER 20 MEQ TAB.ER PO STA (12:24)
--- NOTE | 2025-04-02 12:33 | P.PN ---
Subjective Progress Note Date: 04/02/25 SURGICAL PROGRESS NOTE CHIEF COMPLAINT: Near syncope HISTORY OF PRESENT ILLNESS: Patient reports having multiple episodes of diarrhea yesterday. She did have 1 episode of vomiting. She continues to have nausea. She reports that her heartburn is better. She also has been hypotensive. Patient is on IV fluids. Nephrology has added midodrine. Patient is able to void. PHYSICAL EXAM: VITAL SIGNS: Reviewed. GENERAL: Well-developed in no acute distress. ABDOMEN: Soft. Nondistended. epigastric tenderness with palpation NEUROLOGIC: Alert and oriented. Cranial nerves II through XII grossly intact. ASSESSMENT: 1. Abdominal pain with vomiting and diarrhea. Possible gastroenteritis 2. Heartburn with significant acid reflux and decreased appetite. Status post upper GI with evidence of severe esophageal dysmotility 3. 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 Acute kidney injury PLAN: -Continue supportive care -No surgical intervention planned -Continue clear liquid diet -Educated patient to drink slowly and small amounts at a time. Educated patient to stay sitting upright for about 30 minutes to an hour after drinking. -Encourage patient to increase activity level -Continue PPI Physician Armor Reconnaissance Specialist note has been reviewed by physician. Signing provider agrees with the documented findings, assessment, and plan of care. Objective - Vital Signs Vital signs: Vital Signs Temp 97.8 F 04/02/25 12:00 Pulse 77 04/02/25 12:00 Resp 16 04/02/25 12:00 BP 108/72 04/02/25 12:00 Pulse Ox 100 04/02/25 12:00 FiO2 Intake & Output 04/01/25 04/02/25 04/02/25 18:59 06:59 18:59 Intake Total 240 250 Output Total 300 Balance -60 250 Weight 96.1 kg Intake: IV 10 Invasive Line 2 10 Oral 240 240 Output: Urine 300 Other: Voiding Method Indwelling Catheter Indwelling Catheter # Voids 1 # Bowel Movements 1 - Labs CBC & Chem 7: 04/01/25 08:38 04/02/25 05:59 Labs: Abnormal Lab Results - Last 24 Hours (Table) 04/02/25 Range/Units 05:59 Chloride 112 H (98-107) mmol/L BUN 23 H (7-17) mg/dL Creatinine 1.33 H (0.52-1.04) mg/dL Calcium 8.2 L (8.4-10.2) mg/dL
[2025-04-03 07:29] LABS: Basophils # (A) 0.02 10*3/uL (0.00-0.10); Basophils % (A) 0.5 %; Eosinophils % (A) 4.7 %; HCT 34.5 % (37.2-46.3); HGB 10.7 g/dL (12.0-15.0); Immature Platelet Fraction 8.7 % (1.1-6.1); Lymphocytes # (A) 1.91 10*3/uL (0.90-5.00); Lymphocytes % (A) 44.8 %; MCH 26.7 pg (27.0-32.0); Mean Platelet Volume 12.4 fL (9.5-12.2); Monocytes # (A) 0.31 10*3/uL (0.20-1.00); Monocytes % (A) 7.3 %; Neutrophils # (A) 1.81 10*3/uL (1.80-7.70); Neutrophils % (A) 42.5 %; Platelet Count 147 10*3/uL (140-440); RBC 4.01 10*6/uL (4.10-5.20); RDW 18.1 % (11.5-14.5); WBC 4.26 10*3/uL (4.50-10.00)
--- NOTE | 2025-04-03 07:33 | P.PN ---
Subjective Progress Note Date: 04/02/25 This is a very pleasant 54-year-old female who came in with severe acute renal failure had diarrhea ongoing for over a week with abdominal pain and poor oral intake. Creatinine was over 8 on admission being followed by nephrology maintained on hydration showing significant improvement in kidney functions. Patient reports diarrhea is improving although has been having intermittent nausea and difficulty tolerating much oral intake. Patient is maintained on clear liquids and was continued on IV fluids although showing some volume overload and also hypotension. Patient started on Florinef and will continue showing some improvements in blood pressure. Patient undergoing cardiac workup including 2D echo which is pending and was given a dose of Lasix. Nephrology is following recommends to continue maintaining on hydration. Patient was having some shortness of breath and will be monitored closely. Encouraged to increase activity as tolerated and patient has been getting up more frequently . Review of systems: Constitutional: No reports of fatigue, fever, or chills Cardiovascular: No reports of chest pain or palpitations Respiratory: reports of intermittent shortness of breath GI: reports of nausea, no reports of vomiting, still having occasional diarrhea : No reports of dysuria or retention Neurovascular: reports of generalized weakness, and dizziness with walking and position changes although slightly improved All medications have been reviewed PHYSICAL EXAMINATION: GENERAL: The patient is alert and oriented x4, Well developed, well nourished. Morbidly obese HEENT: Pupils are round and equally reacting to light. EOMI. no scleral icterus. No conjunctival pallor. Normocephalic, atraumatic. No pharyngeal erythema. No thyromegaly. CARDIOVASCULAR: S1 and S2 muffled PULMONARY: diminished breath sounds bilaterally with no wheezing or rhonchi noted. ABDOMEN: soft. Nontender on exam. obese. non-distended, normoactive bowel sounds. No palpable organomegaly. MUSCULOSKELETAL: No joint swelling or deformity. EXTREMITIES: No cyanosis, clubbing, or pedal edema. NEUROLOGICAL: Gross neurological examination did not reveal any focal deficits. Diffuse weakness SKIN: No rashes. Assessment: Acute renal failure from acute tubular necrosis with severe dehydration secondary to diarrhea, improving Acute gastroenteritis, colitis ruled out Severe hypotension with severe hypokalemia likely secondary to dehydration, improving Possible acute congestive heart failure with acute exacerbation, fluid overload, 2D echo pending Asthma with chronic obstructive pulmonary disease, not in exacerbation Diabetes mellitus, type II Hypertension, currently hypotensive and blood pressure medications being held History of degenerative joint disease History of sleep apnea History of recent sleeve gastrectomy Morbid obesity with a BMI of 43.4 GI prophylaxis DVT prophylaxis Full code Plan: Recommend to continue with current medications and management with multiple consultations following. Nephrology following maintained on gentle hydration although showing some volume overload and 2D echo was ordered and pending with concerns of CHF acute exacerbation. Continue Florinef and blood pressure is improving recommend to continue holding blood pressure medications Patient continues to report nausea and not tolerating much oral intake, will continue clears and slowly advance as tolerated Follow-up on repeat labs and replace electrolytes per protocol Encouraged increase activity as tolerated with assistance as patient reports dizziness and lightheadedness with position changes Chest x-ray shows some CHF but interval improvement with now residual pulmonary vascular congestion. Patient was given a dose of Lasix. Potassium being replaced Overall prognosis guarded The impression and plan of care has been dictated by Dacia Marr, nurse practitioner as directed. Dr. Diego MD I have performed a history and examination and MDM of this patient, discussed the same with the dictator, and agree with the dictator's assessment and plan as written ,documented as a scribe. Based on total visit time, I have performed more than 50% of the visit. Any additional findings or plans will be noted. Objective - Vital Signs Vital signs: Vital Signs Temp 97.8 F 04/02/25 12:00 Pulse 77 04/02/25 12:00 Resp 16 04/02/25 12:00 BP 108/72 04/02/25 12:00 Pulse Ox 100 04/02/25 12:00 FiO2 Intake & Output 04/01/25 04/02/25 04/02/25 18:59 06:59 18:59 Intake Total 240 250 Output Total 300 Balance -60 250 Weight 96.1 kg Intake: IV 10 Invasive Line 2 10 Oral 240 240 Output: Urine 300 Other: Voiding Method Indwelling Catheter Indwelling Catheter # Voids 1 # Bowel Movements 1 - Labs CBC & Chem 7: 04/01/25 08:38 04/02/25 05:59 Labs: Abnormal Lab Results - Last 24 Hours (Table) 04/02/25 Range/Units 05:59 Chloride 112 H (98-107) mmol/L BUN 23 H (7-17) mg/dL Creatinine 1.33 H (0.52-1.04) mg/dL Calcium 8.2 L (8.4-10.2) mg/dL
[2025-04-03 07:39] LABS: African American GFR (CKD) 56 (>60 ml/min/1.73 sqM); Anion Gap 4 mmol/L; Blood Urea Nitrogen 17 mg/dL (7-17); Calcium 8.6 mg/dL (8.4-10.2); Carbon Dioxide 28 mmol/L (22-30); Chloride 109 mmol/L (98-107); Glucose 80 mg/dL (74-99); Magnesium 1.6 mg/dL (1.6-2.3); Non-African American GFR(CKD) 48 (>60 ml/min/1.73 sqM); Sodium 141 mmol/L (137-145)
--- NOTE | 2025-04-03 09:19 | P.PN ---
Subjective Progress Note Date: 04/03/25 Patient states she feels slightly better. She has had limited oral intake. On exam vital signs appear stable. Abdomen soft. Resolving acute kidney injury. Patient will continue receive supportive care. Objective - Vital Signs Vital signs: Vital Signs Temp 98.3 F 04/03/25 04:00 Pulse 74 04/03/25 04:00 Resp 18 04/03/25 04:00 BP 98/70 04/03/25 07:07 Pulse Ox 100 04/03/25 04:00 FiO2 Intake & Output 04/02/25 04/03/25 04/03/25 18:59 06:59 18:59 Intake Total 1260 540 Balance 1260 540 Weight 96.1 kg 97.5 kg Intake: IV 20 Invasive Line 2 20 Oral 1240 540 Other: Voiding Method Toilet # Voids 3 2 # Bowel Movements 1 - Labs CBC & Chem 7: 04/03/25 06:43 04/03/25 06:43 Labs: Abnormal Lab Results - Last 24 Hours (Table) 04/03/25 04/03/25 Range/Units 06:43 06:43 WBC 4.26 L (4.50-10.00) 10*3/uL RBC 4.01 L (4.10-5.20) 10*6/uL Hgb 10.7 L (12.0-15.0) g/dL Hct 34.5 L (37.2-46.3) % MCH 26.7 L (27.0-32.0) pg MCHC 31.0 L (32.0-37.0) g/dL MPV 12.4 H (9.5-12.2) fL Immature Plt Fraction 8.7 H (1.1-6.1) % Chloride 109 H (98-107) mmol/L Creatinine 1.25 H (0.52-1.04) mg/dL Microbiology - Last 24 Hours (Table) 04/01/25 10:45 Stool Culture - Preliminary Stool
[2025-04-03] MEDS: METOCLOPRAMIDE 5 MG/ML 2 ML VIAL IVP PRN (10:38)
--- NOTE | 2025-04-03 11:11 | P.PN ---
Subjective Patient is seen for follow-up for acute kidney injury. Renal function has improved. Maintained on IV fluids. Trying to increase oral intake. Serum creatinine down to 1.2 today. Objective - Vital Signs Vital signs: Vital Signs Temp 97.8 F 04/03/25 09:20 Pulse 80 04/03/25 09:20 Resp 17 04/03/25 09:20 BP 126/84 04/03/25 09:20 Pulse Ox 98 04/03/25 09:20 FiO2 Intake & Output 04/02/25 04/03/25 04/03/25 18:59 06:59 18:59 Intake Total 1260 540 Balance 1260 540 Weight 96.1 kg 97.5 kg Intake: IV 20 Invasive Line 2 20 Oral 1240 540 Other: Voiding Method Toilet Toilet # Voids 3 2 # Bowel Movements 1 - Exam Patient is awake, comfortable, no acute distress Examination of the heart S1 and S2 Examination of the lungs bilateral breath sounds are heard Abdomen is soft nontender Examination of lower extremities shows no evidence of edema [employer] exam grossly intact - Labs CBC & Chem 7: 04/03/25 06:43 04/03/25 06:43 Labs: Abnormal Lab Results - Last 24 Hours (Table) 04/03/25 04/03/25 Range/Units 06:43 06:43 WBC 4.26 L (4.50-10.00) 10*3/uL RBC 4.01 L (4.10-5.20) 10*6/uL Hgb 10.7 L (12.0-15.0) g/dL Hct 34.5 L (37.2-46.3) % MCH 26.7 L (27.0-32.0) pg MCHC 31.0 L (32.0-37.0) g/dL MPV 12.4 H (9.5-12.2) fL Immature Plt Fraction 8.7 H (1.1-6.1) % Chloride 109 H (98-107) mmol/L Creatinine 1.25 H (0.52-1.04) mg/dL Microbiology - Last 24 Hours (Table) 04/01/25 10:45 Stool Culture - Preliminary Stool Assessment and Plan Assessment: 1. Nonoliguric Acute Kidney Injury secondary to ATN from volume depletion,exacerbated by JELLY inhibitor, hypotension. Baseline creatinine of 0.67 from 12/31/2024. UA shows trace proteinuria, without hematuria. Renal ultrasound shows no signs of hydronephrosis with stable bilateral renal cysts noted. Creatinine over 8 on admission and is 1.2 today. 2. Hypokalemia secondary to vomiting leading to dehydration causing RAAS activation potentiating renal potassium losses, additional losses secondary to thiazide diuretic. Replaced. Better. 3. Metabolic Acidosis secondary to GI losses and TAMAR. Improved. 4. Nausea and vomiting, resolved. Patient underwent GI study which showed esophageal dysmotility. 5. Anemia, iron replete. 6. Hypotension. Improved with IV fluids and hydrocortisone. AM Cortisol level 8.7. Plan: Continue to encourage increase oral intake Continue with IV fluids in the meantime Recommend to see endocrinology as outpatient Continue with midodrine
--- NOTE | 2025-04-03 14:25 | P.PN ---
Subjective Progress Note Date: 04/03/25 This is a very pleasant 54-year-old female who came in with severe acute renal failure had diarrhea ongoing for over a week with abdominal pain and poor oral intake. Creatinine was over 8 on admission being followed by nephrology maintained on hydration showing significant improvement in kidney functions. Patient reports diarrhea is improving although has been having intermittent nausea and difficulty tolerating much oral intake. Patient is maintained on clear liquids and was continued on IV fluids although showing some volume overload and also hypotension. Patient started on Florinef and will continue showing some improvements in blood pressure. Patient undergoing cardiac workup including 2D echo which is pending and was given a dose of Lasix. Nephrology is following recommends to continue maintaining on hydration. Patient was having some shortness of breath and will be monitored closely. Encouraged to increase activity as tolerated and patient has been getting up more frequently 04/03. Patient seen and examined. Labs reviewed showed WBC 4.26, hemoglobin 10.7, platelet count 147, sodium 141, potassium 4, BUN 17, creatinine 1.25,. No further episodes of diarrhea. Patient last had a vomiting episode yesterday. This time we will advance diet to full liquid and then to regular as tolerated REVIEW OF SYSTEMS: CONSTITUTIONAL: No fever, no malaise,. CARDIOVASCULAR: No chest pain, no palpitations, no syncope. PULMONARY: No shortness of breath, no cough, GASTROINTESTINAL: No diarrhea, no nausea, no vomiting, no abdominal pain. NEUROLOGICAL: No headaches, no weakness, PHYSICAL EXAMINATION: GENERAL: The patient is alert and oriented x3, not in any acute distress. Well developed, well nourished. HEENT: Pupils are round and equally reacting to light. EOMI. No scleral icterus. No conjunctival pallor. Normocephalic, atraumatic. No pharyngeal erythema. No thyromegaly. CARDIOVASCULAR: S1 and S2 present. No murmurs, rubs, or gallops. PULMONARY: Chest is clear to auscultation, no wheezing or crackles. ABDOMEN: Soft, nontender, nondistended, normoactive bowel sounds. No palpable organomegaly. MUSCULOSKELETAL: No joint swelling or deformity. EXTREMITIES: No cyanosis, clubbing, or pedal edema. NEUROLOGICAL: Gross neurological examination did not reveal any focal deficits. SKIN: No rashes. Assessment and plan Acute renal failure from acute tubular necrosis with severe dehydration secondary to diarrhea, improving Acute gastroenteritis, colitis ruled out Severe hypotension with severe hypokalemia likely secondary to dehydration, improving Possible acute congestive heart failure with acute exacerbation Asthma with chronic obstructive pulmonary disease, not in exacerbation Diabetes mellitus, type II Hypertension, currently hypotensive and blood pressure medications being held History of degenerative joint disease History of sleep apnea History of recent sleeve gastrectomy Morbid obesity with a BMI of 43.4 Monitor vital signs Monitor CBC Monitor CMP Continue telemetry monitoring Strict I's and O's, daily weights Avoid nephrotoxic agents Continue IV fluid Continue Florinef Continue midodrine Surgery following Nephrology following, appreciate their recommendations Labs and medication were reviewed.. Continue same treatment. Continue with sym ptomatic treatment. Resume home medication. Monitor labs and vitals. DVT and GI prophylaxis. Further recommendations as per clinical course of the patient Dictation was produced using [employer] dictation software. please excuse any grammatical, word or spelling errors. Objective - Vital Signs Vital signs: Vital Signs Temp 97.8 F 04/03/25 09:20 Pulse 80 04/03/25 09:20 Resp 17 04/03/25 09:20 BP 126/84 04/03/25 09:20 Pulse Ox 98 04/03/25 09:20 FiO2 Intake & Output 04/02/25 04/03/25 04/03/25 18:59 06:59 18:59 Intake Total 1260 540 Balance 1260 540 Weight 96.1 kg 97.5 kg Intake: IV 20 Invasive Line 2 20 Oral 1240 540 Other: Voiding Method Toilet # Voids 3 2 # Bowel Movements 1 - Labs CBC & Chem 7: 04/03/25 06:43 04/03/25 06:43 Labs: Abnormal Lab Results - Last 24 Hours (Table) 04/03/25 04/03/25 Range/Units 06:43 06:43 WBC 4.26 L (4.50-10.00) 10*3/uL RBC 4.01 L (4.10-5.20) 10*6/uL Hgb 10.7 L (12.0-15.0) g/dL Hct 34.5 L (37.2-46.3) % MCH 26.7 L (27.0-32.0) pg MCHC 31.0 L (32.0-37.0) g/dL MPV 12.4 H (9.5-12.2) fL Immature Plt Fraction 8.7 H (1.1-6.1) % Chloride 109 H (98-107) mmol/L Creatinine 1.25 H (0.52-1.04) mg/dL Microbiology - Last 24 Hours (Table) 04/01/25 10:45 Stool Culture - Preliminary Stool
[2025-04-04 08:37] LABS: Basophils # (A) 0.02 10*3/uL (0.00-0.10); Basophils % (A) 0.5 %; Eosinophils # (A) 0.18 10*3/uL (0.04-0.35); Eosinophils % (A) 4.2 %; HCT 33.9 % (37.2-46.3); HGB 10.4 g/dL (12.0-15.0); Lymphocytes # (A) 1.41 10*3/uL (0.90-5.00); Lymphocytes % (A) 33.3 %; MCH 26.7 pg (27.0-32.0); MCHC 30.7 g/dL (32.0-37.0); MCV 86.9 fL (80.0-97.0); Mean Platelet Volume 11.9 fL (9.5-12.2); Monocytes % (A) 7.1 %; Neutrophils # (A) 2.31 10*3/uL (1.80-7.70); Neutrophils % (A) 54.4 %; Platelet Count 151 10*3/uL (140-440); RDW 18.3 % (11.5-14.5); WBC 4.24 10*3/uL (4.50-10.00)
[2025-04-04 08:50] LABS: ALT 8 U/L (4-34); AST 19 U/L (14-36); African American GFR (CKD) 63 (>60 ml/min/1.73 sqM); Albumin 2.4 g/dL (3.5-5.0); Alkaline Phosphatase 78 U/L (38-126); Anion Gap 4 mmol/L; Blood Urea Nitrogen 12 mg/dL (7-17); Calcium 8.1 mg/dL (8.4-10.2); Carbon Dioxide 26 mmol/L (22-30); Chloride 113 mmol/L (98-107); Glucose 85 mg/dL (74-99); Non-African American GFR(CKD) 54 (>60 ml/min/1.73 sqM); Potassium 3.8 mmol/L (3.5-5.1); Sodium 143 mmol/L (137-145); Total Bilirubin 0.4 mg/dL (0.2-1.3)
--- NOTE | 2025-04-04 09:19 | P.PN ---
Subjective Progress Note Date: 04/04/25 The patient states she had some vomiting with her breakfast. She states she vomited on her sausage. On exam vital signs appear stable. Abdomen soft. Dysphagia. Patient will be placed on a full liquid diet. Objective - Vital Signs Vital signs: Vital Signs Temp 97.9 F 04/04/25 07:38 Pulse 102 H 04/04/25 07:38 Resp 18 04/04/25 07:38 BP 123/74 04/04/25 07:38 Pulse Ox 98 04/04/25 07:38 FiO2 Intake & Output 04/03/25 04/04/25 04/04/25 18:59 06:59 18:59 Intake Total 540 Balance 540 Weight 97.5 kg 99.2 kg Intake: Oral 540 Other: Voiding Method Toilet Toilet - Labs CBC & Chem 7: 04/04/25 08:05 04/04/25 08:05 Labs: Abnormal Lab Results - Last 24 Hours (Table) 04/04/25 04/04/25 Range/Units 08:05 08:05 WBC 4.24 L (4.50-10.00) 10*3/uL RBC 3.90 L (4.10-5.20) 10*6/uL Hgb 10.4 L (12.0-15.0) g/dL Hct 33.9 L (37.2-46.3) % MCH 26.7 L (27.0-32.0) pg MCHC 30.7 L (32.0-37.0) g/dL Chloride 113 H (98-107) mmol/L Creatinine 1.14 H (0.52-1.04) mg/dL Calcium 8.1 L (8.4-10.2) mg/dL Total Protein 5.0 L (6.3-8.2) g/dL Albumin 2.4 L (3.5-5.0) g/dL Microbiology - Last 24 Hours (Table) 04/01/25 10:45 Stool Culture - Preliminary Stool
--- NOTE | 2025-04-04 10:17 | P.PN ---
Subjective Patient is seen for follow-up for acute kidney injury. Renal function has improved. Maintained on IV fluids. Trying to increase oral intake. Serum creatinine down to 1.1 today. Objective - Vital Signs Vital signs: Vital Signs Temp 97.9 F 04/04/25 07:38 Pulse 102 H 04/04/25 07:38 Resp 18 04/04/25 07:38 BP 123/74 04/04/25 07:38 Pulse Ox 98 04/04/25 07:38 FiO2 Intake & Output 04/03/25 04/04/25 04/04/25 18:59 06:59 18:59 Intake Total 540 Balance 540 Weight 97.5 kg 99.2 kg Intake: Oral 540 Other: Voiding Method Toilet Toilet - Exam Patient is awake, comfortable, no acute distress Examination of lower extremities shows no evidence of edema [employer] exam grossly intact - Labs CBC & Chem 7: 04/04/25 08:05 04/04/25 08:05 Labs: Abnormal Lab Results - Last 24 Hours (Table) 04/04/25 04/04/25 Range/Units 08:05 08:05 WBC 4.24 L (4.50-10.00) 10*3/uL RBC 3.90 L (4.10-5.20) 10*6/uL Hgb 10.4 L (12.0-15.0) g/dL Hct 33.9 L (37.2-46.3) % MCH 26.7 L (27.0-32.0) pg MCHC 30.7 L (32.0-37.0) g/dL Chloride 113 H (98-107) mmol/L Creatinine 1.14 H (0.52-1.04) mg/dL Calcium 8.1 L (8.4-10.2) mg/dL Total Protein 5.0 L (6.3-8.2) g/dL Albumin 2.4 L (3.5-5.0) g/dL Microbiology - Last 24 Hours (Table) 04/01/25 10:45 Stool Culture - Preliminary Stool Assessment and Plan Assessment: 1. Nonoliguric Acute Kidney Injury secondary to ATN from volume depletion,exacerbated by JELLY inhibitor, hypotension. Baseline creatinine of 0.67 from 12/31/2024. UA shows trace proteinuria, without hematuria. Renal ultrasound shows no signs of hydronephrosis with stable bilateral renal cysts noted. Creatinine over 8 on admission and is 1.2 today. 2. Hypokalemia secondary to vomiting leading to dehydration causing RAAS activation potentiating renal potassium losses, additional losses secondary to thiazide diuretic. Replaced. Better. 3. Metabolic Acidosis secondary to GI losses and TAMAR. Improved. 4. Nausea and vomiting, resolved. Patient underwent GI study which showed esophageal dysmotility. 5. Anemia, iron replete. 6. Hypotension. Improved with IV fluids and hydrocortisone. AM Cortisol level 8.7. Plan: Continue to encourage increase oral intake Continue with IV fluids in the meantime Recommend to see endocrinology as outpatient Continue with midodrine
--- NOTE | 2025-04-04 13:45 | P.PN ---
Subjective Progress Note Date: 04/04/25 This is a very pleasant 54-year-old female who came in with severe acute renal failure had diarrhea ongoing for over a week with abdominal pain and poor oral intake. Creatinine was over 8 on admission being followed by nephrology maintained on hydration showing significant improvement in kidney functions. Patient reports diarrhea is improving although has been having intermittent nausea and difficulty tolerating much oral intake. Patient is maintained on clear liquids and was continued on IV fluids although showing some volume overload and also hypotension. Patient started on Florinef and will continue showing some improvements in blood pressure. Patient undergoing cardiac workup including 2D echo which is pending and was given a dose of Lasix. Nephrology is following recommends to continue maintaining on hydration. Patient was having some shortness of breath and will be monitored closely. Encouraged to increase activity as tolerated and patient has been getting up more frequently 04/03. Patient seen and examined. Labs reviewed showed WBC 4.26, hemoglobin 10.7, platelet count 147, sodium 141, potassium 4, BUN 17, creatinine 1.25,. No further episodes of diarrhea. Patient last had a vomiting episode yesterday. This time we will advance diet to full liquid and then to regular as tolerated. 04/04. Patient seen and examined . No acute issue overnight. Stated that she could not tolerate regular diet this morning, had to be placed back on full liquid diet. Vital signs stable REVIEW OF SYSTEMS: CONSTITUTIONAL: No fever, no malaise,. CARDIOVASCULAR: No chest pain, no palpitations, no syncope. PULMONARY: No shortness of breath, no cough, GASTROINTESTINAL: No diarrhea, no nausea, no vomiting, no abdominal pain. NEUROLOGICAL: No headaches, no weakness, PHYSICAL EXAMINATION: GENERAL: The patient is alert and oriented x3, not in any acute distress. Well developed, well nourished. HEENT: Pupils are round and equally reacting to light. EOMI. No scleral icterus. No conjunctival pallor. Normocephalic, atraumatic. No pharyngeal erythema. No thyromegaly. CARDIOVASCULAR: S1 and S2 present. No murmurs, rubs, or gallops. PULMONARY: Chest is clear to auscultation, no wheezing or crackles. ABDOMEN: Soft, nontender, nondistended, normoactive bowel sounds. No palpable organomegaly. MUSCULOSKELETAL: No joint swelling or deformity. EXTREMITIES: No cyanosis, clubbing, or pedal edema. NEUROLOGICAL: Gross neurological examination did not reveal any focal deficits. SKIN: No rashes. Assessment and plan Acute renal failure from acute tubular necrosis with severe dehydration secondary to diarrhea, improving Acute gastroenteritis, colitis ruled out Severe hypotension with severe hypokalemia likely secondary to dehydration, improving Possible acute congestive heart failure with acute exacerbation Asthma with chronic obstructive pulmonary disease, not in exacerbation Diabetes mellitus, type II Hypertension, currently hypotensive and blood pressure medications being held History of degenerative joint disease History of sleep apnea History of recent sleeve gastrectomy Morbid obesity with a BMI of 43.4 Monitor vital signs Monitor CBC Monitor CMP Continue telemetry monitoring Strict I's and O's, daily weights Avoid nephrotoxic agents Continue Florinef Continue midodrine Surgery following Nephrology following, appreciate their recommendations Labs and medication were reviewed.. Continue same treatment. Continue with symptomatic treatment. Resume home medication. Monitor labs and vitals. DVT and GI prophylaxis. Further recommendations as per clinical course of the patient Dictation was produced using [employer] dictation software. please excuse any grammatical, word or spelling errors. Objective - Vital Signs Vital signs: Vital Signs Temp 97.9 F 04/04/25 07:38 Pulse 102 H 04/04/25 07:38 Resp 18 04/04/25 07:38 BP 123/74 04/04/25 07:38 Pulse Ox 98 04/04/25 07:38 FiO2 Intake & Output 04/03/25 04/04/25 04/04/25 18:59 06:59 18:59 Intake Total 540 Balance 540 Weight 97.5 kg 99.2 kg Intake: Oral 540 Other: Voiding Method Toilet Toilet - Labs CBC & Chem 7: 04/04/25 08:05 04/04/25 08:05 Labs: Abnormal Lab Results - Last 24 Hours (Table) 04/04/25 04/04/25 Range/Units 08:05 08:05 WBC 4.24 L (4.50-10.00) 10*3/uL RBC 3.90 L (4.10-5.20) 10*6/uL Hgb 10.4 L (12.0-15.0) g/dL Hct 33.9 L (37.2-46.3) % MCH 26.7 L (27.0-32.0) pg MCHC 30.7 L (32.0-37.0) g/dL Chloride 113 H (98-107) mmol/L Creatinine 1.14 H (0.52-1.04) mg/dL Calcium 8.1 L (8.4-10.2) mg/dL Total Protein 5.0 L (6.3-8.2) g/dL Albumin 2.4 L (3.5-5.0) g/dL Microbiology - Last 24 Hours (Table) 04/01/25 10:45 Stool Culture - Preliminary Stool
[2025-04-05 05:59] LABS: Glucose,Whole Blood 82 mg/dL (70-110)
--- NOTE | 2025-04-05 09:59 | P.PN ---
Subjective Patient is seen for follow-up for acute kidney injury. Renal function has improved. Maintained on IV fluids. Trying to increase oral intake. Serum creatinine down to 1.1 yesterday. Objective - Vital Signs Vital signs: Vital Signs Temp 98.1 F 04/05/25 09:05 Pulse 79 04/05/25 09:05 Resp 17 04/05/25 09:05 BP 122/81 04/05/25 09:05 Pulse Ox 97 04/05/25 09:05 FiO2 Intake & Output 04/04/25 04/05/25 04/05/25 18:59 06:59 18:59 Intake Total 250 20 10 Balance 250 20 10 Weight 99.7 kg Intake: IV 10 20 10 Invasive Line 4 10 20 10 Oral 240 Other: Voiding Method Toilet Toilet Toilet - Exam Patient is awake, comfortable, no acute distress Examination of the heart S1 and S2 Examination of the lungs bilateral breath sounds are heard Abdomen is soft Examination of lower extremities shows no evidence of edema [employer] exam grossly intact - Labs CBC & Chem 7: 04/04/25 08:05 04/04/25 08:05 Labs: Microbiology - Last 24 Hours (Table) 04/01/25 10:45 Stool Culture - Preliminary Stool Assessment and Plan Assessment: 1. Nonoliguric Acute Kidney Injury secondary to ATN from volume depletion,exacerbated by JELLY inhibitor, hypotension. Baseline creatinine of 0.67 from 12/31/2024. UA shows trace proteinuria, without hematuria. Renal ultrasound shows no signs of hydronephrosis with stable bilateral renal cysts noted. Creatinine over 8 on admission and is down to 1.1 2. Hypokalemia secondary to vomiting leading to dehydration causing RAAS activation potentiating renal potassium losses, additional losses secondary to thiazide diuretic. Replaced. Better. 3. Metabolic Acidosis secondary to GI losses and TAMAR. Improved. 4. Nausea and vomiting, resolved. Patient underwent GI study which showed esophageal dysmotility. 5. Anemia, iron replete. 6. Hypotension. Improved with IV fluids and hydrocortisone. AM Cortisol level 8.7. Plan: Continue to encourage increase oral intake Continue with IV fluids in the meantime Recommend to see endocrinology as outpatient Continue with midodrine
--- NOTE | 2025-04-05 10:34 | P.PN ---
Subjective Progress Note Date: 04/05/25 Patient is resting comfortably in her bed. She denies abdominal pain. She is tolerating full liquids. On exam vital signs were stable. Abdomen soft. Esophageal dysmotility. Patient appears to be handling full liquids without issues. She is stable for discharge from a surgical standpoint. Objective - Vital Signs Vital signs: Vital Signs Temp 98.1 F 04/05/25 09:05 Pulse 79 04/05/25 09:05 Resp 17 04/05/25 09:05 BP 122/81 04/05/25 09:05 Pulse Ox 97 04/05/25 09:05 FiO2 Intake & Output 04/04/25 04/05/25 04/05/25 18:59 06:59 18:59 Intake Total 250 20 10 Balance 250 20 10 Weight 99.7 kg Intake: IV 10 20 10 Invasive Line 4 10 20 10 Oral 240 Other: Voiding Method Toilet Toilet Toilet - Labs CBC & Chem 7: 04/04/25 08:05 04/04/25 08:05 Labs: Microbiology - Last 24 Hours (Table) 04/01/25 10:45 Stool Culture - Preliminary Stool
--- NOTE | 2025-04-05 15:49 | P.PN ---
Subjective Progress Note Date: 04/05/25 This is a very pleasant 54-year-old female who came in with severe acute renal failure had diarrhea ongoing for over a week with abdominal pain and poor oral intake. Creatinine was over 8 on admission being followed by nephrology maintained on hydration showing significant improvement in kidney functions. Patient reports diarrhea is improving although has been having intermittent nausea and difficulty tolerating much oral intake. Patient is maintained on clear liquids and was continued on IV fluids although showing some volume overload and also hypotension. Patient started on Florinef and will continue showing some improvements in blood pressure. Patient undergoing cardiac workup including 2D echo which is pending and was given a dose of Lasix. Nephrology is following recommends to continue maintaining on hydration. Patient was having some shortness of breath and will be monitored closely. Encouraged to increase activity as tolerated and patient has been getting up more frequently 04/03. Patient seen and examined. Labs reviewed showed WBC 4.26, hemoglobin 10.7, platelet count 147, sodium 141, potassium 4, BUN 17, creatinine 1.25,. No further episodes of diarrhea. Patient last had a vomiting episode yesterday. This time we will advance diet to full liquid and then to regular as tolerated. 04/04. Patient seen and examined . No acute issue overnight. Stated that she could not tolerate regular diet this morning, had to be placed back on full liquid diet. Vital signs stable 04/05. Patient seen and examined. Nausea has improved. Advance diet to regular REVIEW OF SYSTEMS: CONSTITUTIONAL: No fever, no malaise,. CARDIOVASCULAR: No chest pain, no palpitations, no syncope. PULMONARY: No shortness of breath, no cough, GASTROINTESTINAL: No diarrhea, no nausea, no vomiting, no abdominal pain. NEUROLOGICAL: No headaches, no weakness, PHYSICAL EXAMINATION: GENERAL: The patient is alert and oriented x3, not in any acute distress. Well developed, well nourished. HEENT: Pupils are round and equally reacting to light. EOMI. No scleral icterus. No conjunctival pallor. Normocephalic, atraumatic. No pharyngeal erythema. No thyromegaly. CARDIOVASCULAR: S1 and S2 present. No murmurs, rubs, or gallops. PULMONARY: Chest is clear to auscultation, no wheezing or crackles. ABDOMEN: Soft, nontender, nondistended, normoactive bowel sounds. No palpable organomegaly. MUSCULOSKELETAL: No joint swelling or deformity. EXTREMITIES: No cyanosis, clubbing, or pedal edema. NEUROLOGICAL: Gross neurological examination did not reveal any focal deficits. SKIN: No rashes. Assessment and plan Acute renal failure from acute tubular necrosis with severe dehydration secon esteban to diarrhea, improving Acute gastroenteritis, colitis ruled out Severe hypotension with severe hypokalemia likely secondary to dehydration, improving Possible acute congestive heart failure with acute exacerbation Asthma with chronic obstructive pulmonary disease, not in exacerbation Diabetes mellitus, type II Hypertension, currently hypotensive and blood pressure medications being held History of degenerative joint disease History of sleep apnea History of recent sleeve gastrectomy Morbid obesity with a BMI of 43.4 Monitor vital signs Monitor CBC Monitor CMP Continue telemetry monitoring Strict I's and O's, daily weights Avoid nephrotoxic agents Advance diet to regular Continue Florinef Continue midodrine Surgery following Nephrology following, appreciate their recommendations Labs and medication were reviewed.. Continue same treatment. Continue with symptomatic treatment. Resume home medication. Monitor labs and vitals. DVT and GI prophylaxis. Further recommendations as per clinical course of the patient Dictation was produced using [employer] dictation software. please excuse any grammatical, word or spelling errors. Objective - Vital Signs Vital signs: Vital Signs Temp 98.3 F 04/05/25 12:00 Pulse 93 04/05/25 12:00 Resp 17 04/05/25 12:00 BP 118/80 04/05/25 12:00 Pulse Ox 97 04/05/25 12:00 FiO2 Intake & Output 04/04/25 04/05/25 04/05/25 18:59 06:59 18:59 Intake Total 250 20 20 Balance 250 20 20 Weight 99.7 kg Intake: IV 10 20 20 Invasive Line 4 10 20 20 Oral 240 Other: Voiding Method Toilet Toilet Toilet - Labs CBC & Chem 7: 04/04/25 08:05 04/04/25 08:05 Labs: Microbiology - Last 24 Hours (Table) 04/01/25 10:45 Stool Culture - Final Stool
[2025-04-06 08:13] VITALS: RESP 16
--- NOTE | 2025-04-06 09:34 | P.PN ---
Subjective Patient seen in consultation for acute kidney injury. Renal function improved significantly from admission. Tolerating oral intake. No vomiting or diarrhea. Vital signs are stable. General: No acute distress. HEENT: Head exam is unremarkable. LUNGS: No audible rhonchi or wheezes. HEART: Rate and Rhythm are regular. ABDOMEN: Nontender. EXTREMITITES: No edema. Objective - Vital Signs Vital signs: Vital Signs Temp 97.9 F 04/06/25 08:12 Pulse 97 04/06/25 08:12 Resp 16 04/06/25 08:12 BP 131/86 04/06/25 08:12 Pulse Ox 98 04/06/25 08:12 FiO2 Intake & Output 04/05/25 04/06/25 04/06/25 18:59 06:59 18:59 Intake Total 20 20 260 Balance 20 20 260 Weight 99.3 kg Intake: IV 20 20 20 Invasive Line 4 20 20 20 Oral 240 Other: Voiding Method Toilet Toilet Toilet # Voids 1 1 - Labs CBC & Chem 7: 04/04/25 08:05 04/04/25 08:05 Labs: Microbiology - Last 24 Hours (Table) 04/01/25 10:45 Stool Culture - Final Stool Assessment and Plan Assessment: 1. Nonoliguric Acute Kidney Injury secondary to ATN from volume depletion,exacerbated by JELLY inhibitor, hypotension. Baseline creatinine of 0.67 from 12/31/2024. UA shows trace proteinuria, without hematuria. Renal ultrasound shows no signs of hydronephrosis with stable bilateral renal cysts noted. Creatinine over 8 on admission and improved to 1.14 dated April 04, 2025. 2. Hypokalemia secondary to vomiting leading to dehydration causing RAAS activation potentiating renal potassium losses, additional losses secondary to t hiazide diuretic. Replaced. Better. 3. Metabolic Acidosis secondary to GI losses and TAMAR. Improved. 4. Nausea and vomiting, resolved. Patient underwent GI study which showed esophageal dysmotility. 5. Anemia, iron replete. 6. Hypotension. Improved with IV fluids and hydrocortisone. AM Cortisol level 8.7. Plan: Maintain Florinef. Maintain midodrine. Hold for systolic blood pressure greater than 110. Maintain magnesium oxide. Continue to hold nephrotoxic agents including ACEs and ARB's Continue to encourage oral intake Continue to monitor renal function and urine output. Preserved EF noted on echocardiogram. Patient advised to follow-up with endocrinology outpatient. Follow-up outpatient 1 to 2 weeks postdischarge.
[2025-04-06 11:33] VITALS: BP 142/89; PULSE 90; TEMP 98.1
--- NOTE | 2025-04-06 11:34 | P.PN ---
Subjective Progress Note Date: 04/06/25 SURGICAL PROGRESS NOTE CHIEF COMPLAINT: Near syncope HISTORY OF PRESENT ILLNESS: Patient tolerating the full liquid diet. She did try a pancake and some eggs this morning. She felt that the pancake was sticking and she had some nausea. She reports that she still has some heartburn but better than prior to coming in. Denies any significant abdominal pain. She wants to be discharged home. No new labs. PHYSICAL EXAM: VITAL SIGNS: Reviewed. GENERAL: Well-developed in no acute distress. ABDOMEN: Soft. Nondistended. Nontender NEUROLOGIC: Alert and oriented. Cranial nerves II through XII grossly intact. ASSESSMENT: 1. Abdominal pain with vomiting and diarrhea. Possible gastroenteritis 2. Severe esophageal dysmotility 3. 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 Acute kidney injury improved PLAN: - Patient to continue a full liquid diet after discharge. Continue protein supplement at discharge - Patient can be discharged from surgical standpoint - Continue PPI at discharge Physician Desktop Technician note has been reviewed by physician. Signing provider agrees with the documented findings, assessment, and plan of care. Objective - Vital Signs Vital signs: Vital Signs Temp 97.9 F 04/06/25 08:12 Pulse 97 04/06/25 08:12 Resp 16 04/06/25 08:12 BP 131/86 04/06/25 08:12 Pulse Ox 98 04/06/25 08:12 FiO2 Intake & Output 04/05/25 04/06/25 04/06/25 18:59 06:59 18:59 Intake Total 20 20 260 Balance 20 20 260 Weight 99.3 kg Intake: IV 20 20 20 Invasive Line 4 20 20 20 Oral 240 Other: Voiding Method Toilet Toilet Toilet # Voids 1 1 - Labs CBC & Chem 7: 04/04/25 08:05 04/04/25 08:05 Labs: Microbiology - Last 24 Hours (Table) 04/01/25 10:45 Stool Culture - Final Stool
[2025-04-06 13:24] VITALS: BMI 44.1
--- NOTE | 2025-04-07 09:20 | P.DS ---
Providers Date of admission: 03/29/25 14:46 Expected date of discharge: 04/06/25 Attending physician: Irineo Scruggs MD Consults: 03/29/25 14:23 Consult Physician Routine Consulting Provider: Edy Hernandez Consult Reason/Comments: TAMAR Do you want consulting provider notified?: Already Contacted 03/30/25 08:43 Consult Physician Urgent Consulting Provider: Felipe Alberto Consult Reason/Comments: Diarrhea x 1 week, colitis?, Gastroenteritis Do you want consulting provider notified?: Yes [facility] Course: Final diagnosis Acute renal failure from acute tubular necrosis with severe dehydration secondary to diarrhea, improving Acute gastroenteritis, colitis ruled out Severe hypotension with severe hypokalemia likely secondary to dehydration, improving acute on chronic congestive heart failure with acute exacerbation, fluid overload Asthma with chronic obstructive pulmonary disease, not in exacerbation Diabetes mellitus, type II Hypertension, currently hypotensive and blood pressure medications being held History of degenerative joint disease History of sleep apnea History of recent sleeve gastrectomy Morbid obesity with a BMI of 43.4 GI prophylaxis DVT prophylaxis Full code Discharge disposition Patient is being discharged in a stable condition with guarded prognosis to home. Patient will follow-up with Dr. Valentin Cortez in the outpatient setting upon discharge. Patient is to continue with current medications and outpatient follow-up with general surgery, nephrology, cardiology as scheduled. Total time taken is greater than 35 minutes. Hospital course This is a 54-year-old female who was recently admitted with severe dehydration from excessive diarrhea that have been ongoing for a week and progressively getting worse with significant acute renal failure with acute tubular necrosis creatinine above 8. Patient on gentle hydration being followed by nephrology showing significant improvement in creatinine although continued with nausea with difficulty tolerating oral intake and hypotension. Blood pressure medications being held and patient also experience some volume overload with CHF exacerbation due to continued ongoing IV hydration. Patient maintained on Florinef and will continue recommending outpatient follow-up with nephrology, cardiology, and general surgery. Patient slowly advanced on diet and recommend to continue slowly advancing as tolerated over the next few days. Patient to continue with some as needed Zofran and outpatient follow-up with surgery. Please refer to consultation notes for further HPI. Currently no reports of chest pain, shortness of breath, or palpitations. Patient is afebrile. No reports of nausea or vomiting and patient is tolerating diet. Patient will be discharged home today. High risk for readmissions given significant comorbidities Physical exam: Gen: This is a 54-year-old female who is awake, alert and oriented x 3, well- developed, morbidly obese HEENT: Head is atraumatic, normocephalic. Pupils equal, round. Sclerae is anicteric. NECK: Supple. No JVD. No lymphadenopathy. No thyromegaly. LUNGS: Diminished breath sounds bilaterally otherwise clear to auscultation. No wheezes or rhonchi. No intercostal retractions. HEART: S1, S2 are muffled ABDOMEN: Soft. Obese bowel sounds are present. No masses. No tenderness. EXTREMITIES: No pedal edema. No calf tenderness. NEUROLOGICAL: Patient is awake, alert and oriented x3. Cranial nerves 2 through 12 are grossly intact. Please refer to medication reconciliation sheet for a list of medications. The impression and plan of care has been dictated by Dacia Marr, Nurse Practitioner as directed. Dr. Glen MD I have performed a history and examination and MDM of this patient, discussed the same with the dictator, and agree with the dictator's assessment and plan as written ,documented as a scribe. Based on total visit time, I have performed more than 50% of the visit. Patient Condition at Discharge: Stable Plan - Discharge Summary Discharge Rx Participant: Yes New Discharge Prescriptions: New Fludrocortisone [Florinef] 0.1 mg PO BID #60 tab Nicotine 7Mg/24Hr Patch [Habitrol] 1 patch TRANSDERM DAILY patch Midodrine [ProAmatine] 5 mg PO AC-TID #90 tab Magnesium Oxide [Mag-Ox] 400 mg PO BID #60 tab Metoclopramide HCl [Reglan] 5 mg PO TID PRN #45 tablet PRN Reason: Nausea Calcium Carbonate [Tums] 1,000 mg PO TID PRN tab PRN Reason: Heartburn HYDROcodone/APAP 5-325MG [[place] 5-325] 1 tab PO Q6HR PRN 3 Days #12 tab PRN Reason: Pain Continue DULoxetine HCL [Cymbalta] 60 mg PO DAILY Fluticasone/Umeclidin/Vilanter [Trelegy Ellipta 100-62.5-25] 1 puff INHALATION RT-DAILY Montelukast [Singulair] 1 tab PO HS Omeprazole 40 mg PO DAILY Ondansetron Odt [Zofran ODT] 4 mg PO TID PRN PRN Reason: Nausea Acetaminophen Tab [Tylenol] 500 mg PO Q4-6H PRN PRN Reason: Pain QUEtiapine FUMARATE [SEROquel] 200 mg PO HS Discontinued Lisinopril-Hctz 20-25 mg [Zestoretic 20-25] 1 tab PO DAILY amLODIPine [Norvasc] 10 mg PO DAILY Discharge Medication List DULoxetine HCL [Cymbalta] 60 mg PO DAILY 06/20/23 [History] Fluticasone/Umeclidin/Vilanter [Trelegy Ellipta 100-62.5-25] 1 puff INHALATION RT-DAILY 08/17/24 [History] Montelukast [Singulair] 1 tab PO HS 08/17/24 [History] Omeprazole 40 mg PO DAILY 12/23/24 [History] Ondansetron Odt [Zofran ODT] 4 mg PO TID PRN 12/29/24 [History] Acetaminophen Tab [Tylenol] 500 mg PO Q4-6H PRN 03/29/25 [History] QUEtiapine FUMARATE [SEROquel] 200 mg PO HS 03/29/25 [History] Calcium Carbonate [Tums] 1,000 mg PO TID PRN tab 04/06/25 [Rx] Fludrocortisone [Florinef] 0.1 mg PO BID #60 tab 04/06/25 [Rx] HYDROcodone/APAP 5-325MG [[place] 5-325] 1 tab PO Q6HR PRN 3 Days #12 tab 04/06/25 [Rx] Magnesium Oxide [Mag-Ox] 400 mg PO BID #60 tab 04/06/25 [Rx] Metoclopramide HCl [Reglan] 5 mg PO TID PRN #45 tablet 04/06/25 [Rx] Midodrine [ProAmatine] 5 mg PO AC-TID #90 tab 04/06/25 [Rx] Nicotine 7Mg/24Hr Patch [Habitrol] 1 patch TRANSDERM DAILY patch 04/06/25 [Rx] Follow up Appointment(s)/Referral(s): Hima Sorensen MD [REFERRING] - 1 Week (hypoadrenalism- hypotension and relatively low cortisol) Brigette Mustafa MD [Primary Care Provider] - 1-2 days (office did not answer please call and make appointment) Edy Hernandez DO [STAFF PHYSICIAN] - 1 Week (office did not answer please call and make appointment) Patient Instructions/Handouts: Acute Kidney Injury (DC), Syncope (DC), Acute Nausea and Vomiting (DC) Activity/Diet/Wound Care/Special Instructions: Activity limited until follow-up Follow-up with primary care provider on discharge Follow-up with general surgery outpatient Follow-up with cardiology outpatient Continue taking medications as prescribed Continue current diet slowly advance as tolerated. Discharge Disposition: HOME SELF-CARE
== END 2025-04-06 15:00 | disposition home or self-care (01) | DRG 682 ==
LOC: EC 10:34 → 4SSUR 14:46 → 3SCARD 23:14
PROVIDERS: ADMIT Internal Medicine; ATTEND Internal Medicine
DX: N17.0 Acute kidney failure with tubular necrosis (principal); I50.33 Acute on chronic diastolic (congestive) heart failure; E87.20 Acidosis, unspecified; E11.9 Type 2 diabetes mellitus without complications; D64.9 Anemia, unspecified; E66.01 Morbid (severe) obesity due to excess calories; I11.0 Hypertensive heart disease with heart failure; F31.9 Bipolar disorder, unspecified; J44.9 Chronic obstructive pulmonary disease, unspecified; Z68.41 Body mass index [BMI] 40.0-44.9, adult; J98.11 Atelectasis; I50.9 Heart failure, unspecified; E83.42 Hypomagnesemia; E86.0 Dehydration; K21.9 Gastro-esophageal reflux disease without esophagitis; Z79.82 Long term (current) use of aspirin; K59.00 Constipation, unspecified; K22.4 Dyskinesia of esophagus; E87.6 Hypokalemia; F41.9 Anxiety disorder, unspecified; G47.30 Sleep apnea, unspecified; F17.210 Nicotine dependence, cigarettes, uncomplicated; I95.9 Hypotension, unspecified; R11.2 Nausea with vomiting, unspecified; E86.9 Volume depletion, unspecified; R19.7 Diarrhea, unspecified; N28.1 Cyst of kidney, acquired; G43.909 Migraine, unspecified, not intractable, without status migrainosus; M19.90 Unspecified osteoarthritis, unspecified site; K29.00 Acute gastritis without bleeding; T46.4X5A Adverse effect of angiotensin-converting-enzyme inhibitors, initial encounter; X58.XXXA Exposure to other specified factors, initial encounter; Z87.19 Personal history of other diseases of the digestive system; Z79.899 Other long term (current) drug therapy; Z82.49 Family history of ischemic heart disease and other diseases of the circulatory system; Z86.14 Personal history of Methicillin resistant Staphylococcus aureus infection; Z87.01 Personal history of pneumonia (recurrent); Z96.653 Presence of artificial knee joint, bilateral; Z98.84 Bariatric surgery status
CPT/HCPCS: 36415; 51798; 71045; 71046; 74176; 74240; 76770; 80048; 80053; 81001; 82533; 82728; 83540; 83550; 83630; 83735; 83930; 83935; 84300; 84466; 84484; 85025; 85610; 85730; 87045; 87046; 87324; 87636; 93005; 93306; 94640; 94760; 96361; 96372; 96374; 96375; 96376; 99285

== ENCOUNTER → 2025-03-29 | Outpatient (CLI) | payer MEDICARE, OTHER ==
[~2025-03-29] MED LIST: [UNRECOGNIZED DRUG - REMARK] IV NR
[2025-03-29 10:32] VITALS: BP 102/78; PULSE 78; RESP 16; TEMP 98
== END ==
LOC: PROCWHC3 10:17
PROVIDERS: ATTEND Surgery
DX: E86.0 Dehydration (principal); R11.0 Nausea; Z53.8 Procedure and treatment not carried out for other reasons

== ENCOUNTER 2025-04-28 13:37 | Inpatient (IN) | payer MEDICARE, OTHER ==
--- NOTE | 2025-04-28 14:03 | ED ---
Recheck HPI - General Chief Complaint: Recheck/Abnormal Lab/Rx Stated Complaint: abnormal labs Time Seen by Provider: 04/28/25 13:47 Source: patient, RN notes reviewed Mode of arrival: ambulatory Limitations: no limitations - History of Present Illness Initial Comments: 54-year-old female presenting to the emergency department with concerns of abnormal labs. Patient states that she saw her primary care provider in the week for concerns of generalized weakness and fatigue and she was instructed report to the emergency department due to decrease in kidney function. He states that similar things happened a few weeks ago where she was admitted for 10 days due to dehydration, nausea and vomiting. Patient states that she has been feeling generally weak with total body pain, nausea. She denies chest pain or difficulty breathing. States that she has been dealing with malnutrition and dehydration since she had her gastric sleeve in December 2024. - Related Data Home Medications Medication Instructions Recorded Confirmed DULoxetine HCL [Cymbalta] 60 mg PO DAILY 06/20/23 04/28/25 Fluticasone/Umeclidin/Vilanter 1 puff INHALATION RT-DAILY 08/17/24 04/28/25 [Trelegy Ellipta 100-62.5-25] Montelukast [Singulair] 1 tab PO HS 08/17/24 04/28/25 Omeprazole 40 mg PO DAILY 12/23/24 04/28/25 Acetaminophen Tab [Tylenol] 500 mg PO Q4-6H PRN 03/29/25 04/28/25 QUEtiapine FUMARATE [SEROquel] 200 mg PO HS 03/29/25 04/28/25 Previous Rx's Medication Instructions Recorded Calcium Carbonate [Tums] 1,000 mg PO TID PRN tab 04/06/25 Fludrocortisone [Florinef] 0.1 mg PO BID #60 tab 04/06/25 Magnesium Oxide [Mag-Ox] 400 mg PO BID #60 tab 04/06/25 Metoclopramide HCl [Reglan] 5 mg PO TID PRN #45 tablet 04/06/25 Ondansetron Odt [Zofran Odt] 4 mg PO Q8HR PRN #20 tab 04/07/25 Allergies Allergy/AdvReac Type Severity Reaction Status Date / Time Enviromental Allergy Nasal Uncoded 04/28/25 19:07 drainage/watery eyes/sneezing Review of Systems ROS Statement: Those systems with pertinent positive or pertinent negative responses have been documented in the HPI. ROS Other: All systems not noted in ROS Statement are negative. Past Medical History Past Medical History: Asthma, Chest Pain / Angina, COPD, Diabetes Mellitus, GERD/Reflux, Hypertension, Osteoarthritis (OA), Pneumonia, Sleep Apnea/CPAP/BI PAP Additional Past Medical History / Comment(s): Recent ER visit r/t headache-pt states was dx with a Migraine. DDD, borderline diabetic, uses CPAP machine environmental allergies., has lap band. Influenza-12/2024 History of Any Multi-Drug Resistant Organisms: MRSA Date of last positivie culture/infection: 06/22/14 MDRO Source:: rt breast Past Surgical History: Back Surgery, Bariatric Surgery, Section, Cholecystectomy, Heart Catheterization, Joint Replacement, Tubal Ligation Additional Past Surgical History / Comment(s): bilateral knee replacement, lap band , RT WRIST GANGLION CYCT REMOVED, lumbar fusion surgery. lap band removal sleeve gastrectomy 12-14-24 Past Anesthesia/Blood Transfusion Reactions: No Reported Reaction Additional Past Anesthesia/Blood Transfusion Reaction / Comment(s): No hx of blood transfusion to date. Past Psychological History: Anxiety, Bipolar, Depression Smoking Status: Never smoker Past Alcohol Use History: Occasional Past Drug Use History: None Reported - Past Family History Mother Family Medical History: Hypertension Father Family Medical History: Cancer General Exam Limitations: no limitations Course Vital Signs 04/28/25 04/28/25 04/28/25 13:40 18:03 19:12 Temperature 98.7 F Pulse Rate 69 77 87 Respiratory 17 18 18 Rate Blood Pressure 94/65 87/57 92/58 O2 Sat by Pulse 98 100 97 Oximetry 04/28/25 20:27 Temperature Pulse Rate 88 Respiratory 18 Rate Blood Pressure 126/78 O2 Sat by Pulse 97 Oximetry Medical Decision Making - Medical Decision Making Was pt. sent in by a medical professional or institution (, PA, QUARRY BOSS, urgent care, hospital, or fdc...) When possible be specific @ -PCP to report to the ER for abnormal labs Did you speak to anyone other than the patient for history (EMS, parent, family, police, friend...)? What history was obtained from this source @ -No Did you review nursing and triage notes (agree or disagree)? Why? @ -I reviewed and agree with nursing and triage notes Were old charts reviewed (outside hosp., previous admission, EMS record, old EKG, old radiological studies, urgent care reports/EKG's, fdc records)? Report findings @ -No old charts were reviewed Differential Diagnosis (chest pain, altered mental status, abdominal pain women, abdominal pain men, vaginal bleeding, weakness, fever, dyspnea, syncope, headache, dizziness, GI bleed, back pain, seizure, CVA, palpatations, mental health, musculoskeletal)? @ -Differential Abdominal Pain Women: Appendicitis, Cholecystitis, diverticulosis, ischemic bowel, pancreatitis, hepatitis, UTI, gastroenteritis, AAA, incarcerated hernia, bowel obstruction, constipation, inflammatory bowel, hepatitis, peptic ulcer disease, splenic infarction, perforated viscus, vulvitis, ovarian torsion, PID, kidney stone, placenta abruption, this is not meant to be an all-inclusive list EKG interpreted by me (3pts min.). @ -Completed at 1510 sinus rhythm with a ventricular rate of 72, MS interval 146, QRS 110, QT 433, QTc 458. X-rays interpreted by me (1pt min.). @ -None done CT interpreted by me (1pt min.). @ -CT of the abdomen pelvis without contrast no acute changes in the abdomen U/S interpreted by me (1pt. min.). @ -None done What testing was considered but not performed or refused? (CT, X-rays, U/S, labs)? Why? @ -None What meds were considered but not given or refused? Why? @ -None Did you discuss the management of the patient with other professionals (professionals i.e. , PA, QUARRY BOSS, lab, RT, psych nurse, transition social worker, probate lawyer, te acher, parking regulation enforcement officer, hospice case manager)? Give summary @ -Dr. Hughes, [facility], for admission Was smoking cessation discussed for >3mins.? @ -No Was critical care preformed (if so, how long)? @ -No Were there social determinants of health that impacted care today? How? (Homelessness, low income, unemployed, alcoholism, drug addiction, transportation, low edu. Level, literacy, decrease access to med. care, residential, rehab)? @ -No Was there de-escalation of care discussed even if they declined (Discuss DNR or withdrawal of care, Hospice)? DNR status @ -No What co-morbidities impacted this encounter? (DM, HTN, Smoking, COPD, CAD, Cancer, CVA, ARF, Chemo, Hep., AIDS, mental health diagnosis, sleep apnea, morbi d obesity)? @ -None Was patient admitted / discharged? Hospital course, mention meds given and route , prescriptions, significant lab abnormalities, going to OR and other pertinent info. @ -Admitted. 54-year-old female presenting to emergency room with complaints of abnormal labs. Patient is mildly hypotensive on arrival with a blood pressure of 93/61 overall she is well-appearing. Patient appears clinically dry is provided with IV fluids pending laboratory results. Patient is noted to be severely hypokalemic with a potassium of 2.6 and acidotic with a CO2 of 37 and chloride of 93. Patient's kidney function is also decreased as compared to previous with a creatinine of 3.84 and a BUN of 38. Patient will be admitted to internal medicine for potassium supplementation and fluid hydration. Case discussed with my attending Dr. Oliver. Patient is admitted to Dr. Hughes [facility]. Undiagnosed new problem with uncertain prognosis? @ -No Drug Therapy requiring intensive monitoring for toxicity (Heparin, Nitro, Insulin, Cardizem)? @ -No Were any procedures done? @ -No Diagnosis/symptom? @ -hyponatremia, dehydration Acute, or Chronic, or Acute on Chronic? @ -acute Uncomplicated (without systemic symptoms) or Complicated (systemic symptoms)? @ -uncomplicated Side effects of treatment? @ -No Exacerbation, Progression, or Severe Exacerbation? @ -No Poses a threat to life or bodily function? How? (Chest pain, [place], [place], pneumonia, PE, COPD, DKA, ARF, appy, cholecystitis, CVA, Diverticulitis, Homicidal, Suicidal, threat to staff... and all critical care pts) @ -No - Lab Data Result diagrams: 04/28/25 14:50 04/29/25 01:02 Lab Results 04/28/25 04/28/25 04/28/25 Range/Units 14:27 14:27 14:50 WBC 6.17 (4.50-10.00) 10*3/uL RBC 4.19 (4.10-5.20) 10*6/uL Hgb 11.4 L (12.0-15.0) g/dL Hct 34.6 L (37.2-46.3) % MCV 82.6 (80.0-97.0) fL MCH 27.2 (27.0-32.0) pg MCHC 32.9 (32.0-37.0) g/dL Plt Count 229 (140-440) 10*3/uL MPV 12.4 H (9.5-12.2) fL Immature Gran % (Auto) 0.2 % Neutrophils % 55.1 % Lymphocytes % 34.2 % Monocytes % 9.6 % Eosinophils % 0.6 % Basophils % 0.3 % Immature Gran # 0.01 (0.00-0.04) 10*3/uL Neutrophils # 3.40 (1.80-7.70) 10*3/uL Lymphocytes # 2.11 (0.90-5.00) 10*3/uL Monocytes # 0.59 (0.20-1.00) 10*3/uL Eosinophils # 0.04 (0.04-0.35) 10*3/uL Basophils # 0.02 (0.00-0.10) 10*3/uL Sodium 140 (137-145) mmol/L Potassium 2.6 L* (3.5-5.1) mmol/L Chloride 93 L (98-107) mmol/L Carbon Dioxide 37 H (22-30) mmol/L Anion Gap 10 mmol/L BUN 38 H (7-17) mg/dL Creatinine 3.84 H (0.52-1.04) mg/dL Est GFR (CKD-EPI)AfAm 14 (>60 ml/min/1.73 sqM) Est GFR (CKD-EPI)NonAf 12 (>60 ml/min/1.73 sqM) Glucose 86 (74-99) mg/dL Plasma Lactic Acid Hay 1.7 (0.7-2.0) mmol/L Calcium 9.3 (8.4-10.2) mg/dL Phosphorus 3.7 (2.5-4.5) mg/dL Magnesium 3.2 H (1.6-2.3) mg/dL Total Bilirubin 0.8 (0.2-1.3) mg/dL AST 25 (14-36) U/L ALT 11 (4-34) U/L Alkaline Phosphatase 82 (38-126) U/L Total Protein 6.6 (6.3-8.2) g/dL Albumin 3.7 (3.5-5.0) g/dL Amylase 67 (30-110) U/L Lipase 38 (23-300) U/L Disposition Clinical Impression: Hypokalemia, Dehydration Disposition: ADMITTED IP TO THIS [facility] Condition: Serious Decision to Admit Reason: Admit from EC Decision Date: 04/28/25 Decision Time: 15:15
[2025-04-28] MEDS: SODIUM CHLORIDE 0.9% 1,000 ML IV SCH ×2 (14:28→15:56)
[2025-04-28] MEDS: MORPHINE SULFATE 4 MG/ML SYRINGE IVP STA (14:29)
[2025-04-28 14:54] LABS: ALT 11 U/L (4-34); AST 25 U/L (14-36); African American GFR (CKD) 14 (>60 ml/min/1.73 sqM); Albumin 3.7 g/dL (3.5-5.0); Alkaline Phosphatase 82 U/L (38-126); Amylase 67 U/L (30-110); Anion Gap 10 mmol/L; Blood Urea Nitrogen 38 mg/dL (7-17); Calcium 9.3 mg/dL (8.4-10.2); Carbon Dioxide 37 mmol/L (22-30); Chloride 93 mmol/L (98-107); Glucose 86 mg/dL (74-99); Lipase 38 U/L (23-300); Magnesium 3.2 mg/dL (1.6-2.3); Non-African American GFR(CKD) 12 (>60 ml/min/1.73 sqM); Phosphorus 3.7 mg/dL (2.5-4.5); Sodium 140 mmol/L (137-145); Total Bilirubin 0.8 mg/dL (0.2-1.3); Total Protein 6.6 g/dL (6.3-8.2)
[2025-04-28 14:59] LABS: Potassium 2.6 mmol/L (3.5-5.1)
--- NOTE | 2025-04-28 14:59 | CT ---
EXAMINATION TYPE: CT abdomen pelvis wo con DATE OF EXAM: 04/28/2025 COMPARISON: 03/29/2025 CLINICAL INDICATION: Female, 54 years old with history of AB pain, nausea and vomiting, gastric sleev e; PHH, Abdominal pain, N/V, gastric sleeve. TECHNIQUE: CT scan of the abdomen and pelvis is performed without oral or IV contrast. CT DLP: 704.[address] CTDI: mGy Automated exposure control for dose reduction was used. FINDINGS: Within the limitations of a non-contrast study, the following observations are made. There is a stable partially consolidative infiltrate in the right lower lobe consistent with pneumoni a or atelectasis. There is stable mild interstitial scarring in the left lower lobe. There are stable postsurgical changes of the stomach and GE junction. There is absence of the gallbladder. There is no biliary ductal dilatation. There is no organomegaly of the liver, pancreas, spleen or adrenal glands. There are no renal calcifications or hydronephrosis. There are multiple simple cortical cysts of the kidneys. The caliber of the abdominal aorta is normal and there is no retroperitoneal adenopathy or hemorrhage . The bowel loops are normal in caliber is no evidence of obstruction. No inflammatory changes are iden tified in the mesentery and there is no free intraperitoneal air or fluid. There is no pelvic mass, free fluid, abscess or adenopathy. The osseous structures and soft tissues are unremarkable. IMPRESSION: 1. No acute changes within the abdomen or pelvis. 2. Stable lower lobe opacities as described above. [facility], , 04/28/2025 2:57 PM
[2025-04-28 15:05] LABS: Basophils # (A) 0.02 10*3/uL (0.00-0.10); Basophils % (A) 0.3 %; Eosinophils # (A) 0.04 10*3/uL (0.04-0.35); Eosinophils % (A) 0.6 %; HCT 34.6 % (37.2-46.3); HGB 11.4 g/dL (12.0-15.0); Lymphocytes # (A) 2.11 10*3/uL (0.90-5.00); Lymphocytes % (A) 34.2 %; MCH 27.2 pg (27.0-32.0); MCHC 32.9 g/dL (32.0-37.0); MCV 82.6 fL (80.0-97.0); Mean Platelet Volume 12.4 fL (9.5-12.2); Monocytes # (A) 0.59 10*3/uL (0.20-1.00); Monocytes % (A) 9.6 %; Neutrophils % (A) 55.1 %; Platelet Count 229 10*3/uL (140-440); RBC 4.19 10*6/uL (4.10-5.20); RDW 18.5 % (11.5-14.5); WBC 6.17 10*3/uL (4.50-10.00)
[2025-04-28] MEDS ORDERED: NALOXONE 0.4 MG/ML 1 ML VIAL IV PRN (15:21)
[2025-04-28] MEDS: POTASSIUM CHLORIDE ER 20 MEQ TAB.ER PO STA (15:49)
[2025-04-28] MEDS: POTASSIUM CHLORIDE 20 MEQ in WATER FOR INJECTION 1 100ML.BAG IVPB STA (15:57)
[2025-04-28 16:31] LABS: Appearance,Urine Cloudy (Clear); Bilirubin,Urine 1+ (Negative); Blood,Urine Small (Negative); Color,Urine Yellow; Glucose,Urine (UA) Negative (Negative); Hyaline Casts,Urine 14 /lpf (0-2); Ketones,Urine 1+ (Negative); Leukocyte Esterase,Urine Large (Negative); Mucus,Urine Rare /hpf; Nitrite,Urine Negative (Negative); Protein,Urine 1+ (Negative); RBC,Urine 21 /hpf (0-5); Specific Gravity,Urine 1.022 (1.001-1.035); Squamous Epithelial Cell,Urine 22 /hpf (0-4); WBC,Urine 51 /hpf (0-5)
[2025-04-28] MEDS: ONDANSETRON 4 MG/2 ML VIAL IVP PRN (17:57)
[2025-04-28] MEDS: MORPHINE SULFATE 4 MG/ML SYRINGE IV PRN (17:57)
[2025-04-28] MEDS ORDERED: Magnesium Replacement Protocol 1 EACH MISC MISCELLANE PRN (18:23)
[2025-04-28] MEDS ORDERED: Potassium Replacement Protocol 1 EACH MISC MISCELLANE PRN (18:23)
[2025-04-28 19:23] LABS: African American GFR (CKD) 19 (>60 ml/min/1.73 sqM); Anion Gap 8 mmol/L; Blood Urea Nitrogen 34 mg/dL (7-17); Calcium 8.2 mg/dL (8.4-10.2); Carbon Dioxide 32 mmol/L (22-30); Chloride 99 mmol/L (98-107); Glucose 68 mg/dL (74-99); Non-African American GFR(CKD) 17 (>60 ml/min/1.73 sqM); Potassium 2.8 mmol/L (3.5-5.1); Sodium 139 mmol/L (137-145)
[2025-04-28] MEDS: POTASSIUM CHLORIDE ER 20 MEQ TAB.ER PO SCH (20:16)
[2025-04-28 20:36] LABS: Glucose,Whole Blood 78 mg/dL (70-110)
[2025-04-28] MEDS: METOCLOPRAMIDE 5 MG/ML 2 ML VIAL IVP PRN (22:54)
[2025-04-28] MEDS: QUEtiapine 200 MG TAB PO SCH (23:00)
[2025-04-28] MEDS: MONTELUKAST 10 MG TAB PO SCH (23:00)
--- NOTE | 2025-04-29 01:09 | HP ---
HISTORY AND PHYSICAL CHIEF COMPLAINT: Abnormal labs and weakness. HISTORY OF PRESENT ILLNESS: This 54-year-old woman with a past medical history of multiple medical problems, was recently admitted to [facility] with acute renal failure, acute tubular necrosis secondary to diarrhea, dehydration. The patient is improving. The patient went home. Currently, the patient is complaining of weakness and the primary physician saw abnormal labs. The patient was taken to [facility] and the creatinine was found to be 3.84, which is worsened from 1.14. The previous creatinine was worsened up to 8.11. The potassium is 2.3. The patient admitted for further hydration at this time. The patient is slightly nauseous at this time. PAST MEDICAL HISTORY: Reviewed include recent history of acute renal failure, asthma, COPD. Rest of the history and the chart is also reviewed. HOME MEDICATIONS: Reviewed include Seroquel. Dose and rest of medications reviewed. ALLERGIES: Environmental. FAMILY HISTORY: No history of heart disease or strokes in the family. Hypertension in the family. SOCIAL HISTORY: History of smoking. REVIEW OF SYSTEMS: A 14-point review of systems negative except as mentioned. PHYSICAL EXAMINATION: VITAL SIGNS: Pulse 77, blood pressure 87/60, respirations 18. HEENT: Conjunctivae normal. NECK: Oral mucosa dry. CARDIOVASCULAR: S1, S2. RESPIRATION: Clear to auscultation. ABDOMEN: Soft, nontender. LEGS: No edema. No swelling. NERVOUS System : Nonfocal. LABORATORY DATA: Reviewed. ASSESSMENT: 1. Acute renal failure with possible acute tubular necrosis, probable for dehydration. 2. Severe hypokalemia. 3. History of recent acute renal failure and tubular necrosis. 4. History of asthma, chronic obstructive pulmonary disease. 5. Diabetes mellitus type 2. 6. Degenerative joint disease. 7. History of pneumonia. 8. History of methicillin-resistant Staphylococcus aureus. 9. History of bariatric surgery. 10.History of back surgery. 11.Anxiety, bipolar, depression. RECOMMENDATION: This 54-year-old woman presented with multiple complex medical issues. We will monitor the patient closely. Recommend to continue the current medications, IV fluids, potassium supplementation. Otherwise, I would also recommend to avoid nephrotoxic medication. Nephrology consultation. Home medications will be continued once they are confirmed. Prognosis guarded because of multiple complex medical issues and see orders for details. Add potassium to the IV fluids also. MMODL / IJN: [id number] /
[2025-04-29 01:46] LABS: Glucose,Whole Blood 82 mg/dL (70-110)
[2025-04-29] MEDS: POTASSIUM CHLORIDE ER 20 MEQ TAB.ER PO SCH (02:21)
[2025-04-29 06:13] LABS: ALT 30 U/L (4-34); AST 198 U/L (14-36); African American GFR (CKD) 25 (>60 ml/min/1.73 sqM); Albumin 2.4 g/dL (3.5-5.0); Alkaline Phosphatase 140 U/L (38-126); Anion Gap 4 mmol/L; Blood Urea Nitrogen 29 mg/dL (7-17); Calcium 7.8 mg/dL (8.4-10.2); Carbon Dioxide 30 mmol/L (22-30); Chloride 105 mmol/L (98-107); Globulin 2.4 g/dL; Glucose 73 mg/dL (74-99); Magnesium 2.7 mg/dL (1.6-2.3); Non-African American GFR(CKD) 22 (>60 ml/min/1.73 sqM); Potassium 3.7 mmol/L (3.5-5.1); Sodium 139 mmol/L (137-145); Total Bilirubin 0.8 mg/dL (0.2-1.3); Total Protein 4.8 g/dL (6.3-8.2)
[2025-04-29 06:13] LABS: Glucose,Whole Blood 75 mg/dL (70-110)
[2025-04-29] MEDS: DULoxetine HCL 60 MG CAPSULE.DR PO SCH (07:52)
[2025-04-29] MEDS: ACETAMINOPHEN TAB 325 MG TAB PO PRN (07:52)
[2025-04-29 08:56] LABS: Basophils # (A) 0.02 X 10*3/uL (0.00-0.10); Basophils % (A) 0.4 %; Eosinophils # (A) 0.06 X 10*3/uL (0.04-0.35); Eosinophils % (A) 1.3 %; HGB 10.2 g/dL (12.0-15.0); Lymphocytes # (A) 1.47 X 10*3/uL (0.90-5.00); Lymphocytes % (A) 31.7 %; MCH 26.9 pg (27.0-32.0); MCHC 30.9 g/dL (32.0-37.0); MCV 87.1 FL (80.0-97.0); Mean Platelet Volume 13.3 FL (9.5-12.2); Monocytes % (A) 8.6 %; NRBC Per 100 WBC 0 X 10*3/uL (0.00-0.01); Neutrophils # (A) 2.65 X 10*3/uL (1.80-7.70); Neutrophils % (A) 57.4 %; Platelet Count 178 X 10*3/uL (140-440); RBC 3.79 X 10*6/uL (4.10-5.20); RDW 19.7 % (11.5-14.5); WBC 4.63 X 10*3/uL (4.50-10.00)
[2025-04-29 11:39] LABS: Glucose,Whole Blood 76 mg/dL (70-110)
[2025-04-29] MEDS: HEPARIN SODIUM,PORCINE 5,000 UNIT/ML 1 ML VIAL SQ SCH (12:29)
--- NOTE | 2025-04-29 12:58 | P.NPCON ---
History of Present Illness - Reason for Consult Consult date: 04/29/25 acute renal failure - History of Present Illness Patient is a 54-year-old woman being consulted for TAMAR. She was recently a dmitted to [facility] with acute renal failure secondary to acute tubular necrosis in the setting of volume depletion due to diarrhea and dehydration as well as JELLY inhibitor use. Patient has current complaint of weakness and nausea. Primary physician and saw abnormal labs with elevated creatinine of 3.84. Previous creatinine was 1.14 on 04/04/2025. Patient was previously on lisinoprilHCTZ for hypertension. She was advised to stop taking it after being hospitalized. However for the past week patient noticed increased swelling in her lower extremities and says she would take it on a as needed basis. Patient states she had episode nonbloody emesis in the morning. Denies any diarrhea or constipation. Patient denies any urinary symptoms. Patient endorses poor oral intake as well. Denies any recent travel, recent surgery, illicit drug use. Vital signs are stable. General: No acute distress. Yeh catheter in place. HEENT: Head exam is unremarkable. LUNGS: No audible rhonchi or wheezes. HEART: Rate and Rhythm are regular. ABDOMEN: Non-tender to palpation. EXTREMITITES: no edema. Past Medical History Past Medical History: Asthma, Chest Pain / Angina, COPD, Diabetes Mellitus, GERD/Reflux, Hypertension, Osteoarthritis (OA), Pneumonia, Sleep Apnea/CPAP/BIPAP Additional Past Medical History / Comment(s): Recent ER visit r/t headache-pt states was dx with a Migraine. DDD, borderline diabetic, uses CPAP machine environmental allergies., has lap band. Influenza-12/2024 History of Any Multi-Drug Resistant Organisms: MRSA Date of last positivie culture/infection: 06/22/14 MDRO Source:: rt breast Past Surgical History: Back Surgery, Bariatric Surgery, Section, Cholecystectomy, Heart Catheterization, Joint Replacement, Tubal Ligation Additional Past Surgical History / Comment(s): bilateral knee replacement, lap band , RT WRIST GANGLION CYCT REMOVED, lumbar fusion surgery. lap band removal sleeve gastrectomy 12-14-24 Past Anesthesia/Blood Transfusion Reactions: No Reported Reaction Additional Past Anesthesia/Blood Transfusion Reaction / Comment(s): No hx of blood transfusion to date. Past Psychological History: Anxiety, Bipolar, Depression Smoking Status: Never smoker Past Alcohol Use History: Occasional Past Drug Use History: None Reported - Past Family History Mother Family Medical History: Hypertension Father Family Medical History: Cancer Medications and Allergies Home Medications Medication Instructions Recorded Confirmed Type DULoxetine HCL [Cymbalta] 60 mg PO DAILY 06/20/23 04/28/25 History Fluticasone/Umeclidin/Vilanter 1 puff INHALATION RT-DAILY 08/17/24 04/28/25 History [Trelegy Ellipta 100-62.5-25] Montelukast [Singulair] 1 tab PO HS 08/17/24 04/28/25 History Omeprazole 40 mg PO DAILY 12/23/24 04/28/25 History Acetaminophen Tab [Tylenol] 500 mg PO Q4-6H PRN 03/29/25 04/28/25 History QUEtiapine FUMARATE [SEROquel] 200 mg PO HS 03/29/25 04/28/25 History Calcium Carbonate [Tums] 1,000 mg PO TID PRN tab 04/06/25 04/28/25 Rx Fludrocortisone [Florinef] 0.1 mg PO BID #60 tab 04/06/25 04/28/25 Rx Magnesium Oxide [Mag-Ox] 400 mg PO BID #60 tab 04/06/25 04/28/25 Rx Metoclopramide HCl [Reglan] 5 mg PO TID PRN #45 tablet 04/06/25 04/28/25 Rx Ondansetron Odt [Zofran Odt] 4 mg PO Q8HR PRN #20 tab 04/07/25 04/28/25 Rx Allergies Allergy/AdvReac Type Severity Reaction Status Date / Time Enviromental Allergy Nasal Uncoded 04/28/25 19:07 drainage/watery eyes/sneezing Physical Exam Vitals: Vital Signs Temp Pulse Pulse Resp BP BP Pulse Ox 04/29/25 06:26 77 94/65 04/29/25 03:25 78 97/66 04/29/25 00:45 97.9 F 86 16 88/60 94 L 04/28/25 22:57 80 102/70 04/28/25 21:09 98.0 F 82 18 93/61 97 04/28/25 20:27 88 18 126/78 97 04/28/25 19:12 87 18 92/58 97 04/28/25 18:03 77 18 87/57 100 04/28/25 13:40 98.7 F 69 17 94/65 98 Intake and Output 04/28/25 04/29/25 04/29/25 22:59 06:59 14:59 Intake Total 540 Output Total 300 Balance 240 Intake: Oral 540 Output: Urine 300 Uretheral (Yeh) 300 Other: Voiding Method Indwelling Catheter Weight 79.379 kg Results - Lab Results Most recent lab results Calcium 7.8 mg/dL (8.4-10.2) L 04/29/25 05:16 Phosphorus 3.7 mg/dL (2.5-4.5) 04/28/25 14:27 Magnesium 2.7 mg/dL (1.6-2.3) H 04/29/25 05:16 04/29/25 05:16 04/29/25 05:16 Assessment and Plan Assessment: 1. Acute Kidney Injury secondary to ATN from volume depletion, exacerbated by JELLY inhibitor, hypotension. Baseline creatinine of 1.14 from 04/04/2025. Creatinine 3.[address] abd/pelvis shows no signs of hydronephrosis with stable bilateral renal cysts noted. Today, creatinine 2.42. 2. Hypokalemia secondary to poor intake and vomiting. 3. Nausea and vomiting with history of recent Crescencio-en-Y. Plan: Continue normal saline at 130 cc/hr. Continue to hold nephrotoxic agents. Yeh catheter in place. Will follow-up with bladder scan. Continue to encourage oral intake. Potassium replaced, continue to monitor. Will continue to monitor renal function and electrolytes with BMP in the AM and replete as needed Continue to monitor blood pressure. Thank you for this consultation. Will continue to follow patient throughout hospitalization. I have seen and examined the patient with resident and agree [facility] A&P as written.
[2025-04-29] MEDS: POTASSIUM CHLORIDE ER 20 MEQ TAB.ER PO STA (13:31)
--- NOTE | 2025-04-29 13:59 | P.GSCN ---
History of Present Illness Consult date: 04/29/25 History of present illness: CHIEF COMPLAINT: Abnormal labs HISTORY OF PRESENT ILLNESS: This is a 54-year-old old female who presented to the hospital due to abnormal lab results in outpatient setting. Patient's kidney function had worsened and her PCP recommended that she comes to the hospital for further evaluation. Patient does report having continued issues with nausea and vomiting. She did not complains of heartburn. She also reports issues of food sticking. She was recently hospitalized last month with acute kidney injury and nausea and vomiting. Upper GI was completed at that time showing severe esophageal dysmotility. Patient has been hypotensive. Potassium level is low and CT scan abdomen pelvis remarkable. She does complain of abdominal pain at her old Lap-Band port site. She had the Lap-Band removal and sleeve gastrectomy in December 2024. Also history of cholecystectomy. PAST MEDICAL HISTORY: Asthma, Chest Pain / Angina, COPD, Diabetes Mellitus, GERD/Reflux, Hypertension, Osteoarthritis (OA), Pneumonia, Sleep Apnea/CPAP/BIPAP PAST SURGICAL HISTORY: Back Surgery, Bariatric Surgery, Section, Cholecystectomy, Heart Cath eterization, Joint Replacement, Tubal Ligation, bilateral knee replacement, lap band , RT WRIST GANGLION CYCT REMOVED, lumbar fusion surgery. lap band removal sleeve gastrectomy 12-14-24 MEDICATIONS: See below ALLERGIES: See below SOCIAL HISTORY: No illicit drug use. REVIEW OF SYSTEMS: CONSTITUTIONAL: Denies fever or chills. HEENT: Denies blurred vision, vision changes, or eye pain. Denies hemoptysis CARDIOVASCULAR: Denies chest pain or pressure. RESPIRATORY: No shortness of breath. GASTROINTESTINAL: See HPI for pertinent findings HEMATOLOGIC: Denies bleeding disorders. GENITOURINARY: Denies any blood in urine or increased urinary frequency. SKIN: Denies pruitis. Denies rash. PHYSICAL EXAM: VITAL SIGNS: Reviewed GENERAL: Well-developed in no acute distress. HEENT: No sclera icterus. Extraocular movements grossly intact. Moist buccal mucosa. Head is atraumatic, normocephalic. No nasal drainage. ABDOMEN: Soft. Nondistended. Tender with palpation upper abdomen epigastric area and at fold cord site. Scar tissue is palpable. NEUROLOGIC: Alert and oriented. Cranial nerves II through XII grossly intact. LABORATORY DATA: WBC 4.63 Hgb 10.2 platelets 178 Sodium 139 potassium 2.8 up to 3.7 creatinine 3.00 down to 2.42 Glucose 68 Lactic acid 1.7 Magnesium 2.7 Total bilirubin 0.8 AST 198 ALT 30 alk phos 148 lipase 38 IMAGING: CT scan abdomen pelvis no acute change within the abdomen or pelvis. Stable lower lobe opacities. ASSESSMENT: 1. Nausea and vomiting with acid reflux 2. History of sleeve gastrectomy in December 2024 3. Severe esophageal dysmotility 4. Acute kidney injury 5. 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 Signing provider agrees with the documented findings, assessment, and plan of care. Past Medical History Past Medical History: Asthma, Chest Pain / Angina, COPD, Diabetes Mellitus, GERD/Reflux, Hypertension, Osteoarthritis (OA), Pneumonia, Sleep Apnea/CPAP/BIPAP Additional Past Medical History / Comment(s): Recent ER visit r/t headache-pt states was dx with a Migraine. DDD, borderline diabetic, uses CPAP machine environmental allergies., has lap band. Influenza-12/2024 History of Any Multi-Drug Resistant Organisms: MRSA Year Discovered:: 06/22/14 MDRO Source:: rt breast Past Surgical History: Back Surgery, Bariatric Surgery, Section, Cholecystectomy, Heart Catheterization, Joint Replacement, Tubal Ligation Additional Past Surgical History / Comment(s): bilateral knee replacement, lap band , RT WRIST GANGLION CYCT REMOVED, lumbar fusion surgery. lap band removal sleeve gastrectomy -02-02 Past Anesthesia/Blood Transfusion Reactions: No Reported Reaction Additional Past Anesthesia/Blood Transfusion Reaction / Comm: No hx of blood transfusion to date. Past Psychological History: Anxiety, Bipolar, Depression Smoking Status: Never smoker Past Alcohol Use History: Occasional Past Drug Use History: None Reported - Past Family History Mother Family Medical History: Hypertension Father Family Medical History: Cancer Medications and Allergies Home Medications Medication Instructions Recorded Confirmed Type DULoxetine HCL [Cymbalta] 60 mg PO DAILY 06/20/23 04/28/25 History Fluticasone/Umeclidin/Vilanter 1 puff INHALATION RT-DAILY 08/17/24 04/28/25 History [Trelegy Ellipta 100-62.5-25] Montelukast [Singulair] 1 tab PO HS 08/17/24 04/28/25 History Omeprazole 40 mg PO DAILY 12/23/24 04/28/25 History Acetaminophen Tab [Tylenol] 500 mg PO Q4-6H PRN 03/29/25 04/28/25 History QUEtiapine FUMARATE [SEROquel] 200 mg PO HS 03/29/25 04/28/25 History Calcium Carbonate [Tums] 1,000 mg PO TID PRN tab 04/06/25 04/28/25 Rx Fludrocortisone [Florinef] 0.1 mg PO BID #60 tab 04/06/25 04/28/25 Rx Magnesium Oxide [Mag-Ox] 400 mg PO BID #60 tab 04/06/25 04/28/25 Rx Metoclopramide HCl [Reglan] 5 mg PO TID PRN #45 tablet 04/06/25 04/28/25 Rx Ondansetron Odt [Zofran Odt] 4 mg PO Q8HR PRN #20 tab 04/07/25 04/28/25 Rx Allergies Allergy/AdvReac Type Severity Reaction Status Date / Time Enviromental Allergy Nasal Uncoded 04/28/25 19:07 drainage/watery eyes/sneezing Surgical - Exam Vital Signs Temp Pulse Resp BP Pulse Ox 98.7 F 69 17 94/65 98 04/28/25 13:40 04/28/25 13:40 04/28/25 13:40 04/28/25 13:40 04/28/25 13:40 Results - Labs 04/29/25 05:16 04/29/25 05:16 Abnormal Lab Results - Last 24 Hours (Table) 04/28/25 04/28/25 04/28/25 Range/Units 14:27 14:50 15:45 RBC (4.10-5.20) X 10*6/uL Hgb 11.4 L (12.0-15.0) g/dL Hct 34.6 L (37.2-46.3) % MCH (27.0-32.0) pg MCHC (32.0-37.0) g/dL RDW (11.5-14.5) % MPV 12.4 H (9.5-12.2) fL Potassium 2.6 L* (3.5-5.1) mmol/L Chloride 93 L (98-107) mmol/L Carbon Dioxide 37 H (22-30) mmol/L BUN 38 H (7-17) mg/dL Creatinine 3.84 H (0.52-1.04) mg/dL Glucose (74-99) mg/dL Calcium (8.4-10.2) mg/dL Magnesium 3.2 H (1.6-2.3) mg/dL AST (14-36) U/L Alkaline Phosphatase (38-126) U/L Total Protein (6.3-8.2) g/dL Albumin (3.5-5.0) g/dL Urine Appearance Cloudy H (Clear) Urine Protein 1+ H (Negative) Urine Ketones 1+ H (Negative) Urine Blood Small H (Negative) Urine Bilirubin 1+ H (Negative) Ur Leukocyte Esterase Large H (Negative) Urine RBC 21 H (0-5) /hpf Urine WBC 51 H (0-5) /hpf Ur Squamous Epith Cells 22 H (0-4) /hpf Hyaline Casts 14 H (0-2) /lpf Urine Mucus Rare H (None) /hpf 04/28/25 04/29/25 04/29/25 Range/Units 18:49 01:02 05:16 RBC 3.79 L (4.10-5.20) X 10*6/uL Hgb 10.2 L (12.0-15.0) g/dL Hct 33.0 L (37.2-46.3) % MCH 26.9 L (27.0-32.0) pg MCHC 30.9 L (32.0-37.0) g/dL RDW 19.7 H (11.5-14.5) % MPV 13.3 H (9.5-12.2) fL Potassium 2.8 L 3.3 L (3.5-5.1) mmol/L Chloride (98-107) mmol/L Carbon Dioxide 32 H (22-30) mmol/L BUN 34 H (7-17) mg/dL Creatinine 3.00 H (0.52-1.04) mg/dL Glucose 68 L (74-99) mg/dL Calcium 8.2 L (8.4-10.2) mg/dL Magnesium (1.6-2.3) mg/dL AST (14-36) U/L Alkaline Phosphatase (38-126) U/L Total Protein (6.3-8.2) g/dL Albumin (3.5-5.0) g/dL Urine Appearance (Clear) Urine Protein (Negative) Urine Ketones (Negative) Urine Blood (Negative) Urine Bilirubin (Negative) Ur Leukocyte Esterase (Negative) Urine RBC (0-5) /hpf Urine WBC (0-5) /hpf Ur Squamous Epith Cells (0-4) /hpf Hyaline Casts (0-2) /lpf Urine Mucus (None) /hpf 04/29/25 Range/Units 05:16 RBC (4.10-5.20) X 10*6/uL Hgb (12.0-15.0) g/dL Hct (37.2-46.3) % MCH (27.0-32.0) pg MCHC (32.0-37.0) g/dL RDW (11.5-14.5) % MPV (9.5-12.2) fL Potassium (3.5-5.1) mmol/L Chloride (98-107) mmol/L Carbon Dioxide (22-30) mmol/L BUN 29 H (7-17) mg/dL Creatinine 2.42 H (0.52-1.04) mg/dL Glucose 73 L (74-99) mg/dL Calcium 7.8 L (8.4-10.2) mg/dL Magnesium 2.7 H (1.6-2.3) mg/dL AST 198 H (14-36) U/L Alkaline Phosphatase 140 H (38-126) U/L Total Protein 4.8 L (6.3-8.2) g/dL Albumin 2.4 L (3.5-5.0) g/dL Urine Appearance (Clear) Urine Protein (Negative) Urine Ketones (Negative) Urine Blood (Negative) Urine Bilirubin (Negative) Ur Leukocyte Esterase (Negative) Urine RBC (0-5) /hpf Urine WBC (0-5) /hpf Ur Squamous Epith Cells (0-4) /hpf Hyaline Casts (0-2) /lpf Urine Mucus (None) /hpf Diabetes panel 04/28/25 04/28/25 04/29/25 Range/Units 14:27 18:49 01:02 Sodium 140 139 (137-145) mmol/L Potassium 2.6 L* 2.8 L 3.3 L (3.5-5.1) mmol/L Chloride 93 L 99 (98-107) mmol/L Carbon Dioxide 37 H 32 H (22-30) mmol/L BUN 38 H 34 H (7-17) mg/dL Creatinine 3.84 H 3.00 H (0.52-1.04) mg/dL Glucose 86 68 L (74-99) mg/dL Calcium 9.3 8.2 L (8.4-10.2) mg/dL AST 25 (14-36) U/L ALT 11 (4-34) U/L Alkaline Phosphatase 82 (38-126) U/L Total Protein 6.6 (6.3-8.2) g/dL Albumin 3.7 (3.5-5.0) g/dL 04/29/25 Range/Units 05:16 Sodium 139 (137-145) mmol/L Potassium 3.7 (3.5-5.1) mmol/L Chloride 105 (98-107) mmol/L Carbon Dioxide 30 (22-30) mmol/L BUN 29 H (7-17) mg/dL Creatinine 2.42 H (0.52-1.04) mg/dL Glucose 73 L (74-99) mg/dL Calcium 7.8 L (8.4-10.2) mg/dL AST 198 H (14-36) U/L ALT 30 (4-34) U/L Alkaline Phosphatase 140 H (38-126) U/L Total Protein 4.8 L (6.3-8.2) g/dL Albumin 2.4 L (3.5-5.0) g/dL Calcium panel 04/28/25 04/28/25 04/29/25 Range/Units 14:27 18:49 05:16 Calcium 9.3 8.2 L 7.8 L (8.4-10.2) mg/dL Phosphorus 3.7 (2.5-4.5) mg/dL Albumin 3.7 2.4 L (3.5-5.0) g/dL Pituitary panel 04/28/25 04/28/25 04/29/25 Range/Units 14:27 18:49 01:02 Sodium 140 139 (137-145) mmol/L Potassium 2.6 L* 2.8 L 3.3 L (3.5-5.1) mmol/L Chloride 93 L 99 (98-107) mmol/L Carbon Dioxide 37 H 32 H (22-30) mmol/L BUN 38 H 34 H (7-17) mg/dL Creatinine 3.84 H 3.00 H (0.52-1.04) mg/dL Glucose 86 68 L (74-99) mg/dL Calcium 9.3 8.2 L (8.4-10.2) mg/dL 04/29/25 Range/Units 05:16 Sodium 139 (137-145) mmol/L Potassium 3.7 (3.5-5.1) mmol/L Chloride 105 (98-107) mmol/L Carbon Dioxide 30 (22-30) mmol/L BUN 29 H (7-17) mg/dL Creatinine 2.42 H (0.52-1.04) mg/dL Glucose 73 L (74-99) mg/dL Calcium 7.8 L (8.4-10.2) mg/dL Adrenal panel 04/28/25 04/28/25 04/29/25 Range/Units 14:27 18:49 01:02 Sodium 140 139 (137-145) mmol/L Potassium 2.6 L* 2.8 L 3.3 L (3.5-5.1) mmol/L Chloride 93 L 99 (98-107) mmol/L Carbon Dioxide 37 H 32 H (22-30) mmol/L BUN 38 H 34 H (7-17) mg/dL Creatinine 3.84 H 3.00 H (0.52-1.04) mg/dL Glucose 86 68 L (74-99) mg/dL Calcium 9.3 8.2 L (8.4-10.2) mg/dL Total Bilirubin 0.8 (0.2-1.3) mg/dL AST 25 (14-36) U/L ALT 11 (4-34) U/L Alkaline Phosphatase 82 (38-126) U/L Total Protein 6.6 (6.3-8.2) g/dL Albumin 3.7 (3.5-5.0) g/dL 04/29/25 Range/Units 05:16 Sodium 139 (137-145) mmol/L Potassium 3.7 (3.5-5.1) mmol/L Chloride 105 (98-107) mmol/L Carbon Dioxide 30 (22-30) mmol/L BUN 29 H (7-17) mg/dL Creatinine 2.42 H (0.52-1.04) mg/dL Glucose 73 L (74-99) mg/dL Calcium 7.8 L (8.4-10.2) mg/dL Total Bilirubin 0.8 (0.2-1.3) mg/dL AST 198 H (14-36) U/L ALT 30 (4-34) U/L Alkaline Phosphatase 140 H (38-126) U/L Total Protein 4.8 L (6.3-8.2) g/dL Albumin 2.4 L (3.5-5.0) g/dL
--- NOTE | 2025-04-29 14:06 | PN ---
PROGRESS NOTE DATE OF SERVICE: 04/29/2025 HISTORY OF PRESENT ILLNESS: This is a 54-year-old woman with a past medical history of multiple medical problems with abnormal labs and weakness. The patient had a creatinine elevated up to 3, it was 2.4 today. P.o. intake appears to be poor. The patient also had possible evidences of UTI also. The patient had similar issues a few weeks ago and creatinine was elevated up to more than 8 at that time. The patient is currently on IV fluids. Nephrology consultation is in progress. PAST MEDICAL HISTORY: Reviewed. REVIEW OF SYSTEMS: A 14-point review of systems negative except as mentioned earlier. CURRENT MEDICATIONS: Reviewed. PHYSICAL EXAMINATION: VITAL SIGNS: Pulse 79, blood pressure 100/69, and respirations 18. HEENT: Conjunctivae normal. NECK: No jugular venous distention. CARDIOVASCULAR: S1 and S2. RESPIRATIONS: Breath sounds diminished at the bases. ABDOMEN: Soft, mild diffuse discomfort. No mass palpable. LEGS: No edema. NERVOUS SYSTEM: Nonfocal. LABORATORY DATA: Noted. ASSESSMENT: 1. Acute renal failure with possible acute tubular necrosis, recurrent with possibly secondary to dehydration. 2. Severe hypokalemia. 3. History of recent acute renal failure and tubular necrosis. 4. History of asthma, chronic obstructive pulmonary disease. 5. Diabetes mellitus type 2. 6. Degenerative joint disease. 7. History of pneumonia. 8. History of methicillin-resistant Staphylococcus aureus. 9. History of bariatric surgery. 10.History of back surgery. 11.Anxiety, bipolar, and depression. RECOMMENDATION: Recommend to continue current management and continue symptomatic treatment. Otherwise I would recommend Nephrology consultation. I would also recommend Surgery consultation and reevaluation, because of the history of sleeve also, the abdomen and pelvis CAT scan was done. I would recommend a portable chest x-ray to complete the workup. Once again, the prognosis extremely guarded. Primary gastroenterology issues needs to be ruled out. MMODL / IJN: [id number] /
[2025-04-29] MEDS: PANTOPRAZOLE 40 MG/10 ML VIAL IVP SCH (14:36)
--- NOTE | 2025-04-29 15:37 | XR ---
EXAMINATION TYPE: XR chest 1V portable DATE OF EXAM: 04/29/2025 3:14 PM COMPARISON: Chest radiographs from 04/02/2025. CLINICAL INDICATION: Female, 54 years old with history of chf; TECHNIQUE: XR chest 1V portable Frontal view of the chest. FINDINGS: Lungs/Pleura: Left lower lobe airspace opacities.There is no evidence of pleural effusion, focal cons olidation, or pneumothorax. Pulmonary vascularity: Unremarkable. Heart/mediastinum: Cardiomediastinal silhouette is unremarkable. Musculoskeletal: No acute osseous pathology. IMPRESSION: Left lower lobe airspace opacities correlate for pneumonia [facility] [place], , 04/29/2025 3:34 PM
[2025-04-29 16:29] LABS: Glucose,Whole Blood 64 mg/dL (70-110)
[2025-04-29] MEDS: HYDROcodone/APAP 5-325MG 1 EACH TAB PO PRN (16:29)
[2025-04-29 16:56] LABS: Glucose,Whole Blood 88 mg/dL (70-110)
[2025-04-29 20:25] LABS: Glucose,Whole Blood 63 mg/dL (70-110)
[2025-04-29 20:55] LABS: Glucose,Whole Blood 80 mg/dL (70-110)
[2025-04-30] MEDS: CALCIUM CARBONATE 500 MG CHEWABLE PO PRN (00:05)
[2025-04-30 02:43] LABS: Glucose,Whole Blood 82 mg/dL (70-110)
[2025-04-30 06:16] LABS: Glucose,Whole Blood 77 mg/dL (70-110)
--- NOTE | 2025-04-30 10:13 | P.PN ---
Subjective Progress Note Date: 04/30/25 The patient states she feels not well. She says she had a low blood sugar. She had some crackers and peanut butter for this and feels better. On exam vital signs appear stable. Abdomen is soft. Patient will remain on full liquid diet. Objective - Vital Signs Vital signs: Vital Signs Temp 98.6 F 04/30/25 07:16 Pulse 88 04/30/25 07:16 Resp 16 04/30/25 07:16 BP 114/81 04/30/25 07:16 Pulse Ox 99 04/30/25 07:16 FiO2 Intake & Output 04/29/25 04/30/25 04/30/25 18:59 06:59 18:59 Intake Total 510 Output Total 625 Balance -115 Intake: Oral 510 Output: Urine 625 Other: Voiding Method Indwelling Catheter Indwelling Catheter Indwelling Catheter # Bowel Movements 1 - Labs CBC & Chem 7: 04/29/25 05:16 04/29/25 05:16 Labs: Abnormal Lab Results - Last 24 Hours (Table) 04/29/25 04/29/25 Range/Units 16:26 20:24 POC Glucose (mg/dL) 64 L 63 L (70-110) mg/dL Microbiology - Last 24 Hours (Table) 04/28/25 15:45 Urine Culture - Preliminary Urine,Voided
[2025-04-30 11:04] LABS: MCHC 30.8 g/dL (32.0-37.0); MCV 87.8 FL (80.0-97.0); NRBC Per 100 WBC 0 X 10*3/uL (0.00-0.01); Platelet Count 147 X 10*3/uL (140-440); RBC 4.44 X 10*6/uL (4.10-5.20); RDW 20.4 % (11.5-14.5); WBC 5.26 X 10*3/uL (4.50-10.00)
[2025-04-30 11:05] LABS: Anisocytosis (M) 2+ (None Seen); Basophils # (A) 0.02 X 10*3/uL (0.00-0.10); Basophils % (A) 0.4 %; Crenated RBC 2+ (None Seen); Eosinophils # (A) 0.11 X 10*3/uL (0.04-0.35); Eosinophils % (A) 2.1 %; Lymphocytes # (A) 1.93 X 10*3/uL (0.90-5.00); Lymphocytes % (A) 36.7 %; Monocytes # (A) 0.58 X 10*3/uL (0.20-1.00); Neutrophils # (A) 2.59 X 10*3/uL (1.80-7.70); Neutrophils % (A) 49.2 %
[2025-04-30 11:06] LABS: Glucose,Whole Blood 93 mg/dL (70-110)
--- NOTE | 2025-04-30 11:56 | P.PN ---
Subjective Progress Note Date: 04/30/25 Patient seen and evaluated bedside for follow-up for TAMAR. Patient states she has not been feeling well. Patient reports of an episode of nonbloody emesis this morning. Vital signs are stable. General: No acute distress. Yeh catheter in place. HEENT: Head exam is unremarkable. LUNGS: No audible rhonchi or wheezes. HEART: Rate and Rhythm are regular. ABDOMEN: Non-tender to palpation. EXTREMITITES: no edema. Objective - Vital Signs Vital signs: Vital Signs Temp 98.6 F 04/30/25 07:16 Pulse 88 04/30/25 07:16 Resp 16 04/30/25 07:16 BP 114/81 04/30/25 07:16 Pulse Ox 99 04/30/25 07:16 FiO2 Intake & Output 04/29/25 04/30/25 04/30/25 18:59 06:59 18:59 Intake Total 510 Output Total 625 Balance -115 Intake: Oral 510 Output: Urine 625 Other: Voiding Method Indwelling Catheter Indwelling Catheter # Bowel Movements 1 - Labs CBC & Chem 7: 04/30/25 08:26 04/30/25 08:26 Labs: Abnormal Lab Results - Last 24 Hours (Table) 04/29/25 04/29/25 04/29/25 Range/Units 05:16 16:26 20:24 RBC 3.79 L (4.10-5.20) X 10*6/uL Hgb 10.2 L (12.0-15.0) g/dL Hct 33.0 L (37.2-46.3) % MCH 26.9 L (27.0-32.0) pg MCHC 30.9 L (32.0-37.0) g/dL RDW 19.7 H (11.5-14.5) % MPV 13.3 H (9.5-12.2) FL POC Glucose (mg/dL) 64 L 63 L (70-110) mg/dL Assessment and Plan Assessment: Assessment: 1. Acute Kidney Injury secondary to ATN from volume depletion, exacerbated by JELLY inhibitor, hypotension. Recent creatinine of 1.14 from 04/04/2025 (had TAMAR). Creatinine 3.[address] abd/pelvis shows no signs of hydronephrosis with stable bilateral renal cysts noted. Today, creatinine 1.3. 2. Hypokalemia secondary to poor intake and vomiting. 3. Nausea and vomiting with history of recent Crescencio-en-Y. Plan: Continue normal saline at 130 cc/hr. Continue to hold nephrotoxic agents. Yeh catheter in place. Will attempt to remove tomorrow. Patient remains on full liquid diet per surgery. Continue to encourage oral intake. Will continue to monitor renal function and electrolytes with BMP in the AM and replete as needed. Continue to monitor blood pressure. I have seen and examined the patient with resident and agree with A&P as written.
[2025-04-30 16:03] LABS: ALT 20 U/L (8-44); AST 56 U/L (13-35); Albumin 2.7 g/dL (3.8-4.9); Albumin/Globulin Ratio 1.17 Ratio (1.60-3.17); Alkaline Phosphatase 131 U/L (41-126); BUN/Creat Ratio 13.54 Ratio (12.00-20.00); Blood Urea Nitrogen 17.6 mg/dL (9.0-27.0); Calcium 7.9 mg/dL (8.7-10.3); Carbon Dioxide 26.1 mmol/L (21.6-31.8); Chloride 106 mmol/L (96-109); Globulin 2.3 g/dL (1.6-3.3); Glucose 100 mg/dL (70-110); Potassium 3.7 mmol/L (3.5-5.5); Sodium 141 mmol/L (135-145); Total Bilirubin 0.2 mg/dL (0.3-1.2)
[2025-04-30] MEDS: NICOTINE 14MG/24HR PATCH TRANSDERM SCH (16:16)
[2025-04-30 19:51] LABS: Glucose,Whole Blood 82 mg/dL (70-110)
[2025-05-01 01:02] LABS: Glucose,Whole Blood 81 mg/dL (70-110)
[2025-05-01 06:20] LABS: Glucose,Whole Blood 76 mg/dL (70-110)
[2025-05-01 07:55] LABS: ALT 13 U/L (4-34); AST 28 U/L (14-36); African American GFR (CKD) 78 (>60 ml/min/1.73 sqM); Albumin 2.1 g/dL (3.5-5.0); Albumin/Globulin Ratio 0.9; Alkaline Phosphatase 95 U/L (38-126); Anion Gap 2 mmol/L; Blood Urea Nitrogen 15 mg/dL (7-17); Calcium 7.6 mg/dL (8.4-10.2); Carbon Dioxide 24 mmol/L (22-30); Chloride 112 mmol/L (98-107); Globulin 2.4 g/dL; Glucose 79 mg/dL (74-99); Magnesium 1.6 mg/dL (1.6-2.3); Non-African American GFR(CKD) 68 (>60 ml/min/1.73 sqM); Potassium 3.8 mmol/L (3.5-5.1); Sodium 138 mmol/L (137-145); Total Bilirubin 0.4 mg/dL (0.2-1.3); Total Protein 4.5 g/dL (6.3-8.2)
--- NOTE | 2025-05-01 10:05 | P.PN ---
Subjective Progress Note Date: 05/01/25 Patient remained stable. She is tolerating full liquid diet. On exam vital signs are stable. Abdomen soft. Severe esophageal dysmotility. Patient remain on full liquid diet. She is stable for discharge from a surgical standpoint. Objective - Vital Signs Vital signs: Vital Signs Temp 97.7 F 05/01/25 00:57 Pulse 81 05/01/25 00:57 Resp 18 05/01/25 00:57 BP 97/68 05/01/25 00:57 Pulse Ox 98 05/01/25 00:57 FiO2 Intake & Output 04/30/25 05/01/25 05/01/25 18:59 06:59 18:59 Intake Total 240 Output Total 600 Balance -360 Intake: Oral 240 Output: Urine 600 Other: Voiding Method Indwelling Catheter # Voids 3 - Labs CBC & Chem 7: 04/30/25 08:26 05/01/25 07:18 Labs: Abnormal Lab Results - Last 24 Hours (Table) 04/30/25 04/30/25 05/01/25 Range/Units 08:26 08:26 07:18 MCHC 30.8 L (32.0-37.0) g/dL RDW 20.4 H (11.5-14.5) % Anisocytosis (manual) 2+ A (None Seen) Crenated Cell 2+ A (None Seen) Chloride 112 H (98-107) mmol/L Est GFR (CKD-EPI) 48 L (>=60) Calcium 7.9 L 7.6 L (8.7-10.3) mg/dL Total Bilirubin 0.2 L (0.3-1.2) mg/dL AST 56 H (13-35) U/L Alkaline Phosphatase 131 H (41-126) U/L Total Protein 5.0 L 4.5 L (6.2-8.2) g/dL Albumin 2.7 L 2.1 L (3.8-4.9) g/dL Albumin/Globulin Ratio 1.17 L (1.60-3.17) Ratio Microbiology - Last 24 Hours (Table) 04/28/25 15:45 Urine Culture - Preliminary Urine,Voided
--- NOTE | 2025-05-01 10:43 | P.PN ---
Subjective Patient seen and evaluated bedside for follow-up for TAMAR. Feels better. Tolerating liquid diet. Has Yeh catheter. Nonoliguric. Vital signs are stable. General: No acute distress. HEENT: Head exam is unremarkable. LUNGS: No audible rhonchi or wheezes. HEART: Rate and Rhythm are regular. ABDOMEN: Non-tender to palpation. EXTREMITITES: no edema. Objective - Vital Signs Vital signs: Vital Signs Temp 98.1 F 05/01/25 07:17 Pulse 77 05/01/25 07:17 Resp 17 05/01/25 07:17 BP 105/71 05/01/25 07:17 Pulse Ox 97 05/01/25 07:17 FiO2 Intake & Output 04/30/25 05/01/25 05/01/25 18:59 06:59 18:59 Intake Total 240 Output Total 600 Balance -360 Intake: Oral 240 Output: Urine 600 Other: Voiding Method Indwelling Catheter # Voids 3 - Labs CBC & Chem 7: 04/30/25 08:26 05/01/25 07:18 Labs: Abnormal Lab Results - Last 24 Hours (Table) 04/30/25 04/30/25 05/01/25 Range/Units 08:26 08:26 07:18 MCHC 30.8 L (32.0-37.0) g/dL RDW 20.4 H (11.5-14.5) % Anisocytosis (manual) 2+ A (None Seen) Crenated Cell 2+ A (None Seen) Chloride 112 H (98-107) mmol/L Est GFR (CKD-EPI) 48 L (>=60) Calcium 7.9 L 7.6 L (8.7-10.3) mg/dL Total Bilirubin 0.2 L (0.3-1.2) mg/dL AST 56 H (13-35) U/L Alkaline Phosphatase 131 H (41-126) U/L Total Protein 5.0 L 4.5 L (6.2-8.2) g/dL Albumin 2.7 L 2.1 L (3.8-4.9) g/dL Albumin/Globulin Ratio 1.17 L (1.60-3.17) Ratio Microbiology - Last 24 Hours (Table) 04/28/25 15:45 Urine Culture - Preliminary Urine,Voided Assessment and Plan Assessment: Assessment: 1. Acute Kidney Injury secondary to ATN from volume depletion, exacerbated by JELLY inhibitor, hypotension. Recent creatinine of 1.14 from 04/04/2025 (had TAMAR) . Creatinine 3.84 on admission and is improved to 0.[address] abd/pelvis shows no signs of hydronephrosis with stable bilateral renal cysts noted. 2. Hypokalemia secondary to poor intake and vomiting. 3. Nausea and vomiting with history of recent Crescencio-en-Y. Plan: Decrease rate of normal saline to 75 cc an hour. Continue to hold nephrotoxic agents. DC Yeh catheter. Monitor postvoid residuals. Diet per surgery.
[2025-05-01] MEDS: MAGNESIUM OXIDE 400 MG TAB PO SCH (11:15)
[2025-05-01 11:44] LABS: Glucose,Whole Blood 113 mg/dL (70-110)
[2025-05-01 16:44] LABS: Glucose,Whole Blood 76 mg/dL (70-110)
[2025-05-01 20:58] LABS: Glucose,Whole Blood 75 mg/dL (70-110)
--- NOTE | 2025-05-01 22:14 | P.PN ---
Subjective Progress Note Date: 04/30/25 54-year-old female presenting to the emergency department with concerns of abnormal labs. Patient states that she saw her primary care provider in the week for concerns of generalized weakness and fatigue and she was instructed report to the emergency department due to decrease in kidney function. He st ates that similar things happened a few weeks ago where she was admitted for 10 days due to dehydration, nausea and vomiting. Patient states that she has been feeling generally weak with total body pain, nausea. She denies chest pain or difficulty breathing. States that she has been dealing with malnutrition and dehydration since she had her gastric sleeve in December 2024. Objective - Vital Signs Vital signs: Vital Signs Temp 98.6 F 04/30/25 07:16 Pulse 88 04/30/25 07:16 Resp 16 04/30/25 07:16 BP 114/81 04/30/25 07:16 Pulse Ox 99 04/30/25 07:16 FiO2 Intake & Output 04/29/25 04/30/25 04/30/25 18:59 06:59 18:59 Intake Total 510 Output Total 625 Balance -115 Intake: Oral 510 Output: Urine 625 Other: Voiding Method Indwelling Catheter Indwelling Catheter Indwelling Catheter # Bowel Movements 1 - Exam VITAL SIGNS: Reviewed GENERAL: Well-developed in no acute distress. HEENT: No sclera icterus. Extraocular movements grossly intact. Moist buccal mucosa. Head is atraumatic, normocephalic. No nasal drainage. ABDOMEN: Soft. Nondistended. Tender with palpation upper abdomen epigastric area and at fold cord site. Scar tissue is palpable. NEUROLOGIC: Alert and oriented. Cranial nerves II through XII grossly intact. - Labs CBC & Chem 7: 04/30/25 08:26 05/01/25 07:18 Labs: Abnormal Lab Results - Last 24 Hours (Table) 04/29/25 04/29/25 04/30/25 Range/Units 16:26 20:24 08: MCHC 30.8 L (32.0-37.0) g/dL RDW 20.4 H (11.5-14.5) % Anisocytosis (manual) 2+ A (None Seen) Crenated Cell 2+ A (None Seen) POC Glucose (mg/dL) 64 L 63 L (70-110) mg/dL Microbiology - Last 24 Hours (Table) 04/28/25 15:45 Urine Culture - Preliminary Urine,Voided Assessment and Plan Assessment: 1. Nausea and vomiting with acid reflux 2. History of sleeve gastrectomy in December 2024 3. Severe esophageal dysmotility 4. Acute kidney injury 5. Hypokalemia improved 1. Nausea and vomiting with acid reflux 2. History of sleeve gastrectomy in December 2024 3. Severe esophageal dysmotility 4. Acute kidney injury 5. Hypokalemia improved
--- NOTE | 2025-05-01 22:36 | P.PN ---
Subjective Progress Note Date: 05/01/25 54-year-old female presenting to the emergency department with concerns of abnormal labs. Patient states that she saw her primary care provider in the week for concerns of generalized weakness and fatigue and she was instructed report to the emergency department due to decrease in kidney function. He st ates that similar things happened a few weeks ago where she was admitted for 10 days due to dehydration, nausea and vomiting. Patient states that she has been feeling generally weak with total body pain, nausea. She denies chest pain or difficulty breathing. States that she has been dealing with malnutrition and dehydration since she had her gastric sleeve in December 2024. 05/01/2025 Patient is seen and evaluated resting comfortably in bed Vital signs are reviewed temperature 97.7, pulse 81, respiration 18 and blood pressure of 97/68 Blood work reveals sodium 138, potassium 3.8, BUN/creatinine 15/0.95 Urine culture results discussed with patient; growing Ashley albicans 10-49,000 colony; patient remains in symptomatic -Will plan to repeat CBC tomorrow; no treatment if white blood count remains normal Objective - Vital Signs Vital signs: Vital Signs Temp 98.1 F 05/01/25 07:17 Pulse 77 05/01/25 07:17 Resp 17 05/01/25 07:17 BP 105/71 05/01/25 07:17 Pulse Ox 97 05/01/25 07:17 FiO2 Intake & Output 04/30/25 05/01/25 05/01/25 18:59 06:59 18:59 Intake Total 240 Output Total 600 Balance -360 Intake: Oral 240 Output: Urine 600 Other: Voiding Method Indwelling Catheter # Voids 3 - Exam VITAL SIGNS: Reviewed GENERAL: Well-developed in no acute distress. HEENT: No sclera icterus. Extraocular movements grossly intact. Moist buccal mucosa. Head is atraumatic, normocephalic. No nasal drainage. ABDOMEN: Soft. Nondistended. Tender with palpation upper abdomen epigastric area and at fold cord site. Scar tissue is palpable. NEUROLOGIC: Alert and oriented. Cranial nerves II through XII grossly intact. - Labs CBC & Chem 7: 04/30/25 08:26 05/01/25 07:18 Labs: Abnormal Lab Results - Last 24 Hours (Table) 04/30/25 05/01/25 Range/Units 08:26 07:18 Chloride 112 H (98-107) mmol/L Est GFR (CKD-EPI) 48 L (>=60) Calcium 7.9 L 7.6 L (8.7-10.3) mg/dL Total Bilirubin 0.2 L (0.3-1.2) mg/dL AST 56 H (13-35) U/L Alkaline Phosphatase 131 H (41-126) U/L Total Protein 5.0 L 4.5 L (6.2-8.2) g/dL Albumin 2.7 L 2.1 L (3.8-4.9) g/dL Albumin/Globulin Ratio 1.17 L (1.60-3.17) Ratio Microbiology - Last 24 Hours (Table) 04/28/25 15:45 Urine Culture - Final Urine,Voided Ashley albicans Assessment and Plan Assessment: 1. Nausea and vomiting with acid reflux 2. History of sleeve gastrectomy in December 2024 3. Severe esophageal dysmotility 4. Acute kidney injury 5. Hypokalemia improved 1. Nausea and vomiting with acid reflux 2. History of sleeve gastrectomy in December 2024 3. Severe esophageal dysmotility 4. Acute kidney injury 5. Hypokalemia improved
[2025-05-02 06:26] LABS: Glucose,Whole Blood 75 mg/dL (70-110)
--- NOTE | 2025-05-02 09:01 | P.PN ---
Subjective Progress Note Date: 05/02/25 Patient feels better. She is tolerating full liquid diet. She denies any nausea or vomiting. On exam vital signs are stable. Abdomen is soft. Severe esophageal d motility. Patient is stable for discharge on full liquid diet. Objective - Vital Signs Vital signs: Vital Signs Temp 97.4 F L 05/02/25 01:06 Pulse 83 05/02/25 01:06 Resp 18 05/02/25 01:06 BP 101/70 05/02/25 01:45 Pulse Ox 97 05/02/25 01:06 FiO2 Intake & Output 05/01/25 05/02/25 05/02/25 18:59 06:59 18:59 Intake Total 240 Output Total 900 Balance -900 240 Intake: Oral 240 Output: Urine 900 Other: Voiding Method Toilet # Voids 1 2 - Labs CBC & Chem 7: 04/30/25 08:26 05/01/25 07:18 Labs: Abnormal Lab Results - Last 24 Hours (Table) 05/01/25 Range/Units 11:42 POC Glucose (mg/dL) 113 H (70-110) mg/dL Microbiology - Last 24 Hours (Table) 04/28/25 15:45 Urine Culture - Final Urine,Voided Ashley albicans
[2025-05-02 09:50] VITALS: BP 93/68; PULSE 85; RESP 16; TEMP 97.8
[2025-05-02 09:56] LABS: Basophils # (A) 0.03 X 10*3/uL (0.00-0.10); Basophils % (A) 0.6 %; Eosinophils % (A) 1.9 %; HCT 33.7 % (37.2-46.3); HGB 10.5 g/dL (12.0-15.0); Lymphocytes # (A) 1.63 X 10*3/uL (0.90-5.00); Lymphocytes % (A) 31.7 %; MCH 27.1 pg (27.0-32.0); MCHC 31.2 g/dL (32.0-37.0); MCV 87.1 FL (80.0-97.0); Mean Platelet Volume 12.5 FL (9.5-12.2); Monocytes # (A) 0.42 X 10*3/uL (0.20-1.00); Monocytes % (A) 8.2 %; NRBC Per 100 WBC 0 X 10*3/uL (0.00-0.01); Neutrophils # (A) 2.96 X 10*3/uL (1.80-7.70); Neutrophils % (A) 57.4 %; Platelet Count 165 X 10*3/uL (140-440); RBC 3.87 X 10*6/uL (4.10-5.20); RDW 20.3 % (11.5-14.5); WBC 5.15 X 10*3/uL (4.50-10.00)
[2025-05-02 10:11] LABS: Blood Urea Nitrogen 11.7 mg/dL (9.0-27.0); Calcium 7.6 mg/dL (8.7-10.3); Chloride 110 mmol/L (96-109); Glucose 80 mg/dL (70-110); Potassium 3.6 mmol/L (3.5-5.5); Sodium 140 mmol/L (135-145)
--- NOTE | 2025-05-02 11:34 | P.PN ---
Subjective Patient seen and evaluated bedside for follow-up for TAMAR. Feels better. Tolerating liquid diet. Yeh catheter removed. Has been voiding on her own. Vital signs are stable. General: No acute distress. HEENT: Head exam is unremarkable. LUNGS: No audible rhonchi or wheezes. HEART: Rate and Rhythm are regular. ABDOMEN: Non-tender to palpation. EXTREMITITES: no edema. Objective - Vital Signs Vital signs: Vital Signs Temp 97.8 F 05/02/25 09:49 Pulse 85 05/02/25 09:49 Resp 16 05/02/25 09:49 BP 93/68 05/02/25 09:49 Pulse Ox 97 05/02/25 09:49 FiO2 Intake & Output 05/01/25 05/02/25 05/02/25 18:59 06:59 18:59 Intake Total 240 Output Total 900 Balance -900 240 Intake: Oral 240 Output: Urine 900 Other: Voiding Method Toilet Toilet # Voids 1 2 - Labs CBC & Chem 7: 05/02/25 05:06 05/02/25 05:06 Labs: Abnormal Lab Results - Last 24 Hours (Table) 05/01/25 05/02/25 05/02/25 Range/Units 11:42 05:06 05:06 RBC 3.87 L (4.10-5.20) X 10*6/uL Hgb 10.5 L (12.0-15.0) g/dL Hct 33.7 L (37.2-46.3) % MCHC 31.2 L (32.0-37.0) g/dL RDW 20.3 H (11.5-14.5) % MPV 12.5 H (9.5-12.2) FL Chloride 110 H (96-109) mmol/L BUN/Creatinine Ratio 11.70 L (12.00-20.00) Ratio POC Glucose (mg/dL) 113 H (70-110) mg/dL Calcium 7.6 L (8.7-10.3) mg/dL Microbiology - Last 24 Hours (Table) 04/28/25 15:45 Urine Culture - Final Urine,Voided Ashley albicans Assessment and Plan Assessment: Assessment: 1. Acute Kidney Injury secondary to ATN from volume depletion, exacerbated by JELLY inhibitor, hypotension. Recent creatinine of 1.14 from 04/04/2025 (had TAMAR). Creatinine 3.84 on admission and is improved to 1.[address] abd/pelvis shows no signs of hydronephrosis with stable bilateral renal cysts noted. 2. Hypokalemia secondary to poor intake and vomiting. 3. Nausea and vomiting with history of recent Crescencio-en-[id number]. Plan: Decrease rate of normal saline to 50 cc an hour. Continue to hold nephrotoxic agents. Diet per surgery. Replace potassium.
[2025-05-02 12:01] LABS: Glucose,Whole Blood 83 mg/dL (70-110)
[2025-05-02] MEDS: POTASSIUM CHLORIDE ER 20 MEQ TAB.ER PO STA (13:02)
== END 2025-05-02 13:49 | disposition home or self-care (01) | DRG 393 ==
LOC: EC 13:37 → 4SSUR 15:15
PROVIDERS: ADMIT Hospitalist; ATTEND Hospitalist
DX: K95.89 Other complications of other bariatric procedure (principal); N17.0 Acute kidney failure with tubular necrosis; E46 Unspecified protein-calorie malnutrition; J44.89 Other specified chronic obstructive pulmonary disease; E11.9 Type 2 diabetes mellitus without complications; F31.9 Bipolar disorder, unspecified; I10 Essential (primary) hypertension; Z68.35 Body mass index [BMI] 35.0-35.9, adult; E86.0 Dehydration; E87.6 Hypokalemia; F41.9 Anxiety disorder, unspecified; K21.9 Gastro-esophageal reflux disease without esophagitis; K22.4 Dyskinesia of esophagus; M19.90 Unspecified osteoarthritis, unspecified site; Z79.899 Other long term (current) drug therapy; Z86.14 Personal history of Methicillin resistant Staphylococcus aureus infection; Z87.01 Personal history of pneumonia (recurrent); Z87.891 Personal history of nicotine dependence; Z90.49 Acquired absence of other specified parts of digestive tract; Z96.653 Presence of artificial knee joint, bilateral; Z98.84 Bariatric surgery status
CPT/HCPCS: 36415; 51702; 71045; 74176; 80048; 80053; 81001; 82150; 83605; 83690; 83735; 84100; 84132; 84425; 85025; 87086; 93005; 96361; 96365; 96366; 96375; 96376; 99285

== ENCOUNTER 2025-05-05 16:51 | Inpatient (IN) | payer MEDICARE, OTHER ==
[2025-05-05 18:12] LABS: Basophils # (A) 0.02 10*3/uL (0.00-0.10); Basophils % (A) 0.3 %; Eosinophils # (A) 0.05 10*3/uL (0.04-0.35); Eosinophils % (A) 0.8 %; HCT 32.1 % (37.2-46.3); HGB 10.7 g/dL (12.0-15.0); Lymphocytes # (A) 1.80 10*3/uL (0.90-5.00); Lymphocytes % (A) 29.8 %; MCH 27.5 pg (27.0-32.0); MCHC 33.3 g/dL (32.0-37.0); MCV 82.5 fL (80.0-97.0); Monocytes # (A) 0.49 10*3/uL (0.20-1.00); Monocytes % (A) 8.1 %; Neutrophils # (A) 3.64 10*3/uL (1.80-7.70); Neutrophils % (A) 60.3 %; Platelet Count 171 10*3/uL (140-440); RBC 3.89 10*6/uL (4.10-5.20); RDW 19.8 % (11.5-14.5); WBC 6.04 10*3/uL (4.50-10.00)
[2025-05-05 18:31] LABS: ALT 11 U/L (4-34); AST 23 U/L (14-36); African American GFR (CKD) 90 (>60 ml/min/1.73 sqM); Albumin 2.7 g/dL (3.5-5.0); Alkaline Phosphatase 123 U/L (38-126); Amylase 61 U/L (30-110); Anion Gap 7 mmol/L; Blood Urea Nitrogen 9 mg/dL (7-17); Calcium 8.6 mg/dL (8.4-10.2); Carbon Dioxide 25 mmol/L (22-30); Chloride 108 mmol/L (98-107); Glucose 80 mg/dL (74-99); Lipase 30 U/L (23-300); Magnesium 1.4 mg/dL (1.6-2.3); Non-African American GFR(CKD) 78 (>60 ml/min/1.73 sqM); Potassium 3.3 mmol/L (3.5-5.1); Sodium 140 mmol/L (137-145); Total Protein 5.2 g/dL (6.3-8.2)
--- NOTE | 2025-05-05 19:00 | ED ---
Nausea/Vomiting/Diarrhea HPI - General Source: patient, RN notes reviewed Mode of arrival: ambulatory Limitations: no limitations - History of Present Illness MD complaint: nausea, vomiting, abdominal pain <Yuliana Osorio - Last Filed: 05/05/25 18:58> - General Source: patient, RN notes reviewed, old records reviewed Mode of arrival: ambulatory Limitations: no limitations - History of Present Illness MD complaint: nausea, vomiting, abdominal pain -: days(s) Associated Abdominal Pain: Yes Location: diffuse Radiation: none Severity: moderate Severity scale (1-10): 7 Quality: stabbing, aching Consistency: constant Improves with: none Worsens with: none Context: recent surgery/procedure Associated Symptoms: loss of appetite, malaise, nausea/vomiting, weakness <Elmo Newman - Last Filed: 05/11/25 20:25> - General Chief complaint: Abdominal Pain Stated complaint: N/V/D Time Seen by Provider: 05/05/25 18:50 - History of Present Illness Initial comments: Quick Note: This is a 54-year-old female who presents to the emergency department for nausea and vomiting. States that this started a few days ago. She has epigastric pain that she states is common for her when she has nausea and vomiting. States that because she has a history of an TAMAR, she was advised to come to the emergency department when she is unable to tolerate oral intake due to risk of dehydration. Also states that yesterday she started developing chest pain and shortness of breath. She notices the shortness of breath more so when she tries to go to sleep at night. Also reports swelling in her lower extremities. (Yuliana Osorio) This is a 54 female to the ER for evaluation of nausea vomiting. Patient has severe epigastric pain with nausea vomiting history of gastric bypass. Lower extremity pain swelling edema swelling and edema of the abdomen. Patient concern for renal failure as well decreased oral intake and decreased urine output (Elmo Newman) - Related Data Home Medications Medication Instructions Recorded Confirmed Fluticasone/Umeclidin/Vilanter 1 puff INHALATION RT-DAILY 08/17/24 05/06/25 [Trelegy Ellipta 100-62.5-25] Montelukast [Singulair] 1 tab PO HS 08/17/24 05/06/25 Acetaminophen Tab [Tylenol] 500 mg PO Q4-6H PRN 03/29/25 05/06/25 QUEtiapine FUMARATE [SEROquel] 200 mg PO HS 03/29/25 05/06/25 Midodrine [ProAmatine] 5 mg PO AC-TID PRN 05/06/25 05/06/25 Previous Rx's Medication Instructions Recorded Calcium Carbonate [Tums] 1,000 mg PO TID PRN tab 04/06/25 Fludrocortisone [Florinef] 0.1 mg PO BID #60 tab 04/06/25 Magnesium Oxide [Mag-Ox] 400 mg PO BID #60 tab 04/06/25 Metoclopramide HCl [Reglan] 5 mg PO TID PRN #45 tablet 04/06/25 Allergies Allergy/AdvReac Type Severity Reaction Status Date / Time Enviromental Allergy Nasal Uncoded 05/06/25 08:21 drainage/watery eyes/sneezing Review of Systems ROS Other: All systems not noted in ROS Statement are negative. <Yuliana Osorio - Last Filed: 05/05/25 18:58> ROS Other: All systems not noted in ROS Statement are negative. <Elmo Newman - Last Filed: 05/11/25 20:25> ROS Statement: Those systems with pertinent positive or pertinent negative responses have been documented in the HPI. Past Medical History Past Medical History: Asthma, Chest Pain / Angina, COPD, Diabetes Mellitus, G ERD/Reflux, Hypertension, Osteoarthritis (OA), Pneumonia, Sleep Apnea/CPAP/BIPAP Additional Past Medical History / Comment(s): Recent ER visit r/t headache-pt states was dx with a Migraine. DDD, borderline diabetic, uses CPAP machine environmental allergies., has lap band. Influenza-12/2024 History of Any Multi-Drug Resistant Organisms: MRSA Date of last positivie culture/infection: 06/22/14 MDRO Source:: rt breast Past Surgical History: Back Surgery, Bariatric Surgery, Section, Cholecystectomy, Heart Catheterization, Joint Replacement, Tubal Ligation Additional Past Surgical History / Comment(s): bilateral knee replacement, lap band , RT WRIST GANGLION CYCT REMOVED, lumbar fusion surgery. lap band removal sleeve gastrectomy 12-14-24 Past Anesthesia/Blood Transfusion Reactions: No Reported Reaction Additional Past Anesthesia/Blood Transfusion Reaction / Comment(s): No hx of blood transfusion to date. Past Psychological History: Anxiety, Bipolar, Depression Smoking Status: Never smoker Past Alcohol Use History: Occasional Past Drug Use History: None Reported - Past Family History Mother Family Medical History: Hypertension Father Family Medical History: Cancer <Yuliana Osorio - Last Filed: 05/05/25 18:58> General Exam Limitations: no limitations <Yuliana Osorio - Last Filed: 05/05/25 18:58> General appearance: alert, in no apparent distress Head exam: Present: atraumatic, normocephalic, normal inspection Eye exam: Present: normal appearance, PERRL, EOMI. Absent: scleral icterus, conjunctival injection, periorbital swelling ENT exam: Present: normal exam, mucous membranes moist Neck exam: Present: normal inspection. Absent: tenderness, meningismus, lymphadenopathy Respiratory exam: Present: normal lung sounds bilaterally. Absent: respiratory distress, wheezes, rales, rhonchi, stridor Cardiovascular Exam: Present: regular rate, normal rhythm, normal heart sounds. Absent: systolic murmur, diastolic murmur, rubs, gallop, clicks GI/Abdominal exam: Present: soft, normal bowel sounds. Absent: distended, tenderness, guarding, rebound, rigid Extremities exam: Present: normal inspection, full ROM, normal capillary refill. Absent: tenderness, pedal edema, joint swelling, calf tenderness Back exam: Present: normal inspection Neurological exam: Present: alert, oriented X3, CN II-XII intact Psychiatric exam: Present: normal affect, normal mood Skin exam: Present: warm, dry, intact, normal color. Absent: rash <Elmo Newman - Last Filed: 05/11/25 20:25> - General Exam Comments Initial Comments: Visual Physical Exam Vital signs reviewed General: Well-appearing, nontoxic, no acute distress. Head: Normocephalic, atraumatic Eyes: PERRLA, EOMI ENT: Airway patent Chest: Nonlabored breathing Skin: No visual rash, normal skin tone Neuro: Alert and oriented 3 Musculoskeletal: No gross abnormalities (Yuliana Osorio) Course <Elmo Newman - Last Filed: 05/11/25 20:25> Vital Signs 06/05/05/25 05/06/25 16:53 23:11 02:25 Temperature 98.3 F Pulse Rate 81 93 Respiratory 18 18 18 Rate Blood Pressure 140/95 139/83 131/76 O2 Sat by Pulse 100 100 96 Oximetry 05/06/25 05/06/25 05/06/25 05:40 08:10 08:18 Temperature 97.8 F Pulse Rate 78 85 Respiratory 18 18 Rate Blood Pressure 142/85 129/74 O2 Sat by Pulse 94 L 94 L 94 L Oximetry 05/06/25 05/06/25 05/06/25 09:31 11:15 14:27 Temperature 98.1 F 98.0 F Pulse Rate 74 87 85 Respiratory 20 Rate Blood Pressure 147/95 138/90 O2 Sat by Pulse 93 L 96 94 L Oximetry 05/06/25 05/06/25 15:40 18:27 Temperature 98.1 F Pulse Rate 71 72 Respiratory 20 20 Rate Blood Pressure 152/98 152/76 O2 Sat by Pulse 93 L 99 Oximetry - Reevaluation(s) Reevaluation #1: 05/06/25 03:13 Medical records reviewed (Elmo Newman) Reevaluation #2: 05/06/25 03:13 Patient still with nausea vomiting throughout ER stay, abdominal pain hard to control (Elmo Newman) Reevaluation #3: 05/06/25 03:14 Patient informed of results questions answered (Elmo Newman) Reevaluation #4: Was pt. sent in by a medical professional or institution (, PA, MOVEMENT ASSEMBLER, urgent care, hospital, or detention...) When possible be specific @ -no Did you speak to anyone other than the patient for history (EMS, parent, family, police, friend...)? What history was obtained from this source @ -no Did you review nursing and triage notes (agree or disagree)? Why? @ -agree Are old charts reviewed (outside hosp., previous admission, EMS record, old EKG, old radiological studies, urgent care reports/EKG's, detention records)? Report findings @ -yes Differential Diagnosis (chest pain, altered mental status, abdominal pain women, abdominal pain men, vaginal bleeding, weakness, fever, dyspnea, syncope, headache, dizziness, GI bleed, back pain, seizure, CVA, palpatations, mental health, musculoskeletal)? @ -prior EKG interpreted by me (3pts min.). @ -yes X-rays interpreted by me (1pt min.). @ -yes mild pulmonary edema CT interpreted by me (1pt min.). @ -As positive for anasarca U/S interpreted by me (1pt. min.). @ -no What testing was considered but not performed or refused? (CT, X-rays, U/S, labs)? Why? @ -none What meds were considered but not given or refused? Why? @ -none Did you discuss the management of the patient with other professionals (professionals i.e. Dr., PA, MOVEMENT ASSEMBLER, lab, RT, psych nurse, public health social worker, field assembly supervisor, teacher, special assets officer, case management social worker)? Give summary @ -no Was smoking cessation discussed for >3mins.? @ -no Was critical care preformed (if so, how long)? @ -no Were there social determinants of health that impacted care today? How? (Homelessness, low income, unemployed, alcoholism, drug addiction, transportation, low edu. Level, literacy, decrease access to med. care, m[facility], rehab)? @ -none Was there de-escalation of care discussed even if they declined (Discuss DNR or withdrawal of care, Hospice)? DNR status @ -no What co-morbidities impacted this encounter? (DM, HTN, Smoking, COPD, CAD, Cancer, CVA, ARF, Chemo, Hep., AIDS, mental health diagnosis, sleep apnea, morbid obesity)? @ -none Was patient admitted / discharged? Hospital course, mention meds given and route, prescriptions, significant lab abnormalities, going to OR and other pertinent info. @ - 54 female will be admitted for nausea vomiting intractable nausea vomiting abdominal pain here in the ER mild dehydration with lower extremity edema and anasarca, patient will admit for symptom control Admitted Undiagnosed new problem with uncertain prognosis? @ -no Drug Therapy requiring intensive monitoring for toxicity (Heparin, Nitro, Insulin, Cardizem)? @ -no Were any procedures done? @ -no Diagnosis/symptom? @ -Nausea vomiting abdominal pain anasarca pulmonary edema Acute, or Chronic, or Acute on Chronic? @ -Acute Uncomplicated (without systemic symptoms) or Complicated (systemic symptoms)? @ -Complicated Side effects of treatment? @ -no Exacerbation, Progression, or Severe Exacerbation? @ -exacerbation Poses a threat to life or bodily function? How? (Chest pain, [place], [place], pneumonia, PE, COPD, DKA, ARF, appy, cholecystitis, CVA, Diverticulitis, Homicidal, Suicidal, threat to staff... and all critical care pts) @ -yes (Elmo Newman) Reevaluation #5: Differential Abdominal Pain Women: Appendicitis, Cholecystitis, diverticulosis, ischemic bowel, pancreatitis, hepatitis, UTI, gastroenteritis, AAA, incarcerated hernia, bowel obstruction, constipation, inflammatory bowel, hepatitis, peptic ulcer disease, splenic infarction, perforated viscus, vulvitis, ovarian torsion, PID, kidney stone, placenta abruption, this is not meant to be an all-inclusive list (Elmo Newman) - Consultations Consultation #1: Spoke with [facility] who agrees to admit this patient (Elmo Newman) Medical Decision Making - Lab Data Result diagrams: 05/05/25 17:59 05/05/25 17:59 <Yuliana Osorio - Last Filed: 05/05/25 18:58> - Lab Data Result diagrams: 05/09/25 03:41 05/11/25 18:55 - EKG Data -: EKG Interpreted by Me (EKG is sinus 83 WA 111 QRS 92 QTc 414) - Radiology Data Radiology results: report reviewed (CT on pelvis is negative for significant acute disease), image reviewed <Elmo Newman - Last Filed: 05/11/25 20:25> - Medical Decision Making I performed the QuickNote portion of this chart. Signed Yuliana Osorio PA-C. (Yuliana Osorio) 54 female will be admitted for nausea vomiting intractable nausea vomiting a bdominal pain here in the ER mild dehydration with lower extremity edema and anasarca, patient will admit for symptom control (Elmo Newman) - Lab Data Lab Results 05/05/25 05/05/25 05/05/25 Range/Units 17:59 17:59 17:59 WBC 6.04 (4.50-10.00) 10*3/uL RBC 3.89 L (4.10-5.20) 10*6/uL Hgb 10.7 L (12.0-15.0) g/dL Hct 32.1 L (37.2-46.3) % MCV 82.5 (80.0-97.0) fL MCH 27.5 (27.0-32.0) pg MCHC 33.3 (32.0-37.0) g/dL Plt Count 171 (140-440) 10*3/uL MPV 11.2 (9.5-12.2) fL Immature Gran % (Auto) 0.7 % Neutrophils % 60.3 % Lymphocytes % 29.8 % Monocytes % 8.1 % Eosinophils % 0.8 % Basophils % 0.3 % Immature Gran # 0.04 (0.00-0.04) 10*3/uL Neutrophils # 3.64 (1.80-7.70) 10*3/uL Lymphocytes # 1.80 (0.90-5.00) 10*3/uL Monocytes # 0.49 (0.20-1.00) 10*3/uL Eosinophils # 0.05 (0.04-0.35) 10*3/uL Basophils # 0.02 (0.00-0.10) 10*3/uL PT (10.0-12.5) sec INR (<1.2) APTT (22.0-30.0) sec Sodium 140 (137-145) mmol/L Potassium 3.3 L (3.5-5.1) mmol/L Chloride 108 H (98-107) mmol/L Carbon Dioxide 25 (22-30) mmol/L Anion Gap 7 mmol/L BUN 9 (7-17) mg/dL Creatinine 0.84 (0.52-1.04) mg/dL Est GFR (CKD-EPI)AfAm 90 (>60 ml/min/1.73 sqM) Est GFR (CKD-EPI)NonAf 78 (>60 ml/min/1.73 sqM) Glucose 80 (74-99) mg/dL Plasma Lactic Acid Hay 1.0 (0.7-2.0) mmol/L Calcium 8.6 (8.4-10.2) mg/dL Magnesium 1.4 L (1.6-2.3) mg/dL Total Bilirubin 0.6 (0.2-1.3) mg/dL AST 23 (14-36) U/L ALT 11 (4-34) U/L Alkaline Phosphatase 123 (38-126) U/L Troponin I (0.000-0.034) ng/mL NT-Pro-B Natriuret Pep pg/mL Total Protein 5.2 L (6.3-8.2) g/dL Albumin 2.7 L (3.5-5.0) g/dL Amylase 61 (30-110) U/L Lipase 30 (23-300) U/L Urine Color Urine Appearance (Clear) Urine pH (5.0-8.0) Ur Specific [place] (1.001-1.035) Urine Protein (Negative) Urine Glucose (UA) (Negative) Urine Ketones (Negative) Urine Blood (Negative) Urine Nitrite (Negative) Urine Bilirubin (Negative) Urine Urobilinogen (<2.0) mg/dL Ur Leukocyte Esterase (Negative) Urine RBC (0-5) /hpf Urine WBC (0-5) /hpf Ur Squamous Epith Cells (0-4) /hpf Calcium Oxalate Crystal (None) /hpf Urine Bacteria (None) /hpf Hyaline Casts (0-2) /lpf Urine Mucus (None) /hpf Urine Yeast (Budding) (None) /hpf 05/05/25 05/05/25 05/05/25 Range/Units 17:59 18:57 18:57 WBC (4.50-10.00) 10*3/uL RBC (4.10-5.20) 10*6/uL Hgb (12.0-15.0) g/dL Hct (37.2-46.3) % MCV (80.0-97.0) fL MCH (27.0-32.0) pg MCHC (32.0-37.0) g/dL Plt Count (140-440) 10*3/uL MPV (9.5-12.2) fL Immature Gran % (Auto) % Neutrophils % % Lymphocytes % % Monocytes % % Eosinophils % % Basophils % % Immature Gran # (0.00-0.04) 10*3/uL Neutrophils # (1.80-7.70) 10*3/uL Lymphocytes # (0.90-5.00) 10*3/uL Monocytes # (0.20-1.00) 10*3/uL Eosinophils # (0.04-0.35) 10*3/uL Basophils # (0.00-0.10) 10*3/uL PT 11.3 (10.0-12.5) sec INR 1.0 (<1.2) APTT 22.6 (22.0-30.0) sec Sodium (137-145) mmol/L Potassium (3.5-5.1) mmol/L Chloride (98-107) mmol/L Carbon Dioxide (22-30) mmol/L Anion Gap mmol/L BUN (7-17) mg/dL Creatinine (0.52-1.04) mg/dL Est GFR (CKD-EPI)AfAm (>60 ml/min/1.73 sqM) Est GFR (CKD-EPI)NonAf (>60 ml/min/1.73 sqM) Glucose (74-99) mg/dL Plasma Lactic Acid Hay (0.7-2.0) mmol/L Calcium (8.4-10.2) mg/dL Magnesium (1.6-2.3) mg/dL Total Bilirubin (0.2-1.3) mg/dL AST (14-36) U/L ALT (4-34) U/L Alkaline Phosphatase (38-126) U/L Troponin I <0.012 (0.000-0.034) ng/mL NT-Pro-B Natriuret Pep 2430 pg/mL Total Protein (6.3-8.2) g/dL Albumin (3.5-5.0) g/dL Amylase (30-110) U/L Lipase (23-300) U/L Urine Color Urine Appearance (Clear) Urine pH (5.0-8.0) Ur Specific [place] (1.001-1.035) Urine Protein (Negative) Urine Glucose (UA) (Negative) Urine Ketones (Negative) Urine Blood (Negative) Urine Nitrite (Negative) Urine Bilirubin (Negative) Urine Urobilinogen (<2.0) mg/dL Ur Leukocyte Esterase (Negative) Urine RBC (0-5) /hpf Urine WBC (0-5) /hpf Ur Squamous Epith Cells (0-4) /hpf Calcium Oxalate Crystal (None) /hpf Urine Bacteria (None) /hpf Hyaline Casts (0-2) /lpf Urine Mucus (None) /hpf Urine Yeast (Budding) (None) /hpf 06/26/25 Range/Units 01:00 WBC (4.50-10.00) 10*3/uL RBC (4.10-5.20) 10*6/uL Hgb (12.0-15.0) g/dL Hct (37.2-46.3) % MCV (80.0-97.0) fL MCH (27.0-32.0) pg MCHC (32.0-37.0) g/dL Plt Count (140-440) 10*3/uL MPV (9.5-12.2) fL Immature Gran % (Auto) % Neutrophils % % Lymphocytes % % Monocytes % % Eosinophils % % Basophils % % Immature Gran # (0.00-0.04) 10*3/uL Neutrophils # (1.80-7.70) 10*3/uL Lymphocytes # (0.90-5.00) 10*3/uL Monocytes # (0.20-1.00) 10*3/uL Eosinophils # (0.04-0.35) 10*3/uL Basophils # (0.00-0.10) 10*3/uL PT (10.0-12.5) sec INR (<1.2) APTT (22.0-30.0) sec Sodium (137-145) mmol/L Potassium (3.5-5.1) mmol/L Chloride (98-107) mmol/L Carbon Dioxide (22-30) mmol/L Anion Gap mmol/L BUN (7-17) mg/dL Creatinine (0.52-1.04) mg/dL Est GFR (CKD-EPI)AfAm (>60 ml/min/1.73 sqM) Est GFR (CKD-EPI)NonAf (>60 ml/min/1.73 sqM) Glucose (74-99) mg/dL Plasma Lactic Acid Hay (0.7-2.0) mmol/L Calcium (8.4-10.2) mg/dL Magnesium (1.6-2.3) mg/dL Total Bilirubin (0.2-1.3) mg/dL AST (14-36) U/L ALT (4-34) U/L Alkaline Phosphatase (38-126) U/L Troponin I (0.000-0.034) ng/mL NT-Pro-B Natriuret Pep pg/mL Total Protein (6.3-8.2) g/dL Albumin (3.5-5.0) g/dL Amylase (30-110) U/L Lipase (23-300) U/L Urine Color Yellow Urine Appearance Cloudy H (Clear) Urine pH 6.0 (5.0-8.0) Ur Specific [place] 1.043 H (1.001-1.035) Urine Protein Trace H (Negative) Urine Glucose (UA) Negative (Negative) Urine Ketones 2+ H (Negative) Urine Blood Negative (Negative) Urine Nitrite Negative (Negative) Urine Bilirubin Negative (Negative) Urine Urobilinogen 2.0 (<2.0) mg/dL Ur Leukocyte Esterase Moderate H (Negative) Urine RBC 3 (0-5) /hpf Urine WBC 45 H (0-5) /hpf Ur Squamous Epith Cells 13 H (0-4) /hpf Calcium Oxalate Crystal Rare H (None) /hpf Urine Bacteria Rare H (None) /hpf Hyaline Casts 36 H (0-2) /lpf Urine Mucus Many H (None) /hpf Urine Yeast (Budding) Rare H (None) /hpf Disposition <Yuliana Osorio - Last Filed: 05/05/25 18:58> Is patient prescribed a controlled substance at d/c from ED?: No Time of Disposition: 02:00 <Elmo Newman - Last Filed: 05/11/25 20:25> Clinical Impression: Dehydration, Abdominal pain, Hypokalemia, Nausea and vomiting Disposition: ADMITTED IP TO THIS HOSP Condition: Fair
[2025-05-05 19:22] LABS: INR 1.0 (<1.2); Partial Thromboplastin Time 22.6 sec (22.0-30.0); Prothrombin Time 11.3 sec (10.0-12.5)
--- NOTE | 2025-05-05 20:15 | XR ---
EXAMINATION TYPE: XR chest 2V DATE OF EXAM: 05/05/2025 7:12 PM COMPARISON: 04/29/2025 CLINICAL INDICATION: Female, 54 years old with history of B[place], TECHNIQUE: XR chest 2V view(s) obtained. FINDINGS: The heart size is normal. The pulmonary vasculature is normal. The lungs are clear. IMPRESSION: 1. No acute pulmonary process. [facility], , 05/05/2025 8:12 PM
[2025-05-05] MEDS: SODIUM CHLORIDE 0.9% 1,000 ML IV ONE (23:06)
[2025-05-05] MEDS: HYDROmorphone 1 MG/ML 1 ML SYRINGE IVP STA (23:18)
[2025-05-05] MEDS: ONDANSETRON 4 MG/2 ML VIAL IVP STA (23:20)
[2025-05-05] MEDS: METOCLOPRAMIDE 5 MG/ML 2 ML VIAL IVP STA (23:24)
--- NOTE | 2025-05-06 00:42 | CT ---
EXAM: CT Abdomen and Pelvis With Intravenous Contrast CLINICAL HISTORY: c/o nausea vomiting abdominal pain with shortness of breath. TECHNIQUE: Axial computed tomography images of the abdomen and pelvis with intravenous contrast. Coronal and sagittal reconstructions are performed. CTDI is 33.1 mGy and DLP is 1466.1 mGy-cm. This CT exam was performed using one or more of the following dose reduction techniques: automated exposure control, adjustment of the mA and/or kV according to patient size, and/or use of iterative reconstruction technique. COMPARISON: 04/28/2025 FINDINGS: Lung bases: Unremarkable. No mass. No consolidation. Pleural space: trace of bilateral pleural effusions are new. Small amount of bibasilar atelectasis. ABDOMEN: Liver: Unremarkable. No mass. Gallbladder and bile ducts: No acute findings. Pancreas: Unremarkable. No mass. No ductal dilation. Spleen: Unremarkable. No splenomegaly. Adrenals: Unremarkable. No mass. Kidneys and ureters: Bilateral renal cysts. The largest is on the right, measuring about 6 cm. Stomach and bowel: Gastric sleeve sutures. No obstruction. No mucosal thickening. PELVIS: Appendix: Normal appendix. Bladder: Unremarkable. No mass. Reproductive: No acute findings. ABDOMEN and PELVIS: Intraperitoneal space: Unremarkable. No free air. No significant fluid collection. Bones/joints: L5-S1 fusion hardware cause large amount of streak artifact which decreases the sensitivity on associated images. Soft tissues: Mild anasarca. Vasculature: Small amount of atherosclerotic calcifications. No abdominal aortic aneurysm. Lymph nodes: Unremarkable. No enlarged lymph nodes. IMPRESSION: 1. Mild anasarca, new. 2. trace of bilateral pleural effusions are new.
[2025-05-06] MEDS: SODIUM CHLORIDE 0.9% 500 ML 500 ML IV ONE (01:05)
[2025-05-06 01:52] LABS: Bacteria,Urine Rare /hpf; Bilirubin,Urine Negative (Negative); Blood,Urine Negative (Negative); Budding Yeast,Urine Rare /hpf; Calcium Oxalate Crystals,Urine Rare /hpf; Color,Urine Yellow; Glucose,Urine (UA) Negative (Negative); Hyaline Casts,Urine 36 /lpf (0-2); Ketones,Urine 2+ (Negative); Leukocyte Esterase,Urine Moderate (Negative); Mucus,Urine Many /hpf; Nitrite,Urine Negative (Negative); PH, Urine 6.0 (5.0-8.0); Protein,Urine Trace (Negative); RBC,Urine 3 /hpf (0-5); Specific Gravity,Urine 1.043 (1.001-1.035); Squamous Epithelial Cell,Urine 13 /hpf (0-4); Urobilinogen,Urine 2.0 mg/dL (<2.0); WBC,Urine 45 /hpf (0-5)
[2025-05-06] MEDS ORDERED: NALOXONE 0.4 MG/ML 1 ML VIAL IV PRN (01:57)
[2025-05-06] MEDS: MAGNESIUM OXIDE 400 MG TAB PO STA (02:15)
[2025-05-06] MEDS: HYDROmorphone 1 MG/ML 1 ML SYRINGE IVP PRN (02:15)
[2025-05-06] MEDS: MAGNESIUM SULFATE-D5W PMX 1 GM in DEXTROSE/WATER 1 100ML.BAG IVPB ONE (02:22)
[2025-05-06] MEDS: POTASSIUM BICARBONATE/CIT AC 20 MEQ TABLET.EFF PO ONE ×2 (02:22)
[2025-05-06] MEDS: DEXTROSE 5%-0.45% NACL 1,000 ML IV ONE (03:16)
[2025-05-06] MEDS: ONDANSETRON 4 MG/2 ML VIAL IVP PRN (03:18)
[2025-05-06] MEDS: PANTOPRAZOLE 40 MG/10 ML VIAL IV SCH (08:10)
[2025-05-06] MEDS ORDERED: MIDODRINE 5 MG TAB PO PRN (11:19)
[2025-05-06] MEDS: FLUDROCORTISONE 0.1 MG TAB PO SCH (12:03)
[2025-05-06] MEDS: THIAMINE 100 MG in SODIUM CHLORIDE 0.9% 50 ML IVPB SCH (12:03)
--- NOTE | 2025-05-06 13:29 | P.GSCN ---
History of Present Illness Consult date: 05/06/25 History of present illness: CHIEF COMPLAINT: Nausea and vomiting HISTORY OF PRESENT ILLNESS: This is a 54-year-old female with recurrent hospitalizations for nausea and vomiting and dehydration. She had sleeve gastrectomy in December 14, 2024. Patient also has a known history of esophageal dysmotility. She was just recently discharged from the hospital last week. She reports she had a few days that she was feeling well and then the nausea and vomiting reoccurred. She reports pain across up to her abdomen. She also reports she was dehydrated and had decreased urine output. CT scan abdomen pelvis completed showing mild anasarca. Labs reviewed and she did have a low potassium and magnesium. Her thiamine from last admission did come back and was low at 16. Patient seen and examined with Dr. Alberto PAST MEDICAL HISTORY: Asthma, Chest Pain / Angina, COPD, Diabetes Mellitus, GERD/Reflux, Hypertension, Osteoarthritis (OA), Pneumonia, Sleep Apnea/CPAP/BIPAP, migraines PAST SURGICAL HISTORY: Back Surgery, Bariatric Surgery, Section, Cholecystectomy, Heart Catheterization, Joint Replacement, Tubal Ligation, bilateral knee replacement, lap band , RT WRIST GANGLION CYCT REMOVED, lumbar fusion surgery. lap band removal sleeve gastrectomy 12-14-24 MEDICATIONS: See below ALLERGIES: See below SOCIAL HISTORY: No illicit drug use. REVIEW OF SYSTEMS: CONSTITUTIONAL: Denies fever or chills. HEENT: Denies blurred vision, vision changes, or eye pain. Denies hemoptysis CARDIOVASCULAR: Denies chest pain or pressure. RESPIRATORY: No shortness of breath. GASTROINTESTINAL: See HPI for pertinent findings HEMATOLOGIC: Denies bleeding disorders. GENITOURINARY: Denies any blood in urine or increased urinary frequency. SKIN: Denies pruitis. Denies rash. PHYSICAL EXAM: VITAL SIGNS: Reviewed GENERAL: Well-developed in no acute distress. HEENT: No sclera icterus. Extraocular movements grossly intact. Moist buccal mucosa. Head is atraumatic, normocephalic. No nasal drainage. ABDOMEN: Soft. Nondistended. Tenderness epigastric area NEUROLOGIC: Alert and oriented. Cranial nerves II through XII grossly intact. LABORATORY DATA: WBC 6.04 Hgb 10.7 platelets 171 Sodium 140 potassium 3.3 creatinine 0.84 magnesium 1.4 Thiamine level 16 IMAGING: CT scan abdomen pelvis mild anasarca. Trace pleural effusion ASSESSMENT: 1. Nausea and vomiting possibly due to low magnesium and thiamine deficiency 2. Dehydration 3. Epigastric abdominal pain 4. Esophageal dysmotility 5. Thiamine deficiency 6. Hypokalemia and hypomagnesemia PLAN: - Start thiamine supplement 100 mg IV twice daily - Continue to correct electrolytes - Continue IV fluids - Continue clear liquid diet - Upper GI ordered Physician [employer] note has been reviewed by physician. Signing provider agrees with the documented findings, assessment, and plan of care. Past Medical History Past Medical History: Asthma, Chest Pain / Angina, COPD, Diabetes Mellitus, GERD/Reflux, Hypertension, Osteoarthritis (OA), Pneumonia, Sleep Apnea/CPAP/BIPAP Additional Past Medical History / Comment(s): Recent ER visit r/t headache-pt states was dx with a Migraine. DDD, borderline diabetic, uses CPAP machine environmental allergies., has lap band. Influenza-12/2024 History of Any Multi-Drug Resistant Organisms: MRSA Year Discovered:: 06/22/14 MDRO Source:: rt breast Past Surgical History: Back Surgery, Bariatric Surgery, Section, Cholecystectomy, Heart Catheterization, Joint Replacement, Tubal Ligation Additional Past Surgical History / Comment(s): bilateral knee replacement, lap band , RT WRIST GANGLION CYCT REMOVED, lumbar fusion surgery. lap band removal sleeve gastrectomy 12-14-24 Past Anesthesia/Blood Transfusion Reactions: No Reported Reaction Additional Past Anesthesia/Blood Transfusion Reaction / Comm: No hx of blood transfusion to date. Past Psychological History: Anxiety, Bipolar, Depression Smoking Status: Never smoker Past Alcohol Use History: Occasional Past Drug Use History: None Reported - Past Family History Mother Family Medical History: Hypertension Father Family Medical History: Cancer Medications and Allergies Home Medications Medication Instructions Recorded Confirmed Type Fluticasone/Umeclidin/Vilanter 1 puff INHALATION RT-DAILY 08/17/24 05/06/25 History [Trelegy Ellipta 100-62.5-25] Montelukast [Singulair] 1 tab PO HS 08/17/24 05/06/25 History Acetaminophen Tab [Tylenol] 500 mg PO Q4-6H PRN 03/29/25 05/06/25 History QUEtiapine FUMARATE [SEROquel] 200 mg PO HS 03/29/25 05/06/25 History Calcium Carbonate [Tums] 1,000 mg PO TID PRN tab 04/06/25 05/06/25 Rx Fludrocortisone [Florinef] 0.1 mg PO BID #60 tab 04/06/25 05/06/25 Rx Magnesium Oxide [Mag-Ox] 400 mg PO BID #60 tab 04/06/25 05/06/25 Rx Metoclopramide HCl [Reglan] 5 mg PO TID PRN #45 tablet 04/06/25 05/06/25 Rx Midodrine [ProAmatine] 5 mg PO AC-TID PRN 05/06/25 05/06/25 History Allergies Allergy/AdvReac Type Severity Reaction Status Date / Time Enviromental Allergy Nasal Uncoded 05/06/25 08:21 drainage/watery eyes/sneezing Surgical - Exam Vital Signs Temp Pulse Resp BP Pulse Ox 98.3 F 81 18 140/95 100 05/05/25 16:53 05/05/25 16:53 05/05/25 16:53 05/05/25 16:53 05/05/25 16:53 Results - Labs 05/05/25 17:59 05/05/25 17:59 Abnormal Lab Results - Last 24 Hours (Table) 05/05/25 05/05/25 05/06/25 Range/Units 17:59 17:59 01:00 RBC 3.89 L (4.10-5.20) 10*6/uL Hgb 10.7 L (12.0-15.0) g/dL Hct 32.1 L (37.2-46.3) % Potassium 3.3 L (3.5-5.1) mmol/L Chloride 108 H (98-107) mmol/L Magnesium 1.4 L (1.6-2.3) mg/dL Total Protein 5.2 L (6.3-8.2) g/dL Albumin 2.7 L (3.5-5.0) g/dL Urine Appearance Cloudy H (Clear) Ur Specific [place] 1.043 H (1.001-1.035) Urine Protein Trace H (Negative) Urine Ketones 2+ H (Negative) Ur Leukocyte Esterase Moderate H (Negative) Urine WBC 45 H (0-5) /hpf Ur Squamous Epith Cells 13 H (0-4) /hpf Calcium Oxalate Crystal Rare H (None) /hpf Urine Bacteria Rare H (None) /hpf Hyaline Casts 36 H (0-2) /lpf Urine Mucus Many H (None) /hpf Urine Yeast (Budding) Rare H (None) /hpf Diabetes panel 05/05/25 Range/Units 17:59 Sodium 140 (137-145) mmol/L Potassium 3.3 L (3.5-5.1) mmol/L Chloride 108 H (98-107) mmol/L Carbon Dioxide 25 (22-30) mmol/L BUN 9 (7-17) mg/dL Creatinine 0.84 (0.52-1.04) mg/dL Glucose 80 (74-99) mg/dL Calcium 8.6 (8.4-10.2) mg/dL AST 23 (14-36) U/L ALT 11 (4-34) U/L Alkaline Phosphatase 123 (38-126) U/L Total Protein 5.2 L (6.3-8.2) g/dL Albumin 2.7 L (3.5-5.0) g/dL Calcium panel 05/05/25 Range/Units 17:59 Calcium 8.6 (8.4-10.2) mg/dL Albumin 2.7 L (3.5-5.0) g/dL Pituitary panel 05/05/25 Range/Units 17:59 Sodium 140 (137-145) mmol/L Potassium 3.3 L (3.5-5.1) mmol/L Chloride 108 H (98-107) mmol/L Carbon Dioxide 25 (22-30) mmol/L BUN 9 (7-17) mg/dL Creatinine 0.84 (0.52-1.04) mg/dL Glucose 80 (74-99) mg/dL Calcium 8.6 (8.4-10.2) mg/dL Adrenal panel 05/05/25 Range/Units 17:59 Sodium 140 (137-145) mmol/L Potassium 3.3 L (3.5-5.1) mmol/L Chloride 108 H (98-107) mmol/L Carbon Dioxide 25 (22-30) mmol/L BUN 9 (7-17) mg/dL Creatinine 0.84 (0.52-1.04) mg/dL Glucose 80 (74-99) mg/dL Calcium 8.6 (8.4-10.2) mg/dL Total Bilirubin 0.6 (0.2-1.3) mg/dL AST 23 (14-36) U/L ALT 11 (4-34) U/L Alkaline Phosphatase 123 (38-126) U/L Total Protein 5.2 L (6.3-8.2) g/dL Albumin 2.7 L (3.5-5.0) g/dL
--- NOTE | 2025-05-06 15:32 | FL ---
EXAMINATION TYPE: FL UGI w esophagus DATE OF EXAM: 05/06/2025 3:23 PM COMPARISON: 05/05/2025. CLINICAL INDICATION:Female, 54 years old with history of Esophageal dysmotility; TECHNIQUE: The procedure was explained and patient history elicited. All patient questions were ans wered prior to start of procedure. A trimmer meat radiograph of the abdomen was also reviewed. Multiple flu oroscopic spot images of the esophagus, stomach and duodenum were obtained following ingestion of liq uid barium and EZ-gas crystals. DAP [id number] FINDINGS: Postsurgical contour to the gastric lumen. There is moderate to severe esophageal dysmotility with te rtiary contractions. No evidence for extravasation. No evidence for esophageal wall mass or gastric m ass. Contrast enters the gastric lumen but there was moderate gastroesophageal reflux while the patie nt was standing. The gastric lumen is a small and postsurgical in size and contour. Visualized portio ns of the small bowel demonstrate no abnormality. IMPRESSION: 1. Moderate to severe Esophageal dysmotility. 2. Moderate gastroesophageal reflux. [facility], , 05/06/2025 3:29 PM
--- NOTE | 2025-05-06 15:48 | P.HPIM ---
History of Present Illness H&P Date: 05/06/25 History of present illness: 54-year-old female with past medical significant for sleeve gastrectomy in December 2024, history of esophageal dysmotility, history of diastolic CHF, hypertension, acute kidney injury, who presented to the hospital with complaint of nausea vomiting and dehydration. Patient had recurrent hospitalizations for similar symptoms, was noted to be hypotensive and likely acute kidney injury during previous hospitalization, was discharged home on IV fluids and Solu- Cortef now presented again with a similar symptom send was concerned about dehydration and presented to ER. Patient denied any fever or chills, patient reported that she was having decreased urinary output. Patient reported increased thirst and dry mouth. Patient is afebrile, heart rate 71, respiratory rate 20, blood pressure 152/98, saturating 93% on room air. WBC 6.04 hemoglobin 10.7 platelet 171. INR 1.0. BMP unremarkable except potassium 3.3, magnesium 1.4. Lipase unremarkable. Troponin negative. UA contaminated sample. CT abdomen pelvis negative for acute process, showed mild anasarca. Assessment and plan: Nausea and vomiting: Dehydration: Recurrent hospitalization for nausea vomiting, dehydration and acute kidney injury: Esophageal dysmotility: Hypokalemia: Hypomagnesemia: Patient has recurrent hospitalization for similar symptoms, nausea vomiting, dehydration, hypotension and acute kidney injury. CT abdomen pelvis negative for acute process, showed mild anasarca Hold diuretic IV fluids Monitor electrolytes and replace as needed Clear liquid diet General Surgery consultedrecommended upper GI Thiamine deficiency: Thiamine level 16 from previous hospitalization Thiamine supplements History of diastolic CHF COPD Obstructive sleep apnea DVT prophylaxis Monitor vital signs and labs Labs and medication were reviewed. Continue same treatment. Further recommendations as per clinical course of the patient PHYSICAL EXAMINATION: GENERAL: The patient is A&O x3, NAD HEENT: EOMI, Sclerae anicteric, Moist Mucous membranes Neck: Supple, Non tender, No JVD PULMONARY: Equal breath souds B/L, No wheezing, No crackles. CARDIOVASCULAR: S1, S2 present. No murmurs, rubs, or gallops. ABDOMEN: Soft, nontender, nondistended, normoactive bowel sounds. No guarding or rebound tenderness. MUSCULOSKELETAL: No edema, No cyanosis. No clubbing. Normal ROM. Intact peripheral pulses. NEUROLOGICAL: CN 2-12 grossly intact. No FND REVIEW OF SYSTEMS: CONSTITUTIONAL: No fever, no malaise, no fatigue. HEENT: No recent visual problems or hearing problems. Denied any sore throat. CARDIOVASCULAR: No chest pain, orthopnea, PND, no palpitations, no syncope. PULMONARY: No shortness of breath, no cough, no hemoptysis. GASTROINTESTINAL: No diarrhea, no nausea, no vomiting, no abdominal pain. NEUROLOGICAL: No headaches, no weakness, no numbness. HEMATOLOGICAL: Denies any bleeding or petechiae. GENITOURINARY: Denies any burning micturition, frequency, or urgency. MUSCULOSKELETAL/RHEUMATOLOGICAL: Denies any joint pain, swelling, or any muscle pain. ENDOCRINE: Denies any polyuria or polydipsia. The rest of the 14-point review of systems is negative. Dictation was produced using [employer] dictation software. please excuse any grammatical, word or spelling errors. Past Medical History Past Medical History: Asthma, Chest Pain / Angina, COPD, Diabetes Mellitus, GERD/Reflux, Hypertension, Osteoarthritis (OA), Pneumonia, Sleep Apnea/CPAP/BIPAP Additional Past Medical History / Comment(s): Recent ER visit r/t headache-pt states was dx with a Migraine. DDD, borderline diabetic, uses CPAP machine environmental allergies., has lap band. Influenza-12/2024 History of Any Multi-Drug Resistant Organisms: MRSA Date of last positivie culture/infection: 06/22/14 MDRO Source:: rt breast Past Surgical History: Back Surgery, Bariatric Surgery, Section, Cholecystectomy, Heart Catheterization, Joint Replacement, Tubal Ligation Additional Past Surgical History / Comment(s): bilateral knee replacement, lap band , RT WRIST GANGLION CYCT REMOVED, lumbar fusion surgery. lap band removal sleeve gastrectomy 12-14-24 Past Anesthesia/Blood Transfusion Reactions: No Reported Reaction Additional Past Anesthesia/Blood Transfusion Reaction / Comment(s): No hx of blood transfusion to date. Past Psychological History: Anxiety, Bipolar, Depression Smoking Status: Never smoker Past Alcohol Use History: Occasional Past Drug Use History: None Reported - Past Family History Mother Family Medical History: Hypertension Father Family Medical History: Cancer Medications and Allergies Home Medications Medication Instructions Recorded Confirmed Type Fluticasone/Umeclidin/Vilanter 1 puff INHALATION RT-DAILY 08/17/24 05/06/25 History [Trelejamel Ellipta 100-62.5-25] Montelukast [Singulair] 1 tab PO HS 08/17/24 05/06/25 History Acetaminophen Tab [Tylenol] 500 mg PO Q4-6H PRN 03/29/25 05/06/25 History QUEtiapine FUMARATE [SEROquel] 200 mg PO HS 03/29/25 05/06/25 History Calcium Carbonate [Tums] 1,000 mg PO TID PRN tab 04/06/25 05/06/25 Rx Fludrocortisone [Florinef] 0.1 mg PO BID #60 tab 04/06/25 05/06/25 Rx Magnesium Oxide [Mag-Ox] 400 mg PO BID #60 tab 04/06/25 05/06/25 Rx Metoclopramide HCl [Reglan] 5 mg PO TID PRN #45 tablet 04/06/25 05/06/25 Rx Midodrine [ProAmatine] 5 mg PO AC-TID PRN 05/06/25 05/06/25 History Allergies Allergy/AdvReac Type Severity Reaction Status Date / Time Enviromental Allergy Nasal Uncoded 05/06/25 08:21 drainage/watery eyes/sneezing Physical Exam Vitals: Vital Signs Temp Pulse Resp BP Pulse Ox 05/06/25 15:40 71 20 152/98 93 L 05/06/25 14:27 98.0 F 85 20 138/90 94 L 05/06/25 11:15 98.1 F 87 147/95 96 05/06/25 09:31 74 93 L 05/06/25 08:18 94 L 05/06/25 08:10 85 18 129/74 94 L 05/06/25 05:40 97.8 F 78 18 142/85 94 L 05/06/25 02:25 93 18 131/76 96 05/05/25 23:11 18 139/83 100 05/05/25 16:53 98.3 F 81 18 140/95 100 Results CBC & Chem 7: 05/05/25 17:59 05/05/25 17:59 Labs: Abnormal Lab Results - Last 24 Hours (Table) 05/05/25 05/05/25 05/06/25 Range/Units 17:59 17:59 01:00 RBC 3.89 L (4.10-5.20) 10*6/uL Hgb 10.7 L (12.0-15.0) g/dL Hct 32.1 L (37.2-46.3) % Potassium 3.3 L (3.5-5.1) mmol/L Chloride 108 H (98-107) mmol/L Magnesium 1.4 L (1.6-2.3) mg/dL Total Protein 5.2 L (6.3-8.2) g/dL Albumin 2.7 L (3.5-5.0) g/dL Urine Appearance Cloudy H (Clear) Ur Specific [place] 1.043 H (1.001-1.035) Urine Protein Trace H (Negative) Urine Ketones 2+ H (Negative) Ur Leukocyte Esterase Moderate H (Negative) Urine WBC 45 H (0-5) /hpf Ur Squamous Epith Cells 13 H (0-4) /hpf Calcium Oxalate Crystal Rare H (None) /hpf Urine Bacteria Rare H (None) /hpf Hyaline Casts 36 H (0-2) /lpf Urine Mucus Many H (None) /hpf Urine Yeast (Budding) Rare H (None) /hpf
--- NOTE | 2025-05-06 16:27 | US ---
EXAMINATION TYPE: US venous doppler duplex LE BI DATE OF EXAM: 05/06/2025 3:49 PM COMPARISON: Bilateral lower extremity venous ultrasound 12/30/2024 CLINICAL INDICATION: Female, 54 years old with history of LE pain; right leg pain. No hx of DVT. Not on blood thinners, Pain TECHNIQUE: The lower extremity deep venous system is examined utilizing real time linear array sonog barb with graded compression, color doppler sonography, and spectral doppler. SIDE PERFORMED: Bilateral FINDINGS: VESSELS IMAGED: Common Femoral Vein Deep Femoral Vein Greater Saphenous Vein * Femoral Vein Popliteal Vein Small Saphenous Vein * Proximal Calf Veins (* superficial vessels) Right Leg: Echoes seen in a duplicate right popliteal vein with lack of color flow., Color Doppler i maging shows patency of the remaining vessels. Spectral waveforms are within normal limits of the rem aining vessels. Left Leg: No evidence for DVT., Color Doppler imaging shows patency of the vessels. Spectral wavefor ms are within normal limits. IMPRESSION: 1. Acute deep venous thrombosis of a duplicated right popliteal vein. 2. No evidence of deep vein thrombosis of the left lower extremity. A Red level critical message alert has been initiated for Rhonda Cortez MD via the [employer] System on 05/06/2025 4:24 PM. This message alert has been sent to Rhonda Cortez MD via the preferences provided by the clinician for the receipt of Radiology Critical Findings. Message ID [id number]. [facility], , 05/06/2025 4:25 PM
[2025-05-06] MEDS ORDERED: HEPARIN SODIUM 1,000 UN/ML (10ML VL) IV PRN (16:31)
[2025-05-06] MEDS: HEPARIN SODIUM 1,000 UN/ML (10ML VL) IV ONE (16:40)
[2025-05-06] MEDS: HEPARIN SOD,PORK IN 0.45% NACL 25,000 UNIT in 0.45% NACL 1 250ML.BAG IV SCH (16:42)
[2025-05-06 17:15] LABS: Basophils # (A) 0.02 10*3/uL (0.00-0.10); Basophils % (A) 0.3 %; Eosinophils # (A) 0.14 10*3/uL (0.04-0.35); Eosinophils % (A) 2.1 %; HCT 32.9 % (37.2-46.3); HGB 10.9 g/dL (12.0-15.0); Lymphocytes # (A) 2.07 10*3/uL (0.90-5.00); Lymphocytes % (A) 31.2 %; MCH 28.2 pg (27.0-32.0); MCHC 33.1 g/dL (32.0-37.0); MCV 85.0 fL (80.0-97.0); Monocytes # (A) 0.51 10*3/uL (0.20-1.00); Monocytes % (A) 7.7 %; Neutrophils # (A) 3.88 10*3/uL (1.80-7.70); Neutrophils % (A) 58.4 %; Platelet Count 202 10*3/uL (140-440); RBC 3.87 10*6/uL (4.10-5.20); RDW 20.6 % (11.5-14.5); WBC 6.64 10*3/uL (4.50-10.00)
[2025-05-06 18:35] LABS: INR 1.1 (<1.2); Prothrombin Time 12.1 sec (10.0-12.5)
[2025-05-06 18:39] LABS: Partial Thromboplastin Time >200.0 sec (22.0-30.0)
[2025-05-06] MEDS: MONTELUKAST 10 MG TAB PO SCH (20:11)
[2025-05-06] MEDS ORDERED: HEPARIN SODIUM,PORCINE 5,000 UNIT/ML 1 ML VIAL SQ SCH (21:00)
[2025-05-06] MEDS: SYMBICORT 160-4.5 MCG INHALER INHALATION SCH (21:43)
[2025-05-07 04:22] LABS: Basophils # (A) 0.02 10*3/uL (0.00-0.10); Basophils % (A) 0.3 %; Eosinophils # (A) 0.14 10*3/uL (0.04-0.35); Eosinophils % (A) 2.2 %; HCT 31.1 % (37.2-46.3); HGB 10.1 g/dL (12.0-15.0); Lymphocytes # (A) 1.29 10*3/uL (0.90-5.00); Lymphocytes % (A) 19.8 %; MCH 27.6 pg (27.0-32.0); MCHC 32.5 g/dL (32.0-37.0); MCV 85.0 fL (80.0-97.0); Monocytes # (A) 0.47 10*3/uL (0.20-1.00); Monocytes % (A) 7.2 %; Neutrophils # (A) 4.56 10*3/uL (1.80-7.70); Neutrophils % (A) 70.2 %; Platelet Count 170 10*3/uL (140-440); RBC 3.66 10*6/uL (4.10-5.20); RDW 20.6 % (11.5-14.5); WBC 6.50 10*3/uL (4.50-10.00)
[2025-05-07 04:40] LABS: ALT 10 U/L (4-34); AST 32 U/L (14-36); African American GFR (CKD) >90 (>60 ml/min/1.73 sqM); Albumin 2.2 g/dL (3.5-5.0); Alkaline Phosphatase 118 U/L (38-126); Anion Gap 5 mmol/L; Blood Urea Nitrogen 7 mg/dL (7-17); Calcium 8.0 mg/dL (8.4-10.2); Carbon Dioxide 28 mmol/L (22-30); Chloride 105 mmol/L (98-107); Glucose 70 mg/dL (74-99); Magnesium 1.5 mg/dL (1.6-2.3); Non-African American GFR(CKD) >90 (>60 ml/min/1.73 sqM); Potassium 3.1 mmol/L (3.5-5.1); Sodium 138 mmol/L (137-145); Total Protein 4.7 g/dL (6.3-8.2)
[2025-05-07] MEDS ORDERED: NON FORMULARY DRUG (Fluticasone/Umeclidin/Vilanter [Trelegy Ellipta 100-62.5-25] 1 EACH Bl INHALATION SCH (08:00)
[2025-05-07] MEDS: TIOTROPIUM 2.5 MCG INHALER INHALATION SCH (09:35)
[2025-05-07] MEDS: MAGNESIUM SULFATE-D5W PMX 1 GM in DEXTROSE/WATER 1 100ML.BAG IVPB SCH (10:39)
[2025-05-07] MEDS: POTASSIUM CHLORIDE ER 20 MEQ TAB.ER PO STA (10:39)
--- NOTE | 2025-05-07 11:21 | P.GSCN ---
History of Present Illness Consult date: 05/07/25 Reason for Consult: DVT Requesting physician: Irineo Scruggs History of present illness: This is a pleasant 54-year-old female who presented to the emergency department nausea and vomiting 2 days ago. Patient was admitted for symptomatic treatment. Past medical history includes sleeve gastrectomy in December of this year with recurrent chronic nausea and vomiting, asthma, COPD, esophageal dysmotility, GERD, hypertension, and sleep apnea. During this hospitalization it was noted that she had right lower extremity swelling and she had a venous duplex. Venous duplex was positive for duplicated right popliteal vein DVT. Patient also has left upper extremity swelling and pain post IV placement. General Surgery is following patient she had a upper GI done and awaiting their further recommendations. Patient was on a heparin drip however has been off for few hours secondary to IV infiltration. Patient denies any previous history of DVT or pulmonary embolism. Denies any recent surgeries most recent surgery was her sleeve gastrectomy and December 2024, no recent travel and states patient has been active. She does have a daughter who had pulmonary embolism which they were not sure why. Denies any control or hormone use. She currently denies any pain in her lower extremities. Has pain in her right upper arm just above the antecubital with some induration. Review of Systems A 14 point review systems was completed all pertinent positives and negatives as stated in the HPI. Past Medical History Past Medical History: Asthma, Chest Pain / Angina, COPD, Diabetes Mellitus, GERD/Reflux, Hypertension, Osteoarthritis (OA), Pneumonia, Sleep Apnea/CPAP/BIPAP Additional Past Medical History / Comment(s): Recent ER visit r/t headache-pt states was dx with a Migraine. DDD, borderline diabetic, uses CPAP machine environmental allergies., has lap band. Influenza-12/2024 History of Any Multi-Drug Resistant Organisms: MRSA Year Discovered:: 06/22/14 MDRO Source:: rt breast Past Surgical History: Back Surgery, Bariatric Surgery, Section, Cholecystectomy, Heart Catheterization, Joint Replacement, Tubal Ligation Additional Past Surgical History / Comment(s): bilateral knee replacement, lap band , RT WRIST GANGLION CYCT REMOVED, lumbar fusion surgery. lap band removal sleeve gastrectomy 12-14-24 Past Anesthesia/Blood Transfusion Reactions: No Reported Reaction Additional Past Anesthesia/Blood Transfusion Reaction / Comm: No hx of blood transfusion to date. Past Psychological History: Anxiety, Bipolar, Depression Smoking Status: Never smoker Past Alcohol Use History: Occasional Additional Past Alcohol Use History / Comment(s): smokes 2-3 cigarettes/day, hx of 1/2 ppd, started smoking age 14. working on cutting down smoking Past Drug Use History: None Reported - Past Family History Mother Family Medical History: Hypertension Father Family Medical History: Cancer Medications and Allergies Home Medications Medication Instructions Recorded Confirmed Type Fluticasone/Umeclidin/Vilanter 1 puff INHALATION RT-DAILY 08/17/24 05/06/25 History [Trelegy Ellipta 100-62.5-25] Montelukast [Singulair] 1 tab PO HS 08/17/24 05/06/25 History Acetaminophen Tab [Tylenol] 500 mg PO Q4-6H PRN 03/29/25 05/06/25 History QUEtiapine FUMARATE [SEROquel] 200 mg PO HS 03/29/25 05/06/25 History Calcium Carbonate [Tums] 1,000 mg PO TID PRN tab 04/06/25 05/06/25 Rx Fludrocortisone [Florinef] 0.1 mg PO BID #60 tab 04/06/25 05/06/25 Rx Magnesium Oxide [Mag-Ox] 400 mg PO BID #60 tab 04/06/25 05/06/25 Rx Metoclopramide HCl [Reglan] 5 mg PO TID PRN #45 tablet 04/06/25 05/06/25 Rx Midodrine [ProAmatine] 5 mg PO AC-TID PRN 05/06/25 05/06/25 History Allergies Allergy/AdvReac Type Severity Reaction Status Date / Time Enviromental Allergy Nasal Uncoded 05/06/25 08:21 drainage/watery eyes/sneezing Surgical - Exam Vital Signs Temp Pulse Resp BP Pulse Ox 98.3 F 81 18 140/95 100 05/05/25 16:53 05/05/25 16:53 05/05/25 16:53 05/05/25 16:53 05/05/25 16:53 General appearance: The patient is alert, oriented, appears in no acute distress. HET: Head is normocephalic and atraumatic. Pupils are equal and reactive. Neck: Supple. Heart: Regular. Lungs: Equal expansion, normal respiratory effort. Abdomen: Soft, nontender, nondistended. Extremities: Normal skin color and turgor. Palpable radial pulses. Medial aspect of left arm proximal to antecubital fossa with tenderness to palpation and induration. Palpable DP and PT pulses. Right lower extremity with swelling i below the knee. Nontender. Neurological: No focal deficits. Strength and sensation are grossly intact. Results - Labs 05/07/25 04:07 05/07/25 04:07 Abnormal Lab Results - Last 24 Hours (Table) 05/06/25 05/06/25 05/06/25 Range/Units 16:57 17:54 20:54 RBC 3.87 L (4.10-5.20) 10*6/uL Hgb 10.9 L (12.0-15.0) g/dL Hct 32.9 L (37.2-46.3) % APTT >200.0 H* 46.3 H (22.0-30.0) sec Potassium (3.5-5.1) mmol/L Glucose (74-99) mg/dL Calcium (8.4-10.2) mg/dL Magnesium (1.6-2.3) mg/dL Total Protein (6.3-8.2) g/dL Albumin (3.5-5.0) g/dL 05/07/25 05/07/25 05/07/25 Range/Units 04:07 04:07 04:07 RBC 3.66 L (4.10-5.20) 10*6/uL Hgb 10.1 L (12.0-15.0) g/dL Hct 31.1 L (37.2-46.3) % APTT 53.9 H (22.0-30.0) sec Potassium 3.1 L (3.5-5.1) mmol/L Glucose 70 L (74-99) mg/dL Calcium 8.0 L (8.4-10.2) mg/dL Magnesium 1.5 L (1.6-2.3) mg/dL Total Protein 4.7 L (6.3-8.2) g/dL Albumin 2.2 L (3.5-5.0) g/dL Diabetes panel 05/07/25 Range/Units 04:07 Sodium 138 (137-145) mmol/L Potassium 3.1 L (3.5-5.1) mmol/L Chloride 105 (98-107) mmol/L Carbon Dioxide 28 (22-30) mmol/L BUN 7 (7-17) mg/dL Creatinine 0.68 (0.52-1.04) mg/dL Glucose 70 L (74-99) mg/dL Calcium 8.0 L (8.4-10.2) mg/dL AST 32 (14-36) U/L ALT 10 (4-34) U/L Alkaline Phosphatase 118 (38-126) U/L Total Protein 4.7 L (6.3-8.2) g/dL Albumin 2.2 L (3.5-5.0) g/dL Calcium panel 05/07/25 Range/Units 04:07 Calcium 8.0 L (8.4-10.2) mg/dL Phosphorus 3.5 (2.5-4.5) mg/dL Albumin 2.2 L (3.5-5.0) g/dL Pituitary panel 05/07/25 Range/Units 04:07 Sodium 138 (137-145) mmol/L Potassium 3.1 L (3.5-5.1) mmol/L Chloride 105 (98-107) mmol/L Carbon Dioxide 28 (22-30) mmol/L BUN 7 (7-17) mg/dL Creatinine 0.68 (0.52-1.04) mg/dL Glucose 70 L (74-99) mg/dL Calcium 8.0 L (8.4-10.2) mg/dL Adrenal panel 05/07/25 Range/Units 04:07 Sodium 138 (137-145) mmol/L Potassium 3.1 L (3.5-5.1) mmol/L Chloride 105 (98-107) mmol/L Carbon Dioxide 28 (22-30) mmol/L BUN 7 (7-17) mg/dL Creatinine 0.68 (0.52-1.04) mg/dL Glucose 70 L (74-99) mg/dL Calcium 8.0 L (8.4-10.2) mg/dL Total Bilirubin 0.5 (0.2-1.3) mg/dL AST 32 (14-36) U/L ALT 10 (4-34) U/L Alkaline Phosphatase 118 (38-126) U/L Total Protein 4.7 L (6.3-8.2) g/dL Albumin 2.2 L (3.5-5.0) g/dL - Imaging Comments: Bilateral lower extremity venous duplex reports acute deep venous thrombosis of a duplicated right popliteal vein. No evidence of deep vein thrombosis of the left lower extremity. Assessment and Plan Assessment: 1. Right lower extremity popliteal deep vein thrombosis 2. Left upper extremity arm pain and swelling 3. Abdominal pain with nausea and vomiting 4. History of sleeve gastrectomy December 2024 Plan: 1. Elevate right lower extremity 2. Apply knee-high LAYO hose to right lower extremity 3. No further workup or vascular surgical intervention indicated 4. May transition to oral anticoagulation once cleared by general surgery 5. May apply warm compress to left upper extremity 6. Recommend outpatient consultation to hematology for unprovoked DVT with family history Thank you for this consultation, we will sign off at this time. The impression and plan of care has been dictated as directed. I performed a history and examination of this patient, discussed the same with the dictator. I agree with the dictator's note ,documented as a scribe. Any additional findings or plans will be noted.
--- NOTE | 2025-05-07 12:17 | P.PN ---
Subjective Progress Note Date: 05/07/25 54-year-old female with past medical significant for sleeve gastrectomy in December 2024, history of esophageal dysmotility, history of diastolic CHF, hypertension, acute kidney injury, who presented to the hospital with complaint of nausea vomiting and dehydration. Patient had recurrent hospitalizations for similar symptoms, was noted to be hypotensive and likely acute kidney injury during previous hospitalization, was discharged home on IV fluids and Ronald- George now presented again with a similar symptom send was concerned about dehydration and presented to ER. Patient denied any fever or chills, patient reported that she was having decreased urinary output. Patient reported increased thirst and dry mouth. Patient is afebrile, heart rate 71, respiratory rate 20, blood pressure 152/98, saturating 93% on room air. WBC 6.04 hemoglobin 10.7 platelet 171. INR 1.0. BMP unremarkable except pot assium 3.3, magnesium 1.4. Lipase unremarkable. Troponin negative. UA contaminated sample. CT abdomen pelvis negative for acute process, showed mild anasarca. 05/07. Patient seen and examined. Blood work done showed WBC 6.5, hemoglobin 10.1, sodium 138, potassium 3.1. Duplex ultrasound showed acute DVT of the duplicated right popliteal vein. Still having nausea and vomiting REVIEW OF SYSTEMS: CONSTITUTIONAL: No fever, no malaise,. CARDIOVASCULAR: No chest pain, no palpitations, no syncope. PULMONARY: No shortness of breath, no cough, GASTROINTESTINAL: No as mentioned above NEUROLOGICAL: No headaches, no weakness, PHYSICAL EXAMINATION: GENERAL: The patient is alert and oriented x3, not in any acute distress. Well developed, well nourished. HEENT: Pupils are round and equally reacting to light. EOMI. No scleral icterus. No conjunctival pallor. Normocephalic, atraumatic. No pharyngeal erythema. No thyromegaly. CARDIOVASCULAR: S1 and S2 present. No murmurs, rubs, or gallops. PULMONARY: Chest is clear to auscultation, no wheezing or crackles. ABDOMEN: Soft, nontender, nondistended, normoactive bowel sounds. No palpable organomegaly. MUSCULOSKELETAL: No joint swelling or deformity. EXTREMITIES: No cyanosis, clubbing, or pedal edema. NEUROLOGICAL: Gross neurological examination did not reveal any focal deficits. SKIN: No rashes. Assessment and plan Nausea and vomiting: Dehydration: Recurrent hospitalization for nausea vomiting, dehydration and acute kidney injury: Esophageal dysmotility: Hypokalemia: Hypomagnesemia: Patient has recurrent hospitalization for similar symptoms, nausea vomiting, dehydration, hypotension and acute kidney injury. CT abdomen pelvis negative for acute process, showed mild anasarca Hold diuretic IV fluids Monitor electrolytes and replace as needed Clear liquid diet Ordered potassium replacement General Surgery consultedrecommended upper GI Right lower extremity DVT Start heparin pharmacy to dose Consult vascular surgery Thiamine deficiency: Thiamine level 16 from previous hospitalization Thiamine supplements History of diastolic CHF COPD Obstructive sleep apnea Labs and medication were reviewed.. Continue same treatment. Continue with symptomatic treatment. Resume home medication. Monitor labs and vitals. DVT and GI prophylaxis. Further recommendations as per clinical course of the patient Dictation was produced using [employer] dictation software. please excuse any grammatical, word or spelling errors. Objective - Vital Signs Vital signs: Vital Signs Temp 97.5 F L 05/07/25 08:00 Pulse 100 05/07/25 08:00 Resp 19 05/07/25 08:00 BP 154/87 05/07/25 08:00 Pulse Ox 97 05/07/25 08:00 FiO2 Intake & Output 05/06/25 05/07/25 05/07/25 18:59 06:59 18:59 Intake Total 29.611 100 Balance 29.611 100 Weight 77.111 kg Intake: Intake, IV Titration 29.611 0 Amount Heparin Sod,Pork in 0.45% 29.611 0 NaCl 25,000 unit In 0.45 % NaCl 1 250ml.bag @ 18 UNITS/KG/HR 13.88 mls/hr IV .Q18H1M [facility] Rx#: [id number] Oral 100 - Labs CBC & Chem 7: 05/07/25 04:07 05/07/25 04:07 Labs: Abnormal Lab Results - Last 24 Hours (Table) 05/06/25 05/06/25 05/06/25 Range/Units 16:57 17:54 20:54 RBC 3.87 L (4.10-5.20) 10*6/uL Hgb 10.9 L (12.0-15.0) g/dL Hct 32.9 L (37.2-46.3) % APTT >200.0 H* 46.3 H (22.0-30.0) sec Potassium (3.5-5.1) mmol/L Glucose (74-99) mg/dL Calcium (8.4-10.2) mg/dL Magnesium (1.6-2.3) mg/dL Total Protein (6.3-8.2) g/dL Albumin (3.5-5.0) g/dL 05/07/25 05/07/25 05/07/25 Range/Units 04:07 04:07 04:07 RBC 3.66 L (4.10-5.20) 10*6/uL Hgb 10.1 L (12.0-15.0) g/dL Hct 31.1 L (37.2-46.3) % APTT 53.9 H (22.0-30.0) sec Potassium 3.1 L (3.5-5.1) mmol/L Glucose 70 L (74-99) mg/dL Calcium 8.0 L (8.4-10.2) mg/dL Magnesium 1.5 L (1.6-2.3) mg/dL Total Protein 4.7 L (6.3-8.2) g/dL Albumin 2.2 L (3.5-5.0) g/dL
--- NOTE | 2025-05-07 12:57 | US ---
EXAMINATION TYPE: US venous doppler duplex UE LT DATE OF EXAM: 05/07/2025 COMPARISON: NONE CLINICAL INDICATION: Female, 54 years old with history of arm swollen and pain; lt arm swelling and pain since 4am this am, pt had IV place and started swelling , iv not taken out s leonardo 8am, pt currently has rt leg DVT currently, currently on thinners TECHNIQUE: Grayscale, color Doppler and spectral Doppler imaging of the upper extremity. SIDE PERFORMED: Left VESSELS IMAGED: IJV Subclavian Vein Axilla Vein Brachial Vein(s) Radial Paired Veins Ulnar Paired Veins Cephalic Vein* Basilic Vein* (*superficial vessels) FINDINGS: Left Arm: [employer] Inspector notes: There are internal echoes with no compressibility of the Lt basilic vein at IV site, Lt basilic does show compressibility & color/spectral dopplers flow within the upper arm Wrist veins slightly limited Grayscale, color doppler, spectral doppler imaging performed of the deep veins of the upper extremiti es. IMPRESSION: 1. Exam positive for SVT of the left basilic vein at the IV site. Patency resumes at the upper arm le gigi. 2. No evidence for DVT within the left upper extremity. [facility], Workstation: [employer], 05/07/2025 12:54 PM
--- NOTE | 2025-05-07 13:31 | P.PN ---
Subjective Progress Note Date: 05/07/25 SURGICAL PROGRESS NOTE CHIEF COMPLAINT: Nausea and vomiting HISTORY OF PRESENT ILLNESS: Patient complaining of left arm pain at the IV site. Apparently the IV infiltrated. She has swelling in the arm and pain. Patient also complaining of pain across the upper abdomen. She has been having nausea able to tolerate small amount of the clear liquids. She was found to have evidence of a right leg DVT on IV heparin. Upper GI had reported moderate to severe esophageal dysmotility and moderate GERD. Potassium at 3.1 and magnesium 1.5 WBC 6.50 PHYSICAL EXAM: VITAL SIGNS: Reviewed. GENERAL: Well-developed in no acute distress. HEENT: No sclera icterus. Extraocular movements grossly intact. Moist buccal mucosa. Head is atraumatic, normocephalic. ABDOMEN: Soft. Nondistended. Tenderness epigastric area NEUROLOGIC: Alert and oriented. Cranial nerves II through XII grossly intact. Extremities: Left arm swelling and tenderness at IV site. ASSESSMENT: 1. Nausea and vomiting possibly due to low magnesium and thiamine deficiency 2. Dehydration 3. Epigastric abdominal pain 4. Esophageal dysmotility and GERD 5. Thiamine deficiency 6. Hypokalemia and hypomagnesemia PLAN: - Continue to correct electrolytes - Continue thiamine supplement - Continue clear liquid diet - Continue PPI - Venous Doppler of left arm completed and shows evidence of SVT - Okay to start Eliquis from surgical standpoint Physician Rib Matcher And Fitter note has been reviewed by physician. Signing provider agrees with the documented findings, assessment, and plan of care. I have personally seen and examined the patient, reviewed the BUSINESS PROCESS MODELER /PAs history, exam and MDM and agree with the assessment and plan as written. Based on total visit time, I have performed more than 50% of the visit. As above: Patient with recent intractable vomiting. Associated electrolyte imbalance also noted. Recent findings of DVT. Continue anticoagulations. Continue liquid diet and IV hydration. Possible upper endoscopy at some point although looking at upper GI and CAT scan no definite abnormalities noted. Objective - Vital Signs Vital signs: Vital Signs Temp 97.5 F L 05/07/25 08:00 Pulse 100 05/07/25 08:00 Resp 19 05/07/25 08:00 BP 154/87 05/07/25 08:00 Pulse Ox 97 05/07/25 08:00 FiO2 Intake & Output 05/06/25 05/07/25 05/07/25 18:59 06:59 18:59 Intake Total 29.611 100 103.822 Balance 29.611 100 103.822 Weight 77.111 kg Intake: Intake, IV Titration 29.611 0 103.822 Amount Heparin Sod,Pork in 0.45% 29.611 0 103.822 NaCl 25,000 unit In 0.45 % NaCl 1 250ml.bag @ 18 UNITS/KG/HR 13.88 mls/hr IV .Q18H1M [facility] Rx#: [id number] Oral 100 - Labs CBC & Chem 7: 05/07/25 04:07 05/07/25 04:07 Labs: Abnormal Lab Results - Last 24 Hours (Table) 05/06/25 05/06/25 05/06/25 Range/Units 16:57 17:54 20:54 RBC 3.87 L (4.10-5.20) 10*6/uL Hgb 10.9 L (12.0-15.0) g/dL Hct 32.9 L (37.2-46.3) % APTT >200.0 H* 46.3 H (22.0-30.0) sec Potassium (3.5-5.1) mmol/L Glucose (74-99) mg/dL Calcium (8.4-10.2) mg/dL Magnesium (1.6-2.3) mg/dL Total Protein (6.3-8.2) g/dL Albumin (3.5-5.0) g/dL 05/07/25 05/07/25 05/07/25 Range/Units 04:07 04:07 04:07 RBC 3.66 L (4.10-5.20) 10*6/uL Hgb 10.1 L (12.0-15.0) g/dL Hct 31.1 L (37.2-46.3) % APTT 53.9 H (22.0-30.0) sec Potassium 3.1 L (3.5-5.1) mmol/L Glucose 70 L (74-99) mg/dL Calcium 8.0 L (8.4-10.2) mg/dL Magnesium 1.5 L (1.6-2.3) mg/dL Total Protein 4.7 L (6.3-8.2) g/dL Albumin 2.2 L (3.5-5.0) g/dL Microbiology - Last 24 Hours (Table) 05/06/25 01:00 Urine Culture - Preliminary Urine,Voided Gram Neg Bacilli
[2025-05-07] MEDS: Apixaban Initiation Dose--VTE 5 MG TAB PO SCH (15:01)
[2025-05-08] MEDS ORDERED: VANCOMYCIN IV PER PHARMACY 1 EACH MISC MISCELLANE PRN (02:37)
[2025-05-08] MEDS: ACETAMINOPHEN TAB 325 MG TAB PO PRN (02:46)
[2025-05-08] MEDS: SODIUM CHLORIDE 0.9% 1,000 ML IV SCH (02:47)
[2025-05-08] MEDS: VANCOMYCIN 1,250 MG in SODIUM CHLORIDE 0.9% 250 ML IVPB ONE (03:22)
[2025-05-08 05:29] LABS: Bacteria,Urine Moderate /hpf; Bilirubin,Urine Negative (Negative); Blood,Urine Trace (Negative); Budding Yeast,Urine Rare /hpf; Color,Urine Yellow; Glucose,Urine (UA) Negative (Negative); Hyaline Casts,Urine 4 /lpf (0-2); Ketones,Urine 1+ (Negative); Leukocyte Esterase,Urine Small (Negative); Mucus,Urine Few /hpf; Nitrite,Urine Negative (Negative); PH, Urine 5.5 (5.0-8.0); Protein,Urine Trace (Negative); RBC,Urine 2 /hpf (0-5); Specific Gravity,Urine 1.013 (1.001-1.035); Squamous Epithelial Cell,Urine 8 /hpf (0-4); Urobilinogen,Urine 2.0 mg/dL (<2.0); WBC,Urine 26 /hpf (0-5)
[2025-05-08] MEDS: PIPERACILLIN-TAZOBACTAM 3.375 GM in SODIUM CHLORIDE 0.9% 100 ML IVPB SCH ×2 (05:52→16:22)
--- NOTE | 2025-05-08 07:39 | XR ---
EXAMINATION TYPE: XR chest 1V DATE OF EXAM: 05/08/2025 6:59 AM COMPARISON: Chest radiograph from one day prior. CLINICAL INDICATION: Female, 54 years old with history of Temp; PH[facility] TECHNIQUE: XR chest 1V Frontal view of the chest. FINDINGS: Lungs/Pleura: There is no evidence of pleural effusion, focal consolidation, or pneumothorax. Pulmonary vascularity: Pulmonary vascular congestion. Heart/mediastinum: Cardiomediastinal silhouette is enlarged. Musculoskeletal: No acute osseous pathology. IMPRESSION: Low lung volumes with a generalized hazy appearance which could represent atelectasis versus pulmonar y edema correlate with serum BNP. [facility], , 05/08/2025 7:36 AM
--- NOTE | 2025-05-08 10:25 | P.PN ---
Subjective Progress Note Date: 05/08/25 Principal diagnosis: Abdominal pain Patient had some high fevers last night. As high as 103. White blood cell count actually remains normal. Says her abdominal discomforts are the same. Denies pain elsewhere. Urine culture was positive. Chest x-ray noted. Objective - Vital Signs Vital signs: Vital Signs Temp 99.1 F 05/08/25 07:26 Pulse 98 05/08/25 07:26 Resp 17 05/08/25 07:26 BP 128/84 05/08/25 07:26 Pulse Ox 90 L 05/08/25 07:26 FiO2 Intake & Output 05/07/25 05/08/25 05/08/25 18:59 06:59 18:59 Intake Total 103.822 Balance 103.822 Intake: Intake, IV Titration 103.822 Amount Heparin Sod,Pork in 0.45% 103.822 NaCl 25,000 unit In 0.45 % NaCl 1 250ml.bag @ 18 UNITS/KG/HR 13.88 mls/hr IV .Q18H1M [facility] Rx#: [id number] Other: # Voids 0 2 - Exam Abdomen: Soft, mild diffuse tenderness, no rebound or guarding - Labs CBC & Chem 7: 05/07/25 04:07 05/07/25 04:07 Labs: Abnormal Lab Results - Last 24 Hours (Table) 05/08/25 Range/Units 04:45 Urine Appearance Cloudy H (Clear) Urine Protein Trace H (Negative) Urine Ketones 1+ H (Negative) Urine Blood Trace H (Negative) Ur Leukocyte Esterase Small H (Negative) Urine WBC 26 H (0-5) /hpf Ur Squamous Epith Cells 8 H (0-4) /hpf Urine Bacteria Moderate H (None) /hpf Hyaline Casts 4 H (0-2) /lpf Urine Mucus Few H (None) /hpf Urine Yeast (Budding) Rare H (None) /hpf Microbiology - Last 24 Hours (Table) 05/06/25 01:00 Urine Culture - Preliminary Urine,Voided Gram Neg Bacilli Assessment and Plan (1) Abdominal pain Narrative/Plan: Patient denies discussed options after seeing her this morning. Initially I planned on repeating her CAT scan. Looking back at her chart however she has had 3-4 CAT scans in the last 2 months or so. The last one was just 2 days ago. She has no white blood cell count. Recommend viral illness workup first. Fever certainly could be partially on the basis of UTI although seems a bit odd. Continue clear liquids. Continue anticoagulation for DVT. If no definite source identified and fevers continue will consider repeating CAT scan at that time. Current Visit: Yes Status: Acute Code(s): R10.9 - UNSPECIFIED ABDOMINAL PAIN SNOMED Code(s): 78087046
[2025-05-08] MEDS: HYDROcodone/APAP 5-325MG 1 EACH TAB PO PRN (12:33)
--- NOTE | 2025-05-08 14:22 | P.PN ---
Subjective Progress Note Date: 05/08/25 54-year-old female with past medical significant for sleeve gastrectomy in December 2024, history of esophageal dysmotility, history of diastolic CHF, hypertension, acute kidney injury, who presented to the hospital with complaint of nausea vomiting and dehydration. Patient had recurrent hospitalizations for similar symptoms, was noted to be hypotensive and likely acute kidney injury during previous hospitalization, was discharged home on IV fluids and Latishafei- Iglesiaef now presented again with a similar symptom send was concerned about dehydration and presented to ER. Patient denied any fever or chills, patient reported that she was having decreased urinary output. Patient reported increased thirst and dry mouth. Patient is afebrile, heart rate 71, respiratory rate 20, blood pressure 152/98, saturating 93% on room air. WBC 6.04 hemoglobin 10.7 platelet 171. INR 1.0. BMP unremarkable except pot assium 3.3, magnesium 1.4. Lipase unremarkable. Troponin negative. UA contaminated sample. CT abdomen pelvis negative for acute process, showed mild anasarca. 05/07. Patient seen and examined. Blood work done showed WBC 6.5, hemoglobin 10.1, sodium 138, potassium 3.1. Duplex ultrasound showed acute DVT of the duplicated right popliteal vein. Still having nausea and vomiting 05/08. Patient seen and examined. Patient has been spiking high-grade fevers overnight. With Tmax of 103.1. Patient had swelling of left upper extremity, duplex ultrasound showed superficial vein thrombus of left basilic vein. REVIEW OF SYSTEMS: CONSTITUTIONAL: As mentioned above CARDIOVASCULAR: No chest pain, no palpitations, no syncope. PULMONARY: No shortness of breath, no cough, GASTROINTESTINAL: No as mentioned above NEUROLOGICAL: No headaches, no weakness, PHYSICAL EXAMINATION: GENERAL: The patient is alert and oriented x3, not in any acute distress. Well developed, well nourished. HEENT: Pupils are round and equally reacting to light. EOMI. No scleral icterus. No conjunctival pallor. Normocephalic, atraumatic. No pharyngeal erythema. No thyromegaly. CARDIOVASCULAR: S1 and S2 present. No murmurs, rubs, or gallops. PULMONARY: Chest is clear to auscultation, no wheezing or crackles. ABDOMEN: Soft, nontender, nondistended, normoactive bowel sounds. No palpable organomegaly. MUSCULOSKELETAL: No joint swelling or deformity. EXTREMITIES: No cyanosis, clubbing, 1+ pitting edema lower extremity Left upper extremity swollen NEUROLOGICAL: Gross neurological examination did not reveal any focal deficits. SKIN: No rashes. Assessment and plan Nausea and vomiting: Dehydration: Recurrent hospitalization for nausea vomiting, dehydration and acute kidney injury: Esophageal dysmotility: Hypokalemia: Hypomagnesemia: Patient has recurrent hospitalization for similar symptoms, nausea vomiting, dehydration, hypotension and acute kidney injury. CT abdomen pelvis negative for acute process, showed mild anasarca Hold diuretic IV fluids Monitor electrolytes and replace as needed Clear liquid diet Ordered potassium replacement General Surgery consultedrecommended upper GI Fever Ordered blood cultures Start broad spectrum antibiotic in the form of Zosyn and vancomycin ID consulted Superficial vein thrombus of left basilic vein Continue supportive treatment Right lower extremity DVT Continue Eliquis Vascular surgery evaluated, recommended oral anticoagulation, notes reviewed recommendation noted from 05/07 Thiamine deficiency: Thiamine level 16 from previous hospitalization Thiamine supplements History of diastolic CHF COPD Obstructive sleep apnea Labs and medication were reviewed.. Continue same treatment. Continue with symptomatic treatment. Resume home medication. Monitor labs and vitals. DVT and GI prophylaxis. Further recommendations as per clinical course of the patient Dictation was produced using [employer] dictation software. please excuse any grammatical, word or spelling errors. Objective - Vital Signs Vital signs: Vital Signs Temp 99.1 F 05/08/25 07:26 Pulse 98 05/08/25 07:26 Resp 17 05/08/25 07:26 BP 128/84 05/08/25 07:26 Pulse Ox 90 L 05/08/25 07:26 FiO2 Intake & Output 05/07/25 05/08/25 05/08/25 18:59 06:59 18:59 Intake Total 103.822 Balance 103.822 Intake: Intake, IV Titration 103.822 Amount Heparin Sod,Pork in 0.45% 103.822 NaCl 25,000 unit In 0.45 % NaCl 1 250ml.bag @ 18 UNITS/KG/HR 13.88 mls/hr IV .Q18H1M [facility] Rx#: [id number] Other: # Voids 0 2 - Labs CBC & Chem 7: 05/07/25 04:07 05/07/25 04:07 Labs: Abnormal Lab Results - Last 24 Hours (Table) 05/08/25 Range/Units 04:45 Urine Appearance Cloudy H (Clear) Urine Protein Trace H (Negative) Urine Ketones 1+ H (Negative) Urine Blood Trace H (Negative) Ur Leukocyte Esterase Small H (Negative) Urine WBC 26 H (0-5) /hpf Ur Squamous Epith Cells 8 H (0-4) /hpf Urine Bacteria Moderate H (None) /hpf Hyaline Casts 4 H (0-2) /lpf Urine Mucus Few H (None) /hpf Urine Yeast (Budding) Rare H (None) /hpf Microbiology - Last 24 Hours (Table) 05/06/25 01:00 Urine Culture - Preliminary Urine,Voided Gram Neg Bacilli
[2025-05-08 15:05] LABS: RSV Not Detected (Not Detectd)
[2025-05-08] MEDS: HYDROmorphone 1 MG/ML 1 ML SYRINGE IVP PRN (15:18)
[2025-05-08] MEDS: VANCOMYCIN 1,250 MG in SODIUM CHLORIDE 0.9% 250 ML IVPB SCH (17:26)
[2025-05-08] MEDS: ACETAMINOPHEN IV (For NPO) 1,000 MG in EMPTY BAG 1 BAG IVPB SCH (18:28)
--- NOTE | 2025-05-08 22:41 | P.CONS ---
History of Present Illness - Reason for Consult Consult date: 05/08/25 Infection Requesting physician: Jesus Alberto Zamorano - Chief Complaint Pain to the left upper extremity with fever x 1 day - History of Present Illness Patient is a 54-year-old -Fij[place] female with a past medical history significant for diabetes mellitus COPD hypertension reflux asthma pneumonia presented to the hospital 3 days ago for evaluation of nausea and vomiting that started few days before presentation in the hospital with associated epigastric abdominal pain patient denies having any significant diarrhea on presentation to the hospital patient was afebrile however she did start spiking fever last evening with a temperature of 102.9 F patient has been tachycardic but not hypotensive or hypoxic patient did have a normal white count of 6.50 with no left shift creatinine 0.68 potassium is 3.1 liver isms are normal urine has been mildly positive influenza RSV COVID testing has been negative patient has developed pain and swelling to the left upper extremity site of her previous IV which has been discontinued and the patient was complaining of excruciating pain to the left upper extremity patient described the pain to be sharp moderate to severe intensity and did have slight difficulty moving her hand currently do not have any open wound or any drainage patient mention overall improvement of her nausea and vomiting and denies having any diarrhea patient did have a Doppler ultrasound which was evidence of SVT to the left basilic vein at the IV site and no evidence of DVT patient has been empirically started on Zosyn and vancomycin infectious he was consulted for further management of antibiotic therapy Review of Systems Positive point and negatives has been mentioned in the HPI, complete review of systems was performed and all other systems are negative Past Medical History Past Medical History: Asthma, Chest Pain / Angina, COPD, Diabetes Mellitus, GERD/Reflux, Hypertension, Osteoarthritis (OA), Pneumonia, Sleep Apnea/CPAP/BIPAP Additional Past Medical History / Comment(s): Recent ER visit r/t headache-pt states was dx with a Migraine. DDD, borderline diabetic, uses CPAP machine environmental allergies., has lap band. Influenza-12/2024 History of Any Multi-Drug Resistant Organisms: MRSA Year Discovered:: 06/22/14 MDRO Source:: rt breast Past Surgical History: Back Surgery, Bariatric Surgery, Section, Cholecystectomy, Heart Catheterization, Joint Replacement, Tubal Ligation Additional Past Surgical History / Comment(s): bilateral knee replacement, lap band , RT WRIST GANGLION CYCT REMOVED, lumbar fusion surgery. lap band removal sleeve gastrectomy 12-14-24 Past Anesthesia/Blood Transfusion Reactions: No Reported Reaction Additional Past Anesthesia/Blood Transfusion Reaction / Comm: No hx of blood transfusion to date. Past Psychological History: Anxiety, Bipolar, Depression Smoking Status: Never smoker Past Alcohol Use History: Occasional Additional Past Alcohol Use History / Comment(s): smokes 2-3 cigarettes/day, hx of 1/2 ppd, started smoking age 14. working on cutting down smoking Past Drug Use History: None Reported - Past Family History Mother Family Medical History: Hypertension Father Family Medical History: Cancer Medications and Allergies Home Medications Medication Instructions Recorded Confirmed Type Fluticasone/Umeclidin/Vilanter 1 puff INHALATION RT-DAILY 08/17/24 05/06/25 History [Trelegy Ellipta 100-62.5-25] Montelukast [Singulair] 1 tab PO HS 08/17/24 05/06/25 History Acetaminophen Tab [Tylenol] 500 mg PO Q4-6H PRN 03/29/25 05/06/25 History QUEtiapine FUMARATE [SEROquel] 200 mg PO HS 03/29/25 05/06/25 History Calcium Carbonate [Tums] 1,000 mg PO TID PRN tab 04/06/25 05/06/25 Rx Fludrocortisone [Florinef] 0.1 mg PO BID #60 tab 04/06/25 05/06/25 Rx Magnesium Oxide [Mag-Ox] 400 mg PO BID #60 tab 04/06/25 05/06/25 Rx Metoclopramide HCl [Reglan] 5 mg PO TID PRN #45 tablet 04/06/25 05/06/25 Rx Midodrine [ProAmatine] 5 mg PO AC-TID PRN 05/06/25 05/06/25 History Allergies Allergy/AdvReac Type Severity Reaction Status Date / Time Enviromental Allergy Nasal Uncoded 05/06/25 08:21 drainage/watery eyes/sneezing Physical Exam Vitals: Vital Signs Temp Pulse Resp BP Pulse Ox 05/08/25 07:26 99.1 F 98 17 128/84 90 L 05/08/25 05:49 98.8 F 96 05/08/25 03:36 100.5 F H 05/08/25 02:00 102.8 F H 98 05/08/25 01:37 103.1 F H 83 18 151/91 95 05/07/25 19:12 103.0 F H 118 H 17 158/84 93 L 05/07/25 18:06 102.9 F H 105 H 22 142/95 97 05/07/25 14:00 143/81 Intake and Output 05/07/25 05/08/25 05/08/25 22:59 06:59 14:59 Other: # Voids 0 2 GENERAL DESCRIPTION: Middle-age female lying in bed, no distress. No tachypnea or accessory muscle of respiration use. HEENT: Shows Pallor , no scleral icterus. Oral mucous membrane is dry. NECK: Trachea central, no thyromegaly. LUNGS: Unlabored breathing. Clear to auscultation anteriorly. No wheeze or crackle. HEART: S1, S2, regular rate and rhythm. No loud murmur ABDOMEN: Soft, no tenderness , EXTREMITIES: Left upper extremity did have swelling redness and warmth but no open wound or any drainage SKIN: No rash, no masses palpable. NEUROLOGICAL: The patient is awake, alert, oriented x3, mood and affect normal. Results CBC & Chem 7: 05/07/25 04:07 05/07/25 04:07 Labs: Abnormal Lab Results - Last 24 Hours (Table) 05/08/25 Range/Units 04:45 Urine Appearance Cloudy H (Clear) Urine Protein Trace H (Negative) Urine Ketones 1+ H (Negative) Urine Blood Trace H (Negative) Ur Leukocyte Esterase Small H (Negative) Urine WBC 26 H (0-5) /hpf Ur Squamous Epith Cells 8 H (0-4) /hpf Urine Bacteria Moderate H (None) /hpf Hyaline Casts 4 H (0-2) /lpf Urine Mucus Few H (None) /hpf Urine Yeast (Budding) Rare H (None) /hpf Microbiology - Last 24 Hours (Table) 05/06/25 01:00 Urine Culture - Preliminary Urine,Voided Gram Neg Bacilli Assessment and Plan (1) Sepsis Current Visit: Yes Status: Acute Code(s): A41.9 - SEPSIS, UNSPECIFIED ORGANISM SNOMED Code(s): 48432780 (2) Thrombophlebitis Current Visit: Yes Status: Acute Code(s): I80.9 - PHLEBITIS AND THROMBOPHLEBITIS OF UNSPECIFIED SITE SNOMED Code(s): 21395511 Plan: 1patient with fever elevated white count meeting criteria for SIRS/sepsis source likely left upper extremity thrombophlebitis and a question of possible septic thrombophlebitis likely from gram-positive such as MRSA, patient initially presented to hospital with nausea vomiting epigastric pain however CT was negative for any intra-abdominal acute pathology 2-blood culture have been obtained results will be followed 3-we will empirically treat the patient with vancomycin pharmacy to dose however switch Zosyn to Unasyn to decrease risk of nephrotoxicity Multiple question concern answered We will follow on clinical condition and cultures to further adjust medication if needed Thank you for this consultation we will follow the patient along with you Dictation was produced using [employer] dictation software. please excuse any grammatical, word or spelling errors. Time with Patient: Greater than 30
[2025-05-09] MEDS: AMPICILLIN-SULBACTAM 3 GM in SODIUM CHLORIDE 0.9% 100 ML IVPB SCH ×2 (00:17→14:50)
[2025-05-09] MEDS: THIAMINE 100 MG in SODIUM CHLORIDE 0.9% 50 ML IVPB SCH (03:19)
[2025-05-09 04:16] LABS: ALT 18 U/L (4-34); African American GFR (CKD) >90 (>60 ml/min/1.73 sqM); Albumin 1.9 g/dL (3.5-5.0); Albumin/Globulin Ratio 0.8; Anion Gap 6 mmol/L; Blood Urea Nitrogen 10 mg/dL (7-17); Calcium 7.5 mg/dL (8.4-10.2); Carbon Dioxide 25 mmol/L (22-30); Chloride 103 mmol/L (98-107); Globulin 2.3 g/dL; Glucose 92 mg/dL (74-99); Non-African American GFR(CKD) >90 (>60 ml/min/1.73 sqM); Sodium 134 mmol/L (137-145); Total Protein 4.2 g/dL (6.3-8.2)
[2025-05-09 04:29] LABS: AST 77 U/L (14-36); Alkaline Phosphatase 96 U/L (38-126); Potassium 3.6 mmol/L (3.5-5.1)
[2025-05-09 10:03] LABS: Basophils # (A) 0.02 X 10*3/uL (0.00-0.10); Basophils % (A) 0.3 %; Eosinophils # (A) 0 X 10*3/uL (0.04-0.35); Eosinophils % (A) 0 %; HCT 26.6 % (37.2-46.3); HGB 8.5 g/dL (12.0-15.0); Immature Grans, Automated 0.50 %; Lymphocytes # (A) 0.62 X 10*3/uL (0.90-5.00); Lymphocytes % (A) 9.5 %; MCH 27.0 pg (27.0-32.0); MCHC 32.0 g/dL (32.0-37.0); MCV 84.4 FL (80.0-97.0); Monocytes # (A) 0.42 X 10*3/uL (0.20-1.00); Monocytes % (A) 6.4 %; NRBC Per 100 WBC 0 X 10*3/uL (0.00-0.01); Neutrophils # (A) 5.47 X 10*3/uL (1.80-7.70); Neutrophils % (A) 83.3 %; Platelet Count 112 X 10*3/uL (140-440); RBC 3.15 X 10*6/uL (4.10-5.20); RDW 20.6 % (11.5-14.5); WBC 6.56 X 10*3/uL (4.50-10.00)
--- NOTE | 2025-05-09 12:45 | P.PN ---
Subjective Progress Note Date: 05/09/25 Principal diagnosis: Abdominal pain Patient had fevers again last night. Etiology appears to be related to left arm thrombophlebitis. Blood cultures positive for MRSA. White blood cell count is normal today. Says her left arm is about the same as yesterday. Abdominal pain hurts less than the arm pain. Did have an episode of vomiting once this morning. Remains nauseated. Objective - Vital Signs Vital signs: Vital Signs Temp 97.9 F 05/09/25 11:43 Pulse 90 05/09/25 07:36 Resp 17 05/09/25 07:36 BP 133/85 05/09/25 07:36 Pulse Ox 94 L 05/09/25 07:36 FiO2 Intake & Output 05/08/25 05/09/25 05/09/25 18:59 06:59 18:59 Other: # Voids 0 2 - Exam Abdomen: Soft, nondistended, mild upper abdominal tenderness, no rebound or guar ding - Labs CBC & Chem 7: 05/09/25 03:41 05/09/25 03:41 Labs: Abnormal Lab Results - Last 24 Hours (Table) 05/08/25 05/09/25 05/09/25 Range/Units 12:24 03:41 03:41 RBC 3.15 L (4.10-5.20) X 10*6/uL Hgb 8.5 L (12.0-15.0) g/dL Hct 26.6 L (37.2-46.3) % RDW 20.6 H (11.5-14.5) % Plt Count 112 L (140-440) X 10*3/uL Lymphocytes # 0.62 L (0.90-5.00) X 10*3/uL Eosinophils # 0 L (0.04-0.35) X 10*3/uL Sodium 134 L (137-145) mmol/L Calcium 7.5 L (8.4-10.2) mg/dL AST 77 H (14-36) U/L C-Reactive Protein 18.5 H (<1.0) mg/dL Total Protein 4.2 L (6.3-8.2) g/dL Albumin 1.9 L (3.5-5.0) g/dL Microbiology - Last 24 Hours (Table) 05/08/25 03:24 Blood Culture Gram Stain - Preliminary Blood Blood Culture - Preliminary Molecular ID 05/06/25 01:00 Urine Culture - Final Urine,Voided Klebsiella pneumoniae Assessment and Plan (1) Abdominal pain Narrative/Plan: 54-year-old female with abdominal pain and nausea vomiting post sleeve gastrectomy several months ago. White blood cell count normal today. Elevated fevers appear to be related to thrombophlebitis and MRSA blood culture positive results. Consider reconsult to vascular surgery if arm pain persist or worsens. Continue antibiotics per infectious disease. Continue liquid diet. Current Visit: Yes Status: Acute Code(s): R10.9 - UNSPECIFIED ABDOMINAL PAIN SNOMED Code(s): 65630705
--- NOTE | 2025-05-09 15:54 | P.PN ---
Subjective Progress Note Date: 05/09/25 Principal diagnosis: Reason for follow-up is fever/septic phlebitis/MRSA bacteremia Patient is a 54-year-old -[place] female with a past medical history significant for diabetes mellitus COPD hypertension reflux asthma pneumonia presented to the hospital for evaluation of nausea and vomiting, did have left upper extremity IV site pain swelling and redness which was discontinued with evidence of SVT did have a fever and blood culture positive for MRSA. On today's evaluation that is 05/09/2025, Patient did have improvement in her fever pattern and is afebrile this afternoon patient is currently on room air and denies having any shortness of breath, the patient denies any chest pain or cough, the patient still complaining of nausea with episode of vomiting this mo rning no further diarrhea. Patient white count is 6.56 creatinine 0.70 blood culture positive for MRSA urine with Klebsiella Objective - Vital Signs Vital signs: Vital Signs Temp 97.9 F 05/09/25 13:42 Pulse 79 05/09/25 13:42 Resp 17 05/09/25 13:42 BP 111/74 05/09/25 13:42 Pulse Ox 100 05/09/25 13:42 FiO2 Intake & Output 05/08/25 05/09/25 05/09/25 18:59 06:59 18:59 Other: # Voids 0 2 - Exam GENERAL DESCRIPTION: Delayed female lying in bed in no distress RESPIRATORY SYSTEM: Unlabored breathing , decreased breath sounds at bases HEART: S1 S2 regular rate and rhythm , ABDOMEN: Soft , no tenderness EXTREMITIES: Left upper extremity with swelling no purulent drainage - Labs CBC & Chem 7: 05/09/25 03:41 05/09/25 03:41 Labs: Abnormal Lab Results - Last 24 Hours (Table) 05/09/25 05/09/25 Range/Units 03:41 03:41 RBC 3.15 L (4.10-5.20) X 10*6/uL Hgb 8.5 L (12.0-15.0) g/dL Hct 26.6 L (37.2-46.3) % RDW 20.6 H (11.5-14.5) % Plt Count 112 L (140-440) X 10*3/uL Lymphocytes # 0.62 L (0.90-5.00) X 10*3/uL Eosinophils # 0 L (0.04-0.35) X 10*3/uL Sodium 134 L (137-145) mmol/L Calcium 7.5 L (8.4-10.2) mg/dL AST 77 H (14-36) U/L Total Protein 4.2 L (6.3-8.2) g/dL Albumin 1.9 L (3.5-5.0) g/dL Microbiology - Last 24 Hours (Table) 05/08/25 03:24 Blood Culture Gram Stain - Preliminary Blood Blood Culture - Preliminary Molecular ID 05/06/25 01:00 Urine Culture - Final Urine,Voided Klebsiella pneumoniae Assessment and Plan (1) Sepsis Current Visit: Yes Status: Acute Code(s): A41.9 - SEPSIS, UNSPECIFIED ORGANISM SNOMED Code(s): 63827899 (2) Thrombophlebitis Current Visit: Yes Status: Acute Code(s): I80.9 - PHLEBITIS AND THROMBOPHLEBITIS OF UNSPECIFIED SITE SNOMED Code(s): 62571738 (3) MRSA bacteremia Current Visit: Yes Status: Acute Code(s): R78.81 - BACTEREMIA; B95.62 - METHICILLIN RESIS STAPH INFCT CAUSING DISEASES CLASSD ELSWHR SNOMED Code(s): 96572913152770405 Plan: 1patient with fever elevated white count meeting criteria for SIRS/sepsis source likely left upper extremity thrombophlebitis and a question of possible septic thrombophlebitis likely from gram-positive such as MRSA, patient initially presented to hospital with nausea vomiting epigastric pain however CT was negative for any intra-abdominal acute pathology 2-blood culture growing MRSA source likely septic phlebitis 3-patient is covered with vancomycin to continue blood culture repeated document clearance of bacteremia Dictation was produced using [employer] dictation software. please excuse any grammatical, word or spelling errors. Time with Patient: Less than 30
--- NOTE | 2025-05-09 17:07 | P.PN ---
Subjective Progress Note Date: 05/09/25 54-year-old female with past medical significant for sleeve gastrectomy in December 2024, history of esophageal dysmotility, history of diastolic CHF, hypertension, acute kidney injury, who presented to the hospital with complaint of nausea vomiting and dehydration. Patient had recurrent hospitalizations for similar symptoms, was noted to be hypotensive and likely acute kidney injury during previous hospitalization, was discharged home on IV fluids and Latishafei- George now presented again with a similar symptom send was concerned about dehydration and presented to ER. Patient denied any fever or chills, patient reported that she was having decreased urinary output. Patient reported increased thirst and dry mouth. Patient is afebrile, heart rate 71, respiratory rate 20, blood pressure 152/98, saturating 93% on room air. WBC 6.04 hemoglobin 10.7 platelet 171. INR 1.0. BMP unremarkable except pot assium 3.3, magnesium 1.4. Lipase unremarkable. Troponin negative. UA contaminated sample. CT abdomen pelvis negative for acute process, showed mild anasarca. 05/07. Patient seen and examined. Blood work done showed WBC 6.5, hemoglobin 10.1, sodium 138, potassium 3.1. Duplex ultrasound showed acute DVT of the duplicated right popliteal vein. Still having nausea and vomiting 05/08. Patient seen and examined. Patient has been spiking high-grade fevers overnight. With Tmax of 103.1. Patient had swelling of left upper extremity, duplex ultrasound showed superficial vein thrombus of left basilic vein. 05/09. Patient seen and examined. Patient fevers have improved, Tmax of 100.1. Labs reviewed showing WBC 6.56, hemoglobin 8.5, sodium 135, potassium 3.6, BUN 10, creatinine 0.70 REVIEW OF SYSTEMS: CONSTITUTIONAL: As mentioned above CARDIOVASCULAR: No chest pain, no palpitations, no syncope. PULMONARY: No shortness of breath, no cough, GASTROINTESTINAL: No as mentioned above NEUROLOGICAL: No headaches, no weakness, PHYSICAL EXAMINATION: GENERAL: The patient is alert and oriented x3, not in any acute distress. Well developed, well nourished. HEENT: Pupils are round and equally reacting to light. EOMI. No scleral icterus. No conjunctival pallor. Normocephalic, atraumatic. No pharyngeal erythema. No thyromegaly. CARDIOVASCULAR: S1 and S2 present. No murmurs, rubs, or gallops. PULMONARY: Chest is clear to auscultation, no wheezing or crackles. ABDOMEN: Soft, nontender, nondistended, normoactive bowel sounds. No palpable organomegaly. MUSCULOSKELETAL: No joint swelling or deformity. EXTREMITIES: No cyanosis, clubbing, 1+ pitting edema lower extremity Left upper extremity swollen NEUROLOGICAL: Gross neurological examination did not reveal any focal deficits. SKIN: No rashes. Assessment and plan Nausea and vomiting: Dehydration: Recurrent hospitalization for nausea vomiting, dehydration and acute kidney injury: Esophageal dysmotility: Hypokalemia: Hypomagnesemia: Patient has recurrent hospitalization for similar symptoms, nausea vomiting, dehydration, hypotension and acute kidney injury. CT abdomen pelvis negative for acute process, showed mild anasarca Hold diuretic IV fluids Monitor electrolytes and replace as needed Clear liquid diet Ordered potassium replacement General Surgery consultedrecommended upper GI Fever Left upper extremity cellulitis MRSA bacteremia Blood cultures positive for MRSA Currently on 5 dose vancomycin ID following Superficial vein thrombus of left basilic vein Continue supportive treatment Right lower extremity DVT Continue Eliquis Vascular surgery evaluated, recommended oral anticoagulation, notes reviewed r ecommendation noted from 05/07 Thiamine deficiency: Thiamine level 16 from previous hospitalization Thiamine supplements History of diastolic CHF COPD Obstructive sleep apnea Labs and medication were reviewed.. Continue same treatment. Continue with symptomatic treatment. Resume home medication. Monitor labs and vitals. DVT and GI prophylaxis. Further recommendations as per clinical course of the patient Dictation was produced using [employer] dictation software. please excuse any grammatical, word or spelling errors. Objective - Vital Signs Vital signs: Vital Signs Temp 97.9 F 05/09/25 11:43 Pulse 90 05/09/25 07:36 Resp 17 05/09/25 07:36 BP 133/85 05/09/25 07:36 Pulse Ox 94 L 05/09/25 07:36 FiO2 Intake & Output 05/08/25 05/09/25 05/09/25 18:59 06:59 18:59 Other: # Voids 0 2 - Labs CBC & Chem 7: 05/09/25 03:41 05/09/25 03:41 Labs: Abnormal Lab Results - Last 24 Hours (Table) 05/08/25 05/09/25 05/09/25 Range/Units 12:24 03:41 03:41 RBC 3.15 L (4.10-5.20) X 10*6/uL Hgb 8.5 L (12.0-15.0) g/dL Hct 26.6 L (37.2-46.3) % RDW 20.6 H (11.5-14.5) % Plt Count 112 L (140-440) X 10*3/uL Lymphocytes # 0.62 L (0.90-5.00) X 10*3/uL Eosinophils # 0 L (0.04-0.35) X 10*3/uL Sodium 134 L (137-145) mmol/L Calcium 7.5 L (8.4-10.2) mg/dL AST 77 H (14-36) U/L C-Reactive Protein 18.5 H (<1.0) mg/dL Total Protein 4.2 L (6.3-8.2) g/dL Albumin 1.9 L (3.5-5.0) g/dL Microbiology - Last 24 Hours (Table) 05/08/25 03:24 Blood Culture Gram Stain - Preliminary Blood Blood Culture - Preliminary Molecular ID 05/06/25 01:00 Urine Culture - Final Urine,Voided Klebsiella pneumoniae
[2025-05-10] MEDS: VANCOMYCIN 1,250 MG in SODIUM CHLORIDE 0.9% 250 ML IVPB SCH (10:10)
[2025-05-10] MEDS: AMPICILLIN-SULBACTAM 3 GM in SODIUM CHLORIDE 0.9% 100 ML IVPB SCH (12:38)
--- NOTE | 2025-05-10 14:09 | P.PN ---
Subjective Progress Note Date: 05/10/25 54-year-old female with past medical significant for sleeve gastrectomy in December 2024, history of esophageal dysmotility, history of diastolic CHF, hypertension, acute kidney injury, who presented to the hospital with complaint of nausea vomiting and dehydration. Patient had recurrent hospitalizations for similar symptoms, was noted to be hypotensive and likely acute kidney injury during previous hospitalization, was discharged home on IV fluids and Ayaz Vazquez now presented again with a similar symptom send was concerned about dehydration and presented to ER. Patient denied any fever or chills, patient reported that she was having decreased urinary output. Patient reported increased thirst and dry mouth. Patient is afebrile, heart rate 71, respiratory rate 20, blood pressure 152/98, saturating 93% on room air. WBC 6.04 hemoglobin 10.7 platelet 171. INR 1.0. BMP unremarkable except pot assium 3.3, magnesium 1.4. Lipase unremarkable. Troponin negative. UA contaminated sample. CT abdomen pelvis negative for acute process, showed mild anasarca. 05/07. Patient seen and examined. Blood work done showed WBC 6.5, hemoglobin 10.1, sodium 138, potassium 3.1. Duplex ultrasound showed acute DVT of the duplicated right popliteal vein. Still having nausea and vomiting 05/08. Patient seen and examined. Patient has been spiking high-grade fevers overnight. With Tmax of 103.1. Patient had swelling of left upper extremity, duplex ultrasound showed superficial vein thrombus of left basilic vein. 05/09. Patient seen and examined. Patient fevers have improved, Tmax of 100.1. Labs reviewed showing WBC 6.56, hemoglobin 8.5, sodium 135, potassium 3.6, BUN 10, creatinine 0.70 05/10. Patient seen and examined. Labs reviewedWBC 6.58, 8.5, sodium 134, potassium 3.6, BUN 10, creatinine 0.70. Fevers have resolved. Still has swelling and pain in left upper extremity. REVIEW OF SYSTEMS: CONSTITUTIONAL: As mentioned above CARDIOVASCULAR: No chest pain, no palpitations, no syncope. PULMONARY: No shortness of breath, no cough, GASTROINTESTINAL: No as mentioned above NEUROLOGICAL: No headaches, no weakness, PHYSICAL EXAMINATION: GENERAL: The patient is alert and oriented x3, not in any acute distress. Well developed, well nourished. HEENT: Pupils are round and equally reacting to light. EOMI. No scleral icterus. No conjunctival pallor. Normocephalic, atraumatic. No pharyngeal erythema. No thyromegaly. CARDIOVASCULAR: S1 and S2 present. No murmurs, rubs, or gallops. PULMONARY: Chest is clear to auscultation, no wheezing or crackles. ABDOMEN: Soft, nontender, nondistended, normoactive bowel sounds. No palpable organomegaly. MUSCULOSKELETAL: No joint swelling or deformity. EXTREMITIES: No cyanosis, clubbing, 1+ pitting edema lower extremity. Swelling of left upper extremity Left upper extremity swollen NEUROLOGICAL: Gross neurological examination did not reveal any focal deficits. SKIN: No rashes. Assessment and plan Nausea and vomiting: Dehydration: Recurrent hospitalization for nausea vomiting, dehydration and acute kidney injury: Esophageal dysmotility: Hypokalemia: Hypomagnesemia: Patient has recurrent hospitalization for similar symptoms, nausea vomiting, dehydration, hypotension and acute kidney injury. CT abdomen pelvis negative for acute process, showed mild anasarca Current on liquid diet General Surgery following Fever Left upper extremity cellulitis MRSA bacteremia Blood cultures positive for MRSA Currently on Unasyn and vancomycin ID following Superficial vein thrombus of left basilic vein Continue supportive treatment Right lower extremity DVT Continue Eliquis Vascular surgery evaluated, recommended oral anticoagulation, notes reviewed recommendation noted from 05/07 Thiamine deficiency: Thiamine level 16 from previous hospitalization Thiamine supplements History of diastolic CHF COPD Obstructive sleep apnea Labs and medication were reviewed.. Continue same treatment. Continue with symptomatic treatment. Resume home medication. Monitor labs and vitals. DVT and GI prophylaxis. Further recommendations as per clinical course of the p atient Dictation was produced using [employer] dictation software. please excuse any grammatical, word or spelling errors. Objective - Vital Signs Vital signs: Vital Signs Temp 98.4 F 05/10/25 07:53 Pulse 85 05/10/25 07:53 Resp 16 05/10/25 07:53 BP 111/72 05/10/25 07:53 Pulse Ox 96 05/10/25 07:53 FiO2 Intake & Output 05/09/25 05/10/25 05/10/25 18:59 06:59 18:59 Other: Voiding Method Toilet # Voids 3 2 # Bowel Movements 0 - Labs CBC & Chem 7: 05/09/25 03:41 05/09/25 03:41 Labs: Microbiology - Last 24 Hours (Table) 05/08/25 03:24 Blood Culture Gram Stain - Preliminary Blood Blood Culture - Preliminary Presumptive MRSA Molecular ID
[2025-05-10] MEDS ORDERED: VANCOMYCIN TROUGH DUE 1 EACH MISC MISCELLANE ONE (15:00)
[2025-05-10] MEDS: THIAMINE 100 MG/ML 2 ML VIAL IVP SCH (16:06)
--- NOTE | 2025-05-10 18:06 | P.PN ---
Subjective Progress Note Date: 05/10/25 Principal diagnosis: Abdominal pain Patient still having abdominal pain, left arm pain, and right leg pain. Overall symptoms improved at all locations. Still with mild nausea. Says she did bring up a small amount of clear liquids. White blood cell count normal. Fevers improved. Denies numbness or tingling on any of the extremities. Objective - Vital Signs Vital signs: Vital Signs Temp 98.3 F 05/10/25 14:00 Pulse 78 05/10/25 14:00 Resp 15 05/10/25 14:00 BP 129/82 05/10/25 14:00 Pulse Ox 98 05/10/25 14:00 FiO2 Intake & Output 05/09/25 05/10/25 05/10/25 18:59 06:59 18:59 Other: Voiding Method Toilet # Voids 3 2 2 # Bowel Movements 0 - Exam Abdomen: Soft, nondistended, mild upper abdominal tenderness, no rebound or guarding Left brachial region with mild tenderness, slight warmth present, no fluctuance, mild edema to the wrist region Right lower extremity with mild edema, nontender - Labs CBC & Chem 7: 05/09/25 03:41 05/09/25 03:41 Labs: Microbiology - Last 24 Hours (Table) 05/08/25 03:24 Blood Culture Gram Stain - Preliminary Blood Blood Culture - Preliminary Presumptive MRSA Molecular ID Assessment and Plan (1) Abdominal pain Narrative/Plan: 54-year-old female with suspected septic thrombophlebitis from recent IV site. Midline placed right forearm today. Continue broad-spectrum antibiotics. Still advise consideration for reconsult with vascular surgery to assess the patient's extremity discomforts. Continue liquid diet. Will follow. Current Visit: Yes Status: Acute Code(s): R10.9 - UNSPECIFIED ABDOMINAL PAIN SNOMED Code(s): 85612455
[2025-05-10] MEDS: ONDANSETRON 4 MG/2 ML VIAL IVP PRN (18:29)
[2025-05-10 20:48] LABS: Glucose,Whole Blood 79 mg/dL (70-110)
[2025-05-11 10:20] LABS: African American GFR (CKD) >90 (>60 ml/min/1.73 sqM); Anion Gap 7 mmol/L; Blood Urea Nitrogen 9 mg/dL (7-17); Calcium 7.5 mg/dL (8.4-10.2); Carbon Dioxide 22 mmol/L (22-30); Chloride 110 mmol/L (98-107); Glucose 88 mg/dL (74-99); Non-African American GFR(CKD) >90 (>60 ml/min/1.73 sqM); Potassium 2.8 mmol/L (3.5-5.1); Sodium 139 mmol/L (137-145)
[2025-05-11] MEDS: VANCOMYCIN TROUGH DUE 1 EACH MISC MISCELLANE ONE (10:27)
[2025-05-11] MEDS: VANCOMYCIN 1,250 MG in SODIUM CHLORIDE 0.9% 250 ML IVPB SCH (10:40)
[2025-05-11] MEDS ORDERED: Potassium Replacement Protocol 1 EACH MISC MISCELLANE PRN ×2 (10:41→10:57)
--- NOTE | 2025-05-11 10:43 | P.PN ---
Subjective Progress Note Date: 05/11/25 54-year-old female with past medical significant for sleeve gastrectomy in December 2024, history of esophageal dysmotility, history of diastolic CHF, hypertension, acute kidney injury, who presented to the hospital with complaint of nausea vomiting and dehydration. Patient had recurrent hospitalizations for similar symptoms, was noted to be hypotensive and likely acute kidney injury during previous hospitalization, was discharged home on IV fluids and Ayaz Vazquez now presented again with a similar symptom send was concerned about dehydration and presented to ER. Patient denied any fever or chills, patient reported that she was having decreased urinary output. Patient reported increased thirst and dry mouth. Patient is afebrile, heart rate 71, respiratory rate 20, blood pressure 152/98, saturating 93% on room air. WBC 6.04 hemoglobin 10.7 platelet 171. INR 1.0. BMP unremarkable except pot assium 3.3, magnesium 1.4. Lipase unremarkable. Troponin negative. UA contaminated sample. CT abdomen pelvis negative for acute process, showed mild anasarca. 05/07. Patient seen and examined. Blood work done showed WBC 6.5, hemoglobin 10.1, sodium 138, potassium 3.1. Duplex ultrasound showed acute DVT of the duplicated right popliteal vein. Still having nausea and vomiting 05/08. Patient seen and examined. Patient has been spiking high-grade fevers overnight. With Tmax of 103.1. Patient had swelling of left upper extremity, duplex ultrasound showed superficial vein thrombus of left basilic vein. 05/09. Patient seen and examined. Patient fevers have improved, Tmax of 100.1. Labs reviewed showing WBC 6.56, hemoglobin 8.5, sodium 135, potassium 3.6, BUN 10, creatinine 0.70 05/10. Patient seen and examined. Labs reviewedWBC 6.58, 8.5, sodium 134, potassium 3.6, BUN 10, creatinine 0.70. Fevers have resolved. Still has swelling and pain in left upper extremity. 05/11. Patient seen examined. Continues to feel better. Tolerating clear liquid diet. Left upper extremity is tender, swelling is slightly improved. Potassium this morning is 2.8, replacement ordered REVIEW OF SYSTEMS: CONSTITUTIONAL: As mentioned above CARDIOVASCULAR: No chest pain, no palpitations, no syncope. PULMONARY: No shortness of breath, no cough, GASTROINTESTINAL: No as mentioned above NEUROLOGICAL: No headaches, no weakness, PHYSICAL EXAMINATION: GENERAL: The patient is alert and oriented x3, not in any acute distress. Well developed, well nourished. HEENT: Pupils are round and equally reacting to light. EOMI. No scleral icterus. No conjunctival pallor. Normocephalic, atraumatic. No pharyngeal erythema. No thyromegaly. CARDIOVASCULAR: S1 and S2 present. No murmurs, rubs, or gallops. PULMONARY: Chest is clear to auscultation, no wheezing or crackles. ABDOMEN: Soft, nontender, nondistended, normoactive bowel sounds. No palpable organomegaly. MUSCULOSKELETAL: No joint swelling or deformity. EXTREMITIES: No cyanosis, clubbing, 1+ pitting edema lower extremity. Swelling of left upper extremity Left upper extremity swollen NEUROLOGICAL: Gross neurological examination did not reveal any focal deficits. SKIN: No rashes. Assessment and plan Nausea and vomiting: Dehydration: Recurrent hospitalization for nausea vomiting, dehydration and acute kidney injury: Esophageal dysmotility: Hypokalemia: Hypomagnesemia: Patient has recurrent hospitalization for similar symptoms, nausea vomiting, dehydration, hypotension and acute kidney injury. CT abdomen pelvis negative for acute process, showed mild anasarca Current on liquid diet Potassium is 2.8, replacement ordered General Surgery following Fever Left upper extremity cellulitis MRSA bacteremia Blood cultures positive for MRSA Currently on Unasyn and vancomycin 2D echo ordered ID following Superficial vein thrombus of left basilic vein Continue supportive treatment Right lower extremity DVT Continue Eliquis Vascular surgery evaluated, recommended oral anticoagulation, notes reviewed recommendation noted from 05/07 Thiamine deficiency: Thiamine level 16 from previous hospitalization Thiamine supplements History of diastolic CHF COPD Obstructive sleep apnea Labs and medication were reviewed.. Continue same treatment. Continue with symptomatic treatment. Resume home medication. Monitor labs and vitals. DVT and GI prophylaxis. Further recommendations as per clinical course of the patient Dictation was produced using [employer] dictation software. please excuse any grammatical, word or spelling errors. Objective - Vital Signs Vital signs: Vital Signs Temp 98.2 F 05/11/25 07:21 Pulse 76 05/11/25 07:21 Resp 17 05/11/25 07:21 BP 130/75 05/11/25 07:21 Pulse Ox 97 05/11/25 07:21 FiO2 Intake & Output 05/10/25 05/11/25 05/11/25 18:59 06:59 18:59 Other: Voiding Method Toilet Toilet # Voids 2 2 - Labs CBC & Chem 7: 05/09/25 03:41 05/11/25 09:34 Labs: Abnormal Lab Results - Last 24 Hours (Table) 05/11/25 Range/Units 09:34 Potassium 2.8 L (3.5-5.1) mmol/L Chloride 110 H (98-107) mmol/L Calcium 7.5 L (8.4-10.2) mg/dL Microbiology - Last 24 Hours (Table) 05/08/25 03:24 Blood Culture Gram Stain - Preliminary Blood Blood Culture - Preliminary Presumptive MRSA Molecular ID
[2025-05-11] MEDS ORDERED: POTASSIUM CHLORIDE 10 MEQ in WATER FOR INJECTION 1 100ML.BAG IVPB SCH (11:00)
[2025-05-11] MEDS: POTASSIUM BICARBONATE/CIT AC 20 MEQ TABLET.EFF PO SCH ×2 (11:57→21:34)
--- NOTE | 2025-05-11 12:52 | P.PN ---
Subjective Progress Note Date: 05/11/25 SURGICAL PROGRESS NOTE CHIEF COMPLAINT: Nausea and vomiting HISTORY OF PRESENT ILLNESS: Patient had 1 episode of vomiting yesterday. She has intermittent episodes of nausea. Continues to complain of left arm pain and swelling. Patient reports she has a sticking sensation in her throat with swallowing liquids she was seen by speech therapy and they have ordered an MBS. Afebrile. Potassium 2.8. On Eliquis for DVT right leg PHYSICAL EXAM: VITAL SIGNS: Reviewed. GENERAL: Well-developed in no acute distress. HEENT: No sclera icterus. Extraocular movements grossly intact. Moist buccal mucosa. Head is atraumatic, normocephalic. ABDOMEN: Soft. Nondistended. Mild tenderness epigastric area Extremities left arm swollen tenderness in the left brachial region. ASSESSMENT: 1. Nausea and vomiting possibly due to esophageal dysmotility, electrolyte imbalance and thiamine deficiency 2. Dehydration 3. Epigastric abdominal pain 4. Esophageal dysmotility and GERD 5. Thiamine deficiency 6. Hypokalemia and hypomagnesemia 7. Suspected septic thrombophlebitis from recent IV site left arm PLAN: - Continue to correct electrolytes - Continue thiamine supplement - Continue clear liquid diet - Ensure clear added - Follow-up on the MBS study by speech therapy - Continue PPI - Consult vascular team regarding left arm swelling and pain Physician First [employer] note has been reviewed by physician. Signing provider agrees with the documented findings, assessment, and plan of care. I have personally seen and examined the patient, reviewed the FISH AGENT /PAs history, exam and MDM and agree with the assessment and plan as written. Based on total visit time, I have performed more than 50% of the visit. As above: Patient says her arm pain is improved after the compressive sleeve was applied. Diet was advanced to full liquids. No vomiting since that time. Now that arm pain is improved and patient without significant leg pain hopefully we can have the patient begin improving activity. Await final recommendations from speech pathology. Continue antiacids. Objective - Vital Signs Vital signs: Vital Signs Temp 98.2 F 05/11/25 07:21 Pulse 76 05/11/25 07:21 Resp 17 05/11/25 07:21 BP 130/75 05/11/25 07:21 Pulse Ox 97 05/11/25 07:21 FiO2 Intake & Output 05/10/25 05/11/25 05/11/25 18:59 06:59 18:59 Other: Voiding Method Toilet Toilet Toilet # Voids 2 2 - Labs CBC & Chem 7: 05/09/25 03:41 05/11/25 09:34 Labs: Abnormal Lab Results - Last 24 Hours (Table) 05/11/25 Range/Units 09:34 Potassium 2.8 L (3.5-5.1) mmol/L Chloride 110 H (98-107) mmol/L Calcium 7.5 L (8.4-10.2) mg/dL
--- NOTE | 2025-05-11 13:10 | P.PN ---
Subjective Progress Note Date: 05/11/25 Principal diagnosis: Reason for follow-up is fever/septic phlebitis/MRSA bacteremia Patient is a 54-year-old -[place] female with a past medical history significant for diabetes mellitus COPD hypertension reflux asthma pneumonia presented to the hospital for evaluation of nausea and vomiting, did have left upper extremity IV site pain swelling and redness which was discontinued with evidence of SVT did have a fever and blood culture positive for MRSA. On today's evaluation that is 05/11/2025, Patient is afebrile this morning patient denies having any chest pain shortness of breath or cough, the patient is currently on room air, patient mention improvement abdominal pain still complaining of nausea with episode of vomiting this morning no diarrhea left upper extremity swelling redness has decreased. Patient did have a creatinine 0.59 Objective - Vital Signs Vital signs: Vital Signs Temp 98.2 F 05/11/25 07:21 Pulse 76 05/11/25 07:21 Resp 17 05/11/25 07:21 BP 130/75 05/11/25 07:21 Pulse Ox 97 05/11/25 07:21 FiO2 Intake & Output 05/10/25 05/11/25 05/11/25 18:59 06:59 18:59 Other: Voiding Method Toilet Toilet Toilet # Voids 2 2 - Exam GENERAL DESCRIPTION: Delayed female lying in bed in no distress RESPIRATORY SYSTEM: Unlabored breathing , decreased breath sounds at bases HEART: S1 S2 regular rate and rhythm , ABDOMEN: Soft , no tenderness EXTREMITIES: Left upper extremity with swelling no purulent drainage - Labs CBC & Chem 7: 05/09/25 03:41 05/11/25 09:34 Labs: Abnormal Lab Results - Last 24 Hours (Table) 05/11/25 Range/Units 09:34 Potassium 2.8 L (3.5-5.1) mmol/L Chloride 110 H (98-107) mmol/L Calcium 7.5 L (8.4-10.2) mg/dL Microbiology - Last 24 Hours (Table) 05/10/25 03:49 Blood Culture - Preliminary Blood 05/08/25 03:24 Blood Culture Gram Stain - Final Blood Blood Culture - Final Methicillin resist S. aureus Molecular ID Assessment and Plan (1) Sepsis Current Visit: Yes Status: Acute Code(s): A41.9 - SEPSIS, UNSPECIFIED [facility] SNOMED Code(s): 43293376 (2) Thrombophlebitis Current Visit: Yes Status: Acute Code(s): I80.9 - PHLEBITIS AND THROMBOPHLEBITIS OF UNSPECIFIED SITE SNOMED Code(s): 47323373 (3) MRSA bacteremia Current Visit: Yes Status: Acute Code(s): R78.81 - BACTEREMIA; B95.62 - METHICILLIN RESIS STAPH INFCT CAUSING DISEASES CLASSD [facility] SNOMED Code(s): 57374796293824247 Plan: 1patient with fever elevated white count meeting criteria for SIRS/sepsis source likely left upper extremity thrombophlebitis and a question of possible septic thrombophlebitis likely from gram-positive such as MRSA, patient initially presented to hospital with nausea vomiting epigastric pain however CT was negative for any intra-abdominal acute pathology 2-blood culture growing MRSA source likely septic phlebitis 3-patient is covered with vancomycin she will need a PICC line once a blood culture repeat negative at 72 hours for continuation of IV antibiotics on discharge discontinue Unasyn Dictation was produced using [employer] dictation software. please excuse any grammatical, word or spelling errors. Time with Patient: Less than 30
--- NOTE | 2025-05-11 13:10 | P.PN ---
Subjective Progress Note Date: 05/10/25 Principal diagnosis: Reason for follow-up is fever/septic phlebitis/MRSA bacteremia Patient is a 54-year-old -[place] female with a past medical history significant for diabetes mellitus COPD hypertension reflux asthma pneumonia presented to the hospital for evaluation of nausea and vomiting, did have left upper extremity IV site pain swelling and redness which was discontinued with evidence of SVT did have a fever and blood culture positive for MRSA. On today's evaluation that is 05/10/2025, patient has been afebrile, patient is breathing comfortably and is currently on room air, patient denies having any chest pain and cough, patient still complaining of nausea and episode of vomiting this morning abdominal pain is decreased left lower extremity pain and swelling has decreased. No new lab has been obtained today blood culture repeat 05/10/2025 so far pending Objective - Vital Signs Vital signs: Vital Signs Temp 98.3 F 05/10/25 14:00 Pulse 78 05/10/25 14:00 Resp 15 05/10/25 14:00 BP 129/82 05/10/25 14:00 Pulse Ox 98 05/10/25 14:00 FiO2 Intake & Output 05/09/25 05/10/25 05/10/25 18:59 06:59 18:59 Other: Voiding Method Toilet # Voids 3 2 2 # Bowel Movements 0 - Exam GENERAL DESCRIPTION: Delayed female lying in bed in no distress RESPIRATORY SYSTEM: Unlabored breathing , decreased breath sounds at bases HEART: S1 S2 regular rate and rhythm , ABDOMEN: Soft , no tenderness EXTREMITIES: Left upper extremity with swelling no purulent drainage - Labs CBC & Chem 7: 05/09/25 03:41 05/11/25 09:34 Labs: Microbiology - Last 24 Hours (Table) 05/08/25 03:24 Blood Culture Gram Stain - Preliminary Blood Blood Culture - Preliminary Presumptive MRSA Molecular ID Assessment and Plan (1) Sepsis Current Visit: Yes Status: Acute Code(s): A41.9 - SEPSIS, UNSPECIFIED ORGANISM SNOMED Code(s): 90626054 (2) Thrombophlebitis Current Visit: Yes Status: Acute Code(s): I80.9 - PHLEBITIS AND THROMBOPHLEBITIS OF UNSPECIFIED SITE SNOMED Code(s): 87246174 (3) MRSA bacteremia Current Visit: Yes Status: Acute Code(s): R78.81 - BACTEREMIA; B95.62 - METHICILLIN RESIS STAPH INFCT CAUSING DISEASES CL[facility]SD [facility] SNOMED Code(s): 93114577834315326 Plan: 1patient with fever elevated white count meeting criteria for SIRS/sepsis source likely left upper extremity thrombophlebitis and a question of possible septic thrombophlebitis likely from gram-positive such as MRSA, patient initially presented to hospital with nausea vomiting epigastric pain however CT was negative for any intra-abdominal acute pathology 2-blood culture growing MRSA source likely septic phlebitis 3-patient is covered with vancomycin blood culture repeat currently pending Dictation was produced using [employer] software. please excuse any grammatical, word or spelling errors. Time with Patient: Less than 30
--- NOTE | 2025-05-11 13:27 | P.GSCN ---
History of Present Illness Consult date: 05/11/25 Reason for Consult: Left upper extremity swelling and pain Requesting physician: Gary Vazquez History of present illness: This is a pleasant 54-year-old female who we had recently seen for a right lower extremity deep vein thrombosis who was transition from heparin to Eliquis who also had infiltration of her left upper extremity IV followed by swelling and pain and had a venous duplex of the left upper extremity with superficial thrombus of the basilic vein. Patient was initially admitted for nausea and vomiting and electrolyte imbalance. Vascular surgery had signed off. She has been hospitalized since 05/05/2025. She has continued nausea and vomiting with electrolyte imbalance. She has had continued left upper extremity arm swelling and pain. She has positive bacteremia with blood cultures growing MRSA. Patient also with urinary tract infection. She has been on cefepime and was seen by infectious disease for concerns for infection and phlebitis. Antibiotics were changed and vancomycin was added. Patient had a max temp on May 07 and of 103.0 Fahrenheit. She has been afebrile since. She continues to have pain in that left upper extremity specially near the antecubital fossa. Patient is currently on Eliquis. Review of Systems A 14 point review systems was completed all pertinent positives and negatives as stated in the HPI. Past Medical History Past Medical History: Asthma, Chest Pain / Angina, COPD, Diabetes Mellitus, GERD/Reflux, Hypertension, Osteoarthritis (OA), Pneumonia, Sleep Apnea/CPAP/BIPAP Additional Past Medical History / Comment(s): Recent ER visit r/t headache-pt states was dx with a Migraine. DDD, borderline diabetic, uses CPAP machine environmental allergies., has lap band. Influenza-12/2024 History of Any Multi-Drug Resistant Organisms: MRSA Year Discovered:: 05/08/25 MDRO Source:: blood, rt breast Past Surgical History: Back Surgery, Bariatric Surgery, Section, Cholecystectomy, Heart Catheterization, Joint Replacement, Tubal Ligation Additional Past Surgical History / Comment(s): bilateral knee replacement, lap band , RT WRIST GANGLION CYCT REMOVED, lumbar fusion surgery. lap band removal sleeve gastrectomy 12-14-24 Past Anesthesia/Blood Transfusion Reactions: No Reported Reaction Additional Past Anesthesia/Blood Transfusion Reaction / Comm: No hx of blood transfusion to date. Past Psychological History: Anxiety, Bipolar, Depression Smoking Status: Never smoker Past Alcohol Use History: Occasional Additional Past Alcohol Use History / Comment(s): smokes 2-3 cigarettes/day, hx of 1/2 ppd, started smoking age 14. working on cutting down smoking Past Drug Use History: None Reported - Past Family History Mother Family Medical History: Hypertension Father Family Medical History: Cancer Medications and Allergies Home Medications Medication Instructions Recorded Confirmed Type Fluticasone/Umeclidin/Vilanter 1 puff INHALATION RT-DAILY 08/17/24 05/06/25 History [Trelegy Ellipta 100-62.5-25] Montelukast [Singulair] 1 tab PO HS 08/17/24 05/06/25 History Acetaminophen Tab [Tylenol] 500 mg PO Q4-6H PRN 03/29/25 05/06/25 History QUEtiapine FUMARATE [SEROquel] 200 mg PO HS 03/29/25 05/06/25 History Calcium Carbonate [Tums] 1,000 mg PO TID PRN tab 04/06/25 05/06/25 Rx Fludrocortisone [Florinef] 0.1 mg PO BID #60 tab 04/06/25 05/06/25 Rx Magnesium Oxide [Mag-Ox] 400 mg PO BID #60 tab 04/06/25 05/06/25 Rx Metoclopramide HCl [Reglan] 5 mg PO TID PRN #45 tablet 04/06/25 05/06/25 Rx Midodrine [ProAmatine] 5 mg PO AC-TID PRN 05/06/25 05/06/25 History Allergies Allergy/AdvReac Type Severity Reaction Status Date / Time Enviromental Allergy Nasal Uncoded 05/06/25 08:21 drainage/watery eyes/sneezing Surgical - Exam Vital Signs Temp Pulse Resp BP Pulse Ox 98.3 F 81 18 140/95 100 05/05/25 16:53 05/05/25 16:53 05/05/25 16:53 05/05/25 16:53 05/05/25 16:53 General appearance: The patient is alert, oriented, appears in no acute distress. HET: Head is normocephalic and atraumatic. Pupils are equal and reactive. Neck: Supple. Heart: Regular. Lungs: Equal expansion, normal respiratory effort. Abdomen: Soft, nontender, nondistended. Extremities: left upper extremity swelling all the way into her hand. Palpable +2 radial pulse. Tenderness with fluctuance proximal and distal to antecubital fossa with erythema. Neurological: No focal deficits. Strength and sensation are grossly intact. Results - Labs 05/09/25 03:41 05/11/25 09:34 Abnormal Lab Results - Last 24 Hours (Table) 05/11/25 Range/Units 09:34 Potassium 2.8 L (3.5-5.1) mmol/L Chloride 110 H (98-107) mmol/L Calcium 7.5 L (8.4-10.2) mg/dL Microbiology - Last 24 Hours (Table) 05/10/25 03:49 Blood Culture - Preliminary Blood 05/08/25 03:24 Blood Culture Gram Stain - Final Blood Blood Culture - Final Methicillin resist S. aureus Molecular ID Diabetes panel 05/11/25 Range/Units 09:34 Sodium 139 (137-145) mmol/L Potassium 2.8 L (3.5-5.1) mmol/L Chloride 110 H (98-107) mmol/L Carbon Dioxide 22 (22-30) mmol/L BUN 9 (7-17) mg/dL Creatinine 0.59 (0.52-1.04) mg/dL Glucose 88 (74-99) mg/dL Calcium 7.5 L (8.4-10.2) mg/dL Calcium panel 05/11/25 Range/Units 09:34 Calcium 7.5 L (8.4-10.2) mg/dL Pituitary panel 05/11/25 Range/Units 09:34 Sodium 139 (137-145) mmol/L Potassium 2.8 L (3.5-5.1) mmol/L Chloride 110 H (98-107) mmol/L Carbon Dioxide 22 (22-30) mmol/L BUN 9 (7-17) mg/dL Creatinine 0.59 (0.52-1.04) mg/dL Glucose 88 (74-99) mg/dL Calcium 7.5 L (8.4-10.2) mg/dL Adrenal panel 05/11/25 Range/Units 09:34 Sodium 139 (137-145) mmol/L Potassium 2.8 L (3.5-5.1) mmol/L Chloride 110 H (98-107) mmol/L Carbon Dioxide 22 (22-30) mmol/L BUN 9 (7-17) mg/dL Creatinine 0.59 (0.52-1.04) mg/dL Glucose 88 (74-99) mg/dL Calcium 7.5 L (8.4-10.2) mg/dL Assessment and Plan Assessment: 1. Upper extremity pain and swelling 2. Left upper extremity basilic vein superficial thrombus 3. Left upper extremity phlebitis 4. Bacteremia, presumptive MRSA 5. Hypokalemia 6. Nausea and vomiting 7. Urinary tract infection Plan: 1. Elevate left upper extremity 2. Apply compression stocking to left upper extremity 3. Continue IV antibiotics per recommendations from infectious disease 4. Will order venous duplex of left upper extremity 5. Further recommendations forthcoming based on clinical course Thank you for this consultation, we will continue to follow. The impression and plan of care has been dictated as directed. Dr. Jaspreet Zhang I performed a history and examination of this patient, discussed the same with the dictator. I agree with the dictator's note ,documented as a scribe. Any additional findings or plans will be noted.
--- NOTE | 2025-05-11 15:05 | US ---
EXAMINATION TYPE: US venous doppler duplex UE LT DATE OF EXAM: 05/11/2025 COMPARISON: US 05/07/2025 CLINICAL INDICATION: Female, 54 years old with history of SVT basilic vein, increased swelling; Recen t clot in basilic vein. Patient is on eliquis. TECHNIQUE: Grayscale, color Doppler and spectral Doppler imaging of the upper extremity. SIDE PERFORMED: Left arm VESSELS IMAGED: IJV Subclavian Vein Axilla Vein Brachial Vein(s) Radial Paired Veins Ulnar Paired Veins Cephalic Vein* Basilic Vein* (*superficial vessels) FINDINGS: Left Arm: Internal echoes seen within the cephalic vein from the mid bicep level down through the low er forearm. Vessel does not compress or show color flow at these levels. The basilic vein compresses with flow demonstrated. No evidence of DVT. Area of swelling scanned left bicep area - edema noted. Exam is limited due to edema IMPRESSION: 1. No ultrasound evidence for deep venous embolus is of the left upper extremity. 2. Acute superficial venous thrombosis within the left cephalic vein. 3. Resolution of previously seen superficial venous thrombosis of the left basilic vein. [facility], , 05/11/2025 3:02 PM
[2025-05-11 15:07] VITALS: BMI 34.3
[2025-05-12] MEDS: POTASSIUM BICARBONATE/CIT AC 20 MEQ TABLET.EFF PO SCH (02:53)
[2025-05-12] MEDS: NICOTINE 14MG/24HR PATCH TRANSDERM SCH (03:52)
[2025-05-12 08:27] LABS: Basophils # (A) 0.04 X 10*3/uL (0.00-0.10); Basophils % (A) 0.7 %; Eosinophils # (A) 0.18 X 10*3/uL (0.04-0.35); Eosinophils % (A) 3.0 %; HCT 29.1 % (37.2-46.3); HGB 9.4 g/dL (12.0-15.0); Immature Grans, Automated 0.70 %; Lymphocytes # (A) 1.71 X 10*3/uL (0.90-5.00); Lymphocytes % (A) 28.8 %; MCH 27.2 pg (27.0-32.0); MCHC 32.3 g/dL (32.0-37.0); MCV 84.1 FL (80.0-97.0); Monocytes # (A) 0.57 X 10*3/uL (0.20-1.00); Monocytes % (A) 9.6 %; NRBC Per 100 WBC 0 X 10*3/uL (0.00-0.01); Neutrophils # (A) 3.40 X 10*3/uL (1.80-7.70); Neutrophils % (A) 57.2 %; Platelet Count 178 X 10*3/uL (140-440); RBC 3.46 X 10*6/uL (4.10-5.20); RDW 20.5 % (11.5-14.5); WBC 5.94 X 10*3/uL (4.50-10.00)
[2025-05-12 08:33] LABS: ALT 17 U/L (8-44); AST 42 U/L (13-35); Albumin 2.2 g/dL (3.8-4.9); Albumin/Globulin Ratio 0.96 Ratio (1.60-3.17); Alkaline Phosphatase 142 U/L (41-126); Anion Gap 8.40 mmol/L (4.00-12.00); BUN/Creat Ratio 10.33 Ratio (12.00-20.00); Blood Urea Nitrogen 6.2 mg/dL (9.0-27.0); Calcium 7.3 mg/dL (8.7-10.3); Carbon Dioxide 23.6 mmol/L (21.6-31.8); Chloride 108 mmol/L (96-109); Globulin 2.3 g/dL (1.6-3.3); Glucose 79 mg/dL (70-110); Potassium 3.9 mmol/L (3.5-5.5); Sodium 140 mmol/L (135-145); Total Protein 4.5 g/dL (6.2-8.2)
--- NOTE | 2025-05-12 11:22 | P.PN ---
Subjective Progress Note Date: 05/12/25 SURGICAL PROGRESS NOTE CHIEF COMPLAINT: Nausea and vomiting HISTORY OF PRESENT ILLNESS: Patient complaining of 3 loose stools yesterday and early to loose stools this morning. She did have 1 episode of vomiting last night after starting the full liquids. Patient reports though with the second attempt with the full liquids later in the evening she did okay. She does complain of some pain across the upper abdomen. She complains of left arm pain. Patient was reevaluated by vascular surgery. They recommended compression sleeve. Patient initially had improvement in symptoms in the left arm but again her arm is hurting today. Potassium 4.6 PHYSICAL EXAM: VITAL SIGNS: Reviewed. GENERAL: Well-developed in no acute distress. HEENT: No sclera icterus. Extraocular movements grossly intact. Moist buccal mucosa. Head is atraumatic, normocephalic. ABDOMEN: Soft. Nondistended. Mild tenderness epigastric area Extremities left arm swollen tenderness in the left brachial region. ASSESSMENT: 1. Nausea and vomiting possibly due to esophageal dysmotility, electrolyte imbalance and thiamine deficiency 2. Dehydration 3. Epigastric abdominal pain 4. Esophageal dysmotility and GERD 5. Thiamine deficiency 6. Hypokalemia and hypomagnesemia 7. Suspected septic thrombophlebitis from recent IV site left arm PLAN: - Continue full liquid diet - Check stool for C. difficile due to multiple episodes of diarrhea - Continue thiamine supplement - Continue PPI Physician [employer] note has been reviewed by physician. Signing provider agrees with the documented findings, assessment, and plan of care. I have personally seen and examined the patient, reviewed the FLUTE TEACHER /PAs history, exam and MDM and agree with the assessment and plan as written. Based on total visit time, I have performed more than 50% of the visit. As above: Patient surprisingly tolerated much of her solid diet. Some difficulty with the pulled pork. Continue dysphagia diet. Increase activity as tolerated. Continue workup of patient's upper and lower extremity DVT. Objective - Vital Signs Vital signs: Vital Signs Temp 98.0 F 05/12/25 07:49 Pulse 83 05/12/25 07:49 Resp 18 05/12/25 07:49 BP 138/88 05/12/25 01:18 Pulse Ox 97 05/12/25 07:49 FiO2 Intake & Output 05/11/25 05/12/25 05/12/25 18:59 06:59 18:59 Weight 77.111 kg Other: Voiding Method Toilet Toilet # Voids 4 2 # Bowel Movements 2 - Labs CBC & Chem 7: 05/12/25 04:11 05/12/25 06:07 Labs: Abnormal Lab Results - Last 24 Hours (Table) 05/11/25 05/12/25 05/12/25 Range/Units 18:55 01:04 04:11 RBC 3.46 L (4.10-5.20) X 10*6/uL Hgb 9.4 L (12.0-15.0) g/dL Hct 29.1 L (37.2-46.3) % RDW 20.5 H (11.5-14.5) % Potassium 3.0 L 3.3 L (3.5-5.1) mmol/L BUN (9.0-27.0) mg/dL BUN/Creatinine Ratio (12.00-20.00) Ratio Calcium (8.7-10.3) mg/dL AST (13-35) U/L Alkaline Phosphatase (41-126) U/L Total Protein (6.2-8.2) g/dL Albumin (3.8-4.9) g/dL Albumin/Globulin Ratio (1.60-3.17) Ratio 05/12/25 Range/Units 04:11 RBC (4.10-5.20) X 10*6/uL Hgb (12.0-15.0) g/dL Hct (37.2-46.3) % RDW (11.5-14.5) % Potassium (3.5-5.1) mmol/L BUN 6.2 L (9.0-27.0) mg/dL BUN/Creatinine Ratio 10.33 L (12.00-20.00) Ratio Calcium 7.3 L (8.7-10.3) mg/dL AST 42 H (13-35) U/L Alkaline Phosphatase 142 H (41-126) U/L Total Protein 4.5 L (6.2-8.2) g/dL Albumin 2.2 L (3.8-4.9) g/dL Albumin/Globulin Ratio 0.96 L (1.60-3.17) Ratio Microbiology - Last 24 Hours (Table) 05/10/25 03:49 Blood Culture - Preliminary Blood 05/08/25 03:24 Blood Culture Gram Stain - Final Blood Blood Culture - Final Methicillin resist S. aureus Molecular ID
--- NOTE | 2025-05-12 12:37 | P.PN ---
Subjective Progress Note Date: 05/12/25 Principal diagnosis: Left upper extremity swelling and pain, superficial venous thrombus of cephalic vein Patient is seen and examined today as a follow-up. She continues to have pain and swelling in her left arm. Repeat venous duplex ordered which reported resolution of basilic vein thrombus however there is no superficial thrombus in the cephalic vein. Patient remains on IV antibiotics. She has been afebrile. Leukocytosis improving. Compression stocking to left upper extremity. Objective - Vital Signs Vital signs: Vital Signs Temp 98.0 F 05/12/25 07:49 Pulse 83 05/12/25 07:49 Resp 18 05/12/25 07:49 BP 138/88 05/12/25 01:18 Pulse Ox 97 05/12/25 07:49 FiO2 Intake & Output 05/11/25 05/12/25 05/12/25 18:59 06:59 18:59 Weight 77.111 kg Other: Voiding Method Toilet Toilet # Voids 4 2 # Bowel Movements 2 - Exam General appearance: The patient is alert, oriented, appears in no acute distress. HET: Head is normocephalic and atraumatic. Pupils are equal and reactive. Neck: Supple. Heart: Regular. Lungs: Equal expansion, normal respiratory effort. Abdomen: Soft, nontender, nondistended. Extremities: left upper extremity swelling all the way into her hand. Palpable +2 radial pulse. Tenderness with fluctuance proximal and distal to antecubital fossa with erythema. Sensorimotor intact. Neurological: No focal deficits. Strength and sensation are grossly intact. - Labs CBC & Chem 7: 05/12/25 04:11 05/12/25 06:07 Labs: Abnormal Lab Results - Last 24 Hours (Table) 05/11/25 05/11/25 05/12/25 Range/Units 09:34 18:55 01:04 RBC (4.10-5.20) X 10*6/uL Hgb (12.0-15.0) g/dL Hct (37.2-46.3) % RDW (11.5-14.5) % Potassium 2.8 L 3.0 L 3.3 L (3.5-5.1) mmol/L Chloride 110 H (98-107) mmol/L BUN (9.0-27.0) mg/dL BUN/Creatinine Ratio (12.00-20.00) Ratio Calcium 7.5 L (8.4-10.2) mg/dL AST (13-35) U/L Alkaline Phosphatase (41-126) U/L Total Protein (6.2-8.2) g/dL Albumin (3.8-4.9) g/dL Albumin/Globulin Ratio (1.60-3.17) Ratio 05/12/25 05/12/25 Range/Units 04:11 04:11 RBC 3.46 L (4.10-5.20) X 10*6/uL Hgb 9.4 L (12.0-15.0) g/dL Hct 29.1 L (37.2-46.3) % RDW 20.5 H (11.5-14.5) % Potassium (3.5-5.1) mmol/L Chloride (98-107) mmol/L BUN 6.2 L (9.0-27.0) mg/dL BUN/Creatinine Ratio 10.33 L (12.00-20.00) Ratio Calcium 7.3 L (8.4-10.2) mg/dL AST 42 H (13-35) U/L Alkaline Phosphatase 142 H (41-126) U/L Total Protein 4.5 L (6.2-8.2) g/dL Albumin 2.2 L (3.8-4.9) g/dL Albumin/Globulin Ratio 0.96 L (1.60-3.17) Ratio Microbiology - Last 24 Hours (Table) 05/10/25 03:49 Blood Culture - Preliminary Blood 05/08/25 03:24 Blood Culture Gram Stain - Final Blood Blood Culture - Final Methicillin resist S. aureus Molecular ID Assessment and Plan Assessment: 1. Upper extremity pain and swelling 2. Left upper extremity cephalic vein superficial thrombosis 3. Left upper extremity basilic vein superficial thrombus resolved. 4. Left upper extremity phlebitis 5. Bacteremia, MRSA 6. Hypokalemia 7. Nausea and vomiting 8. Urinary tract infection Plan: 1. Elevate left upper extremity 2. Apply compression stocking to left upper extremity 3. Continue IV antibiotics per recommendations from infectious disease 4. Apply warm packs/cold packs as needed Thank you for this consultation, further recommendations forthcoming based on clinical course. The impression and plan of care has been dictated as directed. Dr. Jaspreet Zhang I performed a history and examination of this patient, discussed the same with the dictator. I agree with the dictator's note ,documented as a scribe. Any additional findings or plans will be noted.
--- NOTE | 2025-05-12 13:38 | P.PN ---
Subjective Progress Note Date: 05/12/25 54-year-old female with past medical significant for sleeve gastrectomy in December 2024, history of esophageal dysmotility, history of diastolic CHF, hypertension, acute kidney injury, who presented to the hospital with complaint of nausea vomiting and dehydration. Patient had recurrent hospitalizations for similar symptoms, was noted to be hypotensive and likely acute kidney injury during previous hospitalization, was discharged home on IV fluids and Ayaz Vazquez now presented again with a similar symptom send was concerned about dehydration and presented to ER. Patient denied any fever or chills, patient reported that she was having decreased urinary output. Patient reported increased thirst and dry mouth. Patient is afebrile, heart rate 71, respiratory rate 20, blood pressure 152/98, saturating 93% on room air. WBC 6.04 hemoglobin 10.7 platelet 171. INR 1.0. BMP unremarkable except pot assium 3.3, magnesium 1.4. Lipase unremarkable. Troponin negative. UA contaminated sample. CT abdomen pelvis negative for acute process, showed mild anasarca. 05/07. Patient seen and examined. Blood work done showed WBC 6.5, hemoglobin 10.1, sodium 138, potassium 3.1. Duplex ultrasound showed acute DVT of the duplicated right popliteal vein. Still having nausea and vomiting 05/08. Patient seen and examined. Patient has been spiking high-grade fevers overnight. With Tmax of 103.1. Patient had swelling of left upper extremity, duplex ultrasound showed superficial vein thrombus of left basilic vein. 05/09. Patient seen and examined. Patient fevers have improved, Tmax of 100.1. Labs reviewed showing WBC 6.56, hemoglobin 8.5, sodium 135, potassium 3.6, BUN 10, creatinine 0.70 05/10. Patient seen and examined. Labs reviewedWBC 6.58, 8.5, sodium 134, potassium 3.6, BUN 10, creatinine 0.70. Fevers have resolved. Still has swelling and pain in left upper extremity. 05/11. Patient seen examined. Continues to feel better. Tolerating clear liquid diet. Left upper extremity is tender, swelling is slightly improved. Potassium this morning is 2.8, replacement ordered 05/12. Patient seen and examinedLab work reviewed showed WBC 5.94, hemoglobin 9.4, platelet count 178, sodium 140, potassium 3.9, BUN 6.2, creatinine 0.6. Duplex ultrasound left lower extremity repeat showed no evidence of DVT, superficial vein thrombosis in the left cephalic vein REVIEW OF SYSTEMS: CONSTITUTIONAL: As mentioned above CARDIOVASCULAR: No chest pain, no palpitations, no syncope. PULMONARY: No shortness of breath, no cough, GASTROINTESTINAL: No as mentioned above NEUROLOGICAL: No headaches, no weakness, PHYSICAL EXAMINATION: GENERAL: The patient is alert and oriented x3, not in any acute distress. Well developed, well nourished. HEENT: Pupils are round and equally reacting to light. EOMI. No scleral icterus. No conjunctival pallor. Normocephalic, atraumatic. No pharyngeal erythema. No thyromegaly. CARDIOVASCULAR: S1 and S2 present. No murmurs, rubs, or gallops. PULMONARY: Chest is clear to auscultation, no wheezing or crackles. ABDOMEN: Soft, nontender, nondistended, normoactive bowel sounds. No palpable organomegaly. MUSCULOSKELETAL: No joint swelling or deformity. EXTREMITIES: No cyanosis, clubbing, 1+ pitting edema lower extremity. Swelling of left upper extremity Left upper extremity swollen NEUROLOGICAL: Gross neurological examination did not reveal any focal deficits. SKIN: No rashes. Assessment and plan Nausea and vomiting: Dehydration: Recurrent hospitalization for nausea vomiting, dehydration and acute kidney inj ury: Esophageal dysmotility: Hypokalemia: Hypomagnesemia: Patient has recurrent hospitalization for similar symptoms, nausea vomiting, dehydration, hypotension and acute kidney injury. CT abdomen pelvis negative for acute process, showed mild anasarca Current on liquid diet Potassium is 2.8, replacement ordered General Surgery following Fever Left upper extremity cellulitis MRSA bacteremia Blood cultures positive for MRSA Currently on Unasyn and vancomycin 2D echo ordered ID following Superficial vein thrombus of left basilic vein Continue supportive treatment Right lower extremity DVT Continue Eliquis Vascular surgery evaluated, recommended oral anticoagulation, notes reviewed recommendation noted from 05/11 Thiamine deficiency: Thiamine level 16 from previous hospitalization Thiamine supplements History of diastolic CHF COPD Obstructive sleep apnea Labs and medication were reviewed.. Continue same treatment. Continue with symptomatic treatment. Resume home medication. Monitor labs and vitals. DVT and GI prophylaxis. Further recommendations as per clinical course of the patient Dictation was produced using [employer] dictation software. please excuse any grammatical, word or spelling errors. Objective - Vital Signs Vital signs: Vital Signs Temp 98.0 F 05/12/25 07:49 Pulse 83 05/12/25 07:49 Resp 18 05/12/25 07:49 BP 138/88 05/12/25 01:18 Pulse Ox 97 05/12/25 07:49 FiO2 Intake & Output 05/11/25 05/12/25 05/12/25 18:59 06:59 18:59 Weight 77.111 kg Other: Voiding Method Toilet Toilet # Voids 4 2 # Bowel Movements 2 - Labs CBC & Chem 7: 05/12/25 04:11 05/12/25 06:07 Labs: Abnormal Lab Results - Last 24 Hours (Table) 05/11/25 05/11/25 05/12/25 Range/Units 09:34 18:55 01:04 RBC (4.10-5.20) X 10*6/uL Hgb (12.0-15.0) g/dL Hct (37.2-46.3) % RDW (11.5-14.5) % Potassium 2.8 L 3.0 L 3.3 L (3.5-5.1) mmol/L Chloride 110 H (98-107) mmol/L BUN (9.0-27.0) mg/dL BUN/Creatinine Ratio (12.00-20.00) Ratio Calcium 7.5 L (8.4-10.2) mg/dL AST (13-35) U/L Alkaline Phosphatase (41-126) U/L Total Protein (6.2-8.2) g/dL Albumin (3.8-4.9) g/dL Albumin/Globulin Ratio (1.60-3.17) Ratio 05/12/25 05/12/25 Range/Units 04:11 04:11 RBC 3.46 L (4.10-5.20) X 10*6/uL Hgb 9.4 L (12.0-15.0) g/dL Hct 29.1 L (37.2-46.3) % RDW 20.5 H (11.5-14.5) % Potassium (3.5-5.1) mmol/L Chloride (98-107) mmol/L BUN 6.2 L (9.0-27.0) mg/dL BUN/Creatinine Ratio 10.33 L (12.00-20.00) Ratio Calcium 7.3 L (8.4-10.2) mg/dL AST 42 H (13-35) U/L Alkaline Phosphatase 142 H (41-126) U/L Total Protein 4.5 L (6.2-8.2) g/dL Albumin 2.2 L (3.8-4.9) g/dL Albumin/Globulin Ratio 0.96 L (1.60-3.17) Ratio Microbiology - Last 24 Hours (Table) 05/10/25 03:49 Blood Culture - Preliminary Blood 05/08/25 03:24 Blood Culture Gram Stain - Final Blood Blood Culture - Final Methicillin resist S. aureus Molecular ID
--- NOTE | 2025-05-12 19:44 | CT ---
EXAMINATION TYPE: CT upper extremity LT w con CT DLP: 2510.8 mGycm, Automated exposure control for dose reduction was used. DATE OF EXAM: 05/12/2025 6:55 PM COMPARISON: Left upper extremity DVT study from the same day. CLINICAL INDICATION:Female, 54 years old with history of eval abscess, phlebitis; PHH, swelling, redn ess, and pain upper humerus to hand. TECHNIQUE: Axial images were obtained of the CT upper extremity LT w con, Additional coronal and sagi ttal reformatted images and soft tissue and bone window were obtained for review. 3-D reconstruction was created on a separate workstation. Contrast used:100 mL of Isovue 300 with IV Contrast, (None if empty) Oral contrast used: (None if empty) FINDINGS: No acute fractures or destructive changes seen in the visualized osseous structures. Notable fat stranding and soft tissue edema is seen throughout the left upper extremity subcutaneous tissues in addition to the left chest wall, left flank and left hip/gluteal/subgluteal region. No dis crete organized fluid collection is seen at this time. Summary of findings in the incidental included in the partially visualized portions of the body: There is a 3 mm solid pulmonary nodule seen in the peripheral left upper lobe. Trace left pleural effusion with associated atelectasis. Patchy groundglass changes are also seen in the left lower lung which could represent pulmonary edema versus an inflammatory/infectious airspace process. Multiple subcentimeter hypodense foci are noted in the partially visualized left kidney too small to characterize. IMPRESSION: 1. No acute fractures or destructive osseous changes appreciated. There is significant soft tissue ed dahlia/inflammatory changes involving the left upper extremity in addition to multiple other visualized subcutaneous regions as summarized above. There is no discrete evidence for abscess at this time. No subcutaneous gas to suggest necrotizing process however findings should be correlated with physical e xam. Please also see the CT study from the same day for further vascular details. 2. Multiple incidental findings are noted as summarized above. [facility], , 05/12/2025 7:42 PM
[2025-05-12] MEDS: PROMETHAZINE 25 MG TAB PO PRN (21:35)
[2025-05-13 04:14] LABS: African American GFR (CKD) >90 (>60 ml/min/1.73 sqM); Non-African American GFR(CKD) >90 (>60 ml/min/1.73 sqM)
[2025-05-13] MEDS: APIXABAN 5 MG TAB PO SCH (08:22)
[2025-05-13] MEDS: IBUPROFEN 600 MG TAB PO SCH (08:31)
--- NOTE | 2025-05-13 11:15 | P.PN ---
Subjective Progress Note Date: 05/13/25 SURGICAL PROGRESS NOTE CHIEF COMPLAINT: Nausea and vomiting HISTORY OF PRESENT ILLNESS: Patient followed by vascular surgery regarding her left arm swelling and pain, SVT as well as DVT in the right leg. Patient tolerated the potatoes last night. She could not tolerate the pulled pork. So she did have 1 episode of vomiting with the pulled pork. But later was able to keep the potatoes down. She still reports diarrhea. She still complains of pain across upper abdomen. Afebrile. WBC 5.94 Hgb 9.4 creatinine 0.6 potassium 4.6 PHYSICAL EXAM: VITAL SIGNS: Reviewed. GENERAL: Well-developed in no acute distress. HEENT: No sclera icterus. Extraocular movements grossly intact. Moist buccal mucosa. Head is atraumatic, normocephalic. ABDOMEN: Soft. Nondistended. Mild tenderness epigastric area Extremities left arm swollen tenderness in the left brachial region. ASSESSMENT: 1. Nausea and vomiting possibly due to esophageal dysmotility, electrolyte imbalance and thiamine deficiency 2. Dehydration 3. Epigastric abdominal pain 4. Esophageal dysmotility and GERD 5. Thiamine deficiency 6. Hypokalemia and hypomagnesemia 7. Suspected septic thrombophlebitis from recent IV site left arm PLAN: -Continue ground diet - Check stool for C. difficile due to multiple episodes of diarrhea - Continue thiamine supplement - Continue PPI - Avoid Motrin due to prior sleeve gastrectomy Physician System Support Specialist note has been reviewed by physician. Signing provider agrees with the documented findings, assessment, and plan of care. I have personally seen and examined the patient, reviewed the OILER BANDER /PAs history, exam and MDM and agree with the assessment and plan as written. Based on total visit time, I have performed more than 50% of the visit. As above: Patient tolerating diet better than expected. Continue dysphagia diet. Await PICC line for home IV antibiotics. Vascular still following septic thrombophlebitis. Objective - Vital Signs Vital signs: Vital Signs Temp 97.6 F 05/13/25 07:43 Pulse 77 05/13/25 07:43 Resp 17 05/13/25 07:43 BP 174/95 05/13/25 07:43 Pulse Ox 94 L 05/13/25 07:43 FiO2 Intake & Output 05/12/25 05/13/25 05/13/25 18:59 06:59 18:59 Intake Total 2160 Balance 2160 Intake: Oral 2160 Other: Voiding Method Toilet Toilet # Voids 1 3 # Bowel Movements 1 1 - Labs CBC & Chem 7: 05/12/25 04:11 05/13/25 03:00 Labs: Microbiology - Last 24 Hours (Table) 05/10/25 03:49 Blood Culture - Preliminary Blood
--- NOTE | 2025-05-13 11:16 | P.PN ---
Subjective Progress Note Date: 05/13/25 Principal diagnosis: Left upper extremity swelling and pain, superficial venous thrombus of cephalic vein Patient is seen and examined today as a follow-up. She had a CT of the left upper extremity With reported no acute fractures or destructive osseous changes appreciated. Significant soft tissue edema/inflammatory changes involving the left upper extremity in addition to multiple other visualized subcutaneous regions. No discrete evidence for abscess at this time. No subcutaneous gas to suggest necrotizing process however findings should be correlated with physical exam. Patient reports still having pain and discomfort in that left arm, but it is getting better since it for started. She has been afebrile, Objective - Vital Signs Vital signs: Vital Signs Temp 97.5 F L 05/13/25 01:20 Pulse 91 05/13/25 01:20 Resp 14 05/13/25 01:20 BP 123/80 05/13/25 01:20 Pulse Ox 97 05/13/25 01:20 FiO2 Intake & Output 05/12/25 05/13/25 05/13/25 18:59 06:59 18:59 Intake Total 2160 Balance 2160 Intake: Oral 2160 Other: Voiding Method Toilet # Voids 1 3 # Bowel Movements 1 1 - Exam General appearance: The patient is alert, oriented, appears in no acute distress. HET: Head is normocephalic and atraumatic. Pupils are equal and reactive. Neck: Supple. Heart: Regular. Lungs: Equal expansion, normal respiratory effort. Abdomen: Soft, nontender, nondistended. Extremities: left upper extremity swelling all the way into her hand. Palpable +2 radial pulse. Tenderness with fluctuance proximal and distal to antecubital fossa with erythema. Sensorimotor intact. Neurological: No focal deficits. Strength and sensation are grossly intact. - Labs CBC & Chem 7: 05/12/25 04:11 05/13/25 03:00 Labs: Abnormal Lab Results - Last 24 Hours (Table) 05/12/25 05/12/25 Range/Units 04:11 04:11 RBC 3.46 L (4.10-5.20) X 10*6/uL Hgb 9.4 L (12.0-15.0) g/dL Hct 29.1 L (37.2-46.3) % RDW 20.5 H (11.5-14.5) % BUN 6.2 L (9.0-27.0) mg/dL BUN/Creatinine Ratio 10.33 L (12.00-20.00) Ratio Calcium 7.3 L (8.7-10.3) mg/dL AST 42 H (13-35) U/L Alkaline Phosphatase 142 H (41-126) U/L Total Protein 4.5 L (6.2-8.2) g/dL Albumin 2.2 L (3.8-4.9) g/dL Albumin/Globulin Ratio 0.96 L (1.60-3.17) Ratio Microbiology - Last 24 Hours (Table) 05/10/25 03:49 Blood Culture - Preliminary Blood Assessment and Plan Assessment: 1. Upper extremity pain and swelling 2. Left upper extremity cephalic vein superficial thrombosis 3. Left upper extremity basilic vein superficial thrombus resolved. 4. Left upper extremity phlebitis 5. Bacteremia, MRSA 6. Hypokalemia 7. Nausea and vomiting 8. Urinary tract infection Plan: 1. Elevate left upper extremity 2. Compression applied with Sabino wrap to left upper extremity 3. Continue IV antibiotics per recommendations from infectious disease 4. Apply warm packs/cold packs as needed 5. CT left upper extremity ordered and reviewed. No plans for any vascular surgical intervention at this time. Thank you for this consultation, we will continue to follow. The impression and plan of care has been dictated as directed. Dr. Way I performed a history and examination of this patient, discussed the same with the dictator. I agree with the dictator's note ,documented as a scribe. Any additional findings or plans will be noted.
[2025-05-13] MEDS: KETOROLAC 15 MG/ML 1 ML VIAL IVP SCH (12:12)
--- NOTE | 2025-05-13 13:36 | P.PN ---
Subjective Progress Note Date: 05/13/25 54-year-old female with past medical significant for sleeve gastrectomy in December 2024, history of esophageal dysmotility, history of diastolic CHF, hypertension, acute kidney injury, who presented to the hospital with complaint of nausea vomiting and dehydration. Patient had recurrent hospitalizations for similar symptoms, was noted to be hypotensive and likely acute kidney injury during previous hospitalization, was discharged home on IV fluids and Ayaz Vazquez now presented again with a similar symptom send was concerned about dehydration and presented to ER. Patient denied any fever or chills, patient reported that she was having decreased urinary output. Patient reported increased thirst and dry mouth. Patient is afebrile, heart rate 71, respiratory rate 20, blood pressure 152/98, saturating 93% on room air. WBC 6.04 hemoglobin 10.7 platelet 171. INR 1.0. BMP unremarkable except pot assium 3.3, magnesium 1.4. Lipase unremarkable. Troponin negative. UA contaminated sample. CT abdomen pelvis negative for acute process, showed mild anasarca. 05/07. Patient seen and examined. Blood work done showed WBC 6.5, hemoglobin 10.1, sodium 138, potassium 3.1. Duplex ultrasound showed acute DVT of the duplicated right popliteal vein. Still having nausea and vomiting 05/08. Patient seen and examined. Patient has been spiking high-grade fevers overnight. With Tmax of 103.1. Patient had swelling of left upper extremity, duplex ultrasound showed superficial vein thrombus of left basilic vein. 05/09. Patient seen and examined. Patient fevers have improved, Tmax of 100.1. Labs reviewed showing WBC 6.56, hemoglobin 8.5, sodium 135, potassium 3.6, BUN 10, creatinine 0.70 05/10. Patient seen and examined. Labs reviewedWBC 6.58, 8.5, sodium 134, potassium 3.6, BUN 10, creatinine 0.70. Fevers have resolved. Still has swelling and pain in left upper extremity. 05/11. Patient seen examined. Continues to feel better. Tolerating clear liquid diet. Left upper extremity is tender, swelling is slightly improved. Potassium this morning is 2.8, replacement ordered 05/12. Patient seen and examinedLab work reviewed showed WBC 5.94, hemoglobin 9.4, platelet count 178, sodium 140, potassium 3.9, BUN 6.2, creatinine 0.6. Duplex ultrasound left lower extremity repeat showed no evidence of DVT, superficial vein thrombosis in the left cephalic vein 05/13. Patient seen and examined. CT left upper extremity done showed no acute fractures or destructive osseous changes, showed significant soft tissue edema/inflammatory changes involving the left upper extremity. REVIEW OF SYSTEMS: CONSTITUTIONAL: As mentioned above CARDIOVASCULAR: No chest pain, no palpitations, no syncope. PULMONARY: No shortness of breath, no cough, GASTROINTESTINAL: No as mentioned above NEUROLOGICAL: No headaches, no weakness, PHYSICAL EXAMINATION: GENERAL: The patient is alert and oriented x3, not in any acute distress. Well developed, well nourished. HEENT: Pupils are round and equally reacting to light. EOMI. No scleral icterus. No conjunctival pallor. Normocephalic, atraumatic. No pharyngeal erythema. No thyromegaly. CARDIOVASCULAR: S1 and S2 present. No murmurs, rubs, or gallops. PULMONARY: Chest is clear to auscultation, no wheezing or crackles. ABDOMEN: Soft, nontender, nondistended, normoactive bowel sounds. No palpable organomegaly. MUSCULOSKELETAL: No joint swelling or deformity. EXTREMITIES: No cyanosis, clubbing, 1+ pitting edema lower extremity. Swelling of left upper extremity Left upper extremity swollen NEUROLOGICAL: Gross neurological examination did not reveal any focal deficits. SKIN: No rashes. Assessment and plan Nausea and vomiting: Dehydration: Recurrent hospitalization for nausea vomiting, dehydration and acute kidney injury: Esophageal dysmotility: Hypokalemia: Hypomagnesemia: Patient has recurrent hospitalization for similar symptoms, nausea vomiting, dehydration, hypotension and acute kidney injury. CT abdomen pelvis negative for acute process, showed mild anasarca Current on liquid diet Potassium is 2.8, replacement ordered General Surgery following Fever Left upper extremity cellulitis MRSA bacteremia Blood cultures positive for MRSA Currently on vancomycin 2D echo ordered ID following Superficial vein thrombus of left basilic vein Continue supportive treatment Vascular surgery following Right lower extremity DVT Continue Eliquis Vascular surgery evaluated, recommended oral anticoagulation, notes reviewed recommendation noted from 05/11 Thiamine deficiency: Thiamine level 16 from previous hospitalization Thiamine supplements History of diastolic CHF COPD Obstructive sleep apnea Labs and medication were reviewed.. Continue same treatment. Continue with symptomatic treatment. Resume home medication. Monitor labs and vitals. DVT and GI prophylaxis. Further recommendations as per clinical course of the patient Dictation was produced using dragon dictation software. please excuse any grammatical, word or spelling errors. Objective - Vital Signs Vital signs: Vital Signs Temp 97.6 F 05/13/25 07:43 Pulse 77 05/13/25 07:43 Resp 17 05/13/25 07:43 BP 174/95 05/13/25 07:43 Pulse Ox 94 L 05/13/25 07:43 FiO2 Intake & Output 05/12/25 05/13/25 05/13/25 18:59 06:59 18:59 Intake Total 2160 Balance 2160 Intake: Oral 2160 Other: Voiding Method Toilet Toilet # Voids 1 3 # Bowel Movements 1 1 - Labs CBC & Chem 7: 05/12/25 04:11 05/13/25 03:00 Labs: Microbiology - Last 24 Hours (Table) 05/10/25 03:49 Blood Culture - Preliminary Blood
--- NOTE | 2025-05-13 15:24 | P.PN ---
Subjective Progress Note Date: 05/12/25 Principal diagnosis: Reason for follow-up is fever/septic phlebitis/MRSA bacteremia Patient is a 54-year-old -Citizen Of The [place] female with a past medical history significant for diabetes mellitus COPD hypertension reflux asthma pneumonia presented to the hospital for evaluation of nausea and vomiting, did have left upper extremity IV site pain swelling and redness which was discontinued with evidence of SVT did have a fever and blood culture positive for MRSA. On today's evaluation that is 05/12/2025,the patient denies any fever or any chills, patient is breathing comfortably on room air, the patient denies chest pain shortness of breath and no significant cough, patient abdominal pain has decreased and some nausea is complaining of diarrhea. Patient white count is 5.94, creatinine 0.6 Objective - Vital Signs Vital signs: Vital Signs Temp 98.0 F 05/12/25 07:49 Pulse 83 05/12/25 07:49 Resp 18 05/12/25 07:49 BP 138/88 05/12/25 01:18 Pulse Ox 97 05/12/25 07:49 FiO2 Intake & Output 05/11/25 05/12/25 05/12/25 18:59 06:59 18:59 Weight 77.111 kg Other: Voiding Method Toilet Toilet # Voids 4 2 # Bowel Movements 2 - Exam GENERAL DESCRIPTION: Delayed female lying in bed in no distress RESPIRATORY SYSTEM: Unlabored breathing , decreased breath sounds at bases HEART: S1 S2 regular rate and rhythm , ABDOMEN: Soft , no tenderness EXTREMITIES: Left upper extremity with swelling no purulent drainage - Labs CBC & Chem 7: 05/12/25 04:11 05/13/25 03:00 Labs: Abnormal Lab Results - Last 24 Hours (Table) 05/11/25 05/12/25 05/12/25 Range/Units 18:55 01:04 04:11 RBC 3.46 L (4.10-5.20) X 10*6/uL Hgb 9.4 L (12.0-15.0) g/dL Hct 29.1 L (37.2-46.3) % RDW 20.5 H (11.5-14.5) % Potassium 3.0 L 3.3 L (3.5-5.1) mmol/L BUN (9.0-27.0) mg/dL BUN/Creatinine Ratio (12.00-20.00) Ratio Calcium (8.7-10.3) mg/dL AST (13-35) U/L Alkaline Phosphatase (41-126) U/L Total Protein (6.2-8.2) g/dL Albumin (3.8-4.9) g/dL Albumin/Globulin Ratio (1.60-3.17) Ratio 05/12/25 Range/Units 04:11 RBC (4.10-5.20) X 10*6/uL Hgb (12.0-15.0) g/dL Hct (37.2-46.3) % RDW (11.5-14.5) % Potassium (3.5-5.1) mmol/L BUN 6.2 L (9.0-27.0) mg/dL BUN/Creatinine Ratio 10.33 L (12.00-20.00) Ratio Calcium 7.3 L (8.7-10.3) mg/dL AST 42 H (13-35) U/L Alkaline Phosphatase 142 H (41-126) U/L Total Protein 4.5 L (6.2-8.2) g/dL Albumin 2.2 L (3.8-4.9) g/dL Albumin/Globulin Ratio 0.96 L (1.60-3.17) Ratio Microbiology - Last 24 Hours (Table) 05/10/25 03:49 Blood Culture - Preliminary Blood 05/08/25 03:24 Blood Culture Gram Stain - Final Blood Blood Culture - Final Methicillin resist S. aureus Molecular ID Assessment and Plan (1) Sepsis Current Visit: Yes Status: Acute Code(s): A41.9 - SEPSIS, UNSPECIFIED ORGANISM SNOMED Code(s): 00486864 (2) Thrombophlebitis Current Visit: Yes Status: Acute Code(s): I80.9 - PHLEBITIS AND THROMBOPHLEBITIS OF UNSPECIFIED SITE SNOMED Code(s): 71393544 (3) MRSA bacteremia Current Visit: Yes Status: Acute Code(s): R78.81 - BACTEREMIA; B95.62 - METHICILLIN RESIS STAPH INFCT CAUSING DISEASES CLASSD [facility] SNOMED Code(s): 14557969738087036 Plan: 1patient with fever elevated white count meeting criteria for SIRS/sepsis source likely left upper extremity thrombophlebitis and a question of possible septic thrombophlebitis likely from gram-positive such as MRSA, patient initially presented to hospital with nausea vomiting epigastric pain however CT was negative for any intra-abdominal acute pathology 2-blood culture growing MRSA source likely septic phlebitis, blood culture repeat from 05/10/2025 so far negative 3-patient is covered with vancomycin pharmacy dose with target of 15 and monitor clinical course closely Dictation was produced using [employer] dictation software. please excuse any gr ammatical, word or spelling errors. Time with Patient: Less than 30
--- NOTE | 2025-05-13 15:24 | P.PN ---
Subjective Progress Note Date: 05/13/25 Principal diagnosis: Reason for follow-up is fever/septic phlebitis/MRSA bacteremia Patient is a 54-year-old -[place] female with a past medical history significant for diabetes mellitus COPD hypertension reflux asthma pneumonia presented to the hospital for evaluation of nausea and vomiting, did have left upper extremity IV site pain swelling and redness which was discontinued with evidence of SVT did have a fever and blood culture positive for MRSA. On today's evaluation that is 05/13/2025,the patient remains to be afebrile, patient is on 2 L nasal cannula supplemental oxygen and denies any shortness of breath no chest pain or cough.Patient denies having any nausea or vomiting, no abdominal pain and no diarrhea has been reported complaining of feeling weak to day. Patient white count 7.81, creatinine is 1.77, urine culture with Klebsiella pneumonia sensitive to ceftriaxone Objective - Vital Signs Vital signs: Vital Signs Temp 97.6 F 05/13/25 07:43 Pulse 77 05/13/25 07:43 Resp 17 05/13/25 07:43 BP 174/95 05/13/25 07:43 Pulse Ox 94 L 05/13/25 07:43 FiO2 Intake & Output 05/12/25 05/13/25 05/13/25 18:59 06:59 18:59 Intake Total 2160 Balance 2160 Weight 77.111 kg Intake: Oral 2160 Other: Voiding Method Toilet Toilet # Voids 1 3 # Bowel Movements 1 1 - Exam GENERAL DESCRIPTION: Delayed female lying in bed in no distress RESPIRATORY SYSTEM: Unlabored breathing , decreased breath sounds at bases HEART: S1 S2 regular rate and rhythm , ABDOMEN: Soft , no tenderness EXTREMITIES: Left upper extremity with swelling no purulent drainage - Labs CBC & Chem 7: 05/12/25 04:11 05/13/25 03:00 Labs: Microbiology - Last 24 Hours (Table) 05/10/25 03:49 Blood Culture - Preliminary Blood Assessment and Plan (1) Sepsis Current Visit: Yes Status: Acute Code(s): A41.9 - SEPSIS, UNSPECIFIED OR GANISM SNOMED Code(s): 11565749 (2) Thrombophlebitis Current Visit: Yes Status: Acute Code(s): I80.9 - PHLEBITIS AND THROMBOPHLEBITIS OF UNSPECIFIED SITE SNOMED Code(s): 29411061 (3) MRSA bacteremia Current Visit: Yes Status: Acute Code(s): R78.81 - BACTEREMIA; B95.62 - METHICILLIN RESIS STAPH INFCT [facility] Code(s): 55161556640399177 Plan: 1patient with fever elevated white count meeting criteria for SIRS/sepsis source likely left upper extremity thrombophlebitis and a question of possible septic thrombophlebitis likely from gram-positive such as MRSA, patient initially presented to hospital with nausea vomiting epigastric pain however CT was negative for any intra-abdominal acute pathology 2-blood culture growing MRSA source likely septic phlebitis, blood culture repeat from 05/10/2025 so far negative 3-patient currently being treated with vancomycin pharmacy dose with target of 15, PICC line has been ordered for outpatient IV antibiotic therapy she will need vancomycin 2 weeks from negative blood culture discussed with director of casework services Dictation was produced using [employer] dictation software. please excuse any grammatical, word or spelling errors.
[2025-05-14 09:34] LABS: Basophils # (A) 0.04 X 10*3/uL (0.00-0.10); Basophils % (A) 0.7 %; Eosinophils # (A) 0.24 X 10*3/uL (0.04-0.35); Eosinophils % (A) 4.5 %; HCT 26.5 % (37.2-46.3); HGB 8.3 g/dL (12.0-15.0); Immature Grans, Automated 2.60 %; Lymphocytes # (A) 1.73 X 10*3/uL (0.90-5.00); Lymphocytes % (A) 32.4 %; MCH 26.5 pg (27.0-32.0); MCHC 31.3 g/dL (32.0-37.0); MCV 84.7 FL (80.0-97.0); Monocytes # (A) 0.55 X 10*3/uL (0.20-1.00); Monocytes % (A) 10.3 %; NRBC Per 100 WBC 0 X 10*3/uL (0.00-0.01); Neutrophils # (A) 2.64 X 10*3/uL (1.80-7.70); Neutrophils % (A) 49.5 %; Platelet Count 237 X 10*3/uL (140-440); RBC 3.13 X 10*6/uL (4.10-5.20); RDW 20.9 % (11.5-14.5); WBC 5.34 X 10*3/uL (4.50-10.00)
[2025-05-14 09:48] LABS: Anion Gap 8.80 mmol/L (4.00-12.00); BUN/Creat Ratio 7.33 Ratio (12.00-20.00); Blood Urea Nitrogen 4.4 mg/dL (9.0-27.0); Carbon Dioxide 24.2 mmol/L (21.6-31.8); Chloride 111 mmol/L (96-109); Glucose 74 mg/dL (70-110); Potassium 3.2 mmol/L (3.5-5.5); Sodium 144 mmol/L (135-145)
[2025-05-14 09:49] LABS: ALT 10 U/L (8-44); AST 18 U/L (13-35); Albumin 2.1 g/dL (3.8-4.9); Albumin/Globulin Ratio 1.11 Ratio (1.60-3.17); Alkaline Phosphatase 110 U/L (41-126); Calcium 7.3 mg/dL (8.7-10.3); Globulin 1.9 g/dL (1.6-3.3); Total Protein 4.0 g/dL (6.2-8.2)
--- NOTE | 2025-05-14 09:58 | P.PN ---
Subjective Progress Note Date: 05/14/25 Principal diagnosis: Abdominal pain Patient without new complaints. She did tolerate solid food for dinner last night but feels really nauseated this morning and she did not eat her breakfast. Mild abdominal pain. Left arm pain is improved. Sabino wrap was replaced. She is afebrile. White blood cell count normal. Objective - Vital Signs Vital signs: Vital Signs Temp 98.1 F 05/14/25 08:00 Pulse 76 05/14/25 08:00 Resp 18 05/14/25 08:00 BP 148/90 05/14/25 08:00 Pulse Ox 99 05/14/25 08:00 FiO2 Intake & Output 05/13/25 05/14/25 05/14/25 18:59 06:59 18:59 Weight 77.111 kg Other: Voiding Method Toilet Toilet # Voids 2 1 # Bowel Movements 0 - Exam Abdomen: Soft, nondistended, mild upper abdominal tenderness, left arm edema and tenderness present but improved slightly - Labs CBC & Chem 7: 05/14/25 04:24 05/14/25 04:24 Labs: Abnormal Lab Results - Last 24 Hours (Table) 05/14/25 05/14/25 Range/Units 04:24 04:24 RBC 3.13 L (4.10-5.20) X 10*6/uL Hgb 8.3 L (12.0-15.0) g/dL Hct 26.5 L (37.2-46.3) % MCH 26.5 L (27.0-32.0) pg MCHC 31.3 L (32.0-37.0) g/dL RDW 20.9 H (11.5-14.5) % Immature Gran # 0.14 H (0.00-0.04) X 10*3/uL Potassium 3.2 L (3.5-5.5) mmol/L Chloride 111 H (96-109) mmol/L BUN 4.4 L (9.0-27.0) mg/dL BUN/Creatinine Ratio 7.33 L (12.00-20.00) Ratio Calcium 7.3 L (8.7-10.3) mg/dL Total Protein 4.0 L (6.2-8.2) g/dL Albumin 2.1 L (3.8-4.9) g/dL Albumin/Globulin Ratio 1.11 L (1.60-3.17) Ratio Microbiology - Last 24 Hours (Table) 05/10/25 03:49 Blood Culture - Preliminary Blood Assessment and Plan (1) Abdominal pain Narrative/Plan: Patient continues to gradually improve clinically. Continue dysphagia diet. Continue antibiotics for thrombophlebitis. Current Visit: Yes Status: Acute Code(s): R10.9 - UNSPECIFIED ABDOMINAL PAIN SNOMED Code(s): 64022902
--- NOTE | 2025-05-14 10:44 | P.PN ---
Subjective Progress Note Date: 05/14/25 Principal diagnosis: Cellulitis left upper extremity Yesterday the patient's arm was wrapped with an Sabino wrap as opposed to the compressive sleeve which was ill fitting for the patient. This is resulted in improvement in her symptoms. Objective - Vital Signs Vital signs: Vital Signs Temp 98.1 F 05/14/25 08:00 Pulse 76 05/14/25 08:00 Resp 18 05/14/25 08:00 BP 148/90 05/14/25 08:00 Pulse Ox 99 05/14/25 08:00 FiO2 Intake & Output 05/13/25 05/14/25 05/14/25 18:59 06:59 18:59 Weight 77.111 kg Other: Voiding Method Toilet Toilet # Voids 2 1 # Bowel Movements 0 - Exam Patient indicates that her arm pain is much improved although not yet completely resolved. Left arm edema is decreased and much less tender to palpation. - Labs CBC & Chem 7: 05/14/25 04:24 05/14/25 04:24 Labs: Abnormal Lab Results - Last 24 Hours (Table) 05/14/25 05/14/25 Range/Units 04:24 04:24 RBC 3.13 L (4.10-5.20) X 10*6/uL Hgb 8.3 L (12.0-15.0) g/dL Hct 26.5 L (37.2-46.3) % MCH 26.5 L (27.0-32.0) pg MCHC 31.3 L (32.0-37.0) g/dL RDW 20.9 H (11.5-14.5) % Immature Gran # 0.14 H (0.00-0.04) X 10*3/uL Potassium 3.2 L (3.5-5.5) mmol/L Chloride 111 H (96-109) mmol/L BUN 4.4 L (9.0-27.0) mg/dL BUN/Creatinine Ratio 7.33 L (12.00-20.00) Ratio Calcium 7.3 L (8.7-10.3) mg/dL Total Protein 4.0 L (6.2-8.2) g/dL Albumin 2.1 L (3.8-4.9) g/dL Albumin/Globulin Ratio 1.11 L (1.60-3.17) Ratio Microbiology - Last 24 Hours (Table) 05/10/25 03:49 Blood Culture - Preliminary Blood Assessment and Plan Assessment: Continued improvement. Plan: Continue present care. No intervention planned from vascular surgical standpoint. Will reevaluate at your request. Thank you very much for this consultation. Time with Patient: Less than 30
[2025-05-14] MEDS: POTASSIUM CHLORIDE ER 20 MEQ TAB.ER PO STA (10:56)
[2025-05-14] MEDS: LACTOBACILLUS ACIDOPHILUS/PECT 1 EACH CAPSULE PO SCH (10:56)
--- NOTE | 2025-05-14 11:58 | CT ---
EXAMINATION TYPE: CT abdomen pelvis w con DATE OF EXAM: 05/14/2025 11:39 AM COMPARISON: CT multiple CTs dating back to 10/06/2013. CLINICAL INDICATION: Female, 54 years old with history of chronic diarhea; nausea/vomiting/abd pain TECHNIQUE: Axial CT abdomen pelvis w con;Sagittal and coronal reformats were created on a separate w orkstation. Contrast used:100 ml mL of Isovue 300 with IV Contrast, (none if empty) Oral contrast used: without Oral Contrast (none if empty) CT DLP: 1923.3 mGycm, Automated exposure control for dose reduction was used. FINDINGS: LOWER CHEST: Small bilateral pleural effusions with associated atelectasis. Heart is mildly enlarged for size. ABDOMEN LIVER: Subtle nodularity to the contour of the liver. 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 PANCREAS: Unremarkable. SPLEEN: Unremarkable. ADRENAL GLANDS: Unremarkable. KIDNEYS AND URETERS: No evidence of hydronephrosis or obstructing renal calculus. The ureters are unr emarkable. Simple appearing renal cortical cysts bilaterally. No suspicious masses. No follow-up r ecommended. PELVIS BLADDER: Hypodensity x-ray contrast in the bladder lumen. No evidence for wall thickening or mass giv en limitations of exam. REPRODUCTIVE: Unremarkable. ABDOMEN & PELVIS STOMACH AND BOWEL: Small to moderate hiatal hernia. No evidence of bowel obstruction. Postsurgical ch anges of gastric lumen without evidence for bowel obstruction. PERITONEUM/RETROPERITONEUM: No evidence of pneumoperitoneum or free fluid. VASCULATURE: No evidence of aortic aneurysm. MUSCULOSKELETAL: No acute osseous abnormalities, fixation changes to L4-L5 and S1. Hardware appears i n tact. LYMPH NODES: No gross evidence for lymphadenopathy. SOFT TISSUE/ABDOMINAL WALL: Mild anasarca of the soft tissues. IMPRESSION: 1. No evidence for acute abdominal process. 2. Intrahepatic portal venous shunt suspected. Consider multiphasic CT liver mass protocol for furth er evaluation. 3. Cholecystectomy changes. 4. Bilateral simple appearing renal cortical cysts. No follow up recommended. 5. Fat-containing umbilical hernia. 6. Anasarca of the soft tissues. 7. Post surgical changes the gastric lumen without evidence for bowel obstruction. 8. Small to moderate hiatal hernia. 9. Post fixation changes to the spine hardware appears intact. [facility], , 05/14/2025 11:56 AM
--- NOTE | 2025-05-14 13:09 | P.PN ---
Subjective Subjective: 54-year-old female with past medical significant for sleeve gastrectomy in December 2024, history of esophageal dysmotility, history of diastolic CHF, hypertension, acute kidney injury, who presented to the hospital with complaint of nausea vomiting and dehydration. Patient had recurrent hospitalizations for similar symptoms, was noted to be hypotensive and likely acute kidney injury during previous hospitalization, was discharged home on IV fluids and [place] now presented again with a similar symptom send was concerned about dehydration and presented to ER. Patient denied any fever or chills, patient reported that she was having decreased urinary output. Patient reported increased thirst and dry mouth. Patient is afebrile, heart rate 71, respiratory rate 20, blood pressure 152/98, saturating 93% on room air. WBC 6.04 hemoglobin 10.7 platelet 171. INR 1.0. BMP unremarkable except potassium 3.3, magnesium 1.4. Lipase unremarkable. Troponin negative. UA contaminated sample. CT abdomen pelvis negative for acute process, showed mild anasarca. 05/14. Patient seen and examined. Sleeping at bedside. Alert and oriented x 3. Answered questions appropriately. Reported having multiple episodes of diarrhea throughout the night. In a bright note. Reported noticing left arm swelling bleeding is decreased, and slight increased range of motion. Repeat blood cultures remain negative. On apixaban 10 twice daily however this will be switched to apixaban 5 mg as per protocol from today. On day 4 of vancomycin. k 3.4 - replaced with 40mmol Pertinent positives and negatives discussed above, a complete review of systems was preformed and all the other sytems were negative. Vitals Signs Reveiwed. GENERAL: The patient is alert and oriented x3, not in any acute distress. Well developed, well nourished. HEENT: Pupils are round and equally reacting to light. EOMI. No scleral icterus. No conjunctival pallor. Normocephalic, atraumatic. No pharyngeal erythema. No thyromegaly. CARDIOVASCULAR: S1 and S2 present. No murmurs, rubs, or gallops. PULMONARY: Chest is clear to auscultation, no wheezing or crackles. ABDOMEN: central abdomen tenderness on palpation. MUSCULOSKELETAL: No joint swelling or deformity. EXTREMITIES: No cyanosis, clubbing, 1+ pitting edema lower extremity. Swelling of left upper extremity Left upper extremity swollen NEUROLOGICAL: Gross neurological examination did not reveal any focal deficits. SKIN: No rashes. Data Reveiwed Today: 05/14/2025 Patient Labs: WBC 5.94, Na 140, creatinine 0.54, BUN 6.2. K 4.6 Imaging: Upper extremity CT indicated no acute fractures or destructive osseous changes. Significant soft tissue edema/inflammatory changes involving the left upper extremity and visualized subcutaneous regions. Assessment and plan #Nausea and vomiting: #Dehydration: #Recurrent hospitalization for nausea vomiting, dehydration and acute kidney injury: #Esophageal dysmotility: #Hypokalemia: #Hypomagnesemia: Awaiting CT abdomen and Pelvis for unresolved diarrhea General Surgery following #Fever #Left upper extremity cellulitis #MRSA bacteremia Blood cultures positive for MRSA (05/08) Currently on vancomycin D4 2D echo ordered ID following #Superficial vein thrombus of left basilic vein Continue supportive treatment Vascular surgery following #Right lower extremity DVT Continue Eliquis Vascular surgery evaluated, recommended oral anticoagulation, notes reviewed recommendation noted from 05/11 #Thiamine deficiency: Thiamine level 16 from previous hospitalization Thiamine supplements #History of diastolic CHF #COPD #Obstructive sleep apnea continue management. DVT ppx:Apixaban GI ppx: protonix Code Status: full Attestation I have seen and examined this patient with my resident , discussed the same with the resident/HITESH, and agree with the dictator's assessment and plan as written Dr. Irineo watkins Objective - Vital Signs Vital signs: Vital Signs Temp 98.1 F 05/14/25 08:00 Pulse 76 05/14/25 08:00 Resp 18 05/14/25 08:00 BP 148/90 05/14/25 08:00 Pulse Ox 99 05/14/25 08:00 FiO2 Intake & Output 05/13/25 05/14/25 05/14/25 18:59 06:59 18:59 Weight 77.111 kg Other: Voiding Method Toilet Toilet # Voids 2 1 # Bowel Movements 0 - Labs CBC & Chem 7: 05/15/25 03:23 05/15/25 09:45 Labs: Microbiology - Last 24 Hours (Table) 05/10/25 03:49 Blood Culture - Preliminary Blood
--- NOTE | 2025-05-14 14:55 | P.PN ---
Subjective Progress Note Date: 05/14/25 Principal diagnosis: Reason for follow-up is fever/septic phlebitis/MRSA bacteremia Patient is a 54-year-old -Serbian female with a past medical history significant for diabetes mellitus COPD hypertension reflux asthma pneumonia presented to the hospital for evaluation of nausea and vomiting, did have left upper extremity IV site pain swelling and redness which was discontinued with evidence of SVT did have a fever and blood culture positive for MRSA. On today's evaluation that is 05/14/2025, the patient continues to be afebrile, the patient is on room air and breathing comfortably, the Pt denies having any chest pain or cough, the patient denies having any abdominal pain however still complaining of feeling nauseated and did not took her breakfast no diarrhea. Patient was -5.34, creatinine 0.6 blood culture repeat has been negative Objective - Vital Signs Vital signs: Vital Signs Temp 98.1 F 05/14/25 08:00 Pulse 76 05/14/25 08:00 Resp 18 05/14/25 08:00 BP 148/90 05/14/25 08:00 Pulse Ox 99 05/14/25 08:00 FiO2 Intake & Output 05/13/25 05/14/25 05/14/25 18:59 06:59 18:59 Weight 77.111 kg Other: Voiding Method Toilet Toilet Toilet # Voids 2 1 # Bowel Movements 0 - Exam GENERAL DESCRIPTION: Delayed female lying in bed in no distress RESPIRATORY SYSTEM: Unlabored breathing , decreased breath sounds at bases HEART: S1 S2 regular rate and rhythm , ABDOMEN: Soft , no tenderness EXTREMITIES: Left upper extremity with swelling no purulent drainage - Labs CBC & Chem 7: 05/14/25 04:24 05/14/25 04:24 Labs: Abnormal Lab Results - Last 24 Hours (Table) 05/14/25 05/14/25 Range/Units 04:24 04:24 RBC 3.13 L (4.10-5.20) X 10*6/uL Hgb 8.3 L (12.0-15.0) g/dL Hct 26.5 L (37.2-46.3) % MCH 26.5 L (27.0-32.0) pg MCHC 31.3 L (32.0-37.0) g/dL RDW 20.9 H (11.5-14.5) % Immature Gran # 0.14 H (0.00-0.04) X 10*3/uL Potassium 3.2 L (3.5-5.5) mmol/L Chloride 111 H (96-109) mmol/L BUN 4.4 L (9.0-27.0) mg/dL BUN/Creatinine Ratio 7.33 L (12.00-20.00) Ratio Calcium 7.3 L (8.7-10.3) mg/dL Total Protein 4.0 L (6.2-8.2) g/dL Albumin 2.1 L (3.8-4.9) g/dL Albumin/Globulin Ratio 1.11 L (1.60-3.17) Ratio Microbiology - Last 24 Hours (Table) 05/10/25 03:49 Blood Culture - Preliminary Blood Assessment and Plan (1) Sepsis Current Visit: Yes Status: Acute Code(s): A41.9 - SEPSIS, UNSPECIFIED ORG ANISM SNOMED Code(s): 40518872 (2) Thrombophlebitis Current Visit: Yes Status: Acute Code(s): I80.9 - PHLEBITIS AND THROMBOPHLEBITIS OF UNSPECIFIED SITE SNOMED Code(s): 52212959 (3) MRSA bacteremia Current Visit: Yes Status: Acute Code(s): R78.81 - BACTEREMIA; B95.62 - METHICILLIN RESIS STAPH INFCT CAUSING DISEASES [facility] SNOMED Code(s): 13436632047226032 Plan: 1patient with fever elevated white count meeting criteria for SIRS/sepsis source likely left upper extremity thrombophlebitis and a question of possible septic thrombophlebitis likely from gram-positive such as MRSA, patient initially presented to hospital with nausea vomiting epigastric pain however CT was negative for any intra-abdominal acute pathology 2-blood culture growing MRSA source likely septic phlebitis, blood culture repeat from 05/10/2025 so far negative 3-patient to continue with vancomycin pharmacy dose with target of 15, still waiting for PICC line placement and outpatient IV antibiotic arrangement Dictation was produced using [employer] dictation software. please excuse any grammatical, word or spelling errors. Time with Patient: Less than 30
--- NOTE | 2025-05-14 15:14 | CA ---
Transthoracic Echo Report Name: Kaitlynn Guardado Age: 54 Gender: F : 1970 Exam Date: 05/14/2025 12:27 Exam Location: [place] [facility] Ht (in): 59 Wt (lb): 170 Ordering Physician: Irineo Scruggs MD Attending/Referring Phys: Police Magistrate oMhini Asif RDCS Procedure CPT: Indications: bacteremia Cardiac Hx: Technical Quality: Fair Contrast 1: Total Dose (mL): Contrast 2: Total Dose (mL): MEASUREMENTS (Male / Female) Normal Values FINDINGS Left Ventricle Left ventricular ejection fraction is estimated at 60-65 %. Normal left ventricular wall motion. Right Ventricle Right Atrium Left Atrium Mitral Valve Structurally normal mitral valve. No evidence of vegetation on the mitral valve. Aortic Valve Trileaflet aortic valve. No evidence of vegetation on the aortic valve. Tricuspid Valve Structurally normal tricuspid valve. No evidence of tricuspid valve vegetation. Pulmonic Valve Pulmonic valve not well visualized. Pericardium No pericardial effusion. Aorta CONCLUSIONS Left ventricular ejection fraction 60 to 65% No evidence of vegetation No mitral regurgitation Previewed by: Dr. Yovany Sylvester DO (Electronically Signed) Final Date: 14 May 2025 15:13
[2025-05-14] MEDS: APIXABAN 5 MG TAB PO SCH (20:40)
[2025-05-15 09:27] LABS: Basophils # (A) 0.05 X 10*3/uL (0.00-0.10); Basophils % (A) 0.8 %; Eosinophils # (A) 0.29 X 10*3/uL (0.04-0.35); Eosinophils % (A) 4.7 %; HCT 26.3 % (37.2-46.3); HGB 8.2 g/dL (12.0-15.0); Immature Grans, Automated 3.90 %; Lymphocytes # (A) 1.51 X 10*3/uL (0.90-5.00); Lymphocytes % (A) 24.6 %; MCH 26.8 pg (27.0-32.0); MCHC 31.2 g/dL (32.0-37.0); MCV 85.9 FL (80.0-97.0); Monocytes # (A) 0.51 X 10*3/uL (0.20-1.00); Monocytes % (A) 8.3 %; NRBC Per 100 WBC 0 X 10*3/uL (0.00-0.01); Neutrophils # (A) 3.54 X 10*3/uL (1.80-7.70); Neutrophils % (A) 57.7 %; Platelet Count 290 X 10*3/uL (140-440); RBC 3.06 X 10*6/uL (4.10-5.20); RDW 21.3 % (11.5-14.5); WBC 6.14 X 10*3/uL (4.50-10.00)
--- NOTE | 2025-05-15 10:06 | P.PN ---
Subjective Progress Note Date: 05/15/25 Principal diagnosis: Abdominal pain Patient says her arm pain is improved. She was nauseated most of the day yesterday and did not eat much. Did have some Ensure. No vomiting. White blood cell count normal. Objective - Vital Signs Vital signs: Vital Signs Temp 98.6 F 05/15/25 07:34 Pulse 84 05/15/25 07:34 Resp 16 05/15/25 07:34 BP 131/86 05/15/25 07:34 Pulse Ox 96 05/15/25 07:34 FiO2 Intake & Output 05/14/25 05/15/25 05/15/25 18:59 06:59 18:59 Intake Total 1620 Balance 1620 Intake: Oral 1620 Other: Voiding Method Toilet Toilet # Voids 2 2 # Bowel Movements 0 - Exam Abdomen: Soft, nondistended, nontender Left arm with significantly less edema and tenderness - Labs CBC & Chem 7: 05/15/25 03:23 05/14/25 04:24 Labs: Abnormal Lab Results - Last 24 Hours (Table) 05/15/25 05/15/25 Range/Units 03:23 09:00 RBC 3.06 L (4.10-5.20) X 10*6/uL Hgb 8.2 L (12.0-15.0) g/dL Hct 26.3 L (37.2-46.3) % MCH 26.8 L (27.0-32.0) pg MCHC 31.2 L (32.0-37.0) g/dL RDW 21.3 H (11.5-14.5) % Immature Gran # 0.24 H (0.00-0.04) X 10*3/uL Stool Occult Blood Positive H (Negative) Assessment and Plan (1) Abdominal pain Narrative/Plan: Patient is doing better today. Continue antibiotic for septic thrombophlebitis. Continue dysphagia diet. Apparently she was able to provide a stool sample today. Previously she had diarrhea. Becoming more formed. C. difficile was already sent this morning. Await those findings. Await PICC line on Saturday. Current Visit: Yes Status: Acute Code(s): R10.9 - UNSPECIFIED ABDOMINAL PAIN SNOMED Code(s): 81223659
[2025-05-15 10:11] LABS: ALT 9 U/L (8-44); AST 18 U/L (13-35); Albumin 2.2 g/dL (3.8-4.9); Albumin/Globulin Ratio 1.16 Ratio (1.60-3.17); Alkaline Phosphatase 107 U/L (41-126); Anion Gap 11.20 mmol/L (4.00-12.00); BUN/Creat Ratio 5.86 Ratio (12.00-20.00); Blood Urea Nitrogen 4.1 mg/dL (9.0-27.0); Calcium 7.2 mg/dL (8.7-10.3); Carbon Dioxide 20.8 mmol/L (21.6-31.8); Chloride 109 mmol/L (96-109); Globulin 1.9 g/dL (1.6-3.3); Glucose 73 mg/dL (70-110); Potassium 3.3 mmol/L (3.5-5.5); Sodium 141 mmol/L (135-145); Total Protein 4.1 g/dL (6.2-8.2)
[2025-05-15 10:22] LABS: African American GFR (CKD) >90 (>60 ml/min/1.73 sqM); Non-African American GFR(CKD) >90 (>60 ml/min/1.73 sqM)
[2025-05-15] MEDS: VANCOMYCIN TROUGH DUE 1 EACH MISC MISCELLANE ONE (10:40)
--- NOTE | 2025-05-15 13:04 | P.PN ---
Subjective Subjective: 4-year-old female with past medical significant for sleeve gastrectomy in December 2024, history of esophageal dysmotility, history of diastolic CHF, hypertension, acute kidney injury, who presented to the hospital with complaint of nausea vomiting and dehydration. Patient had recurrent hospitalizations for similar symptoms, was noted to be hypotensive and likely acute kidney injury during previous hospitalization, was discharged home on IV fluids and [place] now presented again with a similar symptom send was concerned about dehydration and presented to ER. Patient denied any fever or chills, patient reported that she was having decreased urinary output. Patient reported increased thirst and dry mouth. Patient is afebrile, heart rate 71, respiratory rate 20, blood pressure 152/98, saturating 93% on room air. WBC 6.04 hemoglobin 10.7 platelet 171. INR 1.0. BMP unremarkable except potassium 3.3, magnesium 1.4. Lipase unremarkable. Troponin negative. UA contaminated sample. CT abdomen pelvis negative for acute process, showed mild anasarca. 05/07. Patient seen and examined. Blood work done showed WBC 6.5, hemoglobin 10.1, sodium 138, potassium 3.1. Duplex ultrasound showed acute DVT of the duplicated right popliteal vein. Still having nausea and vomiting 05/08. Patient seen and examined. Patient has been spiking high-grade fevers overnight. With Tmax of 103.1. Patient had swelling of left upper extremity, duplex ultrasound showed superficial vein thrombus of left basilic vein. 05/09. Patient seen and examined. Patient fevers have improved, Tmax of 100.1. Labs reviewed showing WBC 6.56, hemoglobin 8.5, sodium 135, potassium 3.6, BUN 10, creatinine 0.70 05/10. Patient seen and examined. Labs reviewedWBC 6.58, 8.5, sodium 134, potassium 3.6, BUN 10, creatinine 0.70. Fevers have resolved. Still has swelling and pain in left upper extremity. 05/11. Patient seen examined. Continues to feel better. Tolerating clear liquid diet. Left upper extremity is tender, swelling is slightly improved. Potassium this morning is 2.8, replacement ordered 05/12. Patient seen and examinedLab work reviewed showed WBC 5.94, hemoglobin 9.4, platelet count 178, sodium 140, potassium 3.9, BUN 6.2, creatinine 0.6. Duplex ultrasound left lower extremity repeat showed no evidence of DVT, supe rficial vein thrombosis in the left cephalic vein 05/13. Patient seen and examined. CT left upper extremity done showed no acute fractures or destructive osseous changes, showed significant soft tissue edema/inflammatory changes involving the left upper extremity. 05/14. 05/14. Patient seen and examined. Sleeping at bedside. Alert and oriented x 3. Answered questions appropriately. Reported having multiple episodes of diarrhea throughout the night. In a bright note. Reported noticing left arm swelling bleeding is decreased, and slight increased range of motion. Repeat blood cultures remain negative. On apixaban 10 twice daily however this will be switched to apixaban 5 mg as per protocol from today. On day 4 of vancomycin. k 3.4 - replaced with 40mmol 05/15. Patient seen and examined at bedside. in a good mood. Continues to feel better. Tolerated regular diet. Left upper extremity is tender, swelling is slightly improved and slight increased range of motion. Continues abdominal pain and nausea however decreased in severity. CT abdomen pelvis showed intrahepatic portal venous shunt CT liver mass protocol booked; No intra abdominal mass continues anasarca. Echo indicating ejection fraction of 60 to 65% no mitral regurg no vegetations. Vitals Signs Reveiwed. GENERAL: The patient is alert and oriented x3, not in any acute distress. Well developed, well nourished. HEENT: Pupils are round and equally reacting to light. EOMI. No scleral icterus. No conjunctival pallor. Normocephalic, atraumatic. No pharyngeal erythema. No thyromegaly. CARDIOVASCULAR: S1 and S2 present. No murmurs, rubs, or gallops. PULMONARY: Chest is clear to auscultation, no wheezing or crackles. ABDOMEN: central abdomen tenderness on palpation. MUSCULOSKELETAL: No joint swelling or deformity. EXTREMITIES: No cyanosis, clubbing, 1+ pitting edema lower extremity. Swelling of left upper extremity Left upper extremity swollen. Strength reduced due to edema. NEUROLOGICAL: Gross neurological examination did not reveal any focal deficits. SKIN: No rashes. Data Reveiwed Today: 05/15/2025 Patient Labs: occult blood stool - positive Imaging: Echocardiogramleft ventricular ejection fraction 60 to 65%, no evidence of vegetations, no mitral regurgitation. CT Abdo pelvis indicating no evidence for acute abdominal process. Intrahepatic portal venous shunt suspected. Consider multiphasic CT liver mass protocol for further evaluation. Cholecystectomy changes. Bilateralappearing renal cortical cysts no follow-up recommendations. Fat-containing umbilical hernia. Anasarca of the soft tissues. Postsurgical changes. Post fixation changes with the spine hardware appears intact. Assessment and plan #Nausea and vomiting: #Dehydration: #Recurrent hospitalization for nausea vomiting, dehydration and acute kidney injury: #Esophageal dysmotility: #Hypokalemia: #Hypomagnesemia: General Surgery following Ordered CT Liver mass protocol #Fever #Left upper extremity cellulitis #MRSA bacteremia Blood cultures positive for MRSA (05/08) Currently on vancomycin day5 ID following #Superficial vein thrombus of left basilic vein Continue supportive treatment Vascular surgery following #Right lower extremity DVT Continue Eliquis Vascular surgery evaluated, recommended oral anticoagulation, notes reviewed recommendation noted from 05/11 #Thiamine deficiency: Thiamine level 16 from previous hospitalization Thiamine supplements #History of diastolic CHF #COPD #Obstructive sleep apnea continue management. DVT ppx:Apixaban GI ppx: protonix Code Status: full Iam Smith MD PGY1 Internal Medicine Attestation I have seen and examined this patient with my resident , discussed the same with the resident/HITESH, and agree with the dictator's assessment and plan as written Dr. Carroll Objective - Vital Signs Vital signs: Vital Signs Temp 98.6 F 05/15/25 07:34 Pulse 84 05/15/25 07:34 Resp 16 05/15/25 07:34 BP 131/86 05/15/25 07:34 Pulse Ox 96 05/15/25 07:34 FiO2 Intake & Output 05/14/25 05/15/25 05/15/25 18:59 06:59 18:59 Intake Total 1620 Balance 1620 Intake: Oral 1620 Other: Voiding Method Toilet Toilet # Voids 2 2 # Bowel Movements 0 - Labs CBC & Chem 7: 05/15/25 03:23 05/15/25 09:45 Labs: Abnormal Lab Results - Last 24 Hours (Table) 05/14/25 05/14/25 Range/Units 04:24 04:24 RBC 3.13 L (4.10-5.20) X 10*6/uL Hgb 8.3 L (12.0-15.0) g/dL Hct 26.5 L (37.2-46.3) % MCH 26.5 L (27.0-32.0) pg MCHC 31.3 L (32.0-37.0) g/dL RDW 20.9 H (11.5-14.5) % Immature Gran # 0.14 H (0.00-0.04) X 10*3/uL Potassium 3.2 L (3.5-5.5) mmol/L Chloride 111 H (96-109) mmol/L BUN 4.4 L (9.0-27.0) mg/dL BUN/Creatinine Ratio 7.33 L (12.00-20.00) Ratio Calcium 7.3 L (8.7-10.3) mg/dL Total Protein 4.0 L (6.2-8.2) g/dL Albumin 2.1 L (3.8-4.9) g/dL Albumin/Globulin Ratio 1.11 L (1.60-3.17) Ratio
[2025-05-15] MEDS: POTASSIUM CHLORIDE ER 20 MEQ TAB.ER PO STA (13:07)
--- NOTE | 2025-05-15 14:18 | CT ---
EXAMINATION TYPE: CT abdomen wo/w con DATE OF EXAM: 05/15/2025 1:43 PM COMPARISON: CT abdomen pelvis most recent from 05/14/2025. CLINICAL INDICATION: Female, 54 years old with history of liver mass angio protocol; liver mass angio protocol TECHNIQUE: Axial CT abdomen wo/w con;Sagittal and coronal reformats were created on a separate works tation. Contrast used:100ml mL of Isovue 370 without and with IV Contrast, (none if empty) Oral contrast used: without Oral Contrast (none if empty) CT DLP: 4684.8 mGycm, Automated exposure control for dose reduction was used. FINDINGS: LOWER CHEST: Small bilateral pleural effusions with associated atelectasis. Heart is mildly enlarged for size. ABDOMEN LIVER: Subtle nodularity to the contour of the liver. 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 PANCREAS: Unremarkable. SPLEEN: Unremarkable. ADRENAL GLANDS: Unremarkable. KIDNEYS AND URETERS: No evidence of hydronephrosis or obstructing renal calculus. The ureters are unr emarkable. Simple appearing renal cortical cysts bilaterally. No suspicious masses. No follow-up r ecommended. PELVIS BLADDER: Hypodensity x-ray contrast in the bladder lumen. No evidence for wall thickening or mass giv en limitations of exam. REPRODUCTIVE: Unremarkable. ABDOMEN & PELVIS STOMACH AND BOWEL: Small to moderate hiatal hernia. No evidence of bowel obstruction. Postsurgical ch anges of gastric lumen without evidence for bowel obstruction. PERITONEUM/RETROPERITONEUM: No evidence of pneumoperitoneum or free fluid. VASCULATURE: No evidence of aortic aneurysm. MUSCULOSKELETAL: No acute osseous abnormalities, fixation changes to L4-L5 and S1. Hardware appears i n tact. LYMPH NODES: No gross evidence for lymphadenopathy. SOFT TISSUE/ABDOMINAL WALL: Mild anasarca of the soft tissues. IMPRESSION: 1. Proper timing contrast was not definitively achieved possibly secondary to recent CT scanning wit h remaining contrast in the patient's blood. MRI liver mass protocol is recommended. There remains ev idence for Intrahepatic portal venous shunt suspected. 2. Cholecystectomy changes. 3. Bilateral simple appearing renal cortical cysts. No follow up recommended. 4. Fat-containing umbilical hernia. 5. Anasarca of the soft tissues. 6. Post surgical changes the gastric lumen without evidence for bowel obstruction. 7. Small to moderate hiatal hernia. 8. Post fixation changes to the spine hardware appears intact. [facility], , 05/15/2025 2:16 PM
--- NOTE | 2025-05-15 15:39 | P.PN ---
Subjective Progress Note Date: 05/15/25 Principal diagnosis: Reason for follow-up is fever/septic phlebitis/MRSA bacteremia Patient is a 54-year-old -[place] female with a past medical history significant for diabetes mellitus COPD hypertension reflux asthma pneumonia presented to the hospital for evaluation of nausea and vomiting, did have left upper extremity IV site pain swelling and redness which was discontinued with evidence of SVT did have a fever and blood culture positive for MRSA. On today's evaluation that is 05/15/2024, patient did have a temperature of 98.6 F this morning and denies having any chills, patient is on room air and breathing comfortably no chest pain or cough, the patient has been complaining of feeling nauseated and abdominal discomfort no diarrhea left upper extremity pain and swelling improved. Patient did have creatinine 0.59 blood cultures but has been negative Objective - Vital Signs Vital signs: Vital Signs Temp 98.6 F 05/15/25 07:34 Pulse 84 05/15/25 07:34 Resp 16 05/15/25 07:34 BP 131/86 05/15/25 07:34 Pulse Ox 96 05/15/25 07:34 FiO2 Intake & Output 05/14/25 05/15/25 05/15/25 18:59 06:59 18:59 Intake Total 1620 Balance 1620 Intake: Oral 1620 Other: Voiding Method Toilet Toilet Toilet # Voids 2 2 # Bowel Movements 0 - Exam GENERAL DESCRIPTION: Delayed female lying in bed in no distress RESPIRATORY SYSTEM: Unlabored breathing , decreased breath sounds at bases HEART: S1 S2 regular rate and rhythm , ABDOMEN: Soft , no tenderness EXTREMITIES: Left upper extremity with swelling no purulent drainage - Labs CBC & Chem 7: 05/15/25 03:23 05/15/25 09:45 Labs: Abnormal Lab Results - Last 24 Hours (Table) 05/15/25 05/15/25 05/15/25 Range/Units 03:23 03:23 09:00 RBC 3.06 L (4.10-5.20) X 10*6/uL Hgb 8.2 L (12.0-15.0) g/dL Hct 26.3 L (37.2-46.3) % MCH 26.8 L (27.0-32.0) pg MCHC 31.2 L (32.0-37.0) g/dL RDW 21.3 H (11.5-14.5) % Immature Gran # 0.24 H (0.00-0.04) X 10*3/uL Potassium 3.3 L (3.5-5.5) mmol/L Carbon Dioxide 20.8 L (21.6-31.8) mmol/L BUN 4.1 L (9.0-27.0) mg/dL BUN/Creatinine Ratio 5.86 L (12.00-20.00) Ratio Calcium 7.2 L (8.7-10.3) mg/dL Total Protein 4.1 L (6.2-8.2) g/dL Albumin 2.2 L (3.8-4.9) g/dL Albumin/Globulin Ratio 1.16 L (1.60-3.17) Ratio Stool Occult Blood Positive H (Negative) Microbiology - Last 24 Hours (Table) 05/10/25 03:49 Blood Culture - Final Blood Assessment and Plan (1) Sepsis Current Visit: Yes Status: Acute Code(s): A41.9 - SEPSIS, UNSPECIFIED ORGANISM SNOMED Code(s): 94302987 (2) Thrombophlebitis Current Visit: Yes Status: Acute Code(s): I80.9 - PHLEBITIS AND THROMBOPH LEBITIS OF UNSPECIFIED SITE SNOMED Code(s): 14296731 (3) MRSA bacteremia Current Visit: Yes Status: Acute Code(s): R78.81 - BACTEREMIA; B95.62 - METHICILLIN RESIS STAPH INFCT CAUSING DISEASES CLASSD ELSR SNOMED Code(s): 68565012557920857 Plan: 1patient with fever elevated white count meeting criteria for SIRS/sepsis source likely left upper extremity thrombophlebitis and a question of possible septic thrombophlebitis likely from gram-positive such as MRSA, patient initially presented to hospital with nausea vomiting epigastric pain however CT was negative for any intra-abdominal acute pathology 2-blood culture growing MRSA source likely septic phlebitis, blood culture repeat from 05/10/2025 so far negative 3-patient currently being treated with vancomycin pharmacy dose with target of 15, did have more abdominal symptom repeat CT has been ordered results will be followed Dictation was produced using [employer] dictation software. please excuse any grammatical, word or spelling errors. Time with Patient: Less than 30
[2025-05-15] MEDS: VANCOMYCIN 1,250 MG in SODIUM CHLORIDE 0.9% 250 ML IVPB SCH (16:11)
[2025-05-16 08:56] LABS: Basophils # (A) 0.02 X 10*3/uL (0.00-0.10); Basophils % (A) 0.3 %; Eosinophils # (A) 0.35 X 10*3/uL (0.04-0.35); Eosinophils % (A) 5.0 %; HCT 24.7 % (37.2-46.3); HGB 7.8 g/dL (12.0-15.0); Immature Grans, Automated 3.80 %; Lymphocytes # (A) 1.52 X 10*3/uL (0.90-5.00); Lymphocytes % (A) 21.5 %; MCH 26.6 pg (27.0-32.0); MCHC 31.6 g/dL (32.0-37.0); MCV 84.3 FL (80.0-97.0); Monocytes # (A) 0.54 X 10*3/uL (0.20-1.00); Monocytes % (A) 7.6 %; NRBC Per 100 WBC 0 X 10*3/uL (0.00-0.01); Neutrophils # (A) 4.37 X 10*3/uL (1.80-7.70); Neutrophils % (A) 61.8 %; Platelet Count 349 X 10*3/uL (140-440); RBC 2.93 X 10*6/uL (4.10-5.20); RDW 21.2 % (11.5-14.5); WBC 7.07 X 10*3/uL (4.50-10.00)
[2025-05-16 09:06] LABS: ALT 7 U/L (8-44); AST 16 U/L (13-35); Albumin 2.1 g/dL (3.8-4.9); Albumin/Globulin Ratio 1.11 Ratio (1.60-3.17); Alkaline Phosphatase 96 U/L (41-126); Anion Gap 8.90 mmol/L (4.00-12.00); BUN/Creat Ratio 6.17 Ratio (12.00-20.00); Blood Urea Nitrogen 3.7 mg/dL (9.0-27.0); Calcium 7.3 mg/dL (8.7-10.3); Carbon Dioxide 23.1 mmol/L (21.6-31.8); Chloride 109 mmol/L (96-109); Globulin 1.9 g/dL (1.6-3.3); Glucose 74 mg/dL (70-110); Potassium 3.2 mmol/L (3.5-5.5); Sodium 141 mmol/L (135-145); Total Protein 4.0 g/dL (6.2-8.2)
--- NOTE | 2025-05-16 10:30 | P.PN ---
Subjective Progress Note Date: 05/16/25 Principal diagnosis: Abdominal pain Patient states she had episodes of vomiting yesterday. Mild abdominal pain. Left arm pain improved. CT from 05/14 for diarrhea and follow-up study yesterday reviewed. Radiology describing possible intrahepatic portal venous shunt. Etiology and clinical significance unclear. Patient does not appear toxic. No confusion. Labs from today noted. Hemoglobin 7.8. Recent stool sample heme positive. Objective - Vital Signs Vital signs: Vital Signs Temp 97.8 F 05/16/25 01:18 Pulse 83 05/16/25 02:40 Resp 16 05/16/25 01:18 BP 146/90 05/16/25 02:40 Pulse Ox 94 L 05/16/25 01:18 FiO2 Intake & Output 05/15/25 05/16/25 05/16/25 18:59 06:59 18:59 Other: Voiding Method Toilet Toilet Toilet # Voids 2 1 - Exam Abdomen: Soft, nontender, nondistended - Labs CBC & Chem 7: 05/16/25 05:31 05/16/25 05:31 Labs: Abnormal Lab Results - Last 24 Hours (Table) 05/16/25 05/16/25 Range/Units 05:31 05:31 RBC 2.93 L (4.10-5.20) X 10*6/uL Hgb 7.8 L (12.0-15.0) g/dL Hct 24.7 L (37.2-46.3) % MCH 26.6 L (27.0-32.0) pg MCHC 31.6 L (32.0-37.0) g/dL RDW 21.2 H (11.5-14.5) % Immature Gran # 0.27 H (0.00-0.04) X 10*3/uL Potassium 3.2 L (3.5-5.5) mmol/L BUN 3.7 L (9.0-27.0) mg/dL BUN/Creatinine Ratio 6.17 L (12.00-20.00) Ratio Calcium 7.3 L (8.7-10.3) mg/dL ALT 7 L (8-44) U/L Total Protein 4.0 L (6.2-8.2) g/dL Albumin 2.1 L (3.8-4.9) g/dL Albumin/Globulin Ratio 1.11 L (1.60-3.17) Ratio Microbiology - Last 24 Hours (Table) 05/10/25 03:49 Blood Culture - Final Blood Assessment and Plan (1) Abdominal pain Narrative/Plan: Patient's left arm swelling and pain improved. Unfortunately still having intermittent episodes of vomiting. Continue dysphagia diet. Await MRI liver to document portal venous shunt. Current Visit: Yes Status: Acute Code(s): R10.9 - UNSPECIFIED ABDOMINAL PAIN SNOMED Code(s): 88830116
--- NOTE | 2025-05-16 11:32 | P.PN ---
Subjective Subjective: 54-year-old female with past medical significant for sleeve gastrectomy in December 2024, history of esophageal dysmotility, history of diastolic CHF, hypertension, acute kidney injury, who presented to the hospital with complaint of nausea vomiting and dehydration. Patient had recurrent hospitalizations for similar symptoms, was noted to be hypotensive and likely acute kidney injury during previous hospitalization, was discharged home on IV fluids and Latishamargi George now presented again with a similar symptom send was concerned about dehydration and presented to ER. Patient denied any fever or chills, patient reported that she was having decreased urinary output. Patient reported increased thirst and dry mouth. Patient is afebrile, heart rate 71, respiratory rate 20, blood pressure 152/98, saturating 93% on room air. WBC 6.04 hemoglobin 10.7 platelet 171. INR 1.0. BMP unremarkable except potassium 3.3, magnesium 1.4. Lipase unremarkable. Troponin negative. UA contaminated sample. CT abdomen pelvis negative for acute process, showed mild anasarca. 05/07. Patient seen and examined. Blood work done showed WBC 6.5, hemoglobin 10.1, sodium 138, potassium 3.1. Duplex ultrasound showed acute DVT of the duplicated right popliteal vein. Still having nausea and vomiting 05/08. Patient seen and examined. Patient has been spiking high-grade fevers overnight. With Tmax of 103.1. Patient had swelling of left upper extremity, duplex ultrasound showed superficial vein thrombus of left basilic vein. 05/09. Patient seen and examined. Patient fevers have improved, Tmax of 100.1. Labs reviewed showing WBC 6.56, hemoglobin 8.5, sodium 135, potassium 3.6, BUN 10, creatinine 0.70 05/10. Patient seen and examined. Labs reviewedWBC 6.58, 8.5, sodium 134, potassium 3.6, BUN 10, creatinine 0.70. Fevers have resolved. Still has swelling and pain in left upper extremity. 05/11. Patient seen examined. Continues to feel better. Tolerating clear liquid diet. Left upper extremity is tender, swelling is slightly improved. Potassium this morning is 2.8, replacement ordered 05/12. Patient seen and examinedLab work reviewed showed WBC 5.94, hemoglobin 9.4, platelet count 178, sodium 140, potassium 3.9, BUN 6.2, creatinine 0.6. Duplex ultrasound left lower extremity repeat showed no evidence of DVT, cisneros perficial vein thrombosis in the left cephalic vein 05/13. Patient seen and examined. CT left upper extremity done showed no acute fractures or destructive osseous changes, showed significant soft tissue edema/inflammatory changes involving the left upper extremity. 05/14. 05/14. Patient seen and examined. Sleeping at bedside. Alert and oriented x 3. Answered questions appropriately. Reported having multiple episodes of diarrhea throughout the night. In a bright note. Reported noticing left arm swelling bleeding is decreased, and slight increased range of motion. Repeat blood cultures remain negative. On apixaban 10 twice daily however this will be switched to apixaban 5 mg as per protocol from today. On day 4 of vancomycin. k 3.4 - replaced with 40mmol 05/15. Patient seen and examined at bedside. in a good mood. Continues to feel better. Tolerated regular diet. Left upper extremity is tender, swelling is slightly improved and slight increased range of motion. Continues abdominal pain and nausea however decreased in severity. CT abdomen pelvis showed intrahepatic portal venous shunt CT liver mass protocol booked; No intra abdominal mass continues anasarca. Echo indicating ejection fraction of 60 to 65% no mitral regurg no vegetations. 05/16: Patient seen at bedside, she is feeling better today, she denies new symptoms. she was feeling noxious yesterday, she is feeling better this mroning, She denies any other new symptoms. Vitals Signs Reveiwed. GENERAL: The patient is alert and oriented x3, not in any acute distress. Well developed, well nourished. HEENT: Pupils are round and equally reacting to light. EOMI. No scleral icterus. No conjunctival pallor. Normocephalic, atraumatic. No pharyngeal erythema. No thyromegaly. CARDIOVASCULAR: S1 and S2 present. No murmurs, rubs, or gallops. PULMONARY: Chest is clear to auscultation, no wheezing or crackles. ABDOMEN: central abdomen tenderness on palpation. MUSCULOSKELETAL: No joint swelling or deformity. EXTREMITIES: No cyanosis, clubbing, 1+ pitting edema lower extremity. Swelling of left upper extremity Left upper extremity swollen. Strength reduced due to edema. NEUROLOGICAL: Gross neurological examination did not reveal any focal deficits. SKIN: No rashes. Data Reveiwed Today: 05/16/2025 Patient Labs: occult blood stool - positive Imaging: Echocardiogramleft ventricular ejection fraction 60 to 65%, no evidence of vegetations, no mitral regurgitation. CT Abdo pelvis indicating no evidence for acute abdominal process. Intrahepatic portal venous shunt suspected. Consider multiphasic CT liver mass protocol for further evaluation. Cholecystectomy changes. Bilateralappearing renal cortical cysts no follow-up recommendations. Fat-containing umbilical hernia. Anasarca of the soft tissues. Postsurgical changes. Post fixation changes with the spine hardware appears intact. Assessment and plan #Nausea and vomiting: #Dehydration: #Recurrent hospitalization for nausea vomiting, dehydration and acute kidney injury: #Esophageal dysmotility: #Hypokalemia: #Hypomagnesemia: Increase Protonix to 40mg BID General Surgery following Ordered CT Liver mass protocol #Fever #Left upper extremity cellulitis #MRSA bacteremia Blood cultures positive for MRSA (05/08) Currently on vancomycin day5 ID following #Superficial vein thrombus of left basilic vein Continue supportive treatment Vascular surgery following #Right lower extremity DVT Continue Eliquis Vascular surgery evaluated, recommended oral anticoagulation, notes reviewed recommendation noted from 05/11 #Thiamine deficiency: Thiamine level 16 from previous hospitalization Thiamine supplements #History of diastolic CHF #COPD #Obstructive sleep apnea continue management. DVT ppx:Apixaban GI ppx: protonix 40 BID Code Status: full Objective - Vital Signs Vital signs: Vital Signs Temp 97.8 F 05/16/25 01:18 Pulse 83 05/16/25 02:40 Resp 16 05/16/25 01:18 BP 146/90 05/16/25 02:40 Pulse Ox 94 L 05/16/25 01:18 FiO2 Intake & Output 05/15/25 05/16/25 05/16/25 18:59 06:59 18:59 Other: Voiding Method Toilet Toilet # Voids 2 1 - Labs CBC & Chem 7: 05/16/25 05:31 05/16/25 05:31 Labs: Abnormal Lab Results - Last 24 Hours (Table) 05/15/25 05/15/25 05/15/25 Range/Units 03:23 03:23 09:00 RBC 3.06 L (4.10-5.20) X 10*6/uL Hgb 8.2 L (12.0-15.0) g/dL Hct 26.3 L (37.2-46.3) % MCH 26.8 L (27.0-32.0) pg MCHC 31.2 L (32.0-37.0) g/dL RDW 21.3 H (11.5-14.5) % Immature Gran # 0.24 H (0.00-0.04) X 10*3/uL Potassium 3.3 L (3.5-5.5) mmol/L Carbon Dioxide 20.8 L (21.6-31.8) mmol/L BUN 4.1 L (9.0-27.0) mg/dL BUN/Creatinine Ratio 5.86 L (12.00-20.00) Ratio Calcium 7.2 L (8.7-10.3) mg/dL Total Protein 4.1 L (6.2-8.2) g/dL Albumin 2.2 L (3.8-4.9) g/dL Albumin/Globulin Ratio 1.16 L (1.60-3.17) Ratio Stool Occult Blood Positive H (Negative) Microbiology - Last 24 Hours (Table) 05/10/25 03:49 Blood Culture - Final Blood
--- NOTE | 2025-05-16 17:12 | P.PN ---
Subjective Progress Note Date: 05/16/25 Principal diagnosis: Reason for follow-up is fever/septic phlebitis/MRSA bacteremia Patient is a 54-year-old -[place] female with a past medical history significant for diabetes mellitus COPD hypertension reflux asthma pneumonia presented to the hospital for evaluation of nausea and vomiting, did have left upper extremity IV site pain swelling and redness which was discontinued with evidence of SVT did have a fever and blood culture positive for MRSA. On today's evaluation that is 05/16/2025, Patient is afebrile patient is currently on room air and denies having any shortness of breath, the patient denies any chest pain or cough, the patient still complaining of some nausea vomiting no abdominal pain or diarrhea pain to the left extremity has decreased. Patient white count 7.07, creatinine 0.[address] completed on 05 15 concerning for intrahepatic portal venous shunt suspected and cholecystectomy changes but no free air Objective - Vital Signs Vital signs: Vital Signs Temp 97.9 F 05/16/25 14:00 Pulse 89 05/16/25 14:00 Resp 15 05/16/25 14:00 BP 127/82 05/16/25 14:00 Pulse Ox 96 05/16/25 14:00 FiO2 Intake & Output 05/15/25 05/16/25 05/16/25 18:59 06:59 18:59 Other: Voiding Method Toilet Toilet Toilet # Voids 2 1 3 - Exam GENERAL DESCRIPTION: Delayed female lying in bed in no distress RESPIRATORY SYSTEM: Unlabored breathing , decreased breath sounds at bases HEART: S1 S2 regular rate and rhythm , ABDOMEN: Soft , no tenderness EXTREMITIES: Left upper extremity with swelling no purulent drainage - Labs CBC & Chem 7: 05/16/25 05:31 05/16/25 05:31 Labs: Abnormal Lab Results - Last 24 Hours (Table) 05/16/25 05/16/25 Range/Units 05:31 05:31 RBC 2.93 L (4.10-5.20) X 10*6/uL Hgb 7.8 L (12.0-15.0) g/dL Hct 24.7 L (37.2-46.3) % MCH 26.6 L (27.0-32.0) pg MCHC 31.6 L (32.0-37.0) g/dL RDW 21.2 H (11.5-14.5) % Immature Gran # 0.27 H (0.00-0.04) X 10*3/uL Potassium 3.2 L (3.5-5.5) mmol/L BUN 3.7 L (9.0-27.0) mg/dL BUN/Creatinine Ratio 6.17 L (12.00-20.00) Ratio Calcium 7.3 L (8.7-10.3) mg/dL ALT 7 L (8-44) U/L Total Protein 4.0 L (6.2-8.2) g/dL Albumin 2.1 L (3.8-4.9) g/dL Albumin/Globulin Ratio 1.11 L (1.60-3.17) Ratio Assessment and Plan (1) Sepsis Current Visit: Yes Status: Acute Code(s): A41.9 - SEPSIS, UNSPECIFIED ORGANISM SNOMED Code(s): 25266501 (2) Thrombophlebitis Current Visit: Yes Status: Acute Code(s): I80.9 - PHLEBITIS AND THROMBOPHLEBITIS OF UNSPECIFIED SITE SNOMED Code(s): 99142363 (3) MRSA bacteremia Current Visit: Yes Status: Acute Code(s): R78.81 - BACTEREMIA; B95.62 - METHICILLIN RESIS STAPH INFCT CAUSING DISEASES CLASSD ELSWHR SNOMED Code(s): 81949476872235558 Plan: 1patient with fever elevated white count meeting criteria for SIRS/sepsis source likely left upper extremity thrombophlebitis and a question of possible septic thrombophlebitis likely from gram-positive such as MRSA, patient initially presented to hospital with nausea vomiting epigastric pain however CT was negative for any intra-abdominal acute pathology 2-blood culture growing MRSA source likely septic phlebitis, blood culture repeat from 05/10/2025 so far negative 3-patient currently being treated with vancomycin pharmacy dose with target of 15, with a negative blood culture on 05/10/2025, last day of IV vancomycin will be 05/24/2025 Dictation was produced using [employer] software. please excuse any grammatical, word or spelling errors.
[2025-05-16] MEDS: PANTOPRAZOLE 40 MG/10 ML VIAL IVP SCH (20:31)
[2025-05-17 06:31] LABS: African American GFR (CKD) >90 (>60 ml/min/1.73 sqM); Non-African American GFR(CKD) >90 (>60 ml/min/1.73 sqM)
[2025-05-17] MEDS: POTASSIUM CHLORIDE ER 20 MEQ TAB.ER PO STA ×2 (08:19→11:58)
[2025-05-17 08:31] LABS: HCT 26.9 % (37.2-46.3); HGB 8.7 g/dL (12.0-15.0); MCH 26.9 pg (27.0-32.0); MCHC 32.3 g/dL (32.0-37.0); MCV 83.3 fL (80.0-97.0); RBC 3.23 10*6/uL (4.10-5.20); RDW 21.2 % (11.5-14.5); WBC 6.68 10*3/uL (4.50-10.00)
[2025-05-17 08:43] LABS: Platelet Count 392 10*3/uL (140-440)
[2025-05-17 08:46] LABS: ALT 7 U/L (4-34); AST 20 U/L (14-36); African American GFR (CKD) >90 (>60 ml/min/1.73 sqM); Albumin 2.1 g/dL (3.5-5.0); Albumin/Globulin Ratio 0.8; Alkaline Phosphatase 103 U/L (38-126); Anion Gap 7 mmol/L; Blood Urea Nitrogen 3 mg/dL (7-17); Calcium 7.8 mg/dL (8.4-10.2); Carbon Dioxide 21 mmol/L (22-30); Chloride 112 mmol/L (98-107); Globulin 2.6 g/dL; Glucose 76 mg/dL (74-99); Magnesium 1.3 mg/dL (1.6-2.3); Non-African American GFR(CKD) >90 (>60 ml/min/1.73 sqM); Potassium 3.3 mmol/L (3.5-5.1); Sodium 140 mmol/L (137-145); Total Protein 4.7 g/dL (6.3-8.2)
[2025-05-17 09:24] LABS: Eosinophils # (M) 0.33 k/uL (0-0.7); Lymphocytes # (M) 1.20 k/uL (1.0-4.8); Monocytes # (M) 0.40 k/uL (0-1.0); Neutrophils # (M) 4.74 k/uL (1.3-7.7); Neutrophils % (M) 71 %; Total Cells Counted 100
[2025-05-17 09:25] LABS: Hypochromasia (M) Present
[2025-05-17 09:28] LABS: Anisocytosis (M) Present
--- NOTE | 2025-05-17 15:10 | P.PN ---
Subjective Subjective: 54-year-old female with past medical significant for sleeve gastrectomy in December 2024, history of esophageal dysmotility, history of diastolic CHF, hypertension, acute kidney injury, who presented to the hospital with complaint of nausea vomiting and dehydration. Patient had recurrent hospitalizations for similar symptoms, was noted to be hypotensive and likely acute kidney injury during previous hospitalization, was discharged home on IV fluids and Latishamargi George now presented again with a similar symptom send was concerned about dehydration and presented to ER. Patient denied any fever or chills, patient reported that she was having decreased urinary output. Patient reported increased thirst and dry mouth. Patient is afebrile, heart rate 71, respiratory rate 20, blood pressure 152/98, saturating 93% on room air. WBC 6.04 hemoglobin 10.7 platelet 171. INR 1.0. BMP unremarkable except potassium 3.3, magnesium 1.4. Lipase unremarkable. Troponin negative. UA contaminated sample. CT abdomen pelvis negative for acute process, showed mild anasarca. 05/07. Patient seen and examined. Blood work done showed WBC 6.5, hemoglobin 10.1, sodium 138, potassium 3.1. Duplex ultrasound showed acute DVT of the duplicated right popliteal vein. Still having nausea and vomiting 05/08. Patient seen and examined. Patient has been spiking high-grade fevers overnight. With Tmax of 103.1. Patient had swelling of left upper extremity, duplex ultrasound showed superficial vein thrombus of left basilic vein. 05/09. Patient seen and examined. Patient fevers have improved, Tmax of 100.1. Labs reviewed showing WBC 6.56, hemoglobin 8.5, sodium 135, potassium 3.6, BUN 10, creatinine 0.70 05/10. Patient seen and examined. Labs reviewedWBC 6.58, 8.5, sodium 134, potassium 3.6, BUN 10, creatinine 0.70. Fevers have resolved. Still has swelling and pain in left upper extremity. 05/11. Patient seen examined. Continues to feel better. Tolerating clear liquid diet. Left upper extremity is tender, swelling is slightly improved. Potassium this morning is 2.8, replacement ordered 05/12. Patient seen and examinedLab work reviewed showed WBC 5.94, hemoglobin 9.4, platelet count 178, sodium 140, potassium 3.9, BUN 6.2, creatinine 0.6. Duplex ultrasound left lower extremity repeat showed no evidence of DVT, cisneros perficial vein thrombosis in the left cephalic vein 05/13. Patient seen and examined. CT left upper extremity done showed no acute fractures or destructive osseous changes, showed significant soft tissue edema/inflammatory changes involving the left upper extremity. 05/14. 05/14. Patient seen and examined. Sleeping at bedside. Alert and oriented x 3. Answered questions appropriately. Reported having multiple episodes of diarrhea throughout the night. In a bright note. Reported noticing left arm swelling bleeding is decreased, and slight increased range of motion. Repeat blood cultures remain negative. On apixaban 10 twice daily however this will be switched to apixaban 5 mg as per protocol from today. On day 4 of vancomycin. k 3.4 - replaced with 40mmol 05/15. Patient seen and examined at bedside. in a good mood. Continues to feel better. Tolerated regular diet. Left upper extremity is tender, swelling is slightly improved and slight increased range of motion. Continues abdominal pain and nausea however decreased in severity. CT abdomen pelvis showed intrahepatic portal venous shunt CT liver mass protocol booked; No intra abdominal mass continues anasarca. Echo indicating ejection fraction of 60 to 65% no mitral regurg no vegetations. 05/16: Patient seen at bedside, she is feeling better today, she denies new symptoms. she was feeling noxious yesterday, she is feeling better this mroning, She denies any other new symptoms. 05/17. Patient seen at bedside. Reported one episode of vomiting yesterday morning, containing food particles and negative for blood. Persistent loose bowel movements over night however has not had a bowel movement this morning. Reported feces dark brown in color, a color chart for feces was shown to her by myself and patient educated on such. Notes a decrease in appetite and a decrease in left arm swelling, however still reports persistent pain in her left arm and abdomen. Abdomen soft but persistent pain. K replaced today. Vitals Signs Reveiwed. GENERAL: The patient is alert and oriented x3, not in any acute distress. Well developed, well nourished. HEENT: Pupils are round and equally reacting to light. EOMI. No scleral icterus. No conjunctival pallor. Normocephalic, atraumatic. No pharyngeal erythema. No thyromegaly. CARDIOVASCULAR: S1 and S2 present. No murmurs, rubs, or gallops. PULMONARY: Chest is clear to auscultation, no wheezing or crackles. ABDOMEN: central abdomen tenderness on palpation. MUSCULOSKELETAL: No joint swelling or deformity. EXTREMITIES: No cyanosis, clubbing, 1+ pitting edema lower extremity. Swelling of left upper extremity Left upper extremity swollen. Strength reduced due to edema. NEUROLOGICAL: Gross neurological examination did not reveal any focal deficits. SKIN: No rashes. Data Reveiwed Today: 05/16/2025 Patient Labs: occult blood stool - positive Imaging: Echocardiogramleft ventricular ejection fraction 60 to 65%, no evidence of ve getations, no mitral regurgitation. CT Abdo pelvis indicating no evidence for acute abdominal process. Intrahepatic portal venous shunt suspected. Consider multiphasic CT liver mass protocol for further evaluation. Cholecystectomy changes. Bilateralappearing renal cortical cysts no follow-up recommendations. Fat-containing umbilical hernia. Anasarca of the soft tissues. Postsurgical changes. Post fixation changes with the spine hardware appears intact. Assessment and plan #Nausea and vomiting: #Dehydration: #Recurrent hospitalization for nausea vomiting, dehydration and acute kidney i njury: #Esophageal dysmotility: #Hypokalemia: #Hypomagnesemia: #Anemia transfuse if Hb <7.0. Increase Protonix to 40mg BID General Surgery following Replete potassium 60 meq Awaiting MRI liver #Fever #Left upper extremity cellulitis #MRSA bacteremia Blood cultures positive for MRSA (05/08) Currently on vancomycin, to receive last dose on 05/24. ID following, appreciate recommendations. #Superficial vein thrombus of left basilic vein Continue supportive treatment Vascular surgery following #Right lower extremity DVT Continue Eliquis Vascular surgery evaluated, recommended oral anticoagulation, notes reviewed rec ommendation noted from 05/11 #Thiamine deficiency: Thiamine level 16 from previous hospitalization Thiamine supplements #History of diastolic CHF #COPD #Obstructive sleep apnea continue management. DVT ppx:Apixaban GI ppx: protonix 40 BID Code Status: full Objective - Vital Signs Vital signs: Vital Signs Temp 98.1 F 05/17/25 08:00 Pulse 86 05/17/25 08:00 Resp 18 05/17/25 08:00 BP 146/86 05/17/25 08:00 Pulse Ox 99 05/17/25 08:00 FiO2 Intake & Output 05/16/25 05/17/25 05/17/25 18:59 06:59 18:59 Other: Voiding Method Toilet Toilet # Voids 3 2 - Labs CBC & Chem 7: 05/17/25 05:56 05/17/25 05:56 Labs: Abnormal Lab Results - Last 24 Hours (Table) 05/17/25 05/17/25 Range/Units 05:56 05:56 RBC 3.23 L (4.10-5.20) 10*6/uL Hgb 8.7 L (12.0-15.0) g/dL Hct 26.9 L (37.2-46.3) % MCH 26.9 L (27.0-32.0) pg RDW 21.2 H (11.5-14.5) % Immature Gran # 0.38 H (0.00-0.04) 10*3/uL Potassium 3.3 L (3.5-5.1) mmol/L Chloride 112 H (98-107) mmol/L Carbon Dioxide 21 L (22-30) mmol/L BUN 3 L (7-17) mg/dL Calcium 7.8 L (8.4-10.2) mg/dL Magnesium 1.3 L (1.6-2.3) mg/dL Total Protein 4.7 L (6.3-8.2) g/dL Albumin 2.1 L (3.5-5.0) g/dL
[2025-05-17] MEDS ORDERED: LORazepam 1 MG/0.5 ML VIAL IV PRN (18:27)
[2025-05-18 06:40] LABS: Basophils # (A) 0.04 10*3/uL (0.00-0.10); Basophils % (A) 0.6 %; Eosinophils # (A) 0.37 10*3/uL (0.04-0.35); Eosinophils % (A) 5.8 %; HCT 26.1 % (37.2-46.3); HGB 8.7 g/dL (12.0-15.0); Lymphocytes # (A) 1.59 10*3/uL (0.90-5.00); Lymphocytes % (A) 25.1 %; MCH 27.5 pg (27.0-32.0); MCHC 33.3 g/dL (32.0-37.0); MCV 82.6 fL (80.0-97.0); Monocytes # (A) 0.51 10*3/uL (0.20-1.00); Monocytes % (A) 8.1 %; Neutrophils # (A) 3.51 10*3/uL (1.80-7.70); Neutrophils % (A) 55.5 %; Platelet Count 363 10*3/uL (140-440); RBC 3.16 10*6/uL (4.10-5.20); RDW 20.9 % (11.5-14.5); WBC 6.33 10*3/uL (4.50-10.00)
[2025-05-18 06:58] LABS: ALT 7 U/L (4-34); AST 20 U/L (14-36); African American GFR (CKD) >90 (>60 ml/min/1.73 sqM); Albumin 2.2 g/dL (3.5-5.0); Albumin/Globulin Ratio 0.8; Alkaline Phosphatase 108 U/L (38-126); Anion Gap 5 mmol/L; Blood Urea Nitrogen 3 mg/dL (7-17); Calcium 7.9 mg/dL (8.4-10.2); Carbon Dioxide 26 mmol/L (22-30); Chloride 110 mmol/L (98-107); Globulin 2.8 g/dL; Glucose 73 mg/dL (74-99); Non-African American GFR(CKD) >90 (>60 ml/min/1.73 sqM); Potassium 3.3 mmol/L (3.5-5.1); Sodium 141 mmol/L (137-145); Total Protein 5.0 g/dL (6.3-8.2)
[2025-05-18 06:59] LABS: African American GFR (CKD) >90 (>60 ml/min/1.73 sqM); Non-African American GFR(CKD) >90 (>60 ml/min/1.73 sqM)
[2025-05-18 07:32] LABS: INR 1.1 (<1.2); Prothrombin Time 12.3 sec (10.0-12.5)
[2025-05-18] MEDS: VANCOMYCIN TROUGH DUE 1 EACH MISC MISCELLANE ONE (08:47)
[2025-05-18] MEDS: MAGNESIUM OXIDE 400 MG TAB PO STA (09:03)
[2025-05-18] MEDS: POTASSIUM CHLORIDE ER 20 MEQ TAB.ER PO STA (09:03)
--- NOTE | 2025-05-18 14:20 | P.PN ---
Subjective Subjective: 54-year-old female with past medical significant for sleeve gastrectomy in December 2024, history of esophageal dysmotility, history of diastolic CHF, hypertension, acute kidney injury, who presented to the hospital with complaint of nausea vomiting and dehydration. Patient had recurrent hospitalizations for similar symptoms, was noted to be hypotensive and likely acute kidney injury during previous hospitalization, was discharged home on IV fluids and Latishamargi George now presented again with a similar symptom send was concerned about dehydration and presented to ER. Patient denied any fever or chills, patient reported that she was having decreased urinary output. Patient reported increased thirst and dry mouth. Patient is afebrile, heart rate 71, respiratory rate 20, blood pressure 152/98, saturating 93% on room air. WBC 6.04 hemoglobin 10.7 platelet 171. INR 1.0. BMP unremarkable except potassium 3.3, magnesium 1.4. Lipase unremarkable. Troponin negative. UA contaminated sample. CT abdomen pelvis negative for acute process, showed mild anasarca. 05/07. Patient seen and examined. Blood work done showed WBC 6.5, hemoglobin 10.1, sodium 138, potassium 3.1. Duplex ultrasound showed acute DVT of the duplicated right popliteal vein. Still having nausea and vomiting 05/08. Patient seen and examined. Patient has been spiking high-grade fevers overnight. With Tmax of 103.1. Patient had swelling of left upper extremity, duplex ultrasound showed superficial vein thrombus of left basilic vein. 05/09. Patient seen and examined. Patient fevers have improved, Tmax of 100.1. Labs reviewed showing WBC 6.56, hemoglobin 8.5, sodium 135, potassium 3.6, BUN 10, creatinine 0.70 05/10. Patient seen and examined. Labs reviewedWBC 6.58, 8.5, sodium 134, potassium 3.6, BUN 10, creatinine 0.70. Fevers have resolved. Still has swelling and pain in left upper extremity. 05/11. Patient seen examined. Continues to feel better. Tolerating clear liquid diet. Left upper extremity is tender, swelling is slightly improved. Potassium this morning is 2.8, replacement ordered 05/12. Patient seen and examinedLab work reviewed showed WBC 5.94, hemoglobin 9.4, platelet count 178, sodium 140, potassium 3.9, BUN 6.2, creatinine 0.6. Duplex ultrasound left lower extremity repeat showed no evidence of DVT, sup erficial vein thrombosis in the left cephalic vein 05/13. Patient seen and examined. CT left upper extremity done showed no acute fractures or destructive osseous changes, showed significant soft tissue edema/inflammatory changes involving the left upper extremity. 05/14. 05/14. Patient seen and examined. Sleeping at bedside. Alert and oriented x 3. Answered questions appropriately. Reported having multiple episodes of diarrhea throughout the night. In a bright note. Reported noticing left arm swelling bleeding is decreased, and slight increased range of motion. Repeat blood cultures remain negative. On apixaban 10 twice daily however this will be switched to apixaban 5 mg as per protocol from today. On day 4 of vancomycin. k 3.4 - replaced with 40mmol 05/15. Patient seen and examined at bedside. in a good mood. Continues to feel better. Tolerated regular diet. Left upper extremity is tender, swelling is slightly improved and slight increased range of motion. Continues abdominal pain and nausea however decreased in severity. CT abdomen pelvis showed intrahepatic portal venous shunt CT liver mass protocol booked; No intra abdominal mass continues anasarca. Echo indicating ejection fraction of 60 to 65% no mitral regurg no vegetations. 05/16: Patient seen at bedside, she is feeling better today, she denies new symptoms. she was feeling noxious yesterday, she is feeling better this mroning, She denies any other new symptoms. 05/17. 05/17. Patient seen at bedside. Laying in bed comfortably. Alert and oriented x3. Reported having one episode of bowel movement prior to having her breakfast, less loose than previous events, dark in color. Todays hemoglobin is 8.7. Reports abdominal pain and left arm pain similar to before, however decreased in intensity from yesterday. Denies SOB, chest pain. Stated feeling nauseous this morning after having her breakfast. currently hemodynamically stable. K 3.3 & Mg 1,2 - replete appropriately. No significant overnight events. awaiting PICC line for discharge. Vitals Signs Reveiwed. GENERAL: The patient is alert and oriented x3, not in any acute distress. Well developed, well nourished. HEENT: Pupils are round and equally reacting to light. EOMI. No scleral icterus. No conjunctival pallor. Normocephalic, atraumatic. No pharyngeal erythema. No thyromegaly. CARDIOVASCULAR: S1 and S2 present. No murmurs, rubs, or gallops. PULMONARY: Chest is clear to auscultation, no wheezing or crackles. ABDOMEN: central abdomen tenderness on palpation. MUSCULOSKELETAL: No joint swelling or deformity. EXTREMITIES: No cyanosis, clubbing, 1+ pitting edema lower extremity. Swelling of left upper extremity Left upper extremity swollen. Strength reduced due to edema. NEUROLOGICAL: Gross neurological examination did not reveal any focal deficits. SKIN: No rashes. Data Reveiwed Today: 05/18/2025 Patient Labs: occult blood stool - positive Hemoglobin 8.7, WBC 6.33, sodium 141, potassium 3.3, magnesium 1.3, creatinine 0.68. Imaging: Echocardiogramleft ventricular ejection fraction 60 to 65%, no evidence of vegetations, no mitral regurgitation. CT Abdo pelvis indicating no evidence for acute abdominal process. Intrahepatic portal venous shunt suspected. Consider multiphasic CT liver mass protocol for further evaluation. Cholecystectomy changes. Bilateralappearing renal cortical cysts no follow-up recommendations. Fat-containing umbilical hernia. Anasarca of the soft tissues. Postsurgical changes. Post fixation changes with the spine hardware appears intact. Assessment and plan #Nausea and vomiting: #Dehydration: #Recurrent hospitalization for nausea vomiting, dehydration and acute kidney injury: #Esophageal dysmotility: #Hypokalemia: #Hypomagnesemia: #Anemia transfuse if Hb <7.0. Increase Protonix to 40mg BID General Surgery following Replete potassium 40 meq Replete Mg 400mg po once Awaiting MRI liver #Fever #Left upper extremity cellulitis #MRSA bacteremia Blood cultures positive for MRSA (05/08) Currently on vancomycin, to receive last dose on 05/24. ID following, appreciate recommendations. Awaiting PICC line for discharge #Superficial vein thrombus of left basilic vein Continue supportive treatment Vascular surgery following #Right lower extremity DVT Continue Eliquis Vascular surgery evaluated, recommended oral anticoagulation, notes reviewed recommendation noted from 05/11 #Thiamine deficiency: Thiamine level 16 from previous hospitalization Thiamine supplements #History of diastolic CHF #COPD #Obstructive sleep apnea continue management. DVT ppx:Apixaban GI ppx: protonix 40 BID Code Status: full Iam Smith MD PGY1 Internal Medicine Objective - Vital Signs Vital signs: Vital Signs Temp 98.0 F 05/18/25 07:40 Pulse 82 05/18/25 07:40 Resp 18 05/18/25 07:40 BP 147/89 05/18/25 07:40 Pulse Ox 96 05/18/25 07:40 FiO2 Intake & Output 05/17/25 05/18/25 05/18/25 18:59 06:59 18:59 Weight 77.111 kg Other: Voiding Method Toilet # Voids 1 3 # Bowel Movements 0 1 - Labs CBC & Chem 7: 05/18/25 06:18 05/18/25 06:18 Labs: Abnormal Lab Results - Last 24 Hours (Table) 05/18/25 05/18/25 Range/Units 06:18 06:18 RBC 3.16 L (4.10-5.20) 10*6/uL Hgb 8.7 L (12.0-15.0) g/dL Hct 26.1 L (37.2-46.3) % RDW 20.9 H (11.5-14.5) % Immature Gran # 0.31 H (0.00-0.04) 10*3/uL Eosinophils # 0.37 H (0.04-0.35) 10*3/uL Potassium 3.3 L (3.5-5.1) mmol/L Chloride 110 H (98-107) mmol/L BUN 3 L (7-17) mg/dL Glucose 73 L (74-99) mg/dL Calcium 7.9 L (8.4-10.2) mg/dL Total Protein 5.0 L (6.3-8.2) g/dL Albumin 2.2 L (3.5-5.0) g/dL
--- NOTE | 2025-05-18 15:16 | P.PN ---
Subjective Progress Note Date: 05/17/25 Principal diagnosis: Reason for follow-up is fever/septic phlebitis/MRSA bacteremia Patient is a 54-year-old -[place] female with a past medical history significant for diabetes mellitus COPD hypertension reflux asthma pneumonia presented to the hospital for evaluation of nausea and vomiting, did have left upper extremity IV site pain swelling and redness which was discontinued with evidence of SVT did have a fever and blood culture positive for MRSA. On today's evaluation that is 05/17/2025, patient has been afebrile, patient is breathing comfortably and is currently on room air, patient denies having any chest pain and cough, patient complaining of some nausea but no vomiting no abdominal pain or diarrhea abdomen extremity pain and swelling has improved. Patient white count 6.68, creatinine 0.68 Objective - Vital Signs Vital signs: Vital Signs Temp 98.1 F 05/17/25 08:00 Pulse 86 05/17/25 08:00 Resp 18 05/17/25 08:00 BP 146/86 05/17/25 08:00 Pulse Ox 99 05/17/25 08:00 FiO2 Intake & Output 05/16/25 05/17/25 05/17/25 18:59 06:59 18:59 Other: Voiding Method Toilet Toilet Toilet # Voids 3 2 - Exam GENERAL DESCRIPTION: Delayed female lying in bed in no distress RESPIRATORY SYSTEM: Unlabored breathing , decreased breath sounds at bases HEART: S1 S2 regular rate and rhythm , ABDOMEN: Soft , no tenderness EXTREMITIES: Left upper extremity with swelling no purulent drainage - Labs CBC & Chem 7: 05/18/25 06:18 05/18/25 06:18 Labs: Abnormal Lab Results - Last 24 Hours (Table) 05/17/25 05/17/25 Range/Units 05:56 05:56 RBC 3.23 L (4.10-5.20) 10*6/uL Hgb 8.7 L (12.0-15.0) g/dL Hct 26.9 L (37.2-46.3) % MCH 26.9 L (27.0-32.0) pg RDW 21.2 H (11.5-14.5) % Immature Gran # 0.38 H (0.00-0.04) 10*3/uL Potassium 3.3 L (3.5-5.1) mmol/L Chloride 112 H (98-107) mmol/L Carbon Dioxide 21 L (22-30) mmol/L BUN 3 L (7-17) mg/dL Calcium 7.8 L (8.4-10.2) mg/dL Magnesium 1.3 L (1.6-2.3) mg/dL Total Protein 4.7 L (6.3-8.2) g/dL Albumin 2.1 L (3.5-5.0) g/dL Assessment and Plan (1) Sepsis Current Visit: Yes Status: Acute Code(s): A41.9 - SEPSIS, UNSPECIFIED ORGANISM SNOMED Code(s): 85860927 (2) Thrombophlebitis Current Visit: Yes Status: Acute Code(s): I80.9 - PHLEBITIS AND THROMBOPHLEBITIS OF UNSPECIFIED SITE SNOMED Code(s): 75654872 (3) MRSA bacteremia Current Visit: Yes Status: Acute Code(s): R78.81 - BACTEREMIA; B95.62 - METHICILLIN RESIS STAPH INFCT CAUSING DISEASES CLASSD ELSWHR SNOMED Code(s): 13099189701753658 Plan: 1patient with fever elevated white count meeting criteria for SIRS/sepsis source likely left upper extremity thrombophlebitis and a question of possible septic thrombophlebitis likely from gram-positive such as MRSA, patient initially presented to hospital with nausea vomiting epigastric pain however CT was negative for any intra-abdominal acute pathology 2-blood culture growing MRSA source likely septic phlebitis, blood culture repeat from 05/10/2025 so far negative 3-patient is ready for PICC line placement being treated with vancomycin pharmacy to dose, last day of IV vancomycin will be 05/24/2025 scripts were provided to the case checker Dictation was produced using [employer] dictation software. please excuse any grammatical, word or spelling errors. Time with Patient: Less than 30
--- NOTE | 2025-05-18 15:17 | P.PN ---
Subjective Progress Note Date: 05/18/25 Principal diagnosis: Reason for follow-up is fever/septic phlebitis/MRSA bacteremia Patient is a 54-year-old -Welsh female with a past medical history significant for diabetes mellitus COPD hypertension reflux asthma pneumonia presented to the hospital for evaluation of nausea and vomiting, did have left upper extremity IV site pain swelling and redness which was discontinued with evidence of SVT did have a fever and blood culture positive for MRSA. On today's evaluation that is 05/18/2025, Patient is afebrile this morning patient denies having any chest pain shortness of breath or cough, the patient is currently on room air, patient denies any abdominal pain no diarrhea some improvement in the nausea vomiting. Patient white count 6.23, creatinine 0.68 blood culture repeat from 630 has been negative Objective - Vital Signs Vital signs: Vital Signs Temp 97.9 F 05/18/25 14:00 Pulse 84 05/18/25 14:00 Resp 18 05/18/25 14:00 BP 155/93 05/18/25 14:00 Pulse Ox 94 L 05/18/25 14:00 FiO2 Intake & Output 05/17/25 05/18/25 05/18/25 18:59 06:59 18:59 Intake Total 2120 Balance 2120 Weight 77.111 kg Intake: Oral 0 Other: Voiding Method Toilet Toilet # Voids 1 3 3 # Bowel Movements 0 1 1 - Exam GENERAL DESCRIPTION: Delayed female lying in bed in no distress RESPIRATORY SYSTEM: Unlabored breathing , decreased breath sounds at bases HEART: S1 S2 regular rate and rhythm , ABDOMEN: Soft , no tenderness EXTREMITIES: Left upper extremity with swelling no purulent drainage - Labs CBC & Chem 7: 05/18/25 06:18 05/18/25 06:18 Labs: Abnormal Lab Results - Last 24 Hours (Table) 05/18/25 05/18/25 Range/Units 06:18 06:18 RBC 3.16 L (4.10-5.20) 10*6/uL Hgb 8.7 L (12.0-15.0) g/dL Hct 26.1 L (37.2-46.3) % RDW 20.9 H (11.5-14.5) % Immature Gran # 0.31 H (0.00-0.04) 10*3/uL Eosinophils # 0.37 H (0.04-0.35) 10*3/uL Potassium 3.3 L (3.5-5.1) mmol/L Chloride 110 H (98-107) mmol/L BUN 3 L (7-17) mg/dL Glucose 73 L (74-99) mg/dL Calcium 7.9 L (8.4-10.2) mg/dL Total Protein 5.0 L (6.3-8.2) g/dL Albumin 2.2 L (3.5-5.0) g/dL Assessment and Plan (1) Sepsis Current Visit: Yes Status: Acute Code(s): A41.9 - SEPSIS, UNSPECIFIED ORGANISM SNOMED Code(s): 99619633 (2) Thrombophlebitis Current Visit: Yes Status: Acute Code(s): I80.9 - PHLEBITIS AND THROMBOPHLEBITIS OF UNSPECIFIED SITE SNOMED Code(s): 60032457 (3) MRSA bacteremia Current Visit: Yes Status: Acute Code(s): R78.81 - BACTEREMIA; B95.62 - METHICILLIN RESIS STAPH INFCT CAUSING DISEASES CLASSD ELSR SNOMED Code(s): 50106676884509807 Plan: 1patient with fever elevated white count meeting criteria for SIRS/sepsis source likely left upper extremity thrombophlebitis and a question of possible septic thrombophlebitis likely from gram-positive such as MRSA, patient initially presented to hospital with nausea vomiting epigastric pain however CT was negative for any intra-abdominal acute pathology 2-blood culture growing MRSA source likely septic phlebitis, blood culture repeat from 05/10/2025 so far negative 3-patient is currently waiting for PICC line placement and outpatient IV antibiotics arrangement 4patient is being treated with vancomycin pharmacy to dose, last day of IV vancomycin will be 05/24/2025 scripts were provided to the welfare case worker yesterday Dictation was produced using [employer] software. please excuse any grammatical, word or spelling errors. Time with Patient: Less than 30
[2025-05-19 08:16] LABS: Basophils # (A) 0.03 X 10*3/uL (0.00-0.10); Basophils % (A) 0.5 %; Eosinophils # (A) 0.36 X 10*3/uL (0.04-0.35); Eosinophils % (A) 5.6 %; HCT 26.8 % (37.2-46.3); HGB 8.5 g/dL (12.0-15.0); Immature Grans, Automated 3.30 %; Lymphocytes # (A) 1.39 X 10*3/uL (0.90-5.00); Lymphocytes % (A) 21.6 %; MCH 26.7 pg (27.0-32.0); MCHC 31.7 g/dL (32.0-37.0); MCV 84.3 FL (80.0-97.0); Monocytes # (A) 0.60 X 10*3/uL (0.20-1.00); Monocytes % (A) 9.3 %; NRBC Per 100 WBC 0 X 10*3/uL (0.00-0.01); Neutrophils # (A) 3.86 X 10*3/uL (1.80-7.70); Neutrophils % (A) 59.7 %; Platelet Count 343 X 10*3/uL (140-440); RBC 3.18 X 10*6/uL (4.10-5.20); RDW 21.7 % (11.5-14.5); WBC 6.45 X 10*3/uL (4.50-10.00)
[2025-05-19 08:17] LABS: ALT 6 U/L (8-44); AST 16 U/L (13-35); Albumin 2.2 g/dL (3.8-4.9); Albumin/Globulin Ratio 1.05 Ratio (1.60-3.17); Alkaline Phosphatase 94 U/L (41-126); Anion Gap 7.40 mmol/L (4.00-12.00); BUN/Creat Ratio 5.14 Ratio (12.00-20.00); Blood Urea Nitrogen 3.6 mg/dL (9.0-27.0); Calcium 7.5 mg/dL (8.7-10.3); Carbon Dioxide 25.6 mmol/L (21.6-31.8); Chloride 110 mmol/L (96-109); Globulin 2.1 g/dL (1.6-3.3); Glucose 75 mg/dL (70-110); Magnesium 1.3 mg/dL (1.5-2.4); Potassium 3.4 mmol/L (3.5-5.5); Sodium 143 mmol/L (135-145); Total Protein 4.3 g/dL (6.2-8.2)
[2025-05-19] MEDS: POTASSIUM CHLORIDE ER 20 MEQ TAB.ER PO STA (12:47)
--- NOTE | 2025-05-19 14:08 | P.PN ---
Subjective Progress Note Date: 05/19/25 Patient feels well. She is tolerating her liquid diet. She states she is ready to go home. On exam vital signs appear stable. Abdomen soft. Dysphagia related to esophageal dysmotility. Patient will manage her diet. She will follow-up in the bariatric clinic as an outpatient. Objective - Vital Signs Vital signs: Vital Signs Temp 98.6 F 05/19/25 08:00 Pulse 94 05/19/25 09:52 Resp 16 05/19/25 09:52 BP 145/92 05/19/25 08:00 Pulse Ox 97 05/19/25 08:00 FiO2 Intake & Output 05/18/25 05/19/25 05/19/25 18:59 06:59 18:59 Intake Total 2420 300 Balance 2420 300 Intake: Oral 2420 300 Other: Voiding Method Toilet Toilet # Voids 1 1 1 # Bowel Movements 1 - Labs CBC & Chem 7: 05/19/25 03:40 05/19/25 03:40 Labs: Abnormal Lab Results - Last 24 Hours (Table) 05/19/25 05/19/25 Range/Units 03:40 03:40 RBC 3.18 L (4.10-5.20) X 10*6/uL Hgb 8.5 L (12.0-15.0) g/dL Hct 26.8 L (37.2-46.3) % MCH 26.7 L (27.0-32.0) pg MCHC 31.7 L (32.0-37.0) g/dL RDW 21.7 H (11.5-14.5) % Immature Gran # 0.21 H (0.00-0.04) X 10*3/uL Eosinophils # 0.36 H (0.04-0.35) X 10*3/uL Potassium 3.4 L (3.5-5.5) mmol/L Chloride 110 H (96-109) mmol/L BUN 3.6 L (9.0-27.0) mg/dL BUN/Creatinine Ratio 5.14 L (12.00-20.00) Ratio Calcium 7.5 L (8.7-10.3) mg/dL Magnesium 1.3 L (1.5-2.4) mg/dL ALT 6 L (8-44) U/L Total Protein 4.3 L (6.2-8.2) g/dL Albumin 2.2 L (3.8-4.9) g/dL Albumin/Globulin Ratio 1.05 L (1.60-3.17) Ratio
--- NOTE | 2025-05-19 17:25 | P.DS ---
Providers Date of admission: 05/06/25 01:58 Attending physician: Rhonda Cortez Consults: 05/06/25 01:57 Consult Physician Routine Consulting Provider: Felipe Alberto Consult Reason/Comments: known Do you want consulting provider notified?: Yes 05/08/25 02:30 Consult Physician Routine Consulting Provider: Cecilia Barillas Consult Reason/Comments: infection Do you want consulting provider notified?: Yes, Notify in am Primary care physician: Brigette Mustafa Hospital Course: Discharge Diagnosis: #Nausea and vomiting: #Dehydration: #Recurrent hospitalization for nausea vomiting, dehydration and acute kidney injury #Esophageal dysmotility: #Hypokalemia: #Hypomagnesemia: #Anemia #Fever #Left upper extremity cellulitis #MRSA bacteremia #Superficial vein thrombus of left basilic vein #Right lower extremity DVT #Thiamine deficiency: #History of diastolic CHF #COPD #Obstructive sleep apnea Hospital Course: 54-year-old female with past medical history significant for sleeve gastrectomy in December 2024, history of esophageal dysmotility, history of diastolic CHF, hypertension, who presented to the hospital with complaint of nausea vomiting and dehydration. Patient had recurrent hospitalizations for similar symptoms, was noted to be hypotensive and likely acute kidney injury during previous hospitalization, was discharged home on IV fluids and Solu-Cortef now presented again with a similar symptom send was concerned about dehydration and presented to ER. Patient denied any fever or chills, patient reported that she was having decreased urinary output. Patient reported increased thirst and dry mouth. Patient is afebrile, heart rate 71, respiratory rate 20, blood pressure 152/98, saturating 93% on room air. WBC 6.04 hemoglobin 10.7 platelet 171. INR 1.0. BMP unremarkable except potassium 3.3, magnesium 1.4. Lipase unremarkable. Troponin negative. UA contaminated sample. CT abdomen pelvis negative for acute process, showed mild anasarca. Following CT abdomen was also negative for acute pathology While admitted patient was followed up by Gasteroenteroly, vascular surgery, general surgery, Infectious Disease and Cardiology. She was evaluated with Venous Doppler for swelling in the right leg and left upper extremity, reporting a venous thrombus in the right popliteal vein and left superficial basilic vein respectively. She was initially started on IV anticoagulation, which was later transitioned to Po anticoagulation. Swelling has since improved and she is maintained on oral anticoagulation in preparation for discharge. She initially tolerated PO diet and improved progressively over the course of admission. Moreover, a decrease in patient's hemoglobin was observed. This was monitered routinely and no transfusion was required. She is followed by GI outpatient. She developed septic thrombophlebitis and was managed with IV vancomycin, blood culture initially MRSA positive. Repeat blood cultures however negative to date. Patient's potassium and magnesium were also routinely monitered and repleted prn. Patient currently has a PICC line in situ for which she will be completing her complete course of IV vancomycin on 05/24. At time of discharge, patient is hemodynamically stable. She will be followed up by Vascular surgery and her primary care physician for anticoagulation management. She will be discharged on PO Apixaban 5mg BD. Patient made aware of the importance of attending her PCP and Vascular surgeon as outpatient for anticoagulation prescription renewal. Vital signs reviewed and stable: GENERAL: The patient is alert and oriented x3, not in any acute distress. Well developed, well nourished. HEENT: Pupils are round and equally reacting to light. EOMI. No scleral icterus. No conjunctival pallor. Normocephalic, atraumatic. No pharyngeal erythema. No thyromegaly. CARDIOVASCULAR: S1 and S2 present. No murmurs, rubs, or gallops. PULMONARY: Chest is clear to auscultation, no wheezing or crackles. ABDOMEN: central abdomen tenderness on palpation. MUSCULOSKELETAL: No joint swelling or deformity. EXTREMITIES: No cyanosis, clubbing, 1+ pitting edema lower extremity. Swelling of left upper extremity Left upper extremity swollen. Strength reduced due to edema. NEUROLOGICAL: Gross neurological examination did not reveal any focal deficits. SKIN: No rashes. Patient to be seen by PCP for anticoagulation management as she has only been prescribe a total of 2 weeks. A total of greater than 30 minutes were spent preparing this complex discharge summary. Patient was discharged on 05/19. Patient Condition at Discharge: Fair Plan - Discharge Summary Discharge Rx Participant: Yes New Discharge Prescriptions: New Apixaban [Eliquis] 5 mg PO BID 14 Days #28 tab HYDROcodone/APAP 5-325MG [[place]itch[place] 5-325] 1 tab PO Q6HR PRN 3 Days #12 tab PRN Reason: Pain Continue Fluticasone/Umeclidin/Vilanter [Trelegy Ellipta 100-62.5-25] 1 puff INHALATION RT-DAILY Montelukast [Singulair] 1 tab PO HS Fludrocortisone [Florinef] 0.1 mg PO BID #60 tab Acetaminophen Tab [Tylenol] 500 mg PO Q4-6H PRN PRN Reason: Pain QUEtiapine FUMARATE [SEROquel] 200 mg PO HS Magnesium Oxide [Mag-Ox] 400 mg PO BID #60 tab Metoclopramide HCl [Reglan] 5 mg PO TID PRN #45 tablet PRN Reason: Nausea Calcium Carbonate [Tums] 1,000 mg PO TID PRN tab PRN Reason: Heartburn Midodrine [ProAmatine] 5 mg PO AC-TID PRN PRN Reason: Blood Pressure - Low Discharge Medication List Fluticasone/Umeclidin/Vilanter [Trelegy Ellipta 100-62.5-25] 1 puff INHALATION RT-DAILY 08/17/24 [History] Montelukast [Singulair] 1 tab PO HS 08/17/24 [History] Acetaminophen Tab [Tylenol] 500 mg PO Q4-6H PRN 03/29/25 [History] QUEtiapine FUMARATE [SEROquel] 200 mg PO HS 03/29/25 [History] Calcium Carbonate [Tums] 1,000 mg PO TID PRN tab 04/06/25 [Rx] Fludrocortisone [Florinef] 0.1 mg PO BID #60 tab 04/06/25 [Rx] Magnesium Oxide [Mag-Ox] 400 mg PO BID #60 tab 04/06/25 [Rx] Metoclopramide HCl [Reglan] 5 mg PO TID PRN #45 tablet 04/06/25 [Rx] Midodrine [ProAmatine] 5 mg PO AC-TID PRN 05/06/25 [History] Apixaban [Eliquis] 5 mg PO BID 14 Days #28 tab 05/19/25 [Rx] HYDROcodone/APAP 5-325MG [Hitchita 5-325] 1 tab PO Q6HR PRN 3 Days #12 tab 05/19/25 [Rx] Follow up Appointment(s)/Referral(s): [facility], [NON-STAFF] - 1-2 Days ([facility] will call you to schedule the time for your visits to begin IV antibiotic teaching. Your first visit will be the day after discharge from the hospital.) Yasmine Williamson MD [STAFF PHYSICIAN] - [address] DO [Doctor of Osteopathic Medicine] - 2 Weeks Brigette Mustafa MD [Primary Care Provider] - 1-2 days [facility], [REFERRING] - As Needed ([facility] will deliver IV antibiotic supplies to your house on the evening of discharge between 6-8 p.m. ) Patient Instructions/Handouts: Deep Vein Thrombosis (ED), How to Care for Your PICC (Peripherally Inserted Central Catheter) (ED)
[2025-05-19] MEDS: MAGNESIUM SULFATE-D5W PMX 1 GM in DEXTROSE/WATER 1 100ML.BAG IVPB SCH (17:37)
[2025-05-19 19:53] VITALS: BP 147/92; PULSE 88; RESP 19; TEMP 98.5
[2025-05-20] MEDS ORDERED: VANCOMYCIN TROUGH DUE 1 EACH MISC MISCELLANE ONE (07:00)
--- NOTE | 2025-05-20 08:33 | P.PN ---
Subjective Progress Note Date: 05/19/25 Principal diagnosis: Reason for follow-up is fever/septic phlebitis/MRSA bacteremia Patient is a 54-year-old -[place] female with a past medical history significant for diabetes mellitus COPD hypertension reflux asthma pneumonia presented to the hospital for evaluation of nausea and vomiting, did have left upper extremity IV site pain swelling and redness which was discontinued with evidence of SVT did have a fever and blood culture positive for MRSA. On today's evaluation that is 05/19/2025,the patient denies any fever or any chills, patient is breathing comfortably on room air, the patient denies chest pain shortness of breath and no significant cough, patient denies abdominal pain, did have some nausea but no vomiting. Patient white count 6.45 creatinine 0.7 Objective - Vital Signs Vital signs: Vital Signs Temp 98.6 F 05/19/25 08:00 Pulse 94 05/19/25 09:52 Resp 16 05/19/25 09:52 BP 145/92 05/19/25 08:00 Pulse Ox 97 05/19/25 08:00 FiO2 Intake & Output 05/18/25 05/19/25 05/19/25 18:59 06:59 18:59 Intake Total 2420 300 Balance 2420 300 Intake: Oral 2420 300 Other: Voiding Method Toilet Toilet # Voids 1 1 1 # Bowel Movements 1 - Exam GENERAL DESCRIPTION: Delayed female lying in bed in no distress RESPIRATORY SYSTEM: Unlabored breathing , decreased breath sounds at bases HEART: S1 S2 regular rate and rhythm , ABDOMEN: Soft , no tenderness EXTREMITIES: Left upper extremity with swelling no purulent drainage - Labs CBC & Chem 7: 05/19/25 03:40 05/19/25 03:40 Labs: Abnormal Lab Results - Last 24 Hours (Table) 05/19/25 05/19/25 Range/Units 03:40 03:40 RBC 3.18 L (4.10-5.20) X 10*6/uL Hgb 8.5 L (12.0-15.0) g/dL Hct 26.8 L (37.2-46.3) % MCH 26.7 L (27.0-32.0) pg MCHC 31.7 L (32.0-37.0) g/dL RDW 21.7 H (11.5-14.5) % Immature Gran # 0.21 H (0.00-0.04) X 10*3/uL Eosinophils # 0.36 H (0.04-0.35) X 10*3/uL Potassium 3.4 L (3.5-5.5) mmol/L Chloride 110 H (96-109) mmol/L BUN 3.6 L (9.0-27.0) mg/dL BUN/Creatinine Ratio 5.14 L (12.00-20.00) Ratio Calcium 7.5 L (8.7-10.3) mg/dL Magnesium 1.3 L (1.5-2.4) mg/dL ALT 6 L (8-44) U/L Total Protein 4.3 L (6.2-8.2) g/dL Albumin 2.2 L (3.8-4.9) g/dL Albumin/Globulin Ratio 1.05 L (1.60-3.17) Ratio Assessment and Plan (1) Sepsis Status: Acute Code(s): A41.9 - SEPSIS, UNSPECIFIED ORGANISM SNOMED Code(s): 63143246 (2) Thrombophlebitis Status: Acute Code(s): I80.9 - PHLEBITIS AND THROMBOPHLEBITIS OF UNSPECIFIED SITE SNOMED Code(s): 19555355 (3) MRSA bacteremia Status: Acute Code(s): R78.81 - BACTEREMIA; B95.62 - METHICILLIN RESIS STAPH INFCT CAUSING DISEASES CLASSD E[facility] SNOMED Code(s): 59725452965026847 Plan: 1patient with fever elevated white count meeting criteria for SIRS/sepsis source likely left upper extremity thrombophlebitis and a question of possible septic thrombophlebitis likely from gram-positive such as MRSA, patient initially presented to hospital with nausea vomiting epigastric pain however CT was negative for any intra-abdominal acute pathology 2-blood culture growing MRSA source likely septic phlebitis, blood culture repeat from 05/10/2025 so far negative 3-patient did have the PICC line placed a and the patient continue with vancomycin pharmacy to dose, last day of IV vancomycin will be 05/24/2025 and a close outpatient follow-up Dictation was produced using [employer] dictation software. please excuse any grammatical, word or spelling errors. Time with Patient: Less than 30
== END 2025-05-19 20:53 | disposition home health service (06) | DRG 640 ==
LOC: EC 16:51 → 6NMEDSUR 05-06 01:57 → OBSVTOIN 05-06 01:58 → 4SSUR 05-06 03:48 → 1SOBS 05-06 15:56 → 4SSUR 05-07 18:04
PROVIDERS: ADMIT Hospitalist; ATTEND Hospitalist
PROC: 4A02X4A Measurement of Cardiac Electrical Activity, Guidance, External Approach (ICD-10-PCS; 2025-05-18)
PROC: 02HV33Z Insertion of Infusion Device into Superior Vena Cava, Percutaneous Approach (ICD-10-PCS; principal; 2025-05-18 15:50)
DX: E86.0 Dehydration (principal); A41.02 Sepsis due to Methicillin resistant Staphylococcus aureus; I82.431 Acute embolism and thrombosis of right popliteal vein; I82.612 Acute embolism and thrombosis of superficial veins of left upper extremity; I11.0 Hypertensive heart disease with heart failure; B96.1 Klebsiella pneumoniae [K. pneumoniae] as the cause of diseases classified elsewhere; I80.8 Phlebitis and thrombophlebitis of other sites; E11.9 Type 2 diabetes mellitus without complications; D64.9 Anemia, unspecified; J44.89 Other specified chronic obstructive pulmonary disease; I50.32 Chronic diastolic (congestive) heart failure; L03.114 Cellulitis of left upper limb; E51.9 Thiamine deficiency, unspecified; T82.848A Pain due to vascular prosthetic devices, implants and grafts, initial encounter; N39.0 Urinary tract infection, site not specified; E83.42 Hypomagnesemia; E87.6 Hypokalemia; G47.33 Obstructive sleep apnea (adult) (pediatric); K21.9 Gastro-esophageal reflux disease without esophagitis; K22.4 Dyskinesia of esophagus; Y84.8 Other medical procedures as the cause of abnormal reaction of the patient, or of later complication, without mention of misadventure at the time of the procedure; Z98.84 Bariatric surgery status; Z90.49 Acquired absence of other specified parts of digestive tract; Z98.51 Tubal ligation status; Z96.653 Presence of artificial knee joint, bilateral; Z79.51 Long term (current) use of inhaled steroids; Z79.899 Other long term (current) drug therapy; Z82.49 Family history of ischemic heart disease and other diseases of the circulatory system
CPT/HCPCS: 36410; 36415; 36573; 71045; 71046; 74170; 74177; 74240; 76937; 80048; 80053; 80202; 81001; 82150; 82272; 82565; 83605; 83690; 83735; 83880; 84100; 84132; 84145; 84484; 85025; 85610; 85652; 85730; 86140; 87040; 87077; 87086; 87186; 87324; 87636; 93005; 93308; 93970; 94640; 96361; 96365; 96366; 96367; 96368; 96375; 96376; 99285

== ENCOUNTER 2025-05-25 10:15 | Inpatient (IN) | payer MEDICARE, OTHER ==
[2025-05-25] MEDS: HYDROmorphone 0.5 MG/0.5 ML SYRINGE IVP STA (11:36)
[2025-05-25 11:55] LABS: Basophils # (A) 0.03 10*3/uL (0.00-0.10); Basophils % (A) 0.5 %; Eosinophils # (A) 0.10 10*3/uL (0.04-0.35); Eosinophils % (A) 1.8 %; HCT 25.5 % (37.2-46.3); HGB 8.5 g/dL (12.0-15.0); Lymphocytes # (A) 1.17 10*3/uL (0.90-5.00); Lymphocytes % (A) 21.1 %; MCH 27.2 pg (27.0-32.0); MCHC 33.3 g/dL (32.0-37.0); MCV 81.7 fL (80.0-97.0); Monocytes # (A) 0.41 10*3/uL (0.20-1.00); Monocytes % (A) 7.4 %; Neutrophils # (A) 3.82 10*3/uL (1.80-7.70); Neutrophils % (A) 69.0 %; RBC 3.12 10*6/uL (4.10-5.20); RDW 20.1 % (11.5-14.5); WBC 5.54 10*3/uL (4.50-10.00)
[2025-05-25 12:01] LABS: ALT 7 U/L (4-34); AST 17 U/L (14-36); African American GFR (CKD) >90 (>60 ml/min/1.73 sqM); Albumin 2.4 g/dL (3.5-5.0); Alkaline Phosphatase 90 U/L (38-126); Anion Gap 7 mmol/L; Blood Urea Nitrogen 6 mg/dL (7-17); Calcium 7.8 mg/dL (8.4-10.2); Carbon Dioxide 30 mmol/L (22-30); Chloride 103 mmol/L (98-107); Glucose 69 mg/dL (74-99); Magnesium 1.6 mg/dL (1.6-2.3); Non-African American GFR(CKD) 80 (>60 ml/min/1.73 sqM); Sodium 140 mmol/L (137-145); Total Protein 4.9 g/dL (6.3-8.2)
[2025-05-25 12:04] LABS: Platelet Count 169 10*3/uL (140-440)
[2025-05-25 12:10] LABS: NT-Pro-B-Type Natriuretic Pept 1430 pg/mL
[2025-05-25 12:13] LABS: Potassium 2.2 mmol/L (3.5-5.1)
--- NOTE | 2025-05-25 12:28 | US ---
EXAMINATION TYPE: US venous doppler duplex LE LT DATE OF EXAM: 05/25/2025 12:02 PM COMPARISON: NONE CLINICAL INDICATION: Female, 54 years old with history of pain; BILATERAL LEG EDEMA, Hx DVT RT LEG (U S 05/06/25) TECHNIQUE: The lower extremity deep venous system is examined utilizing real time linear array sonog barb with graded compression, doppler sonography and color-flow sonography. Grayscale, color doppler , spectral doppler imaging performed of the deep veins of the lower extremities FINDINGS: SIDE PERFORMED: Left VESSELS IMAGED: Common Femoral Vein Deep Femoral Vein Greater Saphenous Vein * Femoral Vein Popliteal Vein Small Saphenous Vein * Proximal Calf Veins (* superficial vessels) Left Leg: Negative for DVT; There is normal flow, compressibility, vascular waveforms. Exam limited by pitting edema and body habitus. Edema with laminar fluid noted within subcutaneous ti ssue. Pulsatile venous waveforms noted bilaterally which are new from prior US 05/06/25. ?fluid overload? IMPRESSION: No evidence for deep vein thrombosis. [facility], , 05/25/2025 12:26 PM
--- NOTE | 2025-05-25 12:29 | ED ---
General Adult HPI - General Chief complaint: Extremity Problem,Nontraumatic Stated complaint: Rohit leg swelling,N/D Time Seen by Provider: 05/25/25 10:25 Source: patient, RN notes reviewed Mode of arrival: ambulatory Limitations: no limitations - History of Present Illness Initial comments: 54-year-old female presents department with chief complaint of bilateral leg swelling, leg, generalized weakness not feeling well. Patient was recently hospitalized found to have a DVT of her right leg, superficial thrombus of her left arm and was positive blood culture for MRSA. Patient is currently receiving vancomycin twice daily. Follow-up ointment since being discharged from the hospital 6 days ago. She does have some mild shortness of breath. - Related Data Home Medications Medication Instructions Recorded Confirmed Fluticasone/Umeclidin/Vilanter 1 puff INHALATION RT-HS 08/17/24 05/25/25 [Trelegy Ellipta 100-62.5-25] Montelukast [Singulair] 1 tab PO HS 08/17/24 05/25/25 QUEtiapine FUMARATE [SEROquel] 200 mg PO HS 03/29/25 05/25/25 Midodrine [ProAmatine] 5 mg PO BID 05/06/25 05/25/25 DULoxetine HCL [Cymbalta] 60 mg PO DAILY 05/25/25 05/25/25 Ondansetron Odt [Zofran Odt] 4 mg PO Q8HR PRN 05/25/25 05/25/25 Vancomycin 10gm Recon Soln 1 dose IV Q12H 05/25/25 05/25/25 Previous Rx's Medication Instructions Recorded Fludrocortisone [Florinef] 0.1 mg PO BID #60 tab 04/06/25 Magnesium Oxide [Mag-Ox] 400 mg PO BID #60 tab 04/06/25 Metoclopramide HCl [Reglan] 5 mg PO TID PRN #45 tablet 04/06/25 Apixaban [Eliquis] 5 mg PO BID 14 Days #28 tab 05/19/25 Allergies Allergy/AdvReac Type Severity Reaction Status Date / Time Enviromental Allergy Nasal Uncoded 05/25/25 13:33 drainage/watery eyes/sneezing Review of Systems ROS Statement: Those systems with pertinent positive or pertinent negative responses have been documented in the HPI. ROS Other: All systems not noted in ROS Statement are negative. Past Medical History Past Medical History: Asthma, Chest Pain / Angina, COPD, Diabetes Mellitus, GERD/Reflux, Hypertension, Osteoarthritis (OA), Pneumonia, Sleep Apnea/CPAP/BIPAP Additional Past Medical History / Comment(s): Recent ER visit r/t headache-pt states was dx with a Migraine. DDD, borderline diabetic, uses CPAP machine environmental allergies., has lap band. Influenza-12/2024 History of Any Multi-Drug Resistant Organisms: MRSA Date of last positivie culture/infection: 06/22/14 MDRO Source:: rt breast Past Surgical History: Back Surgery, Bariatric Surgery, Section, Cholecystectomy, Heart Catheterization, Joint Replacement, Tubal Ligation Additional Past Surgical History / Comment(s): bilateral knee replacement, lap band , RT WRIST GANGLION CYCT REMOVED, lumbar fusion surgery. lap band removal sleeve gastrectomy 12-14-24 Past Anesthesia/Blood Transfusion Reactions: No Reported Reaction Additional Past Anesthesia/Blood Transfusion Reaction / Comment(s): No hx of blood transfusion to date. Past Psychological History: Anxiety, Bipolar, Depression Smoking Status: Never smoker Past Alcohol Use History: Occasional Past Drug Use History: None Reported - Past Family History Mother Family Medical History: Hypertension Father Family Medical History: Cancer General Exam Limitations: no limitations General appearance: alert, in no apparent distress Head exam: Present: atraumatic, normocephalic, normal inspection Neck exam: Present: normal inspection, full ROM. Absent: tenderness, meningismus, lymphadenopathy Respiratory exam: Present: normal lung sounds bilaterally. Absent: respiratory distress, wheezes, rales, rhonchi, stridor Cardiovascular Exam: Present: regular rate, normal rhythm, normal heart sounds. Absent: systolic murmur, diastolic murmur, rubs, gallop, clicks GI/Abdominal exam: Present: soft, normal bowel sounds. Absent: distended, tenderness, guarding, rebound, rigid Extremities exam: Present: pedal edema, other (Bilateral lower extremity sw elling neurovascular intact) Neurological exam: Present: alert, oriented X3, CN II-XII intact, reflexes normal. Absent: motor sensory deficit Course Vital Signs 05/25/25 05/25/25 05/25/25 10:27 14:58 18:16 Temperature 98.2 F 98.1 F Pulse Rate 78 73 80 Respiratory 18 18 19 Rate Blood Pressure 158/92 162/95 174/100 O2 Sat by Pulse 100 98 97 Oximetry EKG Findings - EKG Comments: EKG Findings:: EKG performed at 11: 17 sinus rhythm rate of 71 PA 139 QRS 92 QT/QTc 422/444 - EKG Results: EKG: interpreted by ANN Medical Decision Making - Medical Decision Making Was pt. sent in by a medical professional or institution (, ANISH, WELDING EQUIPMENT REPAIRER SUPERVISOR, urgent care, hospital, or usp...) When possible be specific @ -No Did you speak to anyone other than the patient for history (EMS, parent, family, police, friend...)? What history was obtained from this source @ -No Did you review nursing and triage notes (agree or disagree)? Why? @ -I reviewed and agree with nursing and triage notes Were old charts reviewed (outside hosp., previous admission, EMS record, old EKG, old radiological studies, urgent care reports/EKG's, usp records)? Report findings @ -No old charts were reviewed Differential Diagnosis (chest pain, altered mental status, abdominal pain women, abdominal pain men, vaginal bleeding, weakness, fever, dyspnea, syncope, headac he, dizziness, GI bleed, back pain, seizure, CVA, palpatations, mental health, musculoskeletal)? @Differential Weakness: Hypoglycemia, shock, sepsis, hyponatremia, anemia, infection, MA, ETOH, adverse medicine reaction, overdose, stroke, this is not meant to be an all-inclusive list. EKG interpreted by me (3pts min.). @ -As above X-rays interpreted by me (1pt min.). @ -Chest x-ray shows no acute cardiopulmonary process. CT interpreted by me (1pt min.). @ -None done U/S interpreted by me (1pt. min.). @ -None done What testing was considered but not performed or refused? (CT, X-rays, U/S, labs )? Why? @ -None What meds were considered but not given or refused? Why? @ -None Did you discuss the management of the patient with other professionals (professionals i.e. ANISH Plascencia, WELDING EQUIPMENT REPAIRER SUPERVISOR, lab, RT, psych nurse, healthcare social worker, operator assistant i cementing, teacher, chief communications officer, case liner)? Give summary @ -EMH for admission Was smoking cessation discussed for >3mins.? @ -No Was critical care preformed (if so, how long)? @ -No Were there social determinants of health that impacted care today? How? (Homelessness, low income, unemployed, alcoholism, drug addiction, transportation, low edu. Level, literacy, decrease access to med. care, fdc, rehab)? @ -No Was there de-escalation of care discussed even if they declined (Discuss DNR or withdrawal of care, Hospice)? DNR status @ -No What co-morbidities impacted this encounter? (DM, HTN, Smoking, COPD, CAD, Cancer, CVA, ARF, Chemo, Hep., AIDS, mental health diagnosis, sleep apnea, morbid obesity)? @ -None Was patient admitted / discharged? Hospital course, mention meds given and route, prescriptions, significant lab abnormalities, going to OR and other pertinent info. @ -Admitted patient has hypokalemia. Patient has peripheral edema will be admitted for further workup and treatment. Undiagnosed new problem with uncertain prognosis? @ -No Drug Therapy requiring intensive monitoring for toxicity (Heparin, Nitro, Insulin, Cardizem)? @ -No Were any procedures done? @ -No Diagnosis/symptom? @ -Hypokalemia Acute, or Chronic, or Acute on Chronic? @ -Cute Uncomplicated (without systemic symptoms) or Complicated (systemic symptoms)? @ -Complicated Side effects of treatment? @ -No Exacerbation, Progression, or Severe Exacerbation? @ -No Poses a threat to life or bodily function? How? (Chest pain, USA, MA, pneumonia, PE, COPD, DKA, ARF, appy, cholecystitis, CVA, Diverticulitis, Homicidal, Suicidal, threat to staff... and all critical care pts) @ -No - Lab Data Result diagrams: 05/29/25 03:00 05/29/25 03:00 Lab Results 05/25/25 05/25/25 05/25/25 Range/Units 11:41 11:41 11:41 WBC 5.54 (4.50-10.00) 10*3/uL RBC 3.12 L (4.10-5.20) 10*6/uL Hgb 8.5 L (12.0-15.0) g/dL Hct 25.5 L (37.2-46.3) % MCV 81.7 (80.0-97.0) fL MCH 27.2 (27.0-32.0) pg MCHC 33.3 (32.0-37.0) g/dL Plt Count 169 D (140-440) 10*3/uL MPV 11.0 (9.5-12.2) fL Immature Gran % (Auto) 0.2 % Neutrophils % 69.0 % Lymphocytes % 21.1 % Monocytes % 7.4 % Eosinophils % 1.8 % Basophils % 0.5 % Immature Gran # 0.01 (0.00-0.04) 10*3/uL Neutrophils # 3.82 (1.80-7.70) 10*3/uL Lymphocytes # 1.17 (0.90-5.00) 10*3/uL Monocytes # 0.41 (0.20-1.00) 10*3/uL Eosinophils # 0.10 (0.04-0.35) 10*3/uL Basophils # 0.03 (0.00-0.10) 10*3/uL PT 11.9 (10.0-12.5) sec INR 1.1 (<1.2) APTT 29.9 (22.0-30.0) sec Sodium 140 (137-145) mmol/L Potassium 2.2 L* (3.5-5.1) mmol/L Chloride 103 (98-107) mmol/L Carbon Dioxide 30 (22-30) mmol/L Anion Gap 7 mmol/L BUN 6 L (7-17) mg/dL Creatinine 0.83 (0.52-1.04) mg/dL Est GFR (CKD-EPI)AfAm >90 (>60 ml/min/1.73 sqM) Est GFR (CKD-EPI)NonAf 80 (>60 ml/min/1.73 sqM) Glucose 69 L (74-99) mg/dL Calcium 7.8 L (8.4-10.2) mg/dL Magnesium 1.6 (1.6-2.3) mg/dL Total Bilirubin 0.6 (0.2-1.3) mg/dL AST 17 (14-36) U/L ALT 7 (4-34) U/L Alkaline Phosphatase 90 (38-126) U/L Troponin I (0.000-0.034) ng/mL NT-Pro-B Natriuret Pep 1430 pg/mL Total Protein 4.9 L (6.3-8.2) g/dL Albumin 2.4 L (3.5-5.0) g/dL 05/25/25 Range/Units 11:41 WBC (4.50-10.00) 10*3/uL RBC (4.10-5.20) 10*6/uL Hgb (12.0-15.0) g/dL Hct (37.2-46.3) % MCV (80.0-97.0) fL MCH (27.0-32.0) pg MCHC (32.0-37.0) g/dL Plt Count (140-440) 10*3/uL MPV (9.5-12.2) fL Immature Gran % (Auto) % Neutrophils % % Lymphocytes % % Monocytes % % Eosinophils % % Basophils % % Immature Gran # (0.00-0.04) 10*3/uL Neutrophils # (1.80-7.70) 10*3/uL Lymphocytes # (0.90-5.00) 10*3/uL Monocytes # (0.20-1.00) 10*3/uL Eosinophils # (0.04-0.35) 10*3/uL Basophils # (0.00-0.10) 10*3/uL PT (10.0-12.5) sec INR (<1.2) APTT (22.0-30.0) sec Sodium (137-145) mmol/L Potassium (3.5-5.1) mmol/L Chloride (98-107) mmol/L Carbon Dioxide (22-30) mmol/L Anion Gap mmol/L BUN (7-17) mg/dL Creatinine (0.52-1.04) mg/dL Est GFR (CKD-EPI)AfAm (>60 ml/min/1.73 sqM) Est GFR (CKD-EPI)NonAf (>60 ml/min/1.73 sqM) Glucose (74-99) mg/dL Calcium (8.4-10.2) mg/dL Magnesium (1.6-2.3) mg/dL Total Bilirubin (0.2-1.3) mg/dL AST (14-36) U/L ALT (4-34) U/L Alkaline Phosphatase (38-126) U/L Troponin I <0.012 (0.000-0.034) ng/mL NT-Pro-B Natriuret Pep pg/mL Total Protein (6.3-8.2) g/dL Albumin (3.5-5.0) g/dL Disposition Clinical Impression: Peripheral edema, Hypokalemia Disposition: ADMITTED IP TO THIS HOSP Condition: Fair Time of Disposition: 13:28
[2025-05-25 12:58] LABS: INR 1.1 (<1.2); Partial Thromboplastin Time 29.9 sec (22.0-30.0); Prothrombin Time 11.9 sec (10.0-12.5)
[2025-05-25] MEDS ORDERED: Potassium Replacement Protocol 1 EACH MISC MISCELLANE PRN (13:11)
[2025-05-25] MEDS: POTASSIUM CHLORIDE ER 20 MEQ TAB.ER PO ONE (13:26)
[2025-05-25] MEDS ORDERED: NALOXONE 0.4 MG/ML 1 ML VIAL IV PRN (13:37)
[2025-05-25] MEDS: ONDANSETRON 4 MG/2 ML VIAL IVP PRN (14:45)
[2025-05-25] MEDS: POTASSIUM CHLORIDE 10 MEQ in WATER FOR INJECTION 1 100ML.BAG IVPB SCH (14:46)
[2025-05-25] MEDS ORDERED: METOCLOPRAMIDE 5 MG TAB PO PRN (15:07)
[2025-05-25] MEDS: HYDROcodone/APAP 5-325MG 1 EACH TAB PO PRN (16:11)
[2025-05-25] MEDS: POTASSIUM CHLORIDE ER 20 MEQ TAB.ER PO STA (16:38)
[2025-05-25] MEDS: MAGNESIUM OXIDE 400 MG TAB PO STA (16:39)
[2025-05-25] MEDS: ONDANSETRON ODT 4 MG TAB PO PRN (17:04)
[2025-05-25] MEDS: METOCLOPRAMIDE 5 MG/ML 2 ML VIAL IVP PRN (17:22)
[2025-05-25] MEDS: HYDROmorphone 0.5 MG/0.5 ML SYRINGE IVP PRN (18:15)
[2025-05-25] MEDS: MONTELUKAST 10 MG TAB PO SCH (21:09)
[2025-05-25] MEDS: MIDODRINE 5 MG TAB PO SCH (21:09)
[2025-05-25] MEDS: APIXABAN 5 MG TAB PO SCH (21:09)
[2025-05-25] MEDS: MAGNESIUM OXIDE 400 MG TAB PO SCH (21:09)
[2025-05-25] MEDS: SYMBICORT 160-4.5 MCG INHALER INHALATION SCH (21:18)
[2025-05-25] MEDS: TIOTROPIUM 2.5 MCG INHALER INHALATION SCH (21:18)
[2025-05-25] MEDS: FLUDROCORTISONE 0.1 MG TAB PO SCH (21:50)
[2025-05-26 02:37] LABS: ALT 7 U/L (4-34); AST 19 U/L (14-36); African American GFR (CKD) >90 (>60 ml/min/1.73 sqM); Albumin 2.4 g/dL (3.5-5.0); Albumin/Globulin Ratio 0.9; Alkaline Phosphatase 91 U/L (38-126); Anion Gap 9 mmol/L; Blood Urea Nitrogen 6 mg/dL (7-17); Calcium 7.9 mg/dL (8.4-10.2); Carbon Dioxide 27 mmol/L (22-30); Chloride 104 mmol/L (98-107); Globulin 2.6 g/dL; Glucose 70 mg/dL (74-99); Non-African American GFR(CKD) 89 (>60 ml/min/1.73 sqM); Sodium 140 mmol/L (137-145); Total Protein 5.0 g/dL (6.3-8.2)
[2025-05-26 02:44] LABS: Potassium 2.7 mmol/L (3.5-5.1)
[2025-05-26] MEDS: POTASSIUM CHLORIDE 10 MEQ in WATER FOR INJECTION 1 100ML.BAG IVPB SCH (03:06)
--- NOTE | 2025-05-26 07:41 | P.CONS ---
History of Present Illness - Reason for Consult Consult date: 05/25/25 MRSA bacteremia Requesting physician: Irineo Scruggs - Chief Complaint Lower extremity swelling x few days - History of Present Illness Patient is a 54-year-old -[place] female with multiple comorbidities including Asthma, Chest Pain / Angina, COPD, Diabetes Mellitus, GERD/Reflux, Hypertension, Osteoarthritis (OA), Pneumonia, Sleep Apnea/CPAP/BIPAP with recent admission to the hospital predominantly with GI symptoms at that also developed sepsis secondary to left arm septic thrombophlebitis with MRSA bacteremia repeat blood culture negative patient did get a PICC line and was advised a 2-week course of antibiotic from the negative blood culture with the patient apparently completed as of 05/24/2025 patient still have the PICC line patient will now presenting to the ER concerning for increasing swelling to bilateral lower extremity along with generalized not feeling well patient denies high-grade fever or any chills patient denies having any headache or URI symptoms no chest pain shortness of breath or cough has been complaining of feeling nauseated with occasional vomiting abdominal discomfort no diarrhea mostly concerned about swelling to bilateral lower extremity but no redness no open blister or any drainage on presentation to the hospital the patient was afebrile no fever family called subsequently patient was not tachycardic hypotensive or hypoxic patient did have a white count of 5.54 creatinine 0.83 potassium is low liver isms are normal patient did have a lower extremity Doppler has been negative for DVT infectious disease was consulted because of recent MRSA bacteremia Review of Systems Positive point and negatives has been mentioned in the HPI, complete review of systems was performed and all other systems are negative Past Medical History Past Medical History: Asthma, Chest Pain / Angina, COPD, Diabetes Mellitus, GERD/Reflux, Hypertension, Osteoarthritis (OA), Pneumonia, Sleep Apnea/CPAP/BIPAP Additional Past Medical History / Comment(s): Recent ER visit r/t headache-pt states was dx with a Migraine. DDD, borderline diabetic, uses CPAP machine environmental allergies., has lap band. Influenza-12/2024 History of Any Multi-Drug Resistant Organisms: MRSA Year Discovered:: 06/22/14 MDRO Source:: rt breast Past Surgical History: Back Surgery, Bariatric Surgery, Section, Cholecystectomy, Heart Catheterization, Joint Replacement, Tubal Ligation Additional Past Surgical History / Comment(s): bilateral knee replacement, lap band , RT WRIST GANGLION CYCT REMOVED, lumbar fusion surgery. lap band removal sleeve gastrectomy 12-14-24 Past Anesthesia/Blood Transfusion Reactions: No Reported Reaction Additional Past Anesthesia/Blood Transfusion Reaction / Comm: No hx of blood transfusion to date. Past Psychological History: Anxiety, Bipolar, Depression Smoking Status: Never smoker Past Alcohol Use History: Occasional Past Drug Use History: None Reported - Past Family History Mother Family Medical History: Hypertension Father Family Medical History: Cancer Medications and Allergies Home Medications Medication Instructions Recorded Confirmed Type Fluticasone/Umeclidin/Vilanter 1 puff INHALATION RT-HS 08/17/24 05/25/25 History [Trelegy Ellipta 100-62.5-25] Montelukast [Singulair] 1 tab PO HS 08/17/24 05/25/25 History QUEtiapine FUMARATE [SEROquel] 200 mg PO HS 03/29/25 05/25/25 History Fludrocortisone [Florinef] 0.1 mg PO BID #60 tab 04/06/25 05/25/25 Rx Magnesium Oxide [Mag-Ox] 400 mg PO BID #60 tab 04/06/25 05/25/25 Rx Metoclopramide HCl [Reglan] 5 mg PO TID PRN #45 tablet 04/06/25 05/25/25 Rx Midodrine [ProAmatine] 5 mg PO BID 05/06/25 05/25/25 History Apixaban [Eliquis] 5 mg PO BID 14 Days #28 tab 05/19/25 05/25/25 Rx DULoxetine HCL [Cymbalta] 60 mg PO DAILY 05/25/25 05/25/25 History Ondansetron Odt [Zofran Odt] 4 mg PO Q8HR PRN 05/25/25 05/25/25 History Vancomycin 10gm Recon Soln 1 dose IV Q12H 05/25/25 05/25/25 History Allergies Allergy/AdvReac Type Severity Reaction Status Date / Time Enviromental Allergy Nasal Uncoded 05/25/25 13:33 drainage/watery eyes/sneezing Physical Exam Vitals: Vital Signs Temp Pulse Resp BP Pulse Ox 05/25/25 14:58 73 18 162/95 98 05/25/25 10:27 98.2 F 78 18 158/92 100 Intake and Output 07/05/25/25 05/25/25 06:59 14:59 22:59 Other: Weight 80.739 kg GENERAL DESCRIPTION: Middle-age female lying in bed, no distress. No tachypnea or accessory muscle of respiration use. HEENT: Shows Pallor , no scleral icterus. Oral mucous membrane is dry. No pharyngeal erythema or thrush NECK: Trachea central, no thyromegaly. LUNGS: Unlabored breathing. Decreased breath sounds at base. HEART: S1, S2, regular rate and rhythm. No loud murmur ABDOMEN: Soft, no tenderness , guarding or rigidity, no organomegaly EXTREMITIES: 2+ edema of feet. SKIN: No rash, no masses palpable. NEUROLOGICAL: The patient is awake, alert, oriented x3, mood and affect normal. Results CBC & Chem 7: 05/25/25 11:41 05/26/25 01:51 Labs: Abnormal Lab Results - Last 24 Hours (Table) 05/25/25 05/25/25 Range/Units 11:41 11:41 RBC 3.12 L (4.10-5.20) 10*6/uL Hgb 8.5 L (12.0-15.0) g/dL Hct 25.5 L (37.2-46.3) % Potassium 2.2 L* (3.5-5.1) mmol/L BUN 6 L (7-17) mg/dL Glucose 69 L (74-99) mg/dL Calcium 7.8 L (8.4-10.2) mg/dL Total Protein 4.9 L (6.3-8.2) g/dL Albumin 2.4 L (3.5-5.0) g/dL Assessment and Plan (1) Swelling of lower extremity Current Visit: Yes Status: Acute Code(s): M79.89 - OTHER SPECIFIED SOFT TISSUE DISORDERS SNOMED Code(s): 132791430 (2) MRSA bacteremia Current Visit: No Status: Acute Code(s): R78.81 - BACTEREMIA; B95.62 - METHICILLIN RESIS STAPH INFCT CAUSING DISEASES CLASSD [facility] SNOMED Code(s): 95109985395709479 Plan: 1patient with recent admission to the hospital and patient did have an episode of septic thrombophlebitis to the left upper extremity and MRSA bacteremia blood culture repeat on 05/10/2025 were negative and the patient has received 2 weeks of vancomycin pharmacy to dose, as there was evidence of SVT no DVT and patient cleared bacteremia within 48 hours duration of antibiotic will be 4 weeks per IDSA guidelines 2-we will start him the patient on vancomycin pharmacy to dose and repeat a set of blood cultures 3-patient did have swelling to lower extremity as well as low potassium being managed by admitting team We will follow on clinical condition and cultures to further adjust medication if needed Thank you for this consultation we will follow the patient along with you Dictation was produced using [employer] dictation software. please excuse any grammatical, word or spelling errors. Time with Patient: Greater than 30
[2025-05-26] MEDS: DULoxetine HCL 60 MG CAPSULE.DR PO SCH (09:13)
[2025-05-26] MEDS ORDERED: VANCOMYCIN IV PER PHARMACY 1 EACH MISC MISCELLANE PRN (09:54)
[2025-05-26] MEDS ORDERED: POTASSIUM CHLORIDE 10 MEQ in WATER FOR INJECTION 1 100ML.BAG IVPB SCH (10:00)
--- NOTE | 2025-05-26 10:31 | P.NPCON ---
History of Present Illness - Reason for Consult hypokalemia - History of Present Illness Reason for consultation: Hypokalemia History of present illness: Patient is a 54-year-old female seen in renal consultation for hypokalemia. Patient's potassium level on admission was 2.2. Patient came to the hospital due to swelling in her lower extremities. Patient states has been progressively worsening over the last few days. Her oral intake has been poor and she has been nauseous and having multiple episodes of vomiting the last few days. No diarrhea. Patient was recently noted to have MRSA bacteremia and was receiving IV vancomycin outpatient. Additionally she was also on Florinef. GFR is at baseline. No chest pain or shortness of breath. No erythema. Denies any drainage. No evidence of DVT in the left lower extremity. Denies use of nonsteroidals. Denies history of diabetes or coronary artery disease. Vital signs are stable. General: No acute distress. HEENT: Head exam is unremarkable. LUNGS: No audible rhonchi or wheezes. HEART: Rate and Rhythm are regular. ABDOMEN: Nontender. EXTREMITITES: 1+ edema bilateral lower extremities. Past Medical History Past Medical History: Asthma, Chest Pain / Angina, COPD, Diabetes Mellitus, GERD/Reflux, Hypertension, Osteoarthritis (OA), Pneumonia, Sleep Apnea/CPAP/BIPAP Additional Past Medical History / Comment(s): Recent ER visit r/t headache-pt states was dx with a Migraine. DDD, borderline diabetic, uses CPAP machine environmental allergies., has lap band. Influenza-12/2024 History of Any Multi-Drug Resistant Organisms: MRSA Date of last positivie culture/infection: 06/22/14 MDRO Source:: rt breast Past Surgical History: Back Surgery, Bariatric Surgery, Section, Cholecystectomy, Heart Catheterization, Joint Replacement, Tubal Ligation Additional Past Surgical History / Comment(s): bilateral knee replacement, lap band , RT WRIST GANGLION CYCT REMOVED, lumbar fusion surgery. lap band removal sleeve gastrectomy 25 Past Anesthesia/Blood Transfusion Reactions: No Reported Reaction Additional Past Anesthesia/Blood Transfusion Reaction / Comment(s): No hx of blood transfusion to date. Past Psychological History: Anxiety, Bipolar, Depression Smoking Status: Never smoker Past Alcohol Use History: Occasional Past Drug Use History: None Reported - Past Family History Mother Family Medical History: Hypertension Father Family Medical History: Cancer Medications and Allergies Home Medications Medication Instructions Recorded Confirmed Type Fluticasone/Umeclidin/Vilanter 1 puff INHALATION RT-HS 08/17/24 05/25/25 History [Trelegy Ellipta 100-62.5-25] Montelukast [Singulair] 1 tab PO HS 08/17/24 05/25/25 History QUEtiapine FUMARATE [SEROquel] 200 mg PO HS 03/29/25 05/25/25 History Fludrocortisone [Florinef] 0.1 mg PO BID #60 tab 04/06/25 05/25/25 Rx Magnesium Oxide [Mag-Ox] 400 mg PO BID #60 tab 04/06/25 05/25/25 Rx Metoclopramide HCl [Reglan] 5 mg PO TID PRN #45 tablet 04/06/25 05/25/25 Rx Midodrine [ProAmatine] 5 mg PO BID 05/06/25 05/25/25 History Apixaban [Eliquis] 5 mg PO BID 14 Days #28 tab 05/19/25 05/25/25 Rx DULoxetine HCL [Cymbalta] 60 mg PO DAILY 05/25/25 05/25/25 History Ondansetron Odt [Zofran Odt] 4 mg PO Q8HR PRN 05/25/25 05/25/25 History Vancomycin 10gm Recon Soln 1 dose IV Q12H 05/25/25 05/25/25 History Allergies Allergy/AdvReac Type Severity Reaction Status Date / Time Enviromental Allergy Nasal Uncoded 05/25/25 13:33 drainage/watery eyes/sneezing Physical Exam Vitals: Vital Signs Temp Pulse Pulse Resp BP BP Pulse Ox 05/26/25 07:21 98.1 F 81 16 153/87 97 05/26/25 05:16 152/95 05/26/25 01:39 97.9 F 68 18 97 05/25/25 22:30 144/90 05/25/25 19:17 98.3 F 72 18 173/106 99 05/25/25 18:38 180/115 05/25/25 18:37 97.2 F L 77 18 173/121 96 05/25/25 18:16 98.1 F 80 19 174/100 97 05/25/25 14:58 73 18 162/95 98 05/25/25 10:27 98.2 F 78 18 158/92 100 Intake and Output 05/25/25 05/26/25 05/26/25 22:59 06:59 14:59 Other: Voiding Method Toilet # Voids 3 Weight 80.739 kg Results - Lab Results Most recent lab results Calcium 7.9 mg/dL (8.4-10.2) L 05/26/25 01:51 Magnesium 1.6 mg/dL (1.6-2.3) 05/25/25 11:41 05/25/25 11:41 05/26/25 01:51 Assessment and Plan Plan: Plan: 1. Hypokalemia from oral intake/vomiting leading to renal potassium losses. Further exacerbated by use of Florinef which will lead to renal potassium losses. Oral intake is also been poor. 2. Lower extremity edema with recent DVT. Can be due to salt retention from Florinef. 3. History of sleeve gastrectomy. 4. MRSA bacteremia on antibiotics. ID following. 5. Benign hypertension. This can be due to Florinef as well as midodrine. Plan: Continue to replace potassium. Being replaced via IV as unable to tolerate oral meds. Maintain oral magnesium oxide. Follow-up urine potassium level. Repeat potassium level later this morning and continue replacing as needed. Discontinue Florinef. Discontinue midodrine. Check UA. Thank you for the consultation. I will continue to follow the patient with you during her hospital stay.
[2025-05-26 11:15] LABS: Basophils # (A) 0.04 10*3/uL (0.00-0.10); Basophils % (A) 0.7 %; Eosinophils # (A) 0.17 10*3/uL (0.04-0.35); Eosinophils % (A) 2.9 %; HCT 27.4 % (37.2-46.3); HGB 8.9 g/dL (12.0-15.0); Lymphocytes # (A) 1.37 10*3/uL (0.90-5.00); Lymphocytes % (A) 23.1 %; MCH 27.6 pg (27.0-32.0); MCHC 32.5 g/dL (32.0-37.0); MCV 84.8 fL (80.0-97.0); Monocytes # (A) 0.44 10*3/uL (0.20-1.00); Monocytes % (A) 7.4 %; Neutrophils # (A) 3.88 10*3/uL (1.80-7.70); Neutrophils % (A) 65.6 %; Platelet Count 177 10*3/uL (140-440); RBC 3.23 10*6/uL (4.10-5.20); RDW 20.6 % (11.5-14.5); WBC 5.92 10*3/uL (4.50-10.00)
[2025-05-26 11:24] LABS: African American GFR (CKD) >90 (>60 ml/min/1.73 sqM); Anion Gap 8 mmol/L; Blood Urea Nitrogen 5 mg/dL (7-17); Calcium 7.5 mg/dL (8.4-10.2); Carbon Dioxide 28 mmol/L (22-30); Chloride 105 mmol/L (98-107); Glucose 79 mg/dL (74-99); Magnesium 1.6 mg/dL (1.6-2.3); Non-African American GFR(CKD) 83 (>60 ml/min/1.73 sqM); Potassium 2.9 mmol/L (3.5-5.1); Sodium 141 mmol/L (137-145)
[2025-05-26] MEDS: VANCOMYCIN 1,500 MG in SODIUM CHLORIDE 0.9% 500 ML 500 ML IVPB SCH (11:36)
[2025-05-26] MEDS: POTASSIUM CHLORIDE 20 MEQ in WATER FOR INJECTION 1 100ML.BAG IVPB SCH (12:07)
--- NOTE | 2025-05-26 14:53 | P.HPIM ---
History of Present Illness Chief Complaint: Bilateral leg swelling with shortness of breath. History of present illness; 54-year-old female with multiple comorbidities including sleeve gastrectomy in December 2024, esophageal dysmotility, diastolic CHF, asthma, COPD, diabetes mellitus, sleep apnea on CPAP, hypertension, with recent admission to the hospit al predominantly with GI symptoms and sepsis secondary to left arm septic thrombophlebitis with MRSA bacteremia as well as DVT presented to the hospital with complaints of bilateral lower leg 2 days after discharge and generalized weakness. Patient reports an increase in leg swelling 2 days postdischarge resulting in difficulty to mobilize. She reports associated shortness of breath that progressively worsened over the past few days. Patient reports orthopnea and diarrheal episodes for the last week. Patient reports continuous nausea with 1 episode of vomiting yesterday morning. Patient reports lightheadedness on standing, and generalized weakness on mobility. Patient denies chest pain, cough, fevers or rigors. Of note patient reports numbness in her lower abdomen which progressively worsened with the onset of leg swelling, however denies any loss of power or weakness as well as urinary or bowel symptoms. Patient currently receiving vancomycin twice daily as outpatient. In the ER, lab work significant for potassium 2.2, sodium 140, glucose 69, white blood cells 5.54, hemoglobin 8.5, creatinine 0.76. A venous Doppler of left lower extremity performed ruled out deep venous thrombosis indicating normal flow compressibility and vascular waveforms. An EKG obtained reports sinus rhythm heart rate 71 with [place] interval 139 QT 422 QTc 444. Patient received magnesium IV and placed on magnesium supplements for hypomagnesemia correction. Patient admitted as inpatient and infectious disease on consult. REVIEW OF SYSTEMS: As stated above in HPI. The rest of the 14-point review of systems is negative. PHYSICAL EXAMINATION: GENERAL: The patient is alert and oriented x3, not in any acute distress. Well developed, well nourished. HEENT: Pupils are round and equally reacting to light. EOMI. No scleral icterus. No conjunctival pallor. Normocephalic, atraumatic. CARDIOVASCULAR: S1 and S2 present. PULMONARY: Decreased breath sounds bilateraly but clear to auscultation. No wheezing or crackles ABDOMEN: soft, central abdomen tenderness on palpation. EXTREMITIES: Non-pitting edema bilaterally extending up to hip joins NEUROLOGICAL: Gross neurological examination did not reveal any focal deficits. SKIN: No rashes. Assessment and Plan #Bilateral lower extremity swelling #Right lower extremity DVT #Nausea and vomiting Ultrasound Doppler, ruling out DVT in the left leg Continue apixaban twice daily CT abdomen centime portosystemic to venous system. #Hypokalemia #Mild hypertension Replete potassium with potassium 80 IV, monitor potassium levels in am tomorrow Seen by nephrology, recommended to follow-up urine potassium levels Discontinue Florinef and midodrine as per nephrology Nephrology on consult, appreciate further recommendations. Monitor BMP daily #Left upper extremity thrombophlebitis #MRSA bacteremia Blood cultures positive for MRSA. (05/08). Patient on vancomycin as outpatient being followed up by infectious disease. ID on consult, appreciate recommendations Chronic conditions: #Anemia Monitor CBC Transfuse if hemoglobin less than 7 #History of diastolic CHF #COPD/asthma #Hyperlipidemia Continue home medications DVT ppx:Apixaban GI ppx: protonix 40 BID Code Status: full Dictation was produced using [email or web address] dictation software. please excuse any grammatical, word or spelling errors. Past Medical History Past Medical History: Asthma, Chest Pain / Angina, COPD, Diabetes Mellitus, GERD/Reflux, Hypertension, Osteoarthritis (OA), Pneumonia, Sleep Apnea/CPAP/BIPAP Additional Past Medical History / Comment(s): Recent ER visit r/t headache-pt states was dx with a Migraine. DDD, borderline diabetic, uses CPAP machine environmental allergies., has lap band. Influenza-12/2024 History of Any Multi-Drug Resistant Organisms: MRSA Date of last positivie culture/infection: 06/22/14 MDRO Source:: rt breast Past Surgical History: Back Surgery, Bariatric Surgery, Section, Cholecystectomy, Heart Catheterization, Joint Replacement, Tubal Ligation Additional Past Surgical History / Comment(s): bilateral knee replacement, lap band , RT WRIST GANGLION CYCT REMOVED, lumbar fusion surgery. lap band removal sleeve gastrectomy 25 Past Anesthesia/Blood Transfusion Reactions: No Reported Reaction Additional Past Anesthesia/Blood Transfusion Reaction / Comment(s): No hx of blood transfusion to date. Past Psychological History: Anxiety, Bipolar, Depression Smoking Status: Never smoker Past Alcohol Use History: Occasional Past Drug Use History: None Reported - Past Family History Mother Family Medical History: Hypertension Father Family Medical History: Cancer Medications and Allergies Home Medications Medication Instructions Recorded Confirmed Type Fluticasone/Umeclidin/Vilanter 1 puff INHALATION RT-HS 08/17/24 05/25/25 History [Trelegy Ellipta 100-62.5-25] Montelukast [Singulair] 1 tab PO HS 08/17/24 05/25/25 History QUEtiapine FUMARATE [SEROquel] 200 mg PO HS 03/29/25 05/25/25 History Fludrocortisone [Florinef] 0.1 mg PO BID #60 tab 04/06/25 05/25/25 Rx Magnesium Oxide [Mag-Ox] 400 mg PO BID #60 tab 04/06/25 05/25/25 Rx Metoclopramide HCl [Reglan] 5 mg PO TID PRN #45 tablet 04/06/25 05/25/25 Rx Midodrine [ProAmatine] 5 mg PO BID 05/06/25 05/25/25 History Apixaban [Eliquis] 5 mg PO BID 14 Days #28 tab 05/19/25 05/25/25 Rx DULoxetine HCL [Cymbalta] 60 mg PO DAILY 05/25/25 05/25/25 History Ondansetron Odt [Zofran Odt] 4 mg PO Q8HR PRN 05/25/25 05/25/25 History Vancomycin 10gm Recon Soln 1 dose IV Q12H 05/25/25 05/25/25 History Allergies Allergy/AdvReac Type Severity Reaction Status Date / Time Enviromental Allergy Nasal Uncoded 05/25/25 13:33 drainage/watery eyes/sneezing Physical Exam Vitals: Vital Signs Temp Pulse Pulse Resp BP BP Pulse Ox 05/26/25 07:21 98.1 F 81 16 153/87 97 05/26/25 05:16 152/95 05/26/25 01:39 97.9 F 68 18 97 05/25/25 22:30 144/90 05/25/25 19:17 98.3 F 72 18 173/106 99 05/25/25 18:38 180/115 05/25/25 18:37 97.2 F L 77 18 173/121 96 05/25/25 18:16 98.1 F 80 19 174/100 97 05/25/25 14:58 73 18 162/95 98 05/25/25 10:27 98.2 F 78 18 158/92 100 Intake and Output 05/25/25 05/26/25 05/26/25 22:59 06:59 14:59 Other: Voiding Method Toilet # Voids 3 Weight 80.739 kg Results CBC & Chem 7: 05/26/25 10:53 05/26/25 10:53 Labs: Abnormal Lab Results - Last 24 Hours (Table) 05/25/25 05/25/25 05/26/25 Range/Units 11:41 11:41 01:51 RBC 3.12 L (4.10-5.20) 10*6/uL Hgb 8.5 L (12.0-15.0) g/dL Hct 25.5 L (37.2-46.3) % Potassium 2.2 L* 2.7 L* (3.5-5.1) mmol/L BUN 6 L 6 L (7-17) mg/dL Glucose 69 L 70 L (74-99) mg/dL Calcium 7.8 L 7.9 L (8.4-10.2) mg/dL Total Protein 4.9 L 5.0 L (6.3-8.2) g/dL Albumin 2.4 L 2.4 L (3.5-5.0) g/dL Thrombosis Risk Factor Assmnt - Choose All That Apply Any of the Below Risk Factors Present?: Yes Each Factor Represents 1 point: Age 41-60 years, Swollen legs (current) Other Risk Factors: Yes Each Risk Factor Represents 3 Points: History of DVT/PE Other congenital or acquired thrombophilia - If yes, enter type in comment: No Thrombosis Risk Factor Assessment Total Risk Factor Score: 5 Thrombosis Risk Factor Assessment Level: High Risk
[2025-05-26] MEDS: PANTOPRAZOLE 40 MG TABLET PO SCH (16:29)
[2025-05-26] MEDS: FAMOTIDINE 20 MG TAB PO SCH (21:00)
[2025-05-26 22:46] LABS: Bacteria,Urine Rare /hpf; Bilirubin,Urine Negative (Negative); Blood,Urine Negative (Negative); Color,Urine Colorless; Glucose,Urine (UA) Negative (Negative); Ketones,Urine Trace (Negative); Leukocyte Esterase,Urine Trace (Negative); Nitrite,Urine Negative (Negative); PH, Urine 7.5 (5.0-8.0); Protein,Urine Negative (Negative); RBC,Urine <1 /hpf (0-5); Specific Gravity,Urine 1.006 (1.001-1.035); Urobilinogen,Urine <2.0 mg/dL (<2.0); WBC,Urine 2 /hpf (0-5)
[2025-05-26] MEDS: POTASSIUM CHLORIDE ER 20 MEQ TAB.ER PO SCH (22:54)
[2025-05-27] MEDS: POTASSIUM CHLORIDE ER 20 MEQ TAB.ER PO SCH ×2 (03:30→12:47)
--- NOTE | 2025-05-27 08:12 | P.PN ---
Subjective Progress Note Date: 05/26/25 Principal diagnosis: Reason for follow-up is complicated MRSA bacteremia Patient is a 54-year-old -[place] female with multiple comorbidities including Asthma, Chest Pain / Angina, COPD, Diabetes Mellitus, GERD/Reflux, Hypertension, Osteoarthritis (OA), Pneumonia, Sleep Apnea/CPAP/BIPAP with recent admission to the hospital predominantly with GI symptoms at that also developed sepsis secondary to left arm septic thrombophlebitis with MRSA bacteremia now present to the hospital with lower extremity swelling. On today's evaluation that is 05/26/2025,the patient denies any fever or any chills, patient is breathing comfortably on room air, the patient denies chest pain shortness of breath and no significant cough, patient denies abdominal pain, no nausea vomiting or diarrhea. Still complaining of swelling to bilateral extremity and some discomfort associated with it. Patient white count 5.92, creatinine 0.80 UA has been negative blood culture repeat currently pending Objective - Vital Signs Vital signs: Vital Signs Temp 97.9 F 05/26/25 19:20 Pulse 88 05/26/25 19:20 Resp 17 05/26/25 19:20 BP 159/99 05/26/25 19:20 Pulse Ox 98 05/26/25 19:20 FiO2 Intake & Output 05/26/25 05/26/25 05/27/25 06:59 18:59 06:59 Other: Voiding Method Toilet # Voids 3 3 - Exam GENERAL DESCRIPTION: Middle-age female lying in bed in no distress RESPIRATORY SYSTEM: Unlabored breathing , decreased breath sounds at bases HEART: S1 S2 regular rate and rhythm , ABDOMEN: Soft , no tenderness EXTREMITIES: 2+ edema feet - Labs CBC & Chem 7: 05/26/25 10:53 05/27/25 02:19 Labs: Abnormal Lab Results - Last 24 Hours (Table) 05/26/25 05/26/25 05/26/25 Range/Units 01:51 05:30 10:53 RBC (4.10-5.20) 10*6/uL Hgb (12.0-15.0) g/dL Hct (37.2-46.3) % RDW (11.5-14.5) % Potassium 2.7 L* 2.9 L (3.5-5.1) mmol/L BUN 6 L 5 L (7-17) mg/dL Glucose 70 L (74-99) mg/dL Calcium 7.9 L 7.5 L (8.4-10.2) mg/dL Total Protein 5.0 L (6.3-8.2) g/dL Albumin 2.4 L (3.5-5.0) g/dL Ur Random Potassium 19.3 L (25.0-125.0) mmol/L 05/26/25 05/26/25 Range/Units 10:53 10:53 RBC 3.23 L (4.10-5.20) 10*6/uL Hgb 8.9 L (12.0-15.0) g/dL Hct 27.4 L (37.2-46.3) % RDW 20.6 H (11.5-14.5) % Potassium 2.9 L (3.5-5.1) mmol/L BUN (7-17) mg/dL Glucose (74-99) mg/dL Calcium (8.4-10.2) mg/dL Total Protein (6.3-8.2) g/dL Albumin (3.5-5.0) g/dL Ur Random Potassium (25.0-125.0) mmol/L Assessment and Plan (1) Swelling of lower extremity Current Visit: Yes Status: Acute Code(s): M79.89 - OTHER SPECIFIED SOFT TISSUE DISORDERS SNOMED Code(s): 842975566 (2) MRSA bacteremia Current Visit: No Status: Acute Code(s): R78.81 - BACTEREMIA; B95.62 - METHICILLIN RESIS STAPH INFCT CAUSING DISEASES CLASSD [facility] SNOMED Code(s): 74225290486346763 (3) Septic phlebitis of upper extremity Current Visit: Yes Status: Acute Code(s): I80.8 - PHLEBITIS AND THROMBOPHLEBITIS OF OTHER SITES SNOMED Code(s): 24430248 Plan: 1patient with recent admission to the hospital and patient did have an episode of septic thrombophlebitis to the left upper extremity and MRSA bacteremia blood culture repeat on 05/10/2025 were negative and the patient has received 2 weeks of vancomycin pharmacy to dose, as there was evidence of SVT no DVT and patient cleared bacteremia within 48 hours duration of antibiotic will be 4 weeks per IDSA guidelines 2-patient is currently being treated with vancomycin pharmacy to dose while watching her kidney function closely Dictation was produced using [employer] dictation software. please excuse any grammatical, word or spelling errors. Time with Patient: Less than 30
[2025-05-27 08:29] LABS: Basophils # (A) 0.03 10*3/uL (0.00-0.10); Basophils % (A) 0.7 %; Eosinophils # (A) 0.22 10*3/uL (0.04-0.35); Eosinophils % (A) 4.9 %; HCT 24.7 % (37.2-46.3); HGB 8.0 g/dL (12.0-15.0); Immature Platelet Fraction 5.1 % (1.1-6.1); Lymphocytes # (A) 1.12 10*3/uL (0.90-5.00); Lymphocytes % (A) 25.1 %; MCH 27.4 pg (27.0-32.0); MCHC 32.4 g/dL (32.0-37.0); MCV 84.6 fL (80.0-97.0); Monocytes # (A) 0.34 10*3/uL (0.20-1.00); Monocytes % (A) 7.6 %; Neutrophils # (A) 2.74 10*3/uL (1.80-7.70); Neutrophils % (A) 61.5 %; Platelet Count 152 10*3/uL (140-440); RBC 2.92 10*6/uL (4.10-5.20); RDW 20.9 % (11.5-14.5); WBC 4.46 10*3/uL (4.50-10.00)
[2025-05-27 08:43] LABS: African American GFR (CKD) >90 (>60 ml/min/1.73 sqM); Anion Gap 4 mmol/L; Blood Urea Nitrogen 4 mg/dL (7-17); Calcium 7.4 mg/dL (8.4-10.2); Carbon Dioxide 28 mmol/L (22-30); Chloride 107 mmol/L (98-107); Glucose 72 mg/dL (74-99); Non-African American GFR(CKD) >90 (>60 ml/min/1.73 sqM); Potassium 3.6 mmol/L (3.5-5.1); Sodium 139 mmol/L (137-145)
[2025-05-27 09:17] LABS: Magnesium 1.5 mg/dL (1.6-2.3)
--- NOTE | 2025-05-27 11:24 | P.PN ---
Subjective Patient is seen in follow-up for hypokalemia. Potassium level improved. Still having vomiting. Also having diarrhea. Oral intake remains poor. Vital signs are stable. General: No acute distress. HEENT: Head exam is unremarkable. LUNGS: No audible rhonchi or wheezes. HEART: Rate and Rhythm are regular. ABDOMEN: Nontender. EXTREMITITES: No edema. Objective - Vital Signs Vital signs: Vital Signs Temp 97.8 F 05/27/25 07:07 Pulse 83 05/27/25 07:07 Resp 16 05/27/25 07:07 BP 165/98 05/27/25 07:07 Pulse Ox 94 L 05/27/25 07:07 FiO2 Intake & Output 05/26/25 05/27/25 05/27/25 18:59 06:59 18:59 Other: Voiding Method Toilet # Voids 3 2 - Labs CBC & Chem 7: 05/27/25 07:32 05/27/25 07:32 Labs: Abnormal Lab Results - Last 24 Hours (Table) 05/26/25 05/26/25 05/26/25 Range/Units 10:53 21:35 22:30 WBC (4.50-10.00) 10*3/uL RBC (4.10-5.20) 10*6/uL Hgb (12.0-15.0) g/dL Hct (37.2-46.3) % RDW (11.5-14.5) % Potassium 2.9 L 3.3 L (3.5-5.1) mmol/L BUN 5 L (7-17) mg/dL Glucose (74-99) mg/dL Calcium 7.5 L (8.4-10.2) mg/dL Magnesium (1.6-2.3) mg/dL Urine Ketones Trace H (Negative) Ur Leukocyte Esterase Trace H (Negative) Urine Bacteria Rare H (None) /hpf 05/27/25 05/27/25 05/27/25 Range/Units 02:19 07:32 07:32 WBC 4.46 L (4.50-10.00) 10*3/uL RBC 2.92 L (4.10-5.20) 10*6/uL Hgb 8.0 L (12.0-15.0) g/dL Hct 24.7 L (37.2-46.3) % RDW 20.9 H (11.5-14.5) % Potassium 3.3 L (3.5-5.1) mmol/L BUN 4 L (7-17) mg/dL Glucose 72 L (74-99) mg/dL Calcium 7.4 L (8.4-10.2) mg/dL Magnesium 1.5 L (1.6-2.3) mg/dL Urine Ketones (Negative) Ur Leukocyte Esterase (Negative) Urine Bacteria (None) /hpf Assessment and Plan Plan: Plan: 1. Hypokalemia from poor oral intake and also vomiting leading to renal potassium losses. Further exacerbated by use of Florinef. Replaced. Improved. 2. Lower extremity edema with recent DVT. Can be due to salt retention from Florinef. 3. History of sleeve gastrectomy. 4. MRSA bacteremia on antibiotics. ID following. 5. Benign hypertension. This can be due to Florinef as well as midodrine. 6. Hypomagnesemia from poor intake and GI losses. Plan: Continue to replace potassium. Replace magnesium via IV. Maintain oral magnesium oxide. Discontinued Florinef. Discontinued midodrine. UA benign. Check stool for C. difficile.
[2025-05-27] MEDS ORDERED: POTASSIUM CHLORIDE ER 20 MEQ TAB.ER PO SCH (12:00)
[2025-05-27] MEDS: MAGNESIUM SULFATE-D5W PMX 1 GM in DEXTROSE/WATER 1 100ML.BAG IVPB SCH (12:47)
[2025-05-27] MEDS: FUROSEMIDE 10 MG/ML 2 ML VIAL IV STA (12:47)
--- NOTE | 2025-05-27 14:12 | P.PN ---
Subjective Progress Note Date: 05/27/25 Principal diagnosis: Reason for follow-up is complicated MRSA bacteremia Patient is a 54-year-old -Slov[place] female with multiple comorbidities including Asthma, Chest Pain / Angina, COPD, Diabetes Mellitus, GERD/Reflux, Hypertension, Osteoarthritis (OA), Pneumonia, Sleep Apnea/CPAP/BIPAP with recent admission to the hospital predominantly with GI symptoms at that also developed sepsis secondary to left arm septic thrombophlebitis with MRSA bacteremia now present to the hospital with lower extremity swelling. On today's evaluation that is 05/27/2025,the patient remains to be afebrile, patient is on room air not requiring supplemental oxygen and mentioned breathing comfortably with no chest pain or cough.Patient has been complaining of some nausea episode of vomiting no abdominal pain no pain to the left upper extremity. Patient white count is 4.46, creatinine 0.73 Objective - Vital Signs Vital signs: Vital Signs Temp 97.8 F 05/27/25 07:07 Pulse 83 05/27/25 07:07 Resp 16 05/27/25 07:07 BP 165/98 05/27/25 07:07 Pulse Ox 94 L 05/27/25 07:07 FiO2 Intake & Output 05/26/25 05/27/25 05/27/25 18:59 06:59 18:59 Other: Voiding Method Toilet # Voids 3 2 - Exam GENERAL DESCRIPTION: Middle-age female lying in bed in no distress RESPIRATORY SYSTEM: Unlabored breathing , decreased breath sounds at bases HEART: S1 S2 regular rate and rhythm , ABDOMEN: Soft , no tenderness EXTREMITIES: 2+ edema feet - Labs CBC & Chem 7: 05/27/25 07:32 05/27/25 07:32 Labs: Abnormal Lab Results - Last 24 Hours (Table) 05/26/25 05/26/25 05/27/25 Range/Units 21:35 22:30 02:19 WBC (4.50-10.00) 10*3/uL RBC (4.10-5.20) 10*6/uL Hgb (12.0-15.0) g/dL Hct (37.2-46.3) % RDW (11.5-14.5) % Potassium 3.3 L 3.3 L (3.5-5.1) mmol/L BUN (7-17) mg/dL Glucose (74-99) mg/dL Calcium (8.4-10.2) mg/dL Magnesium (1.6-2.3) mg/dL Urine Ketones Trace H (Negative) Ur Leukocyte Esterase Trace H (Negative) Urine Bacteria Rare H (None) /hpf 05/27/25 05/27/25 Range/Units 07:32 07:32 WBC 4.46 L (4.50-10.00) 10*3/uL RBC 2.92 L (4.10-5.20) 10*6/uL Hgb 8.0 L (12.0-15.0) g/dL Hct 24.7 L (37.2-46.3) % RDW 20.9 H (11.5-14.5) % Potassium (3.5-5.1) mmol/L BUN 4 L (7-17) mg/dL Glucose 72 L (74-99) mg/dL Calcium 7.4 L (8.4-10.2) mg/dL Magnesium 1.5 L (1.6-2.3) mg/dL Urine Ketones (Negative) Ur Leukocyte Esterase (Negative) Urine Bacteria (None) /hpf Assessment and Plan (1) Swelling of lower extremity Current Visit: Yes Status: Acute Code(s): M79.89 - OTHER SPECIFIED SOFT TISS UE DISORDERS SNOMED Code(s): 460348474 (2) MRSA bacteremia Current Visit: No Status: Acute Code(s): R78.81 - BACTEREMIA; B95.62 - METHICILLIN RESIS STAPH INFCT CAUSING DISEASES [facility] SNOMED Code(s): 97860261966398599 (3) Septic phlebitis of upper extremity Current Visit: Yes Status: Acute Code(s): I80.8 - PHLEBITIS AND THROMBOPHLEBITIS OF OTHER SITES SNOMED Code(s): 47251267 Plan: 1patient with recent admission to the hospital and patient did have an episode of septic thrombophlebitis to the left upper extremity and MRSA bacteremia blood culture repeat on 05/10/2025 were negative and the patient has received 2 weeks of vancomycin pharmacy to dose, as there was evidence of SVT no DVT and patient cleared bacteremia within 48 hours duration of antibiotic will be 4 weeks per IDSA guidelines 2-patient to continue with vancomycin pharmacy to dose target of 15 last day of antibiotic should be 06/07/2025 Dictation was produced using [employer] dictation software. please excuse any gra mmatical, word or spelling errors. Time with Patient: Less than 30
--- NOTE | 2025-05-27 15:46 | P.PN ---
Subjective Subjective: 54-year-old female with multiple comorbidities including sleeve gastrectomy in December 2024, esophageal dysmotility, diastolic CHF, asthma, COPD, diabetes mellitus, sleep apnea on CPAP, hypertension, with recent admission to the hospital predominantly with GI symptoms and sepsis secondary to left arm septic thrombophlebitis with MRSA bacteremia as well as DVT presented to the hospital with complaints of bilateral lower leg 2 days after discharge and generalized weakness. Patient reports an increase in leg swelling 2 days postdischarge resulting in difficulty to mobilize. She reports associated shortness of breath that progressively worsened over the past few days. Patient reports orthopnea and diarrheal episodes for the last week. Patient reports continuous nausea with 1 episode of vomiting yesterday morning. Patient reports lightheadedness on standing, and generalized weakness on mobility. Patient denies chest pain, cough, fevers or rigors. Of note patient reports numbness in her lower abdomen which progressively worsened with the onset of leg swelling, however denies any loss of power or weakness as well as urinary or bowel symptoms. Patient currently receiving vancomycin twice daily as outpatient. In the ER, lab work significant for potassium 2.2, sodium 140, glucose 69, white blood cells 5.54, hemoglobin 8.5, creatinine 0.76. A venous Doppler of left lower extremity performed ruled out deep venous thrombosis indicating normal flow compressibility and vascular waveforms. An EKG obtained reports sinus rhythm heart rate 71 with MN interval 139 QT 422 QTc 444. Patient received magnesium IV and placed on magnesium supplements for hypomagnesemia correction. Patient admitted as inpatient and infectious disease on consult. 05/27: Patient seen at bedside. Complains of persistent nausea with 2 episodes of vomiting. 2 episodes of diarrhea overnight. Patient received potassium supplementation overnight. Currently potassium of 3.6. Hemodynamically stable. Pertinent positives and negatives discussed above, a complete review of systems was preformed and all the other systems were negative. Vitals Signs Reviewed. PHYSICAL EXAMINATION: GENERAL: The patient is alert and oriented x3, not in any acute distress. Well developed, well nourished. HEENT: Pupils are round and equally reacting to light. EOMI. No scleral icterus. No conjunctival pallor. Normocephalic, atraumatic. CARDIOVASCULAR: S1 and S2 present. PULMONARY: Decreased breath sounds bilateraly but clear to auscultation. No whee zing or crackles ABDOMEN: soft, central abdomen tenderness on palpation. EXTREMITIES: Non-pitting edema bilaterally extending up to hip joins NEUROLOGICAL: Gross neurological examination did not reveal any focal deficits. SKIN: No rashes. Data Reviewed Today: 05/27/2025 Patient Labs: WBC 4.46, hemoglobin 8, sodium 139, potassium 3.6, magnesium 1.5. Imaging: No new images. Assessment and Plan: #Bilateral lower extremity swelling #Right lower extremity DVT #Nausea and vomiting IV furosemide 20 mg stat Ultrasound Doppler, ruling out DVT in the left leg Continue apixaban twice daily #Hypokalemia #Mild hypertension potassium significantly improved K 3.6, continue to monitor. Seen by nephrology, recommended to follow-up urine potassium levels Discontinued Florinef and midodrine as per nephrology Nephrology on consult, appreciate further recommendations. Monitor BMP daily #Left upper extremity thrombophlebitis #MRSA bacteremia Blood cultures negative with previous blood cultures positive for MRSA on 05/08. Patient on antibiotic treatment as per ID. Continue IV vancomycin until 06/07/2025. ID on consult, appreciate recommendations Chronic conditions: #Anemia Monitor CBC Transfuse if hemoglobin less than 7 #History of diastolic CHF #COPD/asthma #Hyperlipidemia Continue home medications DVT ppx:Apixaban GI ppx: protonix 40 BID Code Status: full Dictation was produced using [employer] dictation software. please excuse any grammatical, word or spelling errors. Iam Smith MD PGY1 Internal Medicine Objective - Vital Signs Vital signs: Vital Signs Temp 97.5 F L 05/27/25 14:13 Pulse 92 05/27/25 14:13 Resp 16 05/27/25 14:13 BP 155/88 05/27/25 14:13 Pulse Ox 95 05/27/25 14:13 FiO2 Intake & Output 05/26/25 05/27/25 05/27/25 18:59 06:59 18:59 Other: Voiding Method Toilet # Voids 3 2 - Labs CBC & Chem 7: 05/27/25 07:32 05/27/25 07:32 Labs: Abnormal Lab Results - Last 24 Hours (Table) 05/26/25 05/26/25 05/27/25 Range/Units 21:35 22:30 02:19 WBC (4.50-10.00) 10*3/uL RBC (4.10-5.20) 10*6/uL Hgb (12.0-15.0) g/dL Hct (37.2-46.3) % RDW (11.5-14.5) % Potassium 3.3 L 3.3 L (3.5-5.1) mmol/L BUN (7-17) mg/dL Glucose (74-99) mg/dL Calcium (8.4-10.2) mg/dL Magnesium (1.6-2.3) mg/dL Urine Ketones Trace H (Negative) Ur Leukocyte Esterase Trace H (Negative) Urine Bacteria Rare H (None) /hpf 05/27/25 05/27/25 Range/Units 07:32 07:32 WBC 4.46 L (4.50-10.00) 10*3/uL RBC 2.92 L (4.10-5.20) 10*6/uL Hgb 8.0 L (12.0-15.0) g/dL Hct 24.7 L (37.2-46.3) % RDW 20.9 H (11.5-14.5) % Potassium (3.5-5.1) mmol/L BUN 4 L (7-17) mg/dL Glucose 72 L (74-99) mg/dL Calcium 7.4 L (8.4-10.2) mg/dL Magnesium 1.5 L (1.6-2.3) mg/dL Urine Ketones (Negative) Ur Leukocyte Esterase (Negative) Urine Bacteria (None) /hpf
[2025-05-28] MEDS: VANCOMYCIN TROUGH DUE 1 EACH MISC MISCELLANE ONE (08:00)
[2025-05-28 08:10] LABS: Basophils # (A) 0.03 10*3/uL (0.00-0.10); Basophils % (A) 0.6 %; Eosinophils # (A) 0.24 10*3/uL (0.04-0.35); Eosinophils % (A) 5.1 %; HCT 24.9 % (37.2-46.3); HGB 8.0 g/dL (12.0-15.0); Lymphocytes # (A) 1.25 10*3/uL (0.90-5.00); Lymphocytes % (A) 26.8 %; MCH 27.3 pg (27.0-32.0); MCHC 32.1 g/dL (32.0-37.0); MCV 85.0 fL (80.0-97.0); Monocytes # (A) 0.44 10*3/uL (0.20-1.00); Monocytes % (A) 9.4 %; Neutrophils # (A) 2.69 10*3/uL (1.80-7.70); Neutrophils % (A) 57.7 %; Platelet Count 157 10*3/uL (140-440); RBC 2.93 10*6/uL (4.10-5.20); RDW 21.2 % (11.5-14.5); WBC 4.67 10*3/uL (4.50-10.00)
[2025-05-28 08:31] LABS: African American GFR (CKD) >90 (>60 ml/min/1.73 sqM); Anion Gap 5 mmol/L; Blood Urea Nitrogen 2 mg/dL (7-17); Calcium 7.9 mg/dL (8.4-10.2); Carbon Dioxide 28 mmol/L (22-30); Chloride 107 mmol/L (98-107); Glucose 84 mg/dL (74-99); Magnesium 1.8 mg/dL (1.6-2.3); Non-African American GFR(CKD) 80 (>60 ml/min/1.73 sqM); Potassium 3.4 mmol/L (3.5-5.1); Sodium 140 mmol/L (137-145)
--- NOTE | 2025-05-28 10:52 | P.PN ---
Subjective Patient is seen in follow-up for hypokalemia. Potassium level 3.4 today. Did receive a dose of IV Lasix yesterday. Admits to good urine output. Oral intake remains poor. Vital signs are stable. General: No acute distress. HEENT: Head exam is unremarkable. LUNGS: No audible rhonchi or wheezes. HEART: Rate and Rhythm are regular. ABDOMEN: Nontender. EXTREMITITES: 1+ edema lower extremities. Objective - Vital Signs Vital signs: Vital Signs Temp 98.1 F 05/28/25 06:50 Pulse 94 05/28/25 08:00 Resp 17 05/28/25 08:00 BP 150/79 05/28/25 06:50 Pulse Ox 94 L 05/28/25 06:50 FiO2 Intake & Output 05/27/25 05/28/25 05/28/25 18:59 06:59 18:59 Other: Voiding Method Toilet Toilet # Voids 3 2 - Labs CBC & Chem 7: 05/28/25 07:54 05/28/25 07:54 Labs: Abnormal Lab Results - Last 24 Hours (Table) 05/28/25 05/28/25 Range/Units 07:54 07:54 RBC 2.93 L (4.10-5.20) 10*6/uL Hgb 8.0 L (12.0-15.0) g/dL Hct 24.9 L (37.2-46.3) % RDW 21.2 H (11.5-14.5) % Potassium 3.4 L (3.5-5.1) mmol/L BUN 2 L (7-17) mg/dL Calcium 7.9 L (8.4-10.2) mg/dL Microbiology - Last 24 Hours (Table) 05/26/25 10:53 Blood Culture - Preliminary Blood Assessment and Plan Plan: Plan: 1. Hypokalemia from poor oral intake and also vomiting leading to renal p otassium losses. Further exacerbated by use of Florinef. Replaced. Improved. 2. Lower extremity edema with recent DVT. Can be due to salt retention from Florinef. 3. History of sleeve gastrectomy. 4. MRSA bacteremia on antibiotics. ID following. 5. Benign hypertension. This can be due to Florinef as well as midodrine. 6. Hypomagnesemia from poor intake and GI losses. Replaced. Better. Plan: Replace potassium. Maintain oral magnesium oxide. Discontinued Florinef. Discontinued midodrine. UA benign.
[2025-05-28] MEDS ORDERED: VANCOMYCIN IV PER PHARMACY 1 EACH MISC MISCELLANE PRN (11:41)
[2025-05-28] MEDS ORDERED: POTASSIUM CHLORIDE 10 MEQ in WATER FOR INJECTION 1 100ML.BAG IVPB SCH (12:00)
--- NOTE | 2025-05-28 12:11 | XR ---
EXAMINATION TYPE: XR abdomen 1V DATE OF EXAM: 05/28/2025 11:47 AM COMPARISON: None CLINICAL INDICATION: Female, 54 years old with history of abdo pain + vomiting; [facility] TECHNIQUE: One radiographic view of the abdomen was obtained. FINDINGS: Postsurgical changes of the abdomen surgical clips and suture. Postsurgical changes spine w ith hardware in place. The bowel gas pattern is nonspecific without dilated loops of small or large b owel. . Fecal material and gas are demonstrated throughout the colon and rectum. There is no evidence for organomegaly or pneumoperitoneum. No acute osseous process. No abnormal calcifications are pre sent. IMPRESSION: Nonspecific bowel gas pattern without radiographic evidence for acute process. [facility], , 05/28/2025 12:09 PM
[2025-05-28] MEDS: POTASSIUM CHLORIDE ER 20 MEQ TAB.ER PO STA (12:29)
[2025-05-28] MEDS: FUROSEMIDE 40 MG TAB PO STA (12:30)
--- NOTE | 2025-05-28 14:52 | P.PN ---
Subjective Subjective: 54-year-old female with multiple comorbidities including sleeve gastrectomy in December 2024, esophageal dysmotility, diastolic CHF, asthma, COPD, diabetes mellitus, sleep apnea on CPAP, hypertension, with recent admission to the hospital predominantly with GI symptoms and sepsis secondary to left arm septic thrombophlebitis with MRSA bacteremia as well as DVT presented to the hospital with complaints of bilateral lower leg 2 days after discharge and generalized weakness. Patient reports an increase in leg swelling 2 days postdischarge resulting in difficulty to mobilize. She reports associated shortness of breath that progressively worsened over the past few days. Patient reports orthopnea and diarrheal episodes for the last week. Patient reports continuous nausea with 1 episode of vomiting yesterday morning. Patient reports lightheadedness on standing, and generalized weakness on mobility. Patient denies chest pain, cough, fevers or rigors. Of note patient reports numbness in her lower abdomen which progressively worsened with the onset of leg swelling, however denies any loss of power or weakness as well as urinary or bowel symptoms. Patient currently receiving vancomycin twice daily as outpatient. In the ER, lab work significant for potassium 2.2, sodium 140, glucose 69, white blood cells 5.54, hemoglobin 8.5, creatinine 0.76. A venous Doppler of left lower extremity performed ruled out deep venous thrombosis indicating normal flow compressibility and vascular waveforms. An EKG obtained reports sinus rhythm heart rate 71 with [place] interval 139 QT 422 QTc 444. Patient received magnesium IV and placed on magnesium supplements for hypomagnesemia correction. Patient admitted as inpatient and infectious disease on consult. 05/27: Patient seen at bedside. Complains of persistent nausea with 2 episodes of vomiting. 2 episodes of diarrhea overnight. Patient received potassium supplementation overnight. Currently potassium of 3.6. Hemodynamically stable. 05/28: Patient seen at bedside. Reports 4 episodes of vomiting and 2 episodes of diarrhea overnight. Denies hematochezia, hemoptysis, dark tarry stools. Reports persistent nausea. Persistent bipedal edema, placed on a one-time furosemide 40. Pertinent positives and negatives discussed above, a complete review of systems was preformed and all the other systems were negative. Vitals Signs Reviewed. PHYSICAL EXAMINATION: GENERAL: The patient is alert and oriented x3, not in any acute distress. Well developed, well nourished. HEENT: Pupils are round and equally reacting to light. EOMI. No scleral icterus. No conjunctival pallor. Normocephalic, atraumatic. CARDIOVASCULAR: S1 and S2 present. PULMONARY: Decreased breath sounds bilateraly but clear to auscultation. No wheezing or crackles ABDOMEN: soft, central abdomen tenderness on palpation. EXTREMITIES: Non-pitting edema bilaterally extending up to hip joins NEUROLOGICAL: Gross neurological examination did not reveal any focal deficits. SKIN: No rashes. Data Reviewed Today: 05/28/2025 Patient Labs: WBC 4.67, hemoglobin 8, sodium 140, potassium 3.4, magnesium 1.8, creatinine 0.8. Imaging: X-ray abdomennonspecific bowel gas pattern without radiographic evidence of acute process. Assessment and Plan: #Bilateral lower extremity swelling #Right lower extremity DVT P.o. furosemide 40 mg stat Ultrasound Doppler, ruled out DVT in the left leg Continue apixaban twice daily #Hypokalemia #Mild hypertension potassium significantly improved K 3.6, continue to monitor. Seen by nephrology, recommended to follow-up urine potassium levelsurine potassium 19.3. Discontinued Florinef and midodrine as per nephrology Nephrology on consult, appreciate further recommendations. Monitor BMP daily #Left upper extremity thrombophlebitis #MRSA bacteremia Blood cultures negative with previous blood cultures positive for MRSA on 05/08. Patient on antibiotic treatment as per ID. Continue IV vancomycin until 06/07/2025. ID on consult, appreciate recommendations #Nausea and vomiting #Diarrhea Pending C. difficile cultures/PCR Chronic conditions: #Anemia Monitor CBC Transfuse if hemoglobin less than 7 #History of diastolic CHF #COPD/asthma #Hyperlipidemia Continue home medications DVT ppx:Apixaban GI ppx: protonix 40 BID Code Status: full Dictation was produced using [employer] dictation software. please excuse any grammatical, word or spelling errors. Iam Smith MD PGY1 Internal Medicine Objective - Vital Signs Vital signs: Vital Signs Temp 98.1 F 05/28/25 06:50 Pulse 94 05/28/25 08:00 Resp 17 05/28/25 08:00 BP 150/79 05/28/25 06:50 Pulse Ox 94 L 05/28/25 06:50 FiO2 Intake & Output 05/27/25 05/28/25 05/28/25 18:59 06:59 18:59 Other: Voiding Method Toilet Toilet # Voids 3 2 - Labs CBC & Chem 7: 05/28/25 07:54 05/28/25 07:54 Labs: Abnormal Lab Results - Last 24 Hours (Table) 05/28/25 05/28/25 05/28/25 Range/Units 07:54 07:54 07:54 RBC 2.93 L (4.10-5.20) 10*6/uL Hgb 8.0 L (12.0-15.0) g/dL Hct 24.9 L (37.2-46.3) % RDW 21.2 H (11.5-14.5) % Potassium 3.4 L (3.5-5.1) mmol/L BUN 2 L (7-17) mg/dL Calcium 7.9 L (8.4-10.2) mg/dL Vancomycin Trough 39.3 H* ug/mL Microbiology - Last 24 Hours (Table) 05/26/25 10:53 Blood Culture - Preliminary Blood
--- NOTE | 2025-05-28 15:37 | P.PN ---
Subjective Progress Note Date: 05/28/25 Principal diagnosis: Reason for follow-up is complicated MRSA bacteremia Patient is a 54-year-old -[place] female with multiple comorbidities including Asthma, Chest Pain / Angina, COPD, Diabetes Mellitus, GERD/Reflux, Hypertension, Osteoarthritis (OA), Pneumonia, Sleep Apnea/CPAP/BIPAP with recent admission to the hospital predominantly with GI symptoms at that also developed sepsis secondary to left arm septic thrombophlebitis with MRSA bacteremia now present to the hospital with lower extremity swelling. On today's evaluation that is 05/28/2025, the patient continues to be afebrile, the patient is on room air and breathing comfortably, the Pt denies having any chest pain or cough, the patient denies having any abdominal pain circumventing of some nausea but no vomiting or diarrhea left upper extremity swelling redness has decreased. Patient white count is 4.67, creatinine 0.82 Vanco trough has been elevated 39.3 blood culture repeat has been negative Objective - Vital Signs Vital signs: Vital Signs Temp 98.0 F 05/28/25 14:00 Pulse 96 05/28/25 14:00 Resp 17 05/28/25 14:00 BP 161/99 05/28/25 14:00 Pulse Ox 97 05/28/25 14:00 FiO2 Intake & Output 05/27/25 05/28/25 05/28/25 18:59 06:59 18:59 Other: Voiding Method Toilet Toilet # Voids 3 2 - Exam GENERAL DESCRIPTION: Middle-age female lying in bed in no distress RESPIRATORY SYSTEM: Unlabored breathing , decreased breath sounds at bases HEART: S1 S2 regular rate and rhythm , ABDOMEN: Soft , no tenderness EXTREMITIES: 2+ edema feet - Labs CBC & Chem 7: 05/28/25 07:54 05/28/25 07:54 Labs: Abnormal Lab Results - Last 24 Hours (Table) 05/28/25 05/28/25 05/28/25 Range/Units 07:54 07:54 07:54 RBC 2.93 L (4.10-5.20) 10*6/uL Hgb 8.0 L (12.0-15.0) g/dL Hct 24.9 L (37.2-46.3) % RDW 21.2 H (11.5-14.5) % Potassium 3.4 L (3.5-5.1) mmol/L BUN 2 L (7-17) mg/dL Calcium 7.9 L (8.4-10.2) mg/dL Vancomycin Trough 39.3 H* ug/mL Microbiology - Last 24 Hours (Table) 05/26/25 10:53 Blood Culture - Preliminary Blood Assessment and Plan (1) Swelling of lower extremity Current Visit: Yes Status: Acute Code(s): M79.89 - OTHER SPECIFIED SOFT TISSUE DISORDERS SNOMED Code(s): 127435573 (2) MRSA bacteremia Current Visit: No Status: Acute Code(s): R78.81 - BACTEREMIA; B95.62 - METHICILLIN RESIS STAPH INFCT CAUSING DISEASES [facility] SNOMED Code(s): 12478441746768327 (3) Septic phlebitis of upper extremity Current Visit: Yes Status: Acute Code(s): I80.8 - PHLEBITIS AND THROMBOPHLEBITIS OF OTHER SITES SNOMED Code(s): 10292869 Plan: 1patient with recent admission to the hospital and patient did have an episode of septic thrombophlebitis to the left upper extremity and MRSA bacteremia blood culture repeat on 05/10/2025 were negative and the patient has received 2 weeks of vancomycin pharmacy to dose, as there was evidence of SVT no DVT and patient cleared bacteremia within 48 hours duration of antibiotic will be 4 weeks per IDSA guidelines 2-patient blood care repeat has been negative did have significant elevated vancomycin trough does need to be cut down to keep the trough around 15 we will watch her kidney function closely prescription for outpatient vancomycin provided to the therapeutic case manager Dictation was produced using [employer] dictation software. please excuse any grammatical, word or spelling errors. Time with Patient: Less than 30
[2025-05-29 03:55] LABS: Basophils # (A) 0.03 10*3/uL (0.00-0.10); Basophils % (A) 0.7 %; Eosinophils # (A) 0.24 10*3/uL (0.04-0.35); Eosinophils % (A) 5.6 %; HCT 24.5 % (37.2-46.3); HGB 7.8 g/dL (12.0-15.0); Lymphocytes # (A) 1.32 10*3/uL (0.90-5.00); Lymphocytes % (A) 30.8 %; MCH 27.4 pg (27.0-32.0); MCHC 31.8 g/dL (32.0-37.0); MCV 86.0 fL (80.0-97.0); Monocytes # (A) 0.36 10*3/uL (0.20-1.00); Monocytes % (A) 8.4 %; Neutrophils # (A) 2.32 10*3/uL (1.80-7.70); Neutrophils % (A) 54.3 %; Platelet Count 164 10*3/uL (140-440); RBC 2.85 10*6/uL (4.10-5.20); RDW 21.2 % (11.5-14.5); WBC 4.28 10*3/uL (4.50-10.00)
[2025-05-29 05:01] LABS: African American GFR (CKD) 82 (>60 ml/min/1.73 sqM); Anion Gap 5 mmol/L; Blood Urea Nitrogen <2 mg/dL (7-17); Calcium 8.0 mg/dL (8.4-10.2); Carbon Dioxide 30 mmol/L (22-30); Chloride 104 mmol/L (98-107); Glucose 75 mg/dL (74-99); Magnesium 1.6 mg/dL (1.6-2.3); Non-African American GFR(CKD) 71 (>60 ml/min/1.73 sqM); Potassium 3.4 mmol/L (3.5-5.1); Sodium 139 mmol/L (137-145)
[2025-05-29] MEDS: POTASSIUM CHLORIDE ER 20 MEQ TAB.ER PO STA (08:13)
--- NOTE | 2025-05-29 14:12 | P.PN ---
Subjective Subjective: 54-year-old female with multiple comorbidities including sleeve gastrectomy in December 2024, esophageal dysmotility, diastolic CHF, asthma, COPD, diabetes mellitus, sleep apnea on CPAP, hypertension, with recent admission to the hospital predominantly with GI symptoms and sepsis secondary to left arm septic thrombophlebitis with MRSA bacteremia as well as DVT presented to the hospital with complaints of bilateral lower leg 2 days after discharge and generalized weakness. Patient reports an increase in leg swelling 2 days postdischarge resulting in difficulty to mobilize. She reports associated shortness of breath that progressively worsened over the past few days. Patient reports orthopnea and diarrheal episodes for the last week. Patient reports continuous nausea with 1 episode of vomiting yesterday morning. Patient reports lightheadedness on standing, and generalized weakness on mobility. Patient denies chest pain, cough, fevers or rigors. Of note patient reports numbness in her lower abdomen which progressively worsened with the onset of leg swelling, however denies any loss of power or weakness as well as urinary or bowel symptoms. Patient currently receiving vancomycin twice daily as outpatient. In the ER, lab work significant for potassium 2.2, sodium 140, glucose 69, white blood cells 5.54, hemoglobin 8.5, creatinine 0.76. A venous Doppler of left lower extremity performed ruled out deep venous thrombosis indicating normal flow compressibility and vascular waveforms. An EKG obtained reports sinus rhythm heart rate 71 with [place] interval 139 QT 422 QTc 444. Patient received magnesium IV and placed on magnesium supplements for hypomagnesemia correction. Patient admitted as inpatient and infectious disease on consult. 05/27: Patient seen at bedside. Complains of persistent nausea with 2 episodes of vomiting. 2 episodes of diarrhea overnight. Patient received potassium supplementation overnight. Currently potassium of 3.6. Hemodynamically stable. 05/28: Patient seen at bedside. Reports 4 episodes of vomiting and 2 episodes of diarrhea overnight. Denies hematochezia, hemoptysis, dark tarry stools. Reports persistent nausea. Persistent bipedal edema, placed on a one-time furosemide 40. 05/29: Patient seen at bedside. Reports 2 bowel movements overnight that were not loose. Reports not feeling well, with persistent nausea. Denies vomiting. Persistent bipedal edema,, slightly better than yesterday. Currently potassium of 3.4, this has been repleted. Pertinent positives and negatives discussed above, a complete review of systems was preformed and all the other systems were negative. Vitals Signs Reviewed. PHYSICAL EXAMINATION: GENERAL: The patient is alert and oriented x3, not in any acute distress. Well developed, well nourished. HEENT: Pupils are round and equally reacting to light. EOMI. No scleral icterus. No conjunctival pallor. Normocephalic, atraumatic. CARDIOVASCULAR: S1 and S2 present. PULMONARY: Decreased breath sounds bilateraly but clear to auscultation. No wheezing or crackles ABDOMEN: soft, central abdomen tenderness on palpation. EXTREMITIES: Non-pitting edema bilaterally extending up to hip joins NEUROLOGICAL: Gross neurological examination did not reveal any focal deficits. SKIN: No rashes. Data Reviewed Today: 05/29/2025 Patient Labs: WBC 4.28, hemoglobin 7.8, sodium 139, potassium 3.4, creatinine 0.91 magnesium 1.6. Imaging: X-ray abdomennonspecific bowel gas pattern without radiographic evidence of acute process. Assessment and Plan: #Bilateral lower extremity swelling #Right lower extremity DVT received furosemide yesterday. Ultrasound Doppler, ruled out DVT in the left leg Continue apixaban twice daily #Hypokalemia #Mild hypertension potassium significantly improved K 3.6, continue to monitor. Seen by nephrology, recommended to follow-up urine potassium levelsurine potassium 19.3. Discontinued Florinef and midodrine as per nephrology Nephrology on consult, appreciate further recommendations. Monitor BMP daily #Left upper extremity thrombophlebitis #MRSA bacteremia Blood cultures negative with previous blood cultures positive for MRSA on 05/08. Patient on antibiotic treatment as per ID. Continue IV vancomycin until 06/07/2025. ID on consult, appreciate recommendations #Nausea and vomiting #Diarrhea Pending C. difficile cultures/PCR #Mild protein malnutrition - monitor albumin daily - started ensure Chronic conditions: #Anemia Monitor CBC Transfuse if hemoglobin less than 7 #History of diastolic CHF #COPD/asthma #Hyperlipidemia Continue home medications DVT ppx:Apixaban GI ppx: protonix 40 BID Code Status: full Dictation was produced using [employer] software. please excuse any grammatical, word or spelling errors. Iam Smith MD PGY1 Internal Medicine Objective - Vital Signs Vital signs: Vital Signs Temp 98.0 F 05/29/25 08:00 Pulse 97 07/19/25 08:00 Resp 17 05/29/25 08:00 BP 171/102 05/29/25 08:00 Pulse Ox 96 05/29/25 08:00 FiO2 Intake & Output 05/28/25 05/29/25 05/29/25 18:59 06:59 18:59 Other: Voiding Method Toilet Toilet # Voids 3 1 # Bowel Movements 1 - Labs CBC & Chem 7: 05/29/25 03:00 05/29/25 03:00 Labs: Abnormal Lab Results - Last 24 Hours (Table) 05/28/25 05/29/25 05/29/25 Range/Units 07:54 03:00 03:00 WBC 4.28 L (4.50-10.00) 10*3/uL RBC 2.85 L (4.10-5.20) 10*6/uL Hgb 7.8 L (12.0-15.0) g/dL Hct 24.5 L (37.2-46.3) % MCHC 31.8 L (32.0-37.0) g/dL RDW 21.2 H (11.5-14.5) % Potassium 3.4 L (3.5-5.1) mmol/L BUN <2 L (7-17) mg/dL Calcium 8.0 L (8.4-10.2) mg/dL Vancomycin Trough 39.3 H* ug/mL Microbiology - Last 24 Hours (Table) 05/26/25 10:53 Blood Culture - Preliminary Blood
--- NOTE | 2025-05-29 14:21 | P.PN ---
Subjective Progress Note Date: 05/29/25 Principal diagnosis: Reason for follow-up is complicated MRSA bacteremia Patient is a 54-year-old -[place] female with multiple comorbidities including Asthma, Chest Pain / Angina, COPD, Diabetes Mellitus, GERD/Reflux, Hypertension, Osteoarthritis (OA), Pneumonia, Sleep Apnea/CPAP/BIPAP with recent admission to the hospital predominantly with GI symptoms at that also developed sepsis secondary to left arm septic thrombophlebitis with MRSA bacteremia now present to the hospital with lower extremity swelling. On today's evaluation that is 05/29/2024, patient did have a temperature of 98 F this morning and denies having any chills, patient is on room air and breath ing comfortably no chest pain or cough, the patient did have some nausea but no vomiting no abdominal pain or diarrhea or pain to the left upper extremity. Patient white count is 4.28, creatinine 0.91 blood culture this admission has been negative Objective - Vital Signs Vital signs: Vital Signs Temp 98.0 F 05/29/25 08:00 Pulse 97 05/29/25 08:00 Resp 17 05/29/25 08:00 BP 171/102 05/29/25 08:00 Pulse Ox 96 05/29/25 08:00 FiO2 Intake & Output 05/28/25 05/29/25 05/29/25 18:59 06:59 18:59 Other: Voiding Method Toilet Toilet # Voids 3 1 # Bowel Movements 1 - Exam GENERAL DESCRIPTION: Middle-age female lying in bed in no distress RESPIRATORY SYSTEM: Unlabored breathing , decreased breath sounds at bases HEART: S1 S2 regular rate and rhythm , ABDOMEN: Soft , no tenderness EXTREMITIES: 2+ edema feet - Labs CBC & Chem 7: 05/29/25 03:00 05/29/25 03:00 Labs: Abnormal Lab Results - Last 24 Hours (Table) 05/29/25 05/29/25 Range/Units 03:00 03:00 WBC 4.28 L (4.50-10.00) 10*3/uL RBC 2.85 L (4.10-5.20) 10*6/uL Hgb 7.8 L (12.0-15.0) g/dL Hct 24.5 L (37.2-46.3) % MCHC 31.8 L (32.0-37.0) g/dL RDW 21.2 H (11.5-14.5) % Potassium 3.4 L (3.5-5.1) mmol/L BUN <2 L (7-17) mg/dL Calcium 8.0 L (8.4-10.2) mg/dL Microbiology - Last 24 Hours (Table) 05/26/25 10:53 Blood Culture - Preliminary Blood Assessment and Plan (1) Swelling of lower extremity Current Visit: Yes Status: Acute Code(s): M79.89 - OTHER SPECIFIED SOFT TISSUE DISORDERS SNOMED Code(s): 686027662 (2) MRSA bacteremia Current Visit: No Status: Acute Code(s): R78.81 - BACTEREMIA; B95.62 - METHICILLIN RESIS STAPH INFCT CAUSING DISEASES CLASSD [facility] SNOMED Code(s): 74900990417931606 (3) Septic phlebitis of upper extremity Current Visit: Yes Status: Acute Code(s): I80.8 - PHLEBITIS AND THROMBOPHLEBITIS OF OTHER SITES SNOMED Code(s): 27268182 Plan: 1patient with recent admission to the hospital and patient did have an episode of septic thrombophlebitis to the left upper extremity and MRSA bacteremia blood culture repeat on 05/10/2025 were negative and the patient has received 2 weeks of vancomycin pharmacy to dose, as there was evidence of SVT no DVT and patient cleared bacteremia within 48 hours duration of antibiotic will be 4 weeks per IDSA guidelines 2-patient blood care repeat has been negative did have significant elevated vancomycin trough, vancomycin dose has been adjusted creatinine is currently normal we will watch her kidney function closely continue with the vancomycin to finish her course of therapy Dictation was produced using [employer] software. please excuse any grammatical, word or spelling errors.
[2025-05-29] MEDS: LOSARTAN 50 MG TAB PO SCH (15:32)
[2025-05-30 06:00] LABS: Basophils # (A) 0.04 10*3/uL (0.00-0.10); Basophils % (A) 0.9 %; Eosinophils # (A) 0.23 10*3/uL (0.04-0.35); Eosinophils % (A) 5.2 %; HCT 23.3 % (37.2-46.3); HGB 7.6 g/dL (12.0-15.0); Lymphocytes # (A) 1.45 10*3/uL (0.90-5.00); Lymphocytes % (A) 33.0 %; MCH 27.4 pg (27.0-32.0); MCHC 32.6 g/dL (32.0-37.0); MCV 84.1 fL (80.0-97.0); Monocytes # (A) 0.46 10*3/uL (0.20-1.00); Monocytes % (A) 10.5 %; Neutrophils # (A) 2.21 10*3/uL (1.80-7.70); Neutrophils % (A) 50.2 %; Platelet Count 168 10*3/uL (140-440); RBC 2.77 10*6/uL (4.10-5.20); RDW 20.9 % (11.5-14.5); WBC 4.40 10*3/uL (4.50-10.00)
[2025-05-30 06:20] LABS: African American GFR (CKD) 79 (>60 ml/min/1.73 sqM); Anion Gap 5 mmol/L; Blood Urea Nitrogen 2 mg/dL (7-17); Calcium 8.0 mg/dL (8.4-10.2); Carbon Dioxide 31 mmol/L (22-30); Chloride 103 mmol/L (98-107); Glucose 72 mg/dL (74-99); Non-African American GFR(CKD) 68 (>60 ml/min/1.73 sqM); Potassium 3.6 mmol/L (3.5-5.1); Sodium 139 mmol/L (137-145)
[2025-05-30] MEDS: VANCOMYCIN 1,250 MG in SODIUM CHLORIDE 0.9% 250 ML IVPB SCH (09:12)
[2025-05-30 09:23] LABS: Iron 25 UG/DL (50-170); Total Iron Binding Capacity 99 UG/DL (228-460); Vitamin B12 1091.0 pg/mL (200.0-944.0)
--- NOTE | 2025-05-30 10:56 | P.PN ---
Subjective Subjective: 54-year-old female with multiple comorbidities including sleeve gastrectomy in December 2024, esophageal dysmotility, diastolic CHF, asthma, COPD, diabetes mellitus, sleep apnea on CPAP, hypertension, with recent admission to the hospit al predominantly with GI symptoms and sepsis secondary to left arm septic thrombophlebitis with MRSA bacteremia as well as DVT presented to the hospital with complaints of bilateral lower leg 2 days after discharge and generalized weakness. Patient reports an increase in leg swelling 2 days postdischarge resulting in difficulty to mobilize. She reports associated shortness of breath that progressively worsened over the past few days. Patient reports orthopnea and diarrheal episodes for the last week. Patient reports continuous nausea with 1 episode of vomiting yesterday morning. Patient reports lightheadedness on standing, and generalized weakness on mobility. Patient denies chest pain, cough, fevers or rigors. Of note patient reports numbness in her lower abdomen which progressively worsened with the onset of leg swelling, however denies any loss of power or weakness as well as urinary or bowel symptoms. Patient currently receiving vancomycin twice daily as outpatient. In the ER, lab work significant for potassium 2.2, sodium 140, glucose 69, white blood cells 5.54, hemoglobin 8.5, creatinine 0.76. A venous Doppler of left lower extremity performed ruled out deep venous thrombosis indicating normal flow compressibility and vascular waveforms. An EKG obtained reports sinus rhythm heart rate 71 with [place] interval 139 QT 422 QTc 444. Patient received magnesium IV and placed on magnesium supplements for hypomagnesemia correction. Patient admitted as inpatient and infectious disease on consult. 05/27: Patient seen at bedside. Complains of persistent nausea with 2 episodes of vomiting. 2 episodes of diarrhea overnight. Patient received potassium supplementation overnight. Currently potassium of 3.6. Hemodynamically stable. 05/28: Patient seen at bedside. Reports 4 episodes of vomiting and 2 episodes of diarrhea overnight. Denies hematochezia, hemoptysis, dark tarry stools. Reports persistent nausea. Persistent bipedal edema, placed on a one-time furosemide 40. 05/29: Patient seen at bedside. Reports 2 bowel movements overnight that were not loose. Reports not feeling well, with persistent nausea. Denies vomiting. Persistent bipedal edema,, slightly better than yesterday. Currently potassium of 3.4, this has been repleted. 05/30: Patient seen at bedside no overnight events, patient is still feeling weak but does not endorse significant nausea compared to previous. Patient reports lower extremity static feeling subjectively Pertinent positives and negatives discussed above, a complete review of systems was preformed and all the other systems were negative. Vitals Signs Reviewed. PHYSICAL EXAMINATION: GENERAL: The patient is alert and oriented x3, not in any acute distress. Well developed, well nourished. HEENT: Pupils are round and equally reacting to light. EOMI. No scleral icterus. No conjunctival pallor. Normocephalic, atraumatic. CARDIOVASCULAR: S1 and S2 present. PULMONARY: Decreased breath sounds bilateraly but clear to auscultation. No wheezing or crackles ABDOMEN: soft, central abdomen tenderness on palpation. EXTREMITIES: Non-pitting edema bilaterally extending up to hip joins NEUROLOGICAL: Gross neurological examination did not reveal any focal deficits. lower extremity Sensation intact SKIN: No rashes. Data Reviewed Today: 05/29/2025 Patient Labs: WBC 4.28, hemoglobin 7.8, sodium 139, potassium 3.4, creatinine 0.91 magnesium 1.6. Imaging: X-ray abdomennonspecific bowel gas pattern without radiographic evidence of acute process. Assessment and Plan: #Bilateral lower extremity swelling #Right lower extremity DVT received furosemide yesterday. Ultrasound Doppler, ruled out DVT in the left leg Continue apixaban twice daily #Hypokalemia #Mild hypertension potassium significantly improved K 3.6, continue to monitor. Seen by nephrology, recommended to follow-up urine potassium levelsurine po tassium 19.3. Discontinued Florinef and midodrine as per nephrology Nephrology on consult, appreciate further recommendations. Monitor BMP daily #Left upper extremity thrombophlebitis #MRSA bacteremia Blood cultures negative with previous blood cultures positive for MRSA on 05/08. Patient on antibiotic treatment as per ID. Continue IV vancomycin until 06/07/2025. ID on consult, appreciate recommendations #Nausea and vomiting #Diarrhea Pending C. difficile cultures/PCR #Mild protein malnutrition #Lower extremity paresthesia - monitor albumin daily - started ensure B12, folate, TSH Chronic conditions: #Anemia Monitor CBC Transfuse if hemoglobin less than 7 #History of diastolic CHF #COPD/asthma #Hyperlipidemia Continue home medications DVT ppx:Apixaban GI ppx: protonix 40 BID Code Status: full Dictation was produced using [employer] software. please excuse any grammatical, word or spelling errors. Objective - Vital Signs Vital signs: Vital Signs Temp 98.1 F 05/30/25 08:00 Pulse 105 H 05/30/25 08:00 Resp 16 05/30/25 08:00 BP 148/83 05/30/25 08:00 Pulse Ox 95 05/30/25 08:00 FiO2 Intake & Output 05/29/25 05/30/25 05/30/25 18:59 06:59 18:59 Intake Total 640 Balance 640 Intake: Oral 640 Other: Voiding Method Toilet # Voids 2 1 # Bowel Movements 1 - Labs CBC & Chem 7: 05/30/25 05:13 05/30/25 05:16 Labs: Abnormal Lab Results - Last 24 Hours (Table) 05/30/25 05/30/25 Range/Units 05:13 05:16 WBC 4.40 L (4.50-10.00) 10*3/uL RBC 2.77 L (4.10-5.20) 10*6/uL Hgb 7.6 L (12.0-15.0) g/dL Hct 23.3 L (37.2-46.3) % RDW 20.9 H (11.5-14.5) % Carbon Dioxide 31 H (22-30) mmol/L BUN 2 L (7-17) mg/dL Glucose 72 L (74-99) mg/dL Calcium 8.0 L (8.4-10.2) mg/dL Iron 25 L (50-170) UG/DL TIBC 99 L (228-460) UG/DL Transferrin 71.0 L (204.0-354.0) mg/dL Vitamin B12 1091.0 H (200.0-944.0) pg/mL Microbiology - Last 24 Hours (Table) 05/26/25 10:53 Blood Culture - Preliminary Blood
--- NOTE | 2025-05-30 17:57 | P.PN ---
Subjective Progress Note Date: 05/30/25 Principal diagnosis: Reason for follow-up is complicated MRSA bacteremia Patient is a 54-year-old -[place] female with multiple comorbidities including Asthma, Chest Pain / Angina, COPD, Diabetes Mellitus, GERD/Reflux, Hypertension, Osteoarthritis (OA), Pneumonia, Sleep Apnea/CPAP/BIPAP with recent admission to the hospital predominantly with GI symptoms at that also developed sepsis secondary to left arm septic thrombophlebitis with MRSA bacteremia now present to the hospital with lower extremity swelling. On today's evaluation that is 05/30/2025, Patient is afebrile patient is currently on room air and denies having any shortness of breath, the patient denies any chest pain or cough, the patient did have an episode of vomiting yesterday but not today no abdominal pain did have some diarrhea no pain in the left upper extremity. The patient white count is 4.40, creatinine 0.94 blood culture this admission remains to be negative Objective - Vital Signs Vital signs: Vital Signs Temp 98.1 F 05/30/25 08:00 Pulse 105 H 05/30/25 08:00 Resp 16 05/30/25 08:00 BP 148/83 05/30/25 08:00 Pulse Ox 95 05/30/25 08:00 FiO2 Intake & Output 05/29/25 05/30/25 05/30/25 18:59 06:59 18:59 Intake Total 640 Balance 640 Intake: Oral 640 Other: Voiding Method Toilet # Voids 2 1 # Bowel Movements 1 - Exam GENERAL DESCRIPTION: Middle-age female lying in bed in no distress RESPIRATORY SYSTEM: Unlabored breathing , decreased breath sounds at bases HEART: S1 S2 regular rate and rhythm , ABDOMEN: Soft , no tenderness EXTREMITIES: 2+ edema feet - Labs CBC & Chem 7: 05/30/25 05:13 05/30/25 05:16 Labs: Abnormal Lab Results - Last 24 Hours (Table) 05/30/25 05/30/25 Range/Units 05:13 05:16 WBC 4.40 L (4.50-10.00) 10*3/uL RBC 2.77 L (4.10-5.20) 10*6/uL Hgb 7.6 L (12.0-15.0) g/dL Hct 23.3 L (37.2-46.3) % RDW 20.9 H (11.5-14.5) % Carbon Dioxide 31 H (22-30) mmol/L BUN 2 L (7-17) mg/dL Glucose 72 L (74-99) mg/dL Calcium 8.0 L (8.4-10.2) mg/dL Iron 25 L (50-170) UG/DL TIBC 99 L (228-460) UG/DL Transferrin 71.0 L (204.0-354.0) mg/dL Vitamin B12 1091.0 H (200.0-944.0) pg/mL Microbiology - Last 24 Hours (Table) 05/26/25 10:53 Blood Culture - Preliminary Blood Assessment and Plan (1) Swelling of lower extremity Current Visit: Yes Status: Acute Code(s): M79.89 - OTHER SPECIFIED SOFT TISSUE DISORDERS SNOMED Code(s): 546935147 (2) MRSA bacteremia Current Visit: No Status: Acute Code(s): R78.81 - BACTEREMIA; B95.62 - METHICILLIN RESIS STAPH INFCT CAUSING DISEASES [facility] SNOM[facility] Code(s): 96917177224328251 (3) Septic phlebitis of upper extremity Current Visit: Yes Status: Acute Code(s): I80.8 - PHLEBITIS AND THROMBOPHLEBITIS OF OTHER SITES SNOMED Code(s): 96826345 Plan: 1patient with recent admission to the hospital and patient did have an episode of septic thrombophlebitis to the left upper extremity and MRSA bacteremia blood culture repeat on 05/10/2025 were negative and the patient has received 2 weeks of vancomycin pharmacy to dose, as there was evidence of SVT no DVT and patient cleared bacteremia within 48 hours duration of antibiotic will be 4 weeks per IDSA guidelines 2-patient blood care repeat has been negative patient creatinine remains to be stable Vanco dose has been adjusted to continue through the of this month to finish her course of therapy Dictation was produced using [employer] dictation software. please excuse any grammatical, word or spelling errors. Time with Patient: Less than 30
[2025-05-31 03:40] LABS: ALT <6 U/L (4-34); AST 16 U/L (14-36); African American GFR (CKD) 76 (>60 ml/min/1.73 sqM); Albumin 2.0 g/dL (3.5-5.0); Albumin/Globulin Ratio 0.8; Alkaline Phosphatase 84 U/L (38-126); Anion Gap 4 mmol/L; Blood Urea Nitrogen 4 mg/dL (7-17); Calcium 8.1 mg/dL (8.4-10.2); Carbon Dioxide 30 mmol/L (22-30); Chloride 104 mmol/L (98-107); Globulin 2.5 g/dL; Glucose 74 mg/dL (74-99); Non-African American GFR(CKD) 66 (>60 ml/min/1.73 sqM); Potassium 3.4 mmol/L (3.5-5.1); Sodium 138 mmol/L (137-145); Total Protein 4.5 g/dL (6.3-8.2)
[2025-05-31 07:46] LABS: Basophils # (A) 0.03 X 10*3/uL (0.00-0.10); Basophils % (A) 0.7 %; Eosinophils # (A) 0.24 X 10*3/uL (0.04-0.35); Eosinophils % (A) 5.6 %; HCT 24.4 % (37.2-46.3); HGB 7.4 g/dL (12.0-15.0); Immature Grans, Automated 0.20 %; Lymphocytes # (A) 1.46 X 10*3/uL (0.90-5.00); Lymphocytes % (A) 33.8 %; MCH 26.6 pg (27.0-32.0); MCHC 30.3 g/dL (32.0-37.0); MCV 87.8 FL (80.0-97.0); Monocytes # (A) 0.45 X 10*3/uL (0.20-1.00); Monocytes % (A) 10.4 %; NRBC Per 100 WBC 0 X 10*3/uL (0.00-0.01); Neutrophils # (A) 2.13 X 10*3/uL (1.80-7.70); Neutrophils % (A) 49.3 %; Platelet Count 186 X 10*3/uL (140-440); RBC 2.78 X 10*6/uL (4.10-5.20); RDW 21.2 % (11.5-14.5); WBC 4.32 X 10*3/uL (4.50-10.00)
[2025-05-31] MEDS: POTASSIUM CHLORIDE ER 20 MEQ TAB.ER PO STA (08:41)
[2025-05-31] MEDS: FUROSEMIDE 10 MG/ML 4 ML VIAL IV STA (15:44)
--- NOTE | 2025-05-31 16:32 | P.PN ---
Subjective Subjective: 54-year-old female with multiple comorbidities including sleeve gastrectomy in December 2024, esophageal dysmotility, diastolic CHF, asthma, COPD, diabetes mellitus, sleep apnea on CPAP, hypertension, with recent admission to the hospital predominantly with GI symptoms and sepsis secondary to left arm septic thrombophlebitis with MRSA bacteremia as well as DVT presented to the hospital with complaints of bilateral lower leg 2 days after discharge and generalized weakness. Patient reports an increase in leg swelling 2 days postdischarge resulting in difficulty to mobilize. She reports associated shortness of breath that progressively worsened over the past few days. Patient reports orthopnea and diarrheal episodes for the last week. Patient reports continuous nausea with 1 episode of vomiting yesterday morning. Patient reports lightheadedness on standing, and generalized weakness on mobility. Patient denies chest pain, cough, fevers or rigors. Of note patient reports numbness in her lower abdomen which progressively worsened with the onset of leg swelling, however denies any loss of power or weakness as well as urinary or bowel symptoms. Patient currently receiving vancomycin twice daily as outpatient. In the ER, lab work significant for potassium 2.2, sodium 140, glucose 69, white blood cells 5.54, hemoglobin 8.5, creatinine 0.76. A venous Doppler of left lower extremity performed ruled out deep venous thrombosis indicating normal flow compressibility and vascular waveforms. An EKG obtained reports sinus rhythm heart rate 71 with [place] interval 139 QT 422 QTc 444. Patient received magnesium IV and placed on magnesium supplements for hypomagnesemia correction. Patient admitted as inpatient and infectious disease on consult. 05/27: Patient seen at bedside. Complains of persistent nausea with 2 episodes of vomiting. 2 episodes of diarrhea overnight. Patient received potassium supplementation overnight. Currently potassium of 3.6. Hemodynamically stable. 05/28: Patient seen at bedside. Reports 4 episodes of vomiting and 2 episodes of diarrhea overnight. Denies hematochezia, hemoptysis, dark tarry stools. Reports persistent nausea. Persistent bipedal edema, placed on a one-time furosemide 40. 05/29: Patient seen at bedside. Reports 2 bowel movements overnight that were not loose. Reports not feeling well, with persistent nausea. Denies vomiting. Persistent bipedal edema,, slightly better than yesterday. Currently potassium of 3.4, this has been repleted. 05/30: Patient seen at bedside no overnight events, patient is still feeling weak but does not endorse significant nausea compared to previous. Patient reports lower extremity static feeling subjectively. 05/31: Patient seen at bedside. Reports feeling generalized weakness, endorses persistent nausea but no vomiting. Reports left arm increase in swelling. Vitally stable. Pertinent positives and negatives discussed above, a complete review of systems was preformed and all the other systems were negative. Vitals Signs Reviewed. PHYSICAL EXAMINATION: GENERAL: The patient is alert and oriented x3, not in any acute distress. Well developed, well nourished. HEENT: Pupils are round and equally reacting to light. EOMI. No scleral icterus. No conjunctival pallor. Normocephalic, atraumatic. CARDIOVASCULAR: S1 and S2 present. PULMONARY: Decreased breath sounds bilateraly but clear to auscultation. No wheezing or crackles ABDOMEN: soft, central abdomen tenderness on palpation. EXTREMITIES: Non-pitting edema bilaterally extending up to hip joins NEUROLOGICAL: Gross neurological examination did not reveal any focal deficits. SKIN: No rashes. Data Reviewed Today: 05/31/2025 Patient Labs: WBC 4.32, hemoglobin 7.4, sodium 138, potassium 3.4/ Imaging: No new images Assessment and Plan: #Bilateral lower extremity swelling #Right lower extremity DVT IV furosemide 40 stat today for pedal edema. Ultrasound Doppler, ruled out DVT in the left leg Continue apixaban twice daily #Hypokalemia #Mild hypertension K3.4, repleted potassium today. Seen by nephrology, recommended to follow-up urine potassium levelsurine potassium 19.3. Discontinued Florinef and midodrine as per nephrology Nephrology on consult, appreciate further recommendations. Monitor BMP daily #Left upper extremity thrombophlebitis #MRSA bacteremia Blood cultures negative with previous blood cultures positive for MRSA on 05/08. Patient on antibiotic treatment as per ID. Continue IV vancomycin until 06/07/2025. ID on consult, appreciate recommendations #Nausea and vomiting #Diarrhea Pending C. difficile cultures/PCR #Mild protein malnutrition - monitor albumin daily - started ensure Chronic conditions: #Anemia Monitor CBC Transfuse if hemoglobin less than 7 #History of diastolic CHF #COPD/asthma #Hyperlipidemia Continue home medications DVT ppx:Apixaban GI ppx: protonix 40 BID Code Status: full Dictation was produced using [employer] software. please excuse any grammatical, word or spelling errors. Iam Nezafat, MD PGY1 Internal Medicine Objective - Vital Signs Vital signs: Vital Signs Temp 98.1 F 05/31/25 14:50 Pulse 88 05/31/25 14:50 Resp 16 05/31/25 14:50 BP 171/98 05/31/25 14:50 Pulse Ox 96 05/31/25 14:50 FiO2 Intake & Output 05/30/25 05/31/25 05/31/25 18:59 06:59 18:59 Intake Total 200 Balance 200 Intake: Oral 200 Other: Voiding Method Toilet Toilet # Voids 4 1 1 # Bowel Movements 1 - Labs CBC & Chem 7: 05/31/25 02:46 05/31/25 02:46 Labs: Abnormal Lab Results - Last 24 Hours (Table) 05/31/25 05/31/25 Range/Units 02:46 02:46 WBC 4.32 L (4.50-10.00) X 10*3/uL RBC 2.78 L (4.10-5.20) X 10*6/uL Hgb 7.4 L (12.0-15.0) g/dL Hct 24.4 L (37.2-46.3) % MCH 26.6 L (27.0-32.0) pg MCHC 30.3 L (32.0-37.0) g/dL RDW 21.2 H (11.5-14.5) % Potassium 3.4 L (3.5-5.1) mmol/L BUN 4 L (7-17) mg/dL Calcium 8.1 L (8.4-10.2) mg/dL Total Protein 4.5 L (6.3-8.2) g/dL Albumin 2.0 L (3.5-5.0) g/dL
--- NOTE | 2025-05-31 22:18 | P.PN ---
Subjective Progress Note Date: 05/31/25 Principal diagnosis: Reason for follow-up is complicated MRSA bacteremia Patient is a 54-year-old -[place] female with multiple comorbidities including Asthma, Chest Pain / Angina, COPD, Diabetes Mellitus, GERD/Reflux, Hypertension, Osteoarthritis (OA), Pneumonia, Sleep Apnea/CPAP/BIPAP with recent admission to the hospital predominantly with GI symptoms at that also developed sepsis secondary to left arm septic thrombophlebitis with MRSA bacteremia now present to the hospital with lower extremity swelling. On today's evaluation that is 05/31/2025, patient has been afebrile, patient is breathing comfortably and is currently on room air, patient denies having any chest pain and cough, patient has been complaining of some nausea but no vomiting no diarrhea. Patient white count is 4.32, creatinine 0.97 Vanco random 18 blood culture negative Objective - Vital Signs Vital signs: Vital Signs Temp 98.6 F 05/31/25 07:20 Pulse 95 05/31/25 07:20 Resp 18 05/31/25 11:07 BP 137/78 05/31/25 07:20 Pulse Ox 95 05/31/25 07:20 FiO2 Intake & Output 05/30/25 05/31/25 05/31/25 18:59 06:59 18:59 Intake Total 200 Balance 200 Intake: Oral 200 Other: Voiding Method Toilet Toilet # Voids 4 1 1 # Bowel Movements 1 - Exam GENERAL DESCRIPTION: Middle-age female lying in bed in no distress RESPIRATORY SYSTEM: Unlabored breathing , decreased breath sounds at bases HEART: S1 S2 regular rate and rhythm , ABDOMEN: Soft , no tenderness EXTREMITIES: 2+ edema feet - Labs CBC & Chem 7: 05/31/25 02:46 05/31/25 02:46 Labs: Abnormal Lab Results - Last 24 Hours (Table) 05/31/25 05/31/25 Range/Units 02:46 02:46 WBC 4.32 L (4.50-10.00) X 10*3/uL RBC 2.78 L (4.10-5.20) X 10*6/uL Hgb 7.4 L (12.0-15.0) g/dL Hct 24.4 L (37.2-46.3) % MCH 26.6 L (27.0-32.0) pg MCHC 30.3 L (32.0-37.0) g/dL RDW 21.2 H (11.5-14.5) % Potassium 3.4 L (3.5-5.1) mmol/L BUN 4 L (7-17) mg/dL Calcium 8.1 L (8.4-10.2) mg/dL Total Protein 4.5 L (6.3-8.2) g/dL Albumin 2.0 L (3.5-5.0) g/dL Assessment and Plan (1) Swelling of lower extremity Current Visit: Yes Status: Acute Code(s): M79.89 - OTHER SPECIFIED SOFT TISSUE DISORDERS SNOMED Code(s): 088440643 (2) MRSA bacteremia Current Visit: No Status: Acute Code(s): R78.81 - BACTEREMIA; B95.62 - METHICILLIN RESIS STAPH IN[facility] Code(s): 13497582096808995 (3) Septic phlebitis of upper extremity Current Visit: Yes Status: Acute Code(s): I80.8 - PHLEBITIS AND THROMBOPHLEBITIS OF OTHER SITES SNOMED Code(s): 44237907 Plan: 1patient with recent admission to the hospital and patient did have an episode of septic thrombophlebitis to the left upper extremity and MRSA bacteremia blood culture repeat on 05/10/2025 were negative and the patient has received 2 weeks of vancomycin pharmacy to dose, as there was evidence of SVT no DVT and patient cleared bacteremia within 48 hours duration of antibiotic will be 4 weeks per IDSA guidelines 2-patient blood culture repeat has been negative patient creatinine remains to be stable Vanco level is therapeutic we will continue the patient on vancomycin to finish her 4-week course of therapy Dictation was produced using [employer] dictation software. please excuse any grammatical, word or spelling errors. Time with Patient: Less than 30
[2025-06-01 03:56] LABS: Basophils # (A) 0.02 10*3/uL (0.00-0.10); Basophils % (A) 0.4 %; Eosinophils # (A) 0.28 10*3/uL (0.04-0.35); Eosinophils % (A) 5.8 %; HCT 24.3 % (37.2-46.3); HGB 7.7 g/dL (12.0-15.0); Lymphocytes # (A) 1.34 10*3/uL (0.90-5.00); Lymphocytes % (A) 27.9 %; MCH 27.2 pg (27.0-32.0); MCHC 31.7 g/dL (32.0-37.0); MCV 85.9 fL (80.0-97.0); Monocytes # (A) 0.49 10*3/uL (0.20-1.00); Monocytes % (A) 10.2 %; Neutrophils # (A) 2.65 10*3/uL (1.80-7.70); Neutrophils % (A) 55.1 %; Platelet Count 182 10*3/uL (140-440); RBC 2.83 10*6/uL (4.10-5.20); RDW 21.0 % (11.5-14.5); WBC 4.81 10*3/uL (4.50-10.00)
[2025-06-01 04:54] LABS: ALT <6 U/L (4-34); AST 15 U/L (14-36); African American GFR (CKD) 71 (>60 ml/min/1.73 sqM); Albumin 2.1 g/dL (3.5-5.0); Albumin/Globulin Ratio 0.9; Alkaline Phosphatase 86 U/L (38-126); Anion Gap 5 mmol/L; Blood Urea Nitrogen 5 mg/dL (7-17); Calcium 8.0 mg/dL (8.4-10.2); Carbon Dioxide 31 mmol/L (22-30); Chloride 102 mmol/L (98-107); Globulin 2.4 g/dL; Glucose 74 mg/dL (74-99); Non-African American GFR(CKD) 62 (>60 ml/min/1.73 sqM); Potassium 3.2 mmol/L (3.5-5.1); Sodium 138 mmol/L (137-145); Total Protein 4.5 g/dL (6.3-8.2)
[2025-06-01] MEDS ORDERED: POTASSIUM CHLORIDE ER 20 MEQ TAB.ER PO SCH (08:30)
[2025-06-01] MEDS: POTASSIUM CHLORIDE ER 20 MEQ TAB.ER PO STA (08:31)
[2025-06-01 12:08] VITALS: BMI 35.9
--- NOTE | 2025-06-01 15:08 | P.PN ---
Subjective Progress Note Date: 06/01/25 Principal diagnosis: Reason for follow-up is complicated MRSA bacteremia Patient is a 54-year-old -Citizen Of [place] female with multiple comorbidities including Asthma, Chest Pain / Angina, COPD, Diabetes Mellitus, GERD/Reflux, Hypertension, Osteoarthritis (OA), Pneumonia, Sleep Apnea/CPAP/BIPAP with recent admission to the hospital predominantly with GI symptoms at that also developed sepsis secondary to left arm septic thrombophlebitis with MRSA bacteremia now present to the hospital with lower extremity swelling. On today's evaluation that is 06/01/2025, Patient is afebrile this morning patient denies having any chest pain shortness of breath or cough, the patient is currently on room air, patient complaining of nausea diarrhea and some abdominal discomfort no pain to left upper extremity. Patient white count is 4.81, creatinine 1.02 blood culture have been negative Objective - Vital Signs Vital signs: Vital Signs Temp 98.1 F 06/01/25 13:46 Pulse 93 06/01/25 13:46 Resp 18 06/01/25 13:46 BP 151/92 06/01/25 13:46 Pulse Ox 95 06/01/25 13:46 FiO2 Intake & Output 05/31/25 06/01/25 06/01/25 18:59 06:59 18:59 Intake Total 200 Balance 200 Weight 80.739 kg Intake: Oral 200 Other: Voiding Method Toilet Toilet # Voids 2 8 3 # Bowel Movements 1 - Exam GENERAL DESCRIPTION: Middle-age female lying in bed in no distress RESPIRATORY SYSTEM: Unlabored breathing , decreased breath sounds at bases HEART: S1 S2 regular rate and rhythm , ABDOMEN: Soft , no tenderness EXTREMITIES: 2+ edema feet - Labs CBC & Chem 7: 06/01/25 02:45 06/01/25 02:45 Labs: Abnormal Lab Results - Last 24 Hours (Table) 06/01/25 06/01/25 Range/Units 02:45 02:45 RBC 2.83 L (4.10-5.20) 10*6/uL Hgb 7.7 L (12.0-15.0) g/dL Hct 24.3 L (37.2-46.3) % MCHC 31.7 L (32.0-37.0) g/dL RDW 21.0 H (11.5-14.5) % Potassium 3.2 L (3.5-5.1) mmol/L Carbon Dioxide 31 H (22-30) mmol/L BUN 5 L (7-17) mg/dL Calcium 8.0 L (8.4-10.2) mg/dL Total Protein 4.5 L (6.3-8.2) g/dL Albumin 2.1 L (3.5-5.0) g/dL Microbiology - Last 24 Hours (Table) 05/26/25 10:53 Blood Culture - Final Blood Assessment and Plan (1) Swelling of lower extremity Current Visit: Yes Status: Acute Code(s): M79.89 - OTHER SPECIFIED SOFT TISSUE DISORDERS SNOMED Code(s): 763131563 (2) MRSA bacteremia Current Visit: No Status: Acute Code(s): R78.81 - BACTEREMIA; B95.62 - METHICILLIN RESIS STAPH INFCT [facility] Code(s): 46559680429578123 (3) Septic phlebitis of upper extremity Current Visit: Yes Status: Acute Code(s): I80.8 - PHLEBITIS AND THROMBOPHLEBITIS OF OTHER SITES SNOMED Code(s): 31250227 Plan: 1patient with recent admission to the hospital and patient did have an episode of septic thrombophlebitis to the left upper extremity and MRSA bacteremia blood culture repeat on 05/10/2025 were negative and the patient has received 2 weeks of vancomycin pharmacy to dose, as there was evidence of SVT no DVT and patient cleared bacteremia within 48 hours duration of antibiotic will be 4 weeks per IDSA guidelines 2-patient blood culture repeat during this admission has been negative patient creatinine remains to be stable Vanco level is therapeutic 3we will continue the patient on vancomycin to finish her 4-week course of th erapy that will be 06/07/2025 Dictation was produced using [employer] dictation software. please excuse any grammatical, word or spelling errors. Time with Patient: Less than 30
--- NOTE | 2025-06-01 15:27 | P.PN ---
Subjective Subjective: 54-year-old female with multiple comorbidities including sleeve gastrectomy in December 2024, esophageal dysmotility, diastolic CHF, asthma, COPD, diabetes mellitus, sleep apnea on CPAP, hypertension, with recent admission to the hospital predominantly with GI symptoms and sepsis secondary to left arm septic thrombophlebitis with MRSA bacteremia as well as DVT presented to the hospital with complaints of bilateral lower leg 2 days after discharge and generalized weakness. Patient reports an increase in leg swelling 2 days postdischarge resulting in difficulty to mobilize. She reports associated shortness of breath that progressively worsened over the past few days. Patient reports orthopnea and diarrheal episodes for the last week. Patient reports continuous nausea with 1 episode of vomiting yesterday morning. Patient reports lightheadedness on standing, and generalized weakness on mobility. Patient denies chest pain, cough, fevers or rigors. Of note patient reports numbness in her lower abdomen which progressively worsened with the onset of leg swelling, however denies any loss of power or weakness as well as urinary or bowel symptoms. Patient currently receiving vancomycin twice daily as outpatient. In the ER, lab work significant for potassium 2.2, sodium 140, glucose 69, white blood cells 5.54, hemoglobin 8.5, creatinine 0.76. A venous Doppler of left lower extremity performed ruled out deep venous thrombosis indicating normal flow compressibility and vascular waveforms. An EKG obtained reports sinus rhythm heart rate 71 with OR interval 139 QT 422 QTc 444. Patient received magnesium IV and placed on magnesium supplements for hypomagnesemia correction. Patient admitted as inpatient and infectious disease on consult. 05/27: Patient seen at bedside. Complains of persistent nausea with 2 episodes of vomiting. 2 episodes of diarrhea overnight. Patient received potassium supplementation overnight. Currently potassium of 3.6. Hemodynamically stable. 05/28: Patient seen at bedside. Reports 4 episodes of vomiting and 2 episodes of diarrhea overnight. Denies hematochezia, hemoptysis, dark tarry stools. Reports persistent nausea. Persistent bipedal edema, placed on a one-time furosemide 40. 05/29: Patient seen at bedside. Reports 2 bowel movements overnight that were not loose. Reports not feeling well, with persistent nausea. Denies vomiting. Persistent bipedal edema,, slightly better than yesterday. Currently potassium of 3.4, this has been repleted. 05/30: Patient seen at bedside no overnight events, patient is still feeling weak but does not endorse significant nausea compared to previous. Patient reports lower extremity static feeling subjectively. 05/31: Patient seen at bedside. Reports feeling generalized weakness, endorses persistent nausea but no vomiting. Reports left arm increase in swelling. Vitally stable. 06/01: Patient seen at bedside. Feels better today. Reports reduced lower extremity swelling however developed complaints of slight bilateral lower extremity discomfort on mobilizing. Denies nausea and vomiting. Reports decreased appetite today. Pertinent positives and negatives discussed above, a complete review of systems was preformed and all the other systems were negative. Vitals Signs Reviewed. PHYSICAL EXAMINATION: GENERAL: The patient is alert and oriented x3, not in any acute distress. Well developed, well nourished. HEENT: Pupils are round and equally reacting to light. EOMI. No scleral icterus. No conjunctival pallor. Normocephalic, atraumatic. CARDIOVASCULAR: S1 and S2 present. PULMONARY: Decreased breath sounds bilateraly but clear to auscultation. No wheezing or crackles ABDOMEN: soft, central abdomen tenderness on palpation. EXTREMITIES: +1 pitting edema NEUROLOGICAL: Gross neurological examination did not reveal any focal deficits. SKIN: No rashes. Data Reviewed Today: 06/01/2025 Patient Labs: Hemoglobin 7.7, WBC 4.8, sodium 138, potassium 3.2, albumin 2.1. Imaging: No new images Assessment and Plan: #Bilateral lower extremity swelling #Right lower extremity DVT Continue IV Dilaudid, to continue p.o. [place]. IV furosemide 40 stat yesterday for pedal edema, significant improvement of edema. Ultrasound Doppler, ruled out DVT in the left leg Continue apixaban twice daily #Hypokalemia #Mild hypertension K3.3, replete potassium today. Seen by nephrology, recommended to follow-up urine potassium levelsurine potassium 19.3. Discontinued Florinef and midodrine as per nephrology Nephrology on consult, appreciate further recommendations. Monitor BMP daily #Left upper extremity thrombophlebitis #MRSA bacteremia Blood cultures negative with previous blood cultures positive for MRSA on 05/08. Patient on antibiotic treatment as per ID. Continue IV vancomycin until 06/07/2025. ID on consult, appreciate recommendations #Nausea and vomiting #Diarrhea Pending C. difficile cultures/PCR #Mild protein malnutrition - monitor albumin daily - started ensure Chronic conditions: #Anemia Monitor CBC Transfuse if hemoglobin less than 7 #History of diastolic CHF #COPD/asthma #Hyperlipidemia Continue home medications DVT ppx:Apixaban GI ppx: protonix 40 BID Code Status: full Dictation was produced using [employer] dictation software. please excuse any grammatical, word or spelling errors. Dispo: Tomorrow to home. Iam Smith MD PGY1 Internal Medicine Objective - Vital Signs Vital signs: Vital Signs Temp 98.2 F 06/01/25 07:28 Pulse 97 06/01/25 07:28 Resp 18 06/01/25 07:28 BP 152/80 06/01/25 07:28 Pulse Ox 90 L 06/01/25 07:28 FiO2 Intake & Output 05/31/25 06/01/25 06/01/25 18:59 06:59 18:59 Intake Total 200 Balance 200 Intake: Oral 200 Other: Voiding Method Toilet Toilet # Voids 2 8 # Bowel Movements 1 - Labs CBC & Chem 7: 06/01/25 02:45 06/01/25 02:45 Labs: Abnormal Lab Results - Last 24 Hours (Table) 06/01/25 06/01/25 Range/Units 02:45 02:45 RBC 2.83 L (4.10-5.20) 10*6/uL Hgb 7.7 L (12.0-15.0) g/dL Hct 24.3 L (37.2-46.3) % MCHC 31.7 L (32.0-37.0) g/dL RDW 21.0 H (11.5-14.5) % Potassium 3.2 L (3.5-5.1) mmol/L Carbon Dioxide 31 H (22-30) mmol/L BUN 5 L (7-17) mg/dL Calcium 8.0 L (8.4-10.2) mg/dL Total Protein 4.5 L (6.3-8.2) g/dL Albumin 2.1 L (3.5-5.0) g/dL Microbiology - Last 24 Hours (Table) 05/26/25 10:53 Blood Culture - Final Blood
[2025-06-01] MEDS: MORPHINE SULFATE 2 MG/ML SYRINGE IVP PRN (18:39)
[2025-06-02 00:39] LABS: African American GFR (CKD) 84 (>60 ml/min/1.73 sqM); Non-African American GFR(CKD) 73 (>60 ml/min/1.73 sqM)
[2025-06-02] MEDS: VANCOMYCIN TROUGH DUE 1 EACH MISC MISCELLANE ONE (01:25)
[2025-06-02 06:49] LABS: Basophils # (A) 0.01 10*3/uL (0.00-0.10); Basophils % (A) 0.2 %; Eosinophils # (A) 0.28 10*3/uL (0.04-0.35); Eosinophils % (A) 6.5 %; HCT 24.3 % (37.2-46.3); HGB 7.7 g/dL (12.0-15.0); Lymphocytes # (A) 1.46 10*3/uL (0.90-5.00); Lymphocytes % (A) 34.0 %; MCH 27.0 pg (27.0-32.0); MCHC 31.7 g/dL (32.0-37.0); MCV 85.3 fL (80.0-97.0); Monocytes # (A) 0.44 10*3/uL (0.20-1.00); Monocytes % (A) 10.3 %; Neutrophils # (A) 2.09 10*3/uL (1.80-7.70); Neutrophils % (A) 48.8 %; Platelet Count 163 10*3/uL (140-440); RBC 2.85 10*6/uL (4.10-5.20); RDW 20.3 % (11.5-14.5); WBC 4.29 10*3/uL (4.50-10.00)
[2025-06-02 07:06] LABS: ALT <6 U/L (4-34); AST 16 U/L (14-36); African American GFR (CKD) 80 (>60 ml/min/1.73 sqM); Albumin 2.2 g/dL (3.5-5.0); Albumin/Globulin Ratio 0.9; Alkaline Phosphatase 85 U/L (38-126); Anion Gap 4 mmol/L; Blood Urea Nitrogen 5 mg/dL (7-17); Calcium 8.1 mg/dL (8.4-10.2); Carbon Dioxide 30 mmol/L (22-30); Chloride 106 mmol/L (98-107); Globulin 2.5 g/dL; Glucose 75 mg/dL (74-99); Non-African American GFR(CKD) 69 (>60 ml/min/1.73 sqM); Potassium 3.3 mmol/L (3.5-5.1); Sodium 140 mmol/L (137-145); Total Protein 4.7 g/dL (6.3-8.2)
[2025-06-02 07:25] VITALS: BP 155/91; PULSE 93; RESP 17; TEMP 97.9
[2025-06-02] MEDS: POTASSIUM CHLORIDE ER 20 MEQ TAB.ER PO STA (10:27)
--- NOTE | 2025-06-02 17:23 | P.DS ---
Providers Date of admission: 05/25/25 13:32 Attending physician: Irineo Scruggs MD Consults: 05/25/25 14:52 Consult Physician Stat Consulting Provider: Cecilia Barillas Consult Reason/Comments: MRSA Do you want consulting provider notified?: Yes 05/25/25 15:08 Consult Physician Routine Consulting Provider: Edy Hernandez Consult Reason/Comments: Hypokalemia Do you want consulting provider notified?: Yes Primary care physician: Brigette Mustafa Hospital Course: Discharge Diagnosis: #Bilateral lower extremity swelling #Hypokalemia #Nausea and vomiting #Anemia Hospital Course: 54-year-old female with multiple comorbidities including sleeve gastrectomy in December 2024, esophageal dysmotility, diastolic CHF, asthma, COPD, diabetes mellitus, sleep apnea on CPAP, hypertension, with recent admission to the hospital predominantly with GI symptoms and sepsis secondary to left arm septic thrombophlebitis with MRSA bacteremia as well as DVT presented to the hospital with complaints of bilateral lower leg 2 days after discharge and generalized weakness. Patient reports an increase in leg swelling 2 days postdischarge resulting in difficulty to mobilize. She reports associated shortness of breath that progressively worsened over the past few days. Patient reports orthopnea and diarrheal episodes for the last week. Patient reports continuous nausea with 1 episode of vomiting yesterday morning. Patient reports lightheadedness on standing, and generalized weakness on mobility. Patient denies chest pain, cough, fevers or rigors. Of note patient reports numbness in her lower abdomen which progressively worsened with the onset of leg swelling, however denies any loss of power or weakness as well as urinary or bowel symptoms. Patient currently receiving vancomycin twice daily as outpatient. In the ER, lab work significant for potassium 2.2, sodium 140, glucose 69, white blood cells 5.54, hemoglobin 8.5, creatinine 0.76. A venous Doppler of left lower extremity performed ruled out deep venous thrombosis indicating normal flow compressibility and vascular waveforms. An EKG obtained reports sinus rhythm heart rate 71 with SD interval 139 QT 422 QTc 444. Patient received magnesium IV and placed on magnesium supplements for hypomagnesemia correction. Patient admitted as inpatient and infectious disease on consult. During the course of her hospital stay, patient seen and evaluated by nephrology and infectious disease. A venous Doppler ultrasound of the left leg obtained indicated no evidence of deep vein thrombosis. Severe hyperkalemia corrected and monitored. Patient given multiple stat doses of furosemide for lower extremity edema correction. Medications optimized and modified. Florinef and midodrine discontinued. At time of discharge, patient hemodynamically stable for discharge home. Patient will be discharged on IV vancomycin and Losartan as outpatient. Patient to follow-up with infectious disease and PCP in 1 week's time. Pt seen and examined at bedside: 06/02/2025 Vital signs reviewed and stable: PHYSICAL EXAMINATION: GENERAL: The patient is alert and oriented x3, not in any acute distress. Well developed, well nourished. HEENT: Pupils are round and equally reacting to light. EOMI. No scleral icterus. No conjunctival pallor. Normocephalic, atraumatic. CARDIOVASCULAR: S1 and S2 present. PULMONARY: Decreased breath sounds bilateraly but clear to auscultation. No wheezing or crackles ABDOMEN: soft, central abdomen tenderness on palpation. EXTREMITIES: Non-pitting edema bilaterally extending up to hip joins NEUROLOGICAL: Gross neurological examination did not reveal any focal deficits. SKIN: No rashes. A total of greater than 30 minutes were spent preparing this complex discharge summary. Patient was discharged on 06/02/2025. Patient Condition at Discharge: Fair Plan - Discharge Summary Discharge Rx Participant: No New Discharge Prescriptions: New Losartan [Cozaar] 50 mg PO DAILY 30 Days #30 tab HYDROcodone/APAP 5-325MG [[place] 5-325] 1 tab PO Q8HR PRN 3 Days #9 tab PRN Reason: Pain Continue Fluticasone/Umeclidin/Vilanter [Trelegy Ellipta 100-62.5-25] 1 puff INHALATION RT-HS Montelukast [Singulair] 1 tab PO HS Apixaban [Eliquis] 5 mg PO BID 14 Days #28 tab Vancomycin 10gm Recon Soln 1 dose IV Q12H QUEtiapine FUMARATE [SEROquel] 200 mg PO HS Magnesium Oxide [Mag-Ox] 400 mg PO BID #60 tab Metoclopramide HCl [Reglan] 5 mg PO TID PRN #45 tablet PRN Reason: Nausea DULoxetine HCL [Cymbalta] 60 mg PO DAILY Ondansetron Odt [Zofran ODT] 4 mg PO Q8HR PRN PRN Reason: Nausea And Vomiting Discontinued Fludrocortisone [Florinef] 0.1 mg PO BID #60 tab Midodrine [ProAmatine] 5 mg PO BID Discharge Medication List Fluticasone/Umeclidin/Vilanter [Trelegy Ellipta 100-62.5-25] 1 puff INHALATION RT-HS 08/17/24 [History] Montelukast [Singulair] 1 tab PO HS 08/17/24 [History] QUEtiapine FUMARATE [SEROquel] 200 mg PO HS 03/29/25 [History] Magnesium Oxide [Mag-Ox] 400 mg PO BID #60 tab 04/06/25 [Rx] Metoclopramide HCl [Reglan] 5 mg PO TID PRN #45 tablet 04/06/25 [Rx] Apixaban [Eliquis] 5 mg PO BID 14 Days #28 tab 05/19/25 [Rx] DULoxetine HCL [Cymbalta] 60 mg PO DAILY 05/25/25 [History] Ondansetron Odt [Zofran ODT] 4 mg PO Q8HR PRN 05/25/25 [History] Vancomycin 10gm Recon Soln 1 dose IV Q12H 05/25/25 [History] HYDROcodone/APAP 5-325MG [[place] 5-325] 1 tab PO Q8HR PRN 3 Days #9 tab 06/02/25 [Rx] Losartan [Cozaar] 50 mg PO DAILY 30 Days #30 tab 06/02/25 [Rx] Follow up Appointment(s)/Referral(s): [facility], [NON-STAFF] - As Needed Brigette Mustafa MD [Primary Care Provider] - 1-2 Days (office not answering Please call to schedule appointment ) [facility], [REFERRING] - As Needed Patient Instructions/Handouts: Vancomycin (By injection), Hypokalemia (DC), Hypotension (DC) Discharge/Stand Alone Forms: Work/School Release Discharge Disposition: HOME WITH HOME HEALTH SERVICES
[2025-06-03] MEDS ORDERED: VANCOMYCIN 1,250 MG in SODIUM CHLORIDE 0.9% 250 ML IVPB SCH
--- NOTE | 2025-06-03 14:23 | P.PN ---
Subjective Progress Note Date: 06/02/25 Principal diagnosis: Reason for follow-up is complicated MRSA bacteremia Patient is a 54-year-old -[place] Citizen female with multiple comorbidities including Asthma, Chest Pain / Angina, COPD, Diabetes Mellitus, GERD/Reflux, Hypertension, Osteoarthritis (OA), Pneumonia, Sleep Apnea/CPAP/BIPAP with recent admission to the hospital predominantly with GI symptoms at that also developed sepsis secondary to left arm septic thrombophlebitis with MRSA bacteremia now present to the hospital with lower extremity swelling. On today's evaluation that is 06/02/2025,the patient denies any fever or any chills, patient is breathing comfortably on room air, the patient denies chest pain shortness of breath and no significant cough, patient still complaining of some nausea no vomiting abdominal pain or diarrhea. Patient white count is 4.29, creatinine 0.93 blood culture negative Objective - Vital Signs Vital signs: Vital Signs Temp 97.9 F 06/02/25 07:23 Pulse 93 06/02/25 07:23 Resp 17 06/02/25 07:23 BP 155/91 06/02/25 07:23 Pulse Ox 94 L 06/02/25 07:23 FiO2 Intake & Output 06/01/25 06/02/25 06/02/25 18:59 06:59 18:59 Weight 80.739 kg Other: Voiding Method Toilet # Voids 4 2 - Exam GENERAL DESCRIPTION: Middle-age female lying in bed in no distress RESPIRATORY SYSTEM: Unlabored breathing , decreased breath sounds at bases HEART: S1 S2 regular rate and rhythm , ABDOMEN: Soft , no tenderness EXTREMITIES: 2+ edema feet - Labs CBC & Chem 7: 06/02/25 06:30 06/02/25 06:30 Labs: Abnormal Lab Results - Last 24 Hours (Table) 06/02/25 06/02/25 Range/Units 06:30 06:30 WBC 4.29 L (4.50-10.00) 10*3/uL RBC 2.85 L (4.10-5.20) 10*6/uL Hgb 7.7 L (12.0-15.0) g/dL Hct 24.3 L (37.2-46.3) % MCHC 31.7 L (32.0-37.0) g/dL RDW 20.3 H (11.5-14.5) % Potassium 3.3 L (3.5-5.1) mmol/L BUN 5 L (7-17) mg/dL Calcium 8.1 L (8.4-10.2) mg/dL Total Protein 4.7 L (6.3-8.2) g/dL Albumin 2.2 L (3.5-5.0) g/dL Assessment and Plan (1) Swelling of lower extremity Status: Acute Code(s): M79.89 - OTHER SPECIFIED SOFT TISSUE DISORDERS SNOMED Code(s): 336298886 (2) MRSA bacteremia Status: Acute Code(s): R78.81 - BACTEREMIA; B95.62 - METHICILLIN RESIS STAPH INFCT CAUSING DISEASES CLASSD [facility] SNOMED Code(s): 03059465988065562 (3) Septic phlebitis of upper extremity Status: Acute Code(s): I80.8 - PHLEBITIS AND THROMBOPHLEBITIS OF OTHER SITES SNOMED Code(s): 71025136 Plan: 1patient with recent admission to the hospital and patient did have an episode of septic thrombophlebitis to the left upper extremity and MRSA bacteremia blood culture repeat on 05/10/2025 were negative and the patient has received 2 weeks of vancomycin pharmacy to dose, as there was evidence of SVT no DVT and patient cleared bacteremia within 48 hours duration of antibiotic will be 4 weeks per IDSA guidelines 2-patient blood culture repeat during this admission has been negative patient creatinine remains to be stable Vanco level is therapeutic 3patient remains to be afebrile blood culture repeat has been negative creatinine is normal vancomycin dosing adjusted to continue with the last dose of antibiotic will be 06/07/2025 and PICC line can be discontinued afterwards Dictation was produced using [employer] software. please excuse any grammatical, word or spelling errors. Time with Patient: Less than 30
== END 2025-06-02 13:07 | disposition home health service (06) | DRG 556 ==
LOC: EC 10:15 → 4SSUR 13:32
PROVIDERS: ADMIT Internal Medicine; ATTEND Internal Medicine
DX: M79.89 Other specified soft tissue disorders (principal); E44.1 Mild protein-calorie malnutrition; R78.81 Bacteremia; I50.32 Chronic diastolic (congestive) heart failure; I80.8 Phlebitis and thrombophlebitis of other sites; I11.0 Hypertensive heart disease with heart failure; B95.62 Methicillin resistant Staphylococcus aureus infection as the cause of diseases classified elsewhere; E11.9 Type 2 diabetes mellitus without complications; D64.9 Anemia, unspecified; F31.9 Bipolar disorder, unspecified; Z68.36 Body mass index [BMI] 36.0-36.9, adult; E78.5 Hyperlipidemia, unspecified; E83.42 Hypomagnesemia; E87.6 Hypokalemia; K22.4 Dyskinesia of esophagus; Z86.718 Personal history of other venous thrombosis and embolism; Z86.72 Personal history of thrombophlebitis; E87.5 Hyperkalemia; F41.9 Anxiety disorder, unspecified; G47.30 Sleep apnea, unspecified; K21.9 Gastro-esophageal reflux disease without esophagitis; M19.90 Unspecified osteoarthritis, unspecified site; Z79.01 Long term (current) use of anticoagulants; Z79.899 Other long term (current) drug therapy; Z82.49 Family history of ischemic heart disease and other diseases of the circulatory system; Z96.653 Presence of artificial knee joint, bilateral; Z90.49 Acquired absence of other specified parts of digestive tract; Z98.1 Arthrodesis status; Z98.84 Bariatric surgery status; Z98.51 Tubal ligation status
CPT/HCPCS: 36415; 74018; 80048; 80053; 80202; 81001; 82565; 82607; 82746; 82747; 83540; 83550; 83735; 83880; 84132; 84133; 84443; 84484; 85025; 85610; 85730; 87040; 93005; 94640; 96365; 96366; 96375; 99285